=== PATIENT | female | born 1985 | race African-American/Black ===

== ENCOUNTER 2017-04-01 14:58 | Emergency (ER) | payer OTHER ==
[2017-04-01] MEDS ORDERED: diPHENhydraMINE PO* 50 MG PO ONE (15:35)
[2017-04-01] MEDS ORDERED: predniSONE TAB* 20 MG PO ONE (15:35)
--- NOTE | 2017-04-01 17:02 | ED ---
Allergic Reaction/Systemic - HPI Summary HPI Summary: 31F presents with swelling to chest after stunk by bee. admits to nausea. states has hives on legs although none seen. denies any difficulty swallowing or SOB. has chest wall pain over bee. has history of some reaction to bee stings that can not remember as happened when was younger. did not take anything. - History of Current Complaint Chief Complaint: EDGeneral Time Seen by Provider: 04/01/17 15:34 Hx Last Menstrual Period: 06/18/16 Pain Intensity: 8 - Allergies/Home Medications Allergies/Adverse Reactions: Allergies Allergy/AdvReac Type Severity Reaction Status Date / Time Iodinated Contrast Media Allergy Severe ITCHING, Verified 06/22/16 13:22 [IV CONTRAST DYE] HIVES CI Pigment Blue 63 Allergy Intermediate Hives Verified 06/22/16 13:22 [From Tamiflu] Oseltamivir [From Tamiflu] Allergy Intermediate Hives Verified 06/22/16 13:22 PMH/Surg Hx/FS Hx/Imm Hx Endocrine/Hematology History: Reports: Hx Diabetes - NIDDM Denies: Hx Anticoagulant Therapy Cardiovascular History: Reports: Hx Hypertension Denies: Hx Congestive Heart Failure, Hx Pacemaker/ICD, Other Cardiovascular Problems/Disorders Respiratory History: Reports: Hx Asthma, Hx Chronic Obstructive Pulmonary Disease (COPD), Hx Pneumonia, Hx Sleep Apnea - new BiPAP user, some compliance issues Denies: Other Respiratory Problems/Disorders GI History: Denies: Hx Ulcer Musculoskeletal History: Reports: Other Musculoskeletal History - morbid obesity Sensory History: Denies: Hx Hearing Aid Psychiatric History: Reports: Hx Anxiety - prn ativan, Hx Depression Denies: Hx Panic Disorder - Cancer History Hx Chemotherapy: No Hx Radiation Therapy: No - Surgical History Surgery Procedure, Year, and Place: APPENDECTOMY, CHOLECYSTECTOMY, 2 C-SECTIONS , EXPLORATORY SURGERY & F/U SURGERY FOR INFECTION - ABD. REMOVE FOREIGN OBJECT A KID IN EAR. TRIGGER THUMB RIGHT, DEEP VEIN RELEASE HAND - Immunization History Date of Tetanus Vaccine: Unk Date of Influenza Vaccine: Fall 2013 Infectious Disease History: No Infectious Disease History: Denies: Hx Clostridium Difficile, Hx Hepatitis, Hx Human Immunodeficiency Virus (HIV), Hx of Known/Suspected MRSA, History Other Infectious Disease, Traveled Outside the [place] in Last 30 Days - Family History Known Family History: Positive: Hypertension, Diabetes, Respiratory Disease - Social History Alcohol Use: Rare Substance Use Type: Reports: None Substance Use Comment - Amount & Last Used: Hx cocaine use, none currently Hx Tobacco Use: Yes Smoking Status (MU): Former Smoker Type: Cigarettes Amount Used/How Often: started to smoke again today Length of Time of Smoking/Using Tobacco: 5 years Have You Smoked in the Last Year: Yes Review of Systems Negative: Fever Positive: Chest Pain Negative: Shortness Of Breath Positive: Rash All Other Systems Reviewed And Are Negative: Yes Physical Exam Triage Information Reviewed: Yes Vital Signs On Initial Exam: Initial Vitals Temp Pulse Resp BP Pulse Ox 98.1 F 78 18 157/90 98 04/01/17 15:03 04/01/17 15:03 04/01/17 15:03 04/01/17 15:03 04/01/17 15:03 Vital Signs Reviewed: Yes Appearance: Positive: Well-Appearing Skin: Positive: Warm, Dry, Other - erythema to chest wall on left side with minimial swelling Head/Face: Positive: Normal Head/Face Inspection Eyes: Positive: Normal, EOMI, JASMEET, Conjunctiva Clear ENT: Positive: Normal ENT inspection, Pharynx normal, TMs normal Respiratory/Lung Sounds: Positive: Clear to Auscultation, Breath Sounds Present Cardiovascular: Positive: Normal, RRR Diagnostics - Vital Signs Vital Signs Temp Pulse Resp BP Pulse Ox 04/01/17 15:32 98.1 F 72 16 133/77 97 04/01/17 15:03 98.1 F 78 18 157/90 98 - Laboratory Lab Statement: Any lab studies that have been ordered have been reviewed, and results considered in the medical decision making process. Allergic Reaction Course/Dx - Course Course Of Treatment: 31F presents with swelling to chest after stunk by bee. admits to nausea. states has hives on legs although none seen. denies any difficulty swallowing or SOB. has chest wall pain over bee. has history of some reaction to bee stings that can not remember as happened when was younger. did not take anything. on exam 6cm erythema to left side of chest with minimal swelling. lungs CTA. throat normal. no hives leg. abdomen nontender. will treat with steriod and bendaryl. patient states in ED two hours and no anaphlyatic reaction. will d/c with steriod. patient understands and agrees wtih plan. - Diagnoses Differential Diagnosis/HQI/PQRI: Positive: Anaphylaxis, Local Allergic Reaction , Urticaria Provider Diagnoses: Bee sting Discharge - Discharge Plan Condition: Good Disposition: HOME Prescriptions: predniSONE TAB* [Deltasone TAB*] 40 mg PO DAILY #8 tab Patient Education Materials: Insect Bite or Sting (ED) Referrals: Huma Gilbert MD [Primary Care Provider] - Additional Instructions: Take Benadryl every 6 hours for next 24 hours Take steroid once a day for 4 days starting tomorrow Return to ED if severe shortness of breath, difficulty swallowing, or if develop any new or worsening symptoms
[2017-04-01 17:11] VITALS: BP 142/78
== END 2017-04-01 17:10 | disposition home or self-care (01) ==
LOC: ED 14:58
DX: T63.441A Toxic effect of venom of bees, accidental (unintentional), initial encounter (principal); R07.9 Chest pain, unspecified; R21 Rash and other nonspecific skin eruption; Z87.891 Personal history of nicotine dependence; Y92.9 Unspecified place or not applicable
CPT/HCPCS: 99282; A9270-GY; J7512

== ENCOUNTER 2017-06-08 13:45 | Emergency (ER) | payer OTHER ==
[2017-06-08] MEDS ORDERED: Albuterol/Ipratropium NEB.SOL* Albuterol 2.5 MG/Ipratropium 0.5 MG 3 ML INH ONE (15:04)
--- NOTE | 2017-06-08 15:36 | RAD ---
Indication: Shortness of breath, wheezing, fever. Productive cough. History of tobacco use. Comparison: September 21, 2015 Technique: Upright AP 1515 hours Report: Obese body habitus results in artifactual haziness of the lungs. Bilateral first costochondral calcifications noted. Clear lungs and pleural spaces. Negative for pneumothorax. The heart, pulmonary vasculature, and mediastinal contours are unremarkable. IMPRESSION: No evidence for pneumonia. Based on correlation with the previous lateral chest radiograph lung volume are elevated suggesting potential chronic obstructive pulmonary disease.
[2017-06-08 16:00] LABS: ALT 12 U/L (7-52); Alkaline Phosphatase 62 U/L (34-104); BUN/Creatinine Ratio 10.5 (8-20); Blood Urea Nitrogen 9 mg/dL (6-24); CO2 Carbon Dioxide 27 mmol/L (22-32); Calcium 9.1 mg/dL (8.6-10.3); Chloride 99 mmol/L (101-111); EGFR African American 98.3 (>60); EGFR Non-African American 76.5 (>60); Globulin 3.7 g/dL (2-4); Glucose 373 mg/dL (70-100); Sodium 129 mmol/L (133-145); Total Protein 7.7 g/dL (6.4-8.9)
[2017-06-08 16:04] LABS: Anion Gap 3 mmol/L (2-11)
[2017-06-08 16:56] LABS: Venous Bicarbonate HCO3 27.5 mmol/L (24-28)
[2017-06-08 16:58] LABS: Hematocrit 40 % (35-47); Mean Corpuscular HGB Conc 32 g/dl (31-36); Mean Corpuscular Hemoglobin 28 pg (27-31); Mean Corpuscular Volume 86 fL (80-97); Mean Platelet Volume 8 um3 (7.4-10.4); Red Blood Count 4.68 10^6/ul (4.0-5.4); Red Cell Distribution Width 13 % (10.5-15); White Blood Count 7.3 10^3/ul (3.5-10.8)
[2017-06-08] MEDS ORDERED: methylPREDNISolone 125 MG* 2 ML VIAL IV ONE (17:57)
[2017-06-08] MEDS ORDERED: guaiFENesin/CODIEN 100MG-10MG* 5 ML UDC PO ONE (17:58)
[2017-06-08] MEDS ORDERED: Ketorolac INJ* 30 MG/ML 1 ML VIAL IV PUSH ONE (17:58)
[2017-06-08] MEDS ORDERED: Ketorolac INJ* 60 MG/2 ML VIAL IM ONE (18:17)
[2017-06-08] MEDS ORDERED: methylPREDNISolone 125 MG* 2 ML VIAL IM ONE (18:17)
[2017-06-08 18:52] LABS: Urine Bilirubin Negative (Negative); Urine Glucose 3+(>=500 mg/dL) (Negative); Urine Nitrite Negative (Negative)
[2017-06-08 19:28] VITALS: BP 136/58
--- NOTE | 2017-06-08 21:58 | ED ---
Henri Jaimes Thomas, scribed for Wilfrido Darnell MD on 06/08/17 at 1521 . Respiratory - HPI Summary HPI Summary: The pt is a 31 y/o F presenting to the ED c/o a cough with yellow-green production that began four days ago. The cough is aggravated by deep breathing and is alleviated by inhalers at home. Pt additionally c/o chills, rhinorrhea, sore throat, chest pain, abdominal pain, ear pain, myalgia, and shoulder pain. Pt denies vomiting. PMHx includes asthma, DM, HTN, and PNA. - History of Current Complaint Chief Complaint: EDFluSymptoms Stated Complaint: DIFF BREATHING/FLU LIKE SYMPTOMS Time Seen by Provider: 06/08/17 14:51 Hx Obtained From: Patient Onset/Duration: Lasting Days - 4, Still Present Current Severity: Moderate Pain Intensity: 6 Character: Cough (Productive) Sputum Color: Yellow, Green Aggravating Factor(s): Deep Breaths Alleviating Factor(s): Other - Inhalers Associated Signs and Symptoms: Chest Pain, Chills - Allergy/Home Medications Allergies/Adverse Reactions: Allergies Allergy/AdvReac Type Severity Reaction Status Date / Time Iodinated Contrast Media Allergy Severe ITCHING, Verified 06/22/16 13:22 [IV CONTRAST DYE] HIVES CI Pigment Blue 63 Allergy Intermediate Hives Verified 06/22/16 13:22 [From Tamiflu] Oseltamivir [From Tamiflu] Allergy Intermediate Hives Verified 06/22/16 13:22 PMH/Surg Hx/FS Hx/Imm Hx Previously Healthy: No Endocrine/Hematology History: Reports: Hx Diabetes - NIDDM Denies: Hx Anticoagulant Therapy Cardiovascular History: Reports: Hx Hypertension Denies: Hx Congestive Heart Failure, Hx Pacemaker/ICD, Other Cardiovascular Problems/Disorders Respiratory History: Reports: Hx Asthma, Hx Chronic Obstructive Pulmonary Disease (COPD), Hx Pneumonia, Hx Sleep Apnea - new BiPAP user, some compliance issues Denies: Other Respiratory Problems/Disorders GI History: Denies: Hx Ulcer Musculoskeletal History: Reports: Other Musculoskeletal History - morbid obesity Sensory History: Denies: Hx Hearing Aid Psychiatric History: Reports: Hx Anxiety - prn ativan, Hx Depression Denies: Hx Panic Disorder - Cancer History Hx Chemotherapy: No Hx Radiation Therapy: No - Surgical History Surgery Procedure, Year, and Place: APPENDECTOMY, CHOLECYSTECTOMY, 2 C-SECTIONS , EXPLORATORY SURGERY & F/U SURGERY FOR INFECTION - ABD. REMOVE FOREIGN OBJECT A KID IN EAR. TRIGGER THUMB RIGHT, DEEP VEIN RELEASE HAND - Immunization History Date of Tetanus Vaccine: Unk Date of Influenza Vaccine: Fall 2013 Infectious Disease History: No Infectious Disease History: Denies: Hx Clostridium Difficile, Hx Hepatitis, Hx Human Immunodeficiency Virus (HIV), Hx of Known/Suspected MRSA, History Other Infectious Disease, Traveled Outside the [place] in Last 30 Days - Family History Known Family History: Positive: Hypertension, Diabetes, Respiratory Disease - Social History Alcohol Use: Rare Substance Use Type: Reports: None Substance Use Comment - Amount & Last Used: Hx cocaine use, none currently Hx Tobacco Use: Yes Smoking Status (MU): Former Smoker Type: Cigarettes Amount Used/How Often: started to smoke again today Length of Time of Smoking/Using Tobacco: 5 years Have You Smoked in the Last Year: Yes Review of Systems Positive: Chills. Negative: Fever Negative: Erythema - eyes Positive: Ear Ache, Nasal Discharge. Negative: Sore Throat Positive: Chest Pain Positive: Cough. Negative: Shortness Of Breath Positive: Abdominal Pain. Negative: Vomiting, Nausea Negative: dysuria, hematuria Positive: Myalgia, Other - Shoulder pain Negative: Rash Neurological: Other - NEGATIVE: dizziness All Other Systems Reviewed And Are Negative: Yes Physical Exam - Summary Physical Exam Summary: Constitutional: Well-developed, Well-nourished, Alert. (-) Distressed Skin: Warm, Dry HENT: Normocephalic; Atraumatic Eyes: Conjunctiva normal Neck: Musculoskeletal ROM normal neck. (-) JVD, (-) Stridor, (-) Tracheal deviation Cardio: Rhythm regular, rate normal, Heart sounds normal; Intact distal pulses; The pedal pulses are 2+ and symmetric. Radial pulses are 2+ and symmetric. (-) Murmur Pulmonary/Chest wall: She has diffuse wheezing. Effort normal. (-) Respiratory distress, (-) Rales Abd: Soft, (-) Tenderness, (-) Distension, (-) Guarding, (-) Rebound Musculoskeletal: (-) Edema Lymph: (-) Cervical adenopathy Neuro: Alert, Oriented x3 Psych: Mood and affect Normal Triage Information Reviewed: Yes Vital Signs On Initial Exam: Initial Vitals Temp Pulse Resp BP Pulse Ox 98.9 F 107 24 130/77 93 06/08/17 14:10 06/08/17 14:10 06/08/17 14:10 06/08/17 14:10 06/08/17 14:10 Vital Signs Reviewed: Yes - Victor Coma Scale Coma Scale Total: 15 Diagnostics - Vital Signs Vital Signs Temp Pulse Resp BP Pulse Ox 06/08/17 14:10 98.9 F 107 24 130/77 93 - Laboratory Result Diagrams: 06/08/17 16:30 06/08/17 16:30 Lab Statement: Any lab studies that have been ordered have been reviewed, and results considered in the medical decision making process. - Radiology CXR Xray Interpretation: Positive (See Comments) - No evidence for pneumonia. Based on correlation with the previous lateral chest radiograph lung volume are elevated suggesting potential chronic obstructive pulmonary disease. ED physician has reviewed this report and agrees. Radiology Interpretation Completed By: Radiologist Re-Evaluation - Re-Evaluation First Eval Re-Evaluation Time: 19:54 Change: Improved Comment: She is feeling better. Disposition - Course Assessment/Plan: The pt is a 31 y/o F presenting to the ED c/o a cough with yellow-green production that began four days ago. The cough is aggravated by deep breathing and is alleviated by inhalers at home. Pt additionally c/o chills , rhinorrhea, sore throat, chest pain, abdominal pain, ear pain, myalgia, and shoulder pain. Pt denies vomiting. PMHx includes asthma, DM, HTN, and PNA. In the ED course the patient was given Duoneb, Robitussin, Toradol, and Solu- Medrol. Bloodwork shows Sodium 129, Chloride 99, glucose 373. VBG shows CO2 55, pO2 32, O2 Sat 69.7, and Base Excess 4.3. CXR shows No evidence for pneumonia. Based on correlation with the previous lateral chest radiograph lung volume are elevated suggesting potential chronic obstructive pulmonary disease. The patient is diagnosed with bronchitis. The patient is instructed to follow up with primary care. The patient is prescribed prednisone. Patient is agreeable with this plan. - Diagnoses Provider Diagnoses: Bronchitis Discharge - Discharge Plan Condition: Stable Disposition: HOME Prescriptions: Guaifenesin-Codeine [Codeine/Guaifenesin 100-10 mg/5Ml] 5 ml PO BEDTIME #25 ml MDD 5 ML predniSONE TAB* [Deltasone TAB*] 20 mg PO DAILY #5 tab Patient Education Materials: Acute Bronchitis (ED) Referrals: Huma Gilbert MD [Primary Care Provider] - 3 Days Additional Instructions: You need to increase your Humalog insulin by 5 units for each dose while you are on Prednisone. Follow up with your primary care provider in 3 days. Return to the emergency department for any new or worsening symptoms. The documentation as recorded by the Henri howard Thomas accurately reflects the service I personally performed and the decisions made by me, Wilfrido Darnell MD.
== END 2017-06-08 20:05 | disposition home or self-care (01) ==
LOC: ED 13:45
DX: J40 Bronchitis, not specified as acute or chronic (principal); R05 Cough; Z87.891 Personal history of nicotine dependence; Z86.79 Personal history of other diseases of the circulatory system; E11.9 Type 2 diabetes mellitus without complications
CPT/HCPCS: 36415; 71010; 80053; 81003; 82803; 83605; 85025; 85610; 85730; 87040; 87502; 94640; 96372; 96374; 99283; A9270-GY; J1885; J2930

== ENCOUNTER 2017-09-23 08:09 | Emergency (ER) | payer OTHER ==
--- NOTE | 2017-09-23 10:45 | ED ---
Henri Jaimes Thomas, scribed for Hollis Lynn MD on 09/23/17 at 1021 . Skin Complaint - HPI Summary HPI Summary: The patient is a 31 year old female complaining of an ulceration to the cleft of her right buttock. She first noticed a bump about a week ago that has progressively grown in size. Since onset, there has been fluid drainage. The pain is rated 8/10. The patient has been treating the abscess with warm soapy water and covering it with gauze. The patient denies fevers and chills. - History of Current Complaint Chief Complaint: EDRashSkinAbscess Time Seen by Provider: 09/23/17 10:13 Stated Complaint: ABCESS Hx Obtained From: Patient Hx Last Menstrual Period: 06/18/16 Onset/Duration: Started Weeks Ago - 1, Still Present Timing: Constant Current Severity: Moderate Pain Intensity: 8 Pain Scale Used: 0-10 Numeric Skin Location: Other: - cleft of right buttock Character: Pain Aggravating Symptom(s): Nothing Alleviating Symptom(s): Other: - Warm soapy water Associated Signs & Symptoms: Negative - fever, chills Related History: Diabetes - Allergy/Home Medications Allergies/Adverse Reactions: Allergies Allergy/AdvReac Type Severity Reaction Status Date / Time MS Iodinated Contrast Media Allergy Severe ITCHING, Verified 09/23/17 08:11 [IV CONTRAST DYE] HIVES MS CI Pigment Blue 63 Allergy Intermediate Hives Verified 09/23/17 08:11 [From Tamiflu] MS Oseltamivir [From Tamiflu] Allergy Intermediate Hives Verified 09/23/17 08:11 PMH/Surg Hx/FS Hx/Imm Hx Endocrine/Hematology History: Reports: Hx Diabetes - NIDDM Denies: Hx Anticoagulant Therapy Cardiovascular History: Reports: Hx Hypertension Denies: Hx Congestive Heart Failure, Hx Pacemaker/ICD, Other Cardiovascular Problems/Disorders Respiratory History: Reports: Hx Asthma, Hx Chronic Obstructive Pulmonary Disease (COPD), Hx Pneumonia, Hx Sleep Apnea - new BiPAP user, some compliance issues Denies: Other Respiratory Problems/Disorders GI History: Denies: Hx Ulcer History: Denies: Hx Renal Disease Musculoskeletal History: Reports: Other Musculoskeletal History - morbid obesity Sensory History: Denies: Hx Hearing Aid Psychiatric History: Reports: Hx Anxiety - prn ativan, Hx Depression Denies: Hx Panic Disorder - Cancer History Hx Chemotherapy: No Hx Radiation Therapy: No - Surgical History Surgery Procedure, Year, and Place: APPENDECTOMY, CHOLECYSTECTOMY, 2 C-SECTIONS , EXPLORATORY SURGERY & F/U SURGERY FOR INFECTION - ABD. REMOVE FOREIGN OBJECT A KID IN EAR. TRIGGER THUMB RIGHT, DEEP VEIN RELEASE HAND - Immunization History Date of Tetanus Vaccine: Unk Date of Influenza Vaccine: Fall 2013 Infectious Disease History: No Infectious Disease History: Denies: Hx Clostridium Difficile, Hx Hepatitis, Hx Human Immunodeficiency Virus (HIV), Hx of Known/Suspected MRSA, History Other Infectious Disease, Traveled Outside the [place] in Last 30 Days - Family History Known Family History: Positive: Hypertension, Diabetes, Respiratory Disease - Social History Alcohol Use: Rare Substance Use Type: Reports: None Substance Use Comment - Amount & Last Used: Hx cocaine use, none currently Hx Tobacco Use: Yes Smoking Status (MU): Former Smoker Type: Cigarettes Amount Used/How Often: started to smoke again today Length of Time of Smoking/Using Tobacco: 5 years Have You Smoked in the Last Year: Yes Review of Systems Negative: Fever, Chills Positive: Other - Ulceration All Other Systems Reviewed And Are Negative: Yes Physical Exam - Summary Physical Exam Summary: General: well-appearing, no pain distress Skin: She has a 2.5 cm diameter ulceration in the cleft of her right buttock. There is firmness surrounding as well as erythema. There is no obvious fluid pocket for drainage. Head: normal Eyes: EOMI, JASMEET ENT: normal Neck: supple, nontender Respiratory: CTA, breath sounds present Cardiovascular: RRR Abdomen: soft, nontender Bowel: present Musculoskeletal: normal, strength/ROM intact Neurological: normal, sensory/motor intact, A&O x3 Psychological: affect/mood appropriate Triage Information Reviewed: Yes Vital Signs On Initial Exam: Initial Vitals Temp Pulse Resp BP Pulse Ox 97.8 F 123 20 177/110 100 09/23/17 08:11 09/23/17 08:11 09/23/17 08:11 09/23/17 08:11 09/23/17 08:11 Vital Signs Reviewed: Yes Diagnostics - Vital Signs Vital Signs Temp Pulse Resp BP Pulse Ox 09/23/17 08:11 97.8 F 123 20 177/110 100 - Laboratory Lab Statement: Any lab studies that have been ordered have been reviewed, and results considered in the medical decision making process. Course/Dx - Course Course Of Treatment: Medications reviewed. Allergies noted. BP noted and patient urged to follow up with primary care. NO ABSCESS TO DRAIN. NO DRAINAGE TO CULTURE AT THIS TIME. RX BACTRIM, KEFLEX AND MUPIROCIN. F/U [facility] - Diagnoses Provider Diagnoses: Uncontrolled hypertension, Cellulitis, Non-healing wound Discharge - Discharge Plan Condition: Stable Disposition: HOME Prescriptions: Cephalexin CAP* [Keflex CAP*] 500 mg PO QID #40 cap Mupirocin 2% OINT* [Bactroban 2 % Oint*] 1 applic TOPICAL BID #1 tube Sulfamethox/Trimethoprim DS* [Bactrim DS 800/160 TAB*] 1 tab PO BID #20 tab Patient Education Materials: Cellulitis (ED) Referrals: [facility] [Outside] Huma Gilbert MD [Primary Care Provider] - Additional Instructions: FOLLOW UP WITH YOUR PRIMARY CARE DOCTOR AND THE [facility] , [phone]. RETURN TO THE EMERGENCY DEPARTMENT FOR ANY WORSENING OF YOUR CONDITION OR QUESTIONS OR CONCERNS. YOUR BLOOD PRESSURE WAS ELEVATED TODAY; FOLLOW UP WITH YOUR PRIMARY CARE DOCTOR WITHIN THE NEXT 1 WEEK. The documentation as recorded by the Henri howard Thomas accurately reflects the service I personally performed and the decisions made by me, Hollis Lynn MD.
[2017-09-23] MEDS ORDERED: Mupirocin 2% OINT* TUBE TOPICAL ONE (11:16)
[2017-09-23 11:44] VITALS: BP 168/119
== END 2017-09-23 11:42 | disposition home or self-care (01) ==
LOC: ED 08:09
DX: I10 Essential (primary) hypertension (principal); L03.90 Cellulitis, unspecified; L98.499 Non-pressure chronic ulcer of skin of other sites with unspecified severity
CPT/HCPCS: 99283

== ENCOUNTER 2017-12-24 20:45 | Emergency (ER) | payer SELFPAY ==
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
[2017-12-25] MEDS ORDERED: Ibuprofen TAB* 600 MG PO ONE (00:13)
[2017-12-25] MEDS ORDERED: Acetaminophen TAB* 325 MG PO ONE (00:13)
[2017-12-25 01:03] VITALS: BP 138/115
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
== END 2017-12-25 01:02 | disposition home or self-care (01) ==
LOC: ED 20:45
DX: M25.512 Pain in left shoulder (principal); R07.81 Pleurodynia; M25.552 Pain in left hip; M79.652 Pain in left thigh; V43.52XA Car driver injured in collision with other type car in traffic accident, initial encounter; Y92.410 Unspecified street and highway as the place of occurrence of the external cause; E11.9 Type 2 diabetes mellitus without complications; I10 Essential (primary) hypertension; J44.9 Chronic obstructive pulmonary disease, unspecified; F41.8 Other specified anxiety disorders; F17.200 Nicotine dependence, unspecified, uncomplicated; Z79.84 Long term (current) use of oral hypoglycemic drugs; Z79.899 Other long term (current) drug therapy; Z91.041 Radiographic dye allergy status; Z88.3 Allergy status to other anti-infective agents
CPT/HCPCS: 72110; 99283; A9270-GY

== ENCOUNTER 2018-03-07 18:43 | Emergency (ER) | payer OTHER ==
--- OUTSIDE RECORDS SUMMARY | 2018-03-07 18:53 | XMS REPORT ---
:1985 External Reference #:[id number] Author Organization [facility] Address [address] [place] [address] Phone [phone] Care Team Providers Name Role Phone Huma Gilbert MD Primary Care Physician Unavailable Payers Type Date Identification Numbers Payment Provider Subscriber Commercial Policy Number: [id number] Mark Cornejo Group Number: [id number] [address] PayID: [id number] [place] [address] Problems Date Description Provider Status Onset: 05/28/2016 Morbid obesity Milena La MD Active Onset: 05/28/2016 Asthma without status asthmaticus Milena La MD Active Onset: 05/28/2016 Gastroesophageal reflux disease Milena La MD Active Onset: 06/09/2016 Obstructive sleep apnea syndrome Esther Verdugo DNP, RN, Active [facility]- Onset: 08/13/2016 Type II diabetes mellitus Alex Luna NP Active uncontrolled Onset: 08/13/2016 Bipolar disorder Alex Luna NP Active Onset: 08/13/2016 Posttraumatic stress disorder Alex Luna NP Active Onset: 10/28/2016 Essential hypertension Alex Luna NP Active Onset: 10/28/2016 Chronic low back pain Alex Luna NP Active Onset: 10/16/2015 Atypical squamous cells of Alex Luna NP Active undetermined significance on cervical Papanicolaou smear Family History Date Family Member(s) Problem(s) Comments General Diabetes General Heart Disease Father Coronary Artery Disease (CAD) Father Diabetes Father Hypertension Father Kidney Disease Mother Congestive Heart Failure (CHF) Mother Hypertension Mother Bipolar Disorder Onset: (08/13/2016) First Son 5 healthy Onset: (08/13/2016) First Daughter 6 healthy Siblings 1 Brother who at age 40 with blood clots brother with asthma Onset: (08/13/2016) Second Brother 34 HTN, DM Onset: (08/13/2016) Third Brother 33 sickel cell trait Social History Type Date Description Comments Marital Status Significant Other female Lives With Children Occupation Homemaker ETOH Use Rarely consumes alcohol Smoking Patient is a former smoker 1 pack X 3 weeks X 2 years. Recreational Drug Use Former Drug User marijuana; not regular use Daily Caffeine occasional coffee or tea Exercise Type/Frequency Does not exercise Allergies, Adverse Reactions, Alerts Date Description Reaction Status Severity Comments 11/29/2014 Tamiflu active 05/28/2016 Ibuprofen active 08/13/2016 Contrast Dye/Morphine combo itching intensely active Severe 07/20/2013 NKDA inactive Medications Medication Date Status Form Strength Qnty SIG Indications Ordering Provider Zonisamide 12/23 Active Capsules 100mg 30cap 1 capsule by G43.009 Adalid SThompson s mouth at [place], bedtime M.D. Sumatriptan 03/24 Active Solution 4mg/0.5ML 12uni 1 injection G43.009 Adalid Vang Auto-Inje ts twice daily [place], [place] as needed on M.D. no more than 2 days/week. please include autoinjector with instructions. Bydureon 11/10 Active Pen 2mg 4unit inject 2 mg E11.65 s sc weekly ANTELMO Luna Freestyle Lite 08/19 Active Strips 100un test up to 4 E11.65 Alex Test its times a day ANTELMO Luna Aspirin 08/13 Active Tablets 81mg 90tab [address] barclay every day ANTELMO Luna Lisinopril 05/28 Active Tablets 30mg 90tab 1 by mouth E11.65 Tono s every day Tenisha Shah M.D.,FACP Zantac 05/28 Active Tablets 300mg 90tab 1 tab by K21.9 s mouth every [place], day every [employer] night Advair Diskus 05/27 Active Aerosol 500-50mcg inhale 1 dose J45.909 /Dose by mouth twice a day Cyclobenzaprine 05/27 Active Tablets 10mg 90tab one by mouth M54.42 Alex HCL /2015 s three times a [place], day as needed [employer] spasm M54.41 Fluticasone 05/27/2016 Active Suspension 50mcg/Act 9.900ml 2 sprays J30.9 Alex Propionate each [place], nostril [employer] daily as needed Levocetirizine 05/27/2016 Active Tablets 5mg 90tabs 1 by mouth J30.9 Alex Dihydrochlorid every day [place], e [employer] Metformin HCL 05/27/2016 Active Tablets ER 750mg 180tabs take two E11.65 Alex ER 24HR tablets by [place], mouth [employer] every day Lyrica 05/27/2016 Active Capsules 150mg 1 by mouth E11.40 Unknown twice a day Ondansetron 05/27/2016 Active Tablets 4mg 30tabs dissolve G43.10 Alex Dispers one tablet 9 [place], orally [employer] every 8 hours as needed for nausea. Pantoprazole 05/27/[address] 40mg 90tabs 1 by mouth K21.9 Alex Sodium every day [place], [employer] Saphris 05/27/2016 Active Tablets Sub 7.5mg daily F31.9 Unknown Ventolin HFA 05/27/2016 Active Aerosol 108(90Base 8gm 2 puffs by J45.90 Alex ) mcg/Act mouth four 9 [place], times a [employer] day as needed Zolmitriptan 05/27/2016 Active Tablets 5mg 14tabs 1 tab by G43.10 Alex mouth 9 [place], twice a [employer] day maximum 2 days weekly Glipizide Active Tablets 5mg 1 by mouth Unknown every day Zonisamide 03/24/2017 Hx Capsules 25mg 120caps 4 po qhs G43.00 Adalid Palma, 12/23/2017 Rai Alprazolam 05/27/2016 Hx Tablets 2mg 1-3 tabs F43.10 Unknown - three 03/23/2017 times a day as needed Benzonatate 05/27/2016 Hx Capsules 200mg one by Unknown - mouth 05/27/2016 three times daily as needed for cough Bupropion HCL 05/27/2016 Hx Tablets ER 300mg 1 by mouth F31.9 Unknown ER (XL) - 24HR every day 03/23/2017 Fluconazole 05/27/2016 Hx Tablets 150mg one by Unknown - mouth 08/13/2016 repeat in 3 days as needed Humalog 05/27/2016 Hx Solution 200Unit/ML 6ml 20 units E11.65 Alex Kwikpen - Pen-Inject three [place], 09/01/2016 times [employer] daily as needed dx: E11.65 Hydrocodone-Ac 05/27/2016 Hx Tablets 5-325mg 1 by mouth Unknown etaminophen - every 4-6 05/27/2016 hours prn. Ipratropium 05/27/2016 Hx Solution 0.06% 2 sprays J30.9 Unknown [place] - in each 08/13/2016 nostril 4 times a day as needed Ipratropium 05/27/2016 Hx Solution 0.5-2.5(3) 1 vial in J45.90 Unknown [place] - mg/3ML nebulizer 9 rol Sulfate 08/13/2016 three times a day as needed for asthma Levemir 05/27/2016 Hx Solution 100Unit/ML 10ml 50 units E11.65 Alex - twice [place], 09/01/2016 daily as [employer] needed dx: e11.65 Lisinopril 05/27/2016 Hx Tablets 30mg 1 by mouth Unknown - every day 08/13/2016 Loratadine 05/27/2016 Hx Tablets 10mg 1 by mouth J30.9 Unknown - every day 08/13/2016 Montelukast 05/27/2016 Hx Tablets 10mg 1 by mouth Unknown Sodium - every day 05/27/2016 Movantik 05/27/2016 Hx Tablets 25mg 30tabs 1 by mouth K59.03 Alex - every day [place], 03/23/2017 [employer] Oxycodone HCL 05/27/2016 Hx Tablets 10mg 1 by mouth M54.42 Unknown - every 6 08/13/2016 hours as needed pain M54.41 Sudafed 12 Hour 05/27/2016 - Hx Tablets ER 120mg Not taking1 Unknown 08/13/2016 12HR tab by mouth every 12 hours as needed Tizanidine HCL 05/27/2016 - Hx Capsules 4mg 1 three times M54.42 Unknown 08/13/2016 a day as needed M54.41 Topiramate 05/27/2016 - Hx Tablets 100mg 60tabs 1 by mouth G43.109 Alex 02/18/2018 twice a [place], [employer] day Trulicity 05/27/2016 - Hx Solution 1.5mg/0.5 2ml inject sc E11.65 Alex 11/10/2016 Pen-Inject ML weekly ANTELMO Luna - Hx Not taking Unknown 08/13/2016 Medications Administered in Office Medication Date Status Form Strength Qnty SIG Indications Ordering Provider Depomedrol Administered Injection Robyn 80MG 015 Rai Bustos Depomedrol Administered Injection Ildefonso Talavera 80MG 014 Rai Immunizations CPT Code Status Date Vaccine Lot # [id number] Given 08/13/2016 Pneumonia Vaccine [id number] Given 05/28/2016 Influenza Virus Vaccine, Quadrivalent, Split [id number] Virus, Im Use Vital Signs Date Vital Result Comment 02/18/2018 Height 65 inches 5'5" Weight 282.00 lb Heart Rate 82 /min BP Systolic Sitting 122 mmHg BP Diastolic Sitting 72 mmHg Respiratory Rate 16 /min BMI (Body Mass Index) 46.9 kg/m2 03/24/2017 Height 65 inches 5'5" Weight 303.12 lb Heart Rate 72 /min BP Systolic 130 mmHg BP Diastolic 80 mmHg BMI (Body Mass Index) 50.4 kg/m2 08/31/2016 Weight 311.12 lb Heart Rate 97 /min BP Systolic Sitting 146 mmHg BP Diastolic Sitting 80 mmHg Body Temperature 98.6 F O2 % BldC Oximetry 98 % 08/13/2016 Height 65 inches 5'5" Weight 301.00 lb Heart Rate 100 /min BP Systolic Sitting 124 mmHg BP Diastolic Sitting 94 mmHg Body Temperature 97.8 F O2 % BldC Oximetry 98 % BMI (Body Mass Index) 50.1 kg/m2 07/22/2016 Height 65 inches 5'5" Weight 316.00 lb Heart Rate 92 /min BP Systolic 124 mmHg BP Diastolic 72 mmHg Respiratory Rate 14 /min O2 % BldC Oximetry 96 % BMI (Body Mass Index) 52.6 kg/m2 06/09/2016 Height 65 inches 5'5" Weight 316.00 lb Heart Rate 106 /min BP Systolic Sitting 130 mmHg BP Diastolic Sitting 75 mmHg Respiratory Rate 18 /min O2 % BldC Oximetry 98 % BMI (Body Mass Index) 52.6 kg/m2 05/28/2016 Height 64.75 inches 5'4.75" Weight 316.25 lb Heart Rate 74 /min BP Systolic 128 mmHg BP Diastolic 80 mmHg Respiratory Rate 14 /min O2 % BldC Oximetry 96 % BMI (Body Mass Index) 53.0 kg/m2 Neck Circumference in inches 17 11/29/2014 Height 64.75 inches 5'4.75" Weight 323.00 lb Heart Rate 90 /min BP Systolic 110 mmHg BP Diastolic 73 mmHg Pain Level 7 BMI (Body Mass Index) 54.2 kg/m2 08/08/2013 Height 64.75 inches 5'4.75" Weight 340.00 lb Heart Rate 82 /min BP Systolic 126 mmHg BP Diastolic 74 mmHg BMI (Body Mass Index) 57.0 kg/m2 Results Test Date Test Result H/L Range Note Laboratory test finding 08/13/2016 Hemoglobin A1c 13.2 High 5-7 Procedures Date CPT Code Description Status 05/31/2016 05869 Sleep Study Unattended,HRT Rate,Oxygen Sat,Resp Completed Effort/Airflow 11/29/2014 40313 Inject Tendon Sheath Or Ligament Aponeurosis Eg Plantar Completed Fascia 10/09/2013 36584 Polysomnography Sleep Staging 4+ Parameters W/Cpap Completed 09/13/2013 34991 Polysomnography Sleep Staging 4+ Parameters W/Cpap Completed 08/15/2013 19603 Inject/Drain Joint/Bursa Major W/O US Completed 08/15/2013 76187 Inject Tendon Sheath Or Ligament Aponeurosis Eg Plantar Completed Fascia Encounters Type Date Location Provider CPT E/M Dx Office Visit 03/24/2017 [facility] Adalid Palma, 70088 G43.009 11:00a M.D. Office Visit 08/31/2016 [facility] [place] [address] [address]11[address]65 1:[address] M54.41 M54.42 G43.109 Z79.4 Office Visit 08/13/2016 1:20p [facility] [place] [address] J45.909 F31.9 F43.10 K21.9 M54.41 M54.42 G43.109 Z23 Office Visit 07/22/2016 1:30p [facility] Esther Verdugo, 00047 G47.33 [facility] [place], RN, TIMBER APPRAISER-BC E66.01 Z68.43 Office Visit 06/09/2016 10:30a [facility] Esther Verdugo, 63428 G47.33 [facility] YOKASTA RN, TIMBER APPRAISER- G47.14 E66.01 Z68.43 Office Visit 05/28/2016 8:45a [facility] [place] [address] G47.9 [facility] G47.63 E66.01 J45.40 Z23 Office Visit 11/29/2014 11:00a [facility] Robyn Bustos 84316 727.03 Of C[facility]psonMNellie [place] Office Visit 08/24/2013 8:56a [facility] Ted Suarez M.D. 94009 780.59 786.09 780.79 Office Visit 08/15/2013 1:15p [facility] I[facility]efonso Talavera M.D. 76735 726.12 C.M.A. Office Visit 01/17/2013 2:00p [facility] Talavera M.D. 50124 844.8 C.M.A. Office Visit 11/11/2012 11:00a [facility] Talavera M.D. 70105 718.86 C.M.A. Office Visit 10/28/2012 2:15p [facility] Talavera M.D. 25821 718.86 C.M.A. Plan of Care Future Appointment(s):02/24/2019 2:30 pm - [facility] - Adalid Palma M.D.G43.009 Migraine w/o aura, not intractable, w/o status migrainosusFollow up:1 YEAR
[2018-03-07 19:34] VITALS: BP 158/99
--- NOTE | 2018-03-07 19:49 | UC ---
Lower Extremity/Ankle HPI - HPI Summary HPI Summary: The pt is a 32 y/o female presenting to c/p knee pain since 12 days ago worse today . She was doing restraint training at work and fell landing on her left knee, hitting the floor instead of the mat. The pain rated 8/10 in severity is aggravated by activity, and standing but is alleviated by changing position. She took Tylenol to no relief. She notes tenderness at the R knee cap and medial and posterior end . This is scribe Sharon Diego documenting for attending Dr. Hollis Lynn .I, Dr. Hollis Lynn personally performed the services described in this documentation as scribed in my presence and it is both accurate and complete - History of Current Complaint Chief Complaint: UCLowerExtremity Stated Complaint: KNEE INJURY WC Time Seen by Provider: 03/07/18 19:41 Hx Obtained From: Patient Hx Last Menstrual Period: 02/24/18 Onset/Duration: Lasting Days - 12 days, Worse Since - Today Severity Initially: Severe Severity Currently: Severe Pain Intensity: 8 Pain Scale Used: 0-10 Numeric Aggravating Factor(s): Standing, Ambulation, Other Alleviating Factor(s): Other - Changing position - Allergies/Home Medications Allergies/Adverse Reactions: Allergies Allergy/AdvReac Type Severity Reaction Status Date / Time Iodinated Contrast- Oral and Allergy Hives Verified 03/07/18 19:35 IV Dye morphine Allergy Hives Verified 03/07/18 19:35 oseltamivir [From Tamiflu] Allergy Hives Verified 03/07/18 19:35 Home Medications: Home Medications Dulaglutide [Trulicity] 03/07/18 [History] Ibuprofen TAB* [Advil TAB*] 800 mg PO PRN 03/07/18 [History] Insulin Detemir (NF) [Levemir (NF)] 15 unit SUBCUT DAILY 03/07/18 [History Confirmed 03/07/18] PMH/Surg Hx/FS Hx/Imm Hx Previously Healthy: No Endocrine History: Diabetes Respiratory History: Asthma, Other - Sleep apnea Other Respiratory History: . Psychological History: Anxiety, Depression Other History Of: Negative For: Anticoagulant Therapy - Surgical History Surgical History: Yes Surgery Procedure, Year, and Place: APPENDECTOMY, CHOLECYSTECTOMY, 2 C-SECTIONS , EXPLORATORY SURGERY & F/U SURGERY FOR INFECTION - ABD. REMOVE FOREIGN OBJECT A KID IN EAR. TRIGGER THUMB RIGHT, DEEP VEIN RELEASE HAND - Family History Known Family History: Positive: Hypertension, Diabetes, Respiratory Disease - Social History Occupation: Employed Full-time Lives: With Family Alcohol Use: Occasionally Alcohol Amount: "a couple a week" Substance Use Type: Marijuana Substance Use Comment - Amount & Last Used: Hx cocaine use, none currently Smoking Status (MU): Former Smoker Type: Cigarettes Amount Used/How Often: started to smoke again today Length of Time of Smoking/Using Tobacco: 5 years Have You Smoked in the Last Year: Yes Review of Systems Constitutional: Negative - Fever Musculoskeletal: Other: - L knee pain and tenderness All Other Systems Reviewed And Are Negative: Yes Physical Exam - Summary Physical Exam Summary: General: well-appearing, no pain distress Skin: warm, color reflects adequate perfusion, dry Head: normal Eyes: EOMI, JASMEET ENT: normal Neck: supple, nontender Respiratory: CTA, breath sounds present Cardiovascular: RRR Abdomen: soft, nontender Bowel: present Musculoskeletal: Tender to palpation of the L patella and the anterior-medial aspect of the knee; Positive Mc Murrays test (medial pain) ; L Knee is stable to exam ; R knee is normal, strength/ROM intact Neurological: sensory/motor intact, A&O x3 Psychological: affect/mood appropriate Triage Information Reviewed: Yes Vital Signs: Initial Vital Signs Temp 98.1 F 03/07/18 19:29 Pulse 79 03/07/18 19:29 Resp 18 03/07/18 19:29 BP 158/99 03/07/18 19:29 Pulse Ox 98 03/07/18 19:29 Vital Signs Reviewed: Yes Diagnostics - Radiology L Knee XRay Radiology Interpretation Completed By: ED Physician - NAD and Radiologist reading pending. Lower Extremity Course/Dx - Course Course Of Treatment: RADIOLOGIST READING OF X-RAY PENDING. JEAN PAUL/ICE/ELEVATE/REST /CONTINUE NAPROXSEN AND F/U WITH ORTHOPEDICS. - Differential Dx/Diagnosis Provider Diagnoses: LEFT KNEE PAIN AND EFFUSION Discharge - Sign-Out/Discharge Documenting (check all that apply): Patient Departure - Discharge Plan Condition: Stable Disposition: HOME Prescriptions: oxyCODONE/Acetamin 5/325 MG* [Percocet 5/325 TAB*] 1 tab PO Q4H PRN #20 tab MDD 6 PRN Reason: Pain Patient Education Materials: Swollen Knee Joint (ED) Forms: *Work Release Referrals: Kori Farooq MD [Medical Doctor] - Huma Gilbert MD [Primary Care Provider] - Additional Instructions: FOLLOW UP WITH ORTHOPEDICS. GET RECHECKED FOR ANY WORSENING OF YOUR CONDITION OR QUESTIONS OR CONCERNS. - Billing Disposition and Condition Condition: STABLE Disposition: Home
[2018-03-07] MEDS ORDERED: HYDROcodone/ACETAMIN 5-325 MG* 1 TAB PO ONE (20:38)
--- NOTE | 2018-03-08 07:36 | RAD ---
HISTORY: PAIN LT KNEE S/P TRAUMA COMPARISONS: July 22, 2012 VIEWS: 4, Frontal, lateral, axial, and oblique views of the left knee FINDINGS: BONE DENSITY: Normal. BONES: There is no displaced fracture. JOINTS: There is no arthropathy. There is no suprapatellar joint effusion or lipohemarthrosis. ALIGNMENT: There is no dislocation. SOFT TISSUES: Unremarkable. OTHER FINDINGS: None. IMPRESSION: NO ACUTE OSSEOUS INJURY. IF SYMPTOMS PERSIST, RECOMMEND REPEAT IMAGING. R1
== END 2018-03-07 20:45 | disposition home or self-care (01) ==
LOC: UCEAST 18:43
DX: M25.562 Pain in left knee (principal); M25.462 Effusion, left knee; Z88.5 Allergy status to narcotic agent; Z88.8 Allergy status to other drugs, medicaments and biological substances; Z91.041 Radiographic dye allergy status; Z82.49 Family history of ischemic heart disease and other diseases of the circulatory system; Z83.3 Family history of diabetes mellitus; Z83.6 Family history of other diseases of the respiratory system; Z87.891 Personal history of nicotine dependence
CPT/HCPCS: 99213; G0463

== ENCOUNTER 2018-04-12 16:57 | Emergency (ER) | payer OTHER ==
[2018-04-12 17:07] VITALS: BP 148/96
--- NOTE | 2018-04-12 17:37 | UC ---
UC Dental HPI - HPI Summary HPI Summary: dental pain / right lower jaw pain x 2 days pain is severe, worse today no fever, no chills - History of Current Complaint Chief Complaint: UCGeneralIllness Stated Complaint: JAW PAIN Time Seen by Provider: 04/12/18 17:12 Hx Obtained From: Patient Hx Last Menstrual Period: 03/26/18 ?: No Onset/Duration: Gradual Onset, Lasting Days - 2, Still Present Severity: Severe Pain Intensity: 8 Aggravating Factor(s): Chewing Alleviating Factor(s): Nothing Dental: 1 - pain , erythema - Allergies/Home Medications Allergies/Adverse Reactions: Allergies Allergy/AdvReac Type Severity Reaction Status Date / Time Iodinated Contrast- Oral and Allergy Hives Verified 04/12/18 17:07 IV Dye morphine Allergy Hives Verified 04/12/18 17:07 oseltamivir [From Tamiflu] Allergy Hives Verified 04/12/18 17:07 PMH/Surg Hx/FS Hx/Imm Hx Endocrine History: Diabetes Cardiovascular History: Hypertension Other History Of: Negative For: Anticoagulant Therapy - Surgical History Surgical History: Yes Surgery Procedure, Year, and Place: APPENDECTOMY, CHOLECYSTECTOMY, 2 C-SECTIONS , EXPLORATORY SURGERY & F/U SURGERY FOR INFECTION - ABD. REMOVE FOREIGN OBJECT A KID IN EAR. TRIGGER THUMB RIGHT, DEEP VEIN RELEASE HAND - Family History Known Family History: Positive: Hypertension, Diabetes, Respiratory Disease - Social History Alcohol Use: Occasionally Alcohol Amount: "a couple a week" Substance Use Type: Marijuana Substance Use Comment - Amount & Last Used: Hx cocaine use, none currently Smoking Status (MU): Former Smoker Type: Cigarettes Amount Used/How Often: started to smoke again today Length of Time of Smoking/Using Tobacco: 5 years Have You Smoked in the Last Year: Yes Review of Systems Constitutional: Negative Skin: Negative Eyes: Negative ENT: Dental Pain Cardiovascular: Negative Is Patient Immunocompromised?: No All Other Systems Reviewed And Are Negative: Yes Physical Exam Triage Information Reviewed: Yes Appearance: Well-Appearing, Well-Nourished, Pain Distress Vital Signs: Initial Vital Signs Temp 98.6 F 04/12/18 17:02 Pulse 102 04/12/18 17:02 Resp 20 04/12/18 17:02 BP 148/96 04/12/18 17:02 Pulse Ox 99 04/12/18 17:02 Vital Signs Reviewed: Yes Eye Exam: Normal Eyes: Positive: Conjunctiva Clear ENT: Positive: Normal ENT inspection, Hearing grossly normal, Pharynx normal Dental: Positive: Gross Decay/Caries @ - #30, Cellulitis @ - #30 Neck: Positive: Supple, Tenderness @, Enlarged Nodes @ Respiratory: Positive: Chest non-tender, Lungs clear, Normal breath sounds Cardiovascular: Positive: RRR, No Murmur, Pulses Normal Dental Complaint Course/Dx - Differential Dx/Diagnosis Provider Diagnoses: dental abscess Discharge - Sign-Out/Discharge Documenting (check all that apply): Patient Departure All imaging exams completed and their final reports reviewed: No Studies - Discharge Plan Condition: Stable Disposition: HOME Prescriptions: Clindamycin Cap(NF) [Clindamycin Cap 300 mg Cap(NF)] 300 mg PO Q6H #40 cap HYDROcodone/ACETAMIN 5-325 MG* [[place] 5-325 TAB*] 1 tab PO Q6H PRN #20 tab MDD 4 PRN Reason: Pain Patient Education Materials: Dental Abscess (ED) Forms: *Work Release Referrals: Huma Gilbert MD [Primary Care Provider] - 5 Days - Billing Disposition and Condition Condition: STABLE Disposition: Home
== END 2018-04-12 17:40 | disposition home or self-care (01) ==
LOC: UCEAST 16:57
DX: K04.7 Periapical abscess without sinus (principal); Z88.5 Allergy status to narcotic agent; Z88.8 Allergy status to other drugs, medicaments and biological substances; Z91.041 Radiographic dye allergy status; F17.210 Nicotine dependence, cigarettes, uncomplicated
CPT/HCPCS: 99212; G0463

== ENCOUNTER 2018-05-07 14:53 | Emergency (ER) | payer OTHER ==
[2018-05-07 15:06] VITALS: BP 151/93
--- NOTE | 2018-05-07 16:38 | UC ---
Upper Extremity HPI - HPI Summary HPI Summary: Pt reports her pinky finger was pushed backwards today at 1100, while getting between two residents to separate them. Now swollen and painful, with 7/10 pain. - History of Current Complaint Chief Complaint: UCUpperExtremity Stated Complaint: HAND INJURY, AND FINGER INJURY Time Seen by Provider: 05/07/18 16:26 Hx Last Menstrual Period: [id number] Pain Intensity: 7 - Allergies/Home Medications Allergies/Adverse Reactions: Allergies Allergy/AdvReac Type Severity Reaction Status Date / Time Iodinated Contrast- Oral and Allergy Hives Verified 05/07/18 15:07 IV Dye morphine Allergy Hives Verified 05/07/18 15:07 oseltamivir [From Tamiflu] Allergy Hives Verified 05/07/18 15:07 PMH/Surg Hx/FS Hx/Imm Hx Other History Of: Negative For: Anticoagulant Therapy - Surgical History Surgical History: Yes Surgery Procedure, Year, and Place: APPENDECTOMY, CHOLECYSTECTOMY, 2 C-SECTIONS , EXPLORATORY SURGERY & F/U SURGERY FOR INFECTION - ABD. REMOVE FOREIGN OBJECT A KID IN EAR. TRIGGER THUMB RIGHT, DEEP VEIN RELEASE HAND - Family History Known Family History: Positive: Hypertension, Diabetes, Respiratory Disease - Social History Alcohol Use: Weekly Alcohol Amount: "a couple a week" Substance Use Type: None Substance Use Comment - Amount & Last Used: Hx cocaine use, none currently Smoking Status (MU): Former Smoker Type: Cigarettes Amount Used/How Often: started to smoke again today Length of Time of Smoking/Using Tobacco: 5 years Have You Smoked in the Last Year: Yes Physical Exam Vital Signs: Initial Vital Signs Temp 98.5 F 05/07/18 15:01 Pulse 93 05/07/18 15:01 Resp 16 05/07/18 15:01 BP 151/93 05/07/18 15:01 Pulse Ox 98 05/07/18 15:01 Diagnostics - Radiology hand Xray Interpretation: No Acute Changes Radiology Interpretation Completed By: Radiologist forearm Xray Interpretation: No Acute Changes Radiology Interpretation Completed By: Radiologist Discharge - Discharge Plan Condition: Good Disposition: HOME Patient Education Materials: R.I.C.E. Treatment (ED) Referrals: Huma Gilbert MD [Primary Care Provider] - Additional Instructions: Take Tylenol or ibuprofen every 6 hours as needed for pain Apply ice, rest, elevate Keep sabrina on area Follow up with primary care physician within 5 days Return to ED if develop any new or worsening symptoms - Billing Disposition and Condition Condition: GOOD Disposition: Home
--- NOTE | 2018-05-07 16:38 | ED ---
Upper Extremity Pain - HPI Summary HPI Summary: 32-year-old female presents with left hand injury today. She states that she got it caught by the fireplace at work. She has abrasion noted to her left hand. She states pinky also ended up bending backwards. She has pain from her pinky to her forearm. She denies any previous fracture to the area. No numbness or tingling. - History of Current Complaint Chief Complaint: UCUpperExtremity Stated Complaint: HAND INJURY, AND FINGER INJURY Time Seen by Provider: 05/07/18 16:26 Hx Last Menstrual Period: [id number] - Allergies/Home Medications Allergies/Adverse Reactions: Allergies Allergy/AdvReac Type Severity Reaction Status Date / Time Iodinated Contrast- Oral and Allergy Hives Verified 05/07/18 15:07 IV Dye morphine Allergy Hives Verified 05/07/18 15:07 oseltamivir [From Tamiflu] Allergy Hives Verified 05/07/18 15:07 PMH/Surg Hx/FS Hx/Imm Hx Endocrine/Hematology History: Reports: Hx Diabetes - NIDDM Denies: Hx Anticoagulant Therapy, Hx Thyroid Disease Cardiovascular History: Reports: Hx Hypertension Denies: Hx Congestive Heart Failure, Hx Pacemaker/ICD, Other Cardiovascular Problems/Disorders Respiratory History: Reports: Hx Asthma, Hx Chronic Obstructive Pulmonary Disease (COPD), Hx Pneumonia, Hx Sleep Apnea - new BiPAP user, some compliance issues Denies: Other Respiratory Problems/Disorders GI History: Denies: Hx Ulcer History: Denies: Hx Renal Disease Musculoskeletal History: Reports: Other Musculoskeletal History - morbid obesity Sensory History: Denies: Hx Hearing Aid Psychiatric History: Reports: Hx Anxiety - prn ativan, Hx Depression Denies: Hx Panic Disorder - Cancer History Hx Chemotherapy: No Hx Radiation Therapy: No - Surgical History Surgery Procedure, Year, and Place: APPENDECTOMY, CHOLECYSTECTOMY, 2 C-SECTIONS , EXPLORATORY SURGERY & F/U SURGERY FOR INFECTION - ABD. REMOVE FOREIGN OBJECT A KID IN EAR. TRIGGER THUMB RIGHT, DEEP VEIN RELEASE HAND - Immunization History Date of Tetanus Vaccine: Unk Date of Influenza Vaccine: Fall 2013 Infectious Disease History: No Infectious Disease History: Denies: Hx Clostridium Difficile, Hx Hepatitis, Hx Human Immunodeficiency Virus (HIV), Hx of Known/Suspected MRSA, History Other Infectious Disease, Traveled Outside the [place] in Last 30 Days - Family History Known Family History: Positive: Hypertension, Diabetes, Respiratory Disease - Social History Alcohol Use: Weekly Alcohol Amount: "a couple a week" Substance Use Type: Reports: None Substance Use Comment - Amount & Last Used: Hx cocaine use, none currently Hx Tobacco Use: Yes Smoking Status (MU): Former Smoker Type: Cigarettes Amount Used/How Often: started to smoke again today Length of Time of Smoking/Using Tobacco: 5 years Have You Smoked in the Last Year: Yes Review of Systems Negative: Fever Negative: Chest Pain Negative: Shortness Of Breath Positive: Myalgia - left hand pain All Other Systems Reviewed And Are Negative: Yes Physical Exam Triage Information Reviewed: Yes Vital Signs On Initial Exam: Initial Vitals Temp Pulse Resp BP Pulse Ox 98.5 F 93 16 151/93 98 05/07/18 15:01 05/07/18 15:01 05/07/18 15:01 05/07/18 15:01 05/07/18 15:01 Vital Signs Reviewed: Yes Appearance: Positive: Well-Appearing Skin: Positive: Warm, Dry, Other - small abrasion to dorsum of left hand Head/Face: Positive: Normal Head/Face Inspection Eyes: Positive: Normal, Conjunctiva Clear ENT: Positive: Pharynx normal Respiratory/Lung Sounds: Positive: Clear to Auscultation, Breath Sounds Present Cardiovascular: Positive: Normal, RRR Musculoskeletal: Positive: Limited @ - left hand, Other - tenderness wrist, forearm, palm, pinky finger left. capillary refill<2secs Neurological: Positive: Normal Psychiatric: Positive: Normal Diagnostics - Vital Signs Vital Signs Temp Pulse Resp BP Pulse Ox 05/07/18 15:01 98.5 F 93 16 151/93 98 - Laboratory Lab Statement: Any lab studies that have been ordered have been reviewed, and results considered in the medical decision making process. - Radiology hand Xray Interpretation: No Acute Changes Radiology Interpretation Completed By: Radiologist forearm Xray Interpretation: No Acute Changes Radiology Interpretation Completed By: Radiologist Course/Dx - Course Course Of Treatment: 32-year-old female presents with left hand injury today. She states that she got it caught by the fireplace at work. She has abrasion noted to her left hand. She states pinky also ended up bending backwards. She has pain from her pinky to her forearm. She denies any previous fracture to the area. No numbness or tingling. on exam tenderness over left pinky and dorsum of left hand. Neurovascular intact. xray normal. will treat with rice. has history of htn so can follow up with primary about such. gave metal finger splint and sabrina to immbolize. patient understand and agrees with plan. - Diagnoses Differential Diagnosis/HQI/PQRI: Positive: Fracture (Closed), Strain Provider Diagnoses: Injury of left hand, Hypertension Discharge - Sign-Out/Discharge Documenting (check all that apply): Patient Departure All imaging exams completed and their final reports reviewed: Yes - Discharge Plan Condition: Good Disposition: HOME Patient Education Materials: R.I.C.E. Treatment (ED) Referrals: Huma Gilbert MD [Primary Care Provider] - Additional Instructions: Take Tylenol or ibuprofen every 6 hours as needed for pain Apply ice, rest, elevate Keep sabrina on area Follow up with primary care physician within 5 days Return to ED if develop any new or worsening symptoms - Billing Disposition and Condition Condition: GOOD Disposition: Home
--- NOTE | 2018-05-07 16:56 | RAD ---
Indication: Left forearm pain, forearm injury. 2 views of the right forearm demonstrate no fracture or dislocation. No other bone or joint abnormality is identified. IMPRESSION: No fracture of the right forearm is noted.
--- NOTE | 2018-05-07 16:57 | RAD ---
Indication: Hand pain after hand injury. 4 views of left hand are reviewed. No definite fracture or dislocation is noted. No other bone or joint abnormality is identified. IMPRESSION: No fracture of the left hand is noted.
== END 2018-05-07 17:00 | disposition home or self-care (01) ==
LOC: UCEAST 14:53
DX: S60.512A Abrasion of left hand, initial encounter (principal); W23.0XXA Caught, crushed, jammed, or pinched between moving objects, initial encounter; Y92.9 Unspecified place or not applicable; I10 Essential (primary) hypertension; Z87.891 Personal history of nicotine dependence; Z88.8 Allergy status to other drugs, medicaments and biological substances; Z88.5 Allergy status to narcotic agent; Z91.041 Radiographic dye allergy status
CPT/HCPCS: 99213; G0463

== ENCOUNTER 2018-12-16 23:21 | Emergency (ER) | payer OTHER ==
--- OUTSIDE RECORDS SUMMARY | 2018-12-16 23:32 | XMS REPORT | Continuity of Care Document ---
:1985 External Reference #:[id number] Author Name Simin Lopez Care Team Providers Name Role Phone Huma Gilbert MD Primary Care Physician Unavailable Payers Date Identification Numbers Payment Provider Subscriber Policy Number: [id number] Mark Cornejo Group Number: [id number] [address] PayID: [id number] [place] [address] Onset: 2018 Policy Number: [id number] Nysabiha Cornejo Group Name: [phone] [address] [phone] PayID: [id number] [place] [address] Problems Active Problems Provider Date Morbid obesity Milena La MD Onset: 05/28/2016 Asthma without status asthmaticus Milena La MD Onset: 05/28/2016 Gastroesophageal reflux disease Milena La MD Onset: 05/28/2016 Obstructive sleep apnea syndrome Esther Verdugo DNP, RN, Onset: 06/09/2016 [facility]- Type II diabetes mellitus Alex Luna NP Onset: 08/13/2016 uncontrolled Bipolar disorder Alex Luna NP Onset: 08/13/2016 Posttraumatic stress disorder Alex Luna NP Onset: 08/13/2016 Essential hypertension Alex Luna NP Onset: 10/28/2016 Chronic low back pain Alex Luna NP Onset: 10/28/2016 Atypical squamous cells of Alex Luna NP Onset: 10/16/2015 undetermined significance on cervical Papanicolaou smear Strain of muscle of long head of Mario Purcell MD Onset: 12/08/2018 biceps brachii Disorder of shoulder Mario Purcell MD Onset: 12/08/2018 Sprain of medial collateral ligament Kori Farooq M.D. Onset: 03/16/2018 of knee Localized, primary osteoarthritis Kori Farooq M.D. Onset: 03/16/2018 Family History Date Family Member(s) Observation Comments General Diabetes General Heart Disease General Hypertension General Cancer General Rheumatoid Arthritis Father Coronary Artery Disease (CAD) Father Diabetes [...] trait Social History Type Date Description Comments Sex Unknown Marital Status Significant Other female Lives With Children Occupation Homemaker ETOH Use Occasionally consumes alcohol Tobacco Use Start: Unknown End: Patient is a former 1 pack X 3 weeks X Unknown smoker 2 years. Recreational Drug Use Former Drug User marijuana; not regular use Smoking Status Reviewed: 12/08/18 Patient is a former 1 pack X 3 weeks X smoker 2 years. Exercise Type/Frequency Exercises sporadically Allergies, Adverse Reactions, Alerts Active Allergies Reaction Severity Comments Date Tamiflu 11/29/2014 Ibuprofen 05/28/2016 Contrast Dye/Morphine combo itching intensely Severe 08/13/2016 Inactive Allergies NKDA 07/20/2013 Medications Active Medications SIG Qnty Indications Ordering Date Provider Zonisamide 1 capsule by mouth 90caps G43.009 Cornelio 100mg at bedtime Rai Santo 8 Capsules Sumatriptan 1 injection twice 12units G43.009 Adalid Vang Succinate daily as needed on Rai Palma 7 4mg/0.5ML no more than 2 Solution Auto-Inject days/week. please include autoinjector with instructions. Bydureon inject 2 mg sc 4units E11.65 Alex Luna NP 2mg Pen weekly 7 Freestyle Lite Test test up to 4 times 100units E11.65 Alex Luna NP a day 7 Strips Aspirin 1 by mouth every 90tabs E11.65 Alex Luna NP 81mg Tablets day 7 [place] 1 by mouth every 90tabs E11.65 Tono Steven 30mg day Rai Shah,FACP 6 Tablets Zantac 1 tab by mouth 90tabs K21.9 Alex Luna NP 300mg Tablets every day every 6 night Zolmitriptan 1 tab by mouth 14tabs G43.109 Alex Luna NP 5mg twice a day maximum 6 Tablets 2 days weekly Ventolin HFA 2 puffs by mouth 8gm J45.909 Alex Luna NP four times a day as 6 108(90Base) mcg/Act needed Aerosol Saphris daily F31.9 Unknown 7.5mg Tablets 6 Sub Pantoprazole Sodium 1 by mouth every 90tabs K21.9 Alex Luna NP day [address] Aponte 1 by mouth twice a E11.40 Unknown 150mg Capsules day 6 Metformin HCL ER take two tablets by 180tabs E11.65 Alex Luna NP 05/27 mouth every day 6 750mg Tablets ER 24HR Levocetirizine 1 by mouth every 90tabs J30.9 Alex Luna NP Dihydrochloride day 6 5mg Tablets Fluticasone 2 sprays each 9.900ml J30.9 Alex Luna NP Propionate nostril daily as 6 50mcg/Act needed Suspension Trulicity Take 1 Pen Injector Unknown 1.5mg/0.5ML Subcutaneously Once 0 Solution Pen-Inject Per Week Tizanidine HCL Allen [place], 4mg N.P. 0 Tablets Duloxetine HCL [place], 30mg [address] Harris Oxycodone HCL Linda, 10mg JACQUELINE Gray 0 Tablets Symbicort Inhale 1 puff With Unknown Adapter Twice A Day 0 80-4.5mcg/Act Aerosol Montelukast Sodium Huma Gilbert MD Geeta 0 10mg Tablets Ondansetron Take 1 Tab By Mouth Unknown 4mg Every 6 Hours as 0 Tablets Dispers Needed For Nausea Or Vomiting Trazodone HCL Huma Gilbert 50mg MD Geeta 0 Tablets Vitamin D2 take 50,000 units Unknown 2000Unit once a week 0 Tablets Oxycodone HCL Unknown 5mg 0 Ibuprofen Unknown 0 Tylenol Unknown 0 Glipizide 1 by mouth every Unknown 5mg Tablets day 0 History Medications Zonisamide 4 po qhs 120caps G43.009 Adalid Vang 03/24/2017 - 25mg Rai Palma 12/23/2017 Capsules Lisinopril 1 by mouth every Unknown 05/27/2016 - 30mg day 08/13/2016 Tablets Loratadine 1 by mouth every J30.9 Unknown 05/27/2016 - 10mg day 08/13/2016 Tablets Montelukast Sodium 1 by mouth every Unknown 05/27/2016 - day 05/27/2016 10mg Tablets Movantik 1 by mouth every 30tabs K59.03 Alex Luna NP 05/27/2016 - 25mg day 03/23/2017 Tablets Ondansetron dissolve one 30tabs G43.109 Alex Luna NP 05/27/2016 - 4mg tablet orally 03/15/2018 Tablets Dispers every 8 hours as needed for nausea. Oxycodone HCL 1 by mouth every M54.42 Unknown 05/27/2016 - 10mg 6 hours as 08/13/2016 Tablets needed pain M54.41 Sudafed 12 Hour Not taking1 tab by Unknown 05/27/2016 - 08/13/2016 120mg Tablets mouth every 12 hours ER 12HR as needed Tizanidine HCL 1 three times a day M54.42 Unknown 05/27/2016 - 08/13/2016 4mg Capsules as needed M54.41 Topiramate 1 by mouth twice 60tabs G43.109 Alex Luna 05/27/2016 - 100mg Tablets a day DIRECTOR OF EPIDEMIOLOGY 02/18/2018 Trulicity inject sc weekly 2ml E11.65 Alex Luna 05/27/2016 - 1.5mg/0.5ML DIRECTOR OF EPIDEMIOLOGY 11/10/2016 Solution Pen-Inject Levemir 50 units twice 10ml E11.65 Alex Luna, 05/27/2016 - 100Unit/ML Solution daily as needed DIRECTOR OF EPIDEMIOLOGY 09/01/2016 dx: e11.65 Ipratropium 1 vial in J45.909 Unknown 05/27/2016 - [place]/Albuterol nebulizer three 08/13/2016 Sulfate times a day as 0.5-2.5(3)mg/3ML needed for Solution asthma Ipratropium [place] 2 sprays in each J30.9 Unknown 05/27/2016 - 0.06% nostril 4 times 08/13/2016 Solution a day as needed Hydrocodone-Acetaminoph 1 by mouth every Unknown 05/27/2016 - en 4-6 hours prn. 05/27/2016 5-325mg Tablets Humalog Kwikpen 20 units three 6ml E11.65 Alex Luna, 05/27/2016 - 200Unit/ML times daily as DIRECTOR OF EPIDEMIOLOGY 09/01/2016 Solution Pen-Inject needed dx: E11.65 Fluconazole one by mouth may Unknown 05/27/2016 - 150mg Tablets repeat in 3 days 08/13/2016 as needed Cyclobenzaprine HCL one by mouth 90tabs M54.42 Alex Luna, 05/27/2016 - 10mg three times a DIRECTOR OF EPIDEMIOLOGY 03/15/2018 Tablets day as needed spasm M54.41 Bupropion HCL ER (XL) 1 by mouth every F31.9 Unknown 05/27/2016 - 2016 300mg day Tablets ER 24HR Benzonatate one by mouth three Unknown 05/27/2016 - 05/27/2016 200mg Capsules times daily as needed for cough Alprazolam 1-3 tabs three F43.10 Unknown 05/27/2016 - 03/23/2017 2mg Tablets times a day as needed Advair Diskus inhale 1 dose by J45.909 Unknown 05/27/2016 - 03/15/2018 500-50mcg/Dose mouth twice a day Aerosol Mobic Not taking Unknown - 08/13/2016 Medications Administered in Office Medication SIG Qnty Indications Ordering Provider Date Triamcinolone (Kenalog) Maroi Purcell MD 12/08/2018 Injection Depomedrol 80MG Robyn Bustos M.D. 11/29/2014 Injection Depomedrol 80MG Ildefonso Talavera M.D. 08/15/2013 Injection Immunizations CPT Code Status Date Vaccine Lot # [id number] Given 08/13/2016 Pneumonia Vaccine [id number] Given 05/28/2016 Influ Virus Vaccine, Quadrivalent, Split Virus, Im [id number] Fluzone not PF Vital Signs Date Vital Result Comment 12/08/2018 11:08am Height 64 inches 5'4" Weight 283.00 lb BP Systolic 122 mmHg BP Diastolic 76 mmHg Respiratory Rate 18 /min Pain Level 8 BMI (Body Mass Index) 48.6 kg/m2 04/25/2018 11:17am Height 65 inches 5'5" Weight 282.00 lb Heart Rate 92 /min BP Systolic 130 mmHg BP Diastolic 80 mmHg Pain Level 7 BMI (Body Mass Index) 46.9 kg/m2 03/16/2018 10:57am Height 63.75 inches 5'3.75" Weight 292.00 lb Heart Rate 84 /min BP Systolic 132 mmHg BP Diastolic 82 mmHg BMI (Body Mass Index) 50.5 kg/m2 02/18/2018 2:38pm Height 65 inches 5'5" Weight 282.00 lb Heart Rate 82 /min BP Systolic Sitting 122 mmHg BP Diastolic Sitting 72 mmHg Respiratory Rate 16 /min BMI (Body Mass Index) 46.9 kg/m2 03/24/2017 11:45am Height 65 inches 5'5" Weight 303.12 lb Heart Rate 72 /min BP Systolic 130 mmHg BP Diastolic 80 mmHg BMI (Body Mass Index) 50.4 kg/m2 08/31/2016 1:30pm Weight 311.12 lb Heart Rate 97 /min BP Systolic Sitting 146 mmHg BP Diastolic Sitting 80 mmHg Body Temperature 98.6 F O2 % BldC Oximetry 98 % 08/13/2016 1:10pm Height 65 inches 5'5" Weight 301.00 lb Heart Rate 100 /min BP Systolic Sitting 124 mmHg BP Diastolic Sitting 94 mmHg Body Temperature 97.8 F O2 % BldC Oximetry 98 % BMI (Body Mass Index) 50.1 kg/m2 07/22/2016 1:33pm Height 65 inches 5'5" Weight 316.00 lb Heart Rate 92 /min BP Systolic 124 mmHg BP Diastolic 72 mmHg Respiratory Rate 14 /min O2 % BldC Oximetry 96 % BMI (Body Mass Index) 52.6 kg/m2 06/09/2016 10:49am Height 65 inches 5'5" Weight 316.00 lb Heart Rate 106 /min BP Systolic Sitting 130 mmHg BP Diastolic Sitting 75 mmHg Respiratory Rate 18 /min O2 % BldC Oximetry 98 % BMI (Body Mass Index) 52.6 kg/m2 05/28/2016 9:01am Height 64.75 inches 5'4.75" Weight 316.25 lb Heart Rate 74 /min BP Systolic 128 mmHg BP Diastolic 80 mmHg Respiratory Rate 14 /min O2 % BldC Oximetry 96 % BMI (Body Mass Index) 53.0 kg/m2 Neck Circumference in inches 17 11/29/2014 11:19am Height 64.75 inches 5'4.75" Weight 323.00 lb Heart Rate 90 /min BP Systolic 110 mmHg BP Diastolic 73 mmHg Pain Level 7 BMI (Body Mass Index) 54.2 kg/m2 08/08/2013 11:05am Height 64.75 inches 5'4.75" Weight 340.00 lb Heart Rate 82 /min BP Systolic 126 mmHg BP Diastolic 74 mmHg BMI (Body Mass Index) 57.0 kg/m2 Results Test Date Facility Test Result H/L Range Note Laboratory test finding 08/13/2016 [facility] In House Hemoglobin A1c 13.2 High 5-7 Procedures Date Code Description Status 12/08/2018 91489 Inject/Drain Joint/Bursa Major W/O US Completed 05/31/2016 45868 Sleep Study Unattended,HRT Rate,Oxygen Sat,Resp Completed Effort/Airflow 11/29/2014 23813 Inject Tendon Sheath Or Ligament Aponeurosis Eg Plantar Completed Fascia 10/09/2013 94751 Polysomnography Sleep Staging 4+ Parameters W/Cpap Completed 09/13/2013 80547 Polysomnography Sleep Staging 4+ Parameters W/Cpap Completed 08/15/2013 76197 Inject/Drain Joint/Bursa Major W/O US Completed 08/15/2013 34517 Inject Tendon Sheath Or Ligament Aponeurosis Eg Plantar Completed Fascia Encounters Type Date Location Provider Dx Diagnosis Office Visit 04/25/2018 Orthopedic Kori Farooq M25.562 Pain in left knee 11:15a [facility] W19.xxxA Unspecified fall, initial encounter M23.8x2 Other internal derangements of left knee Office Visit 03/16/2018 10:30a Orthopedic Services Kori Farooq M25.562 Pain in left Of [facility] M.D. knee M25.462 Effusion, left knee M17.12 Unilateral primary osteoarthritis, left knee W19.xxxA Unspecified fall, initial encounter S83.412A Sprain of medial collateral ligament of left knee, init W18.39xA Other fall on same level, initial encounter E66.01 Morbid (severe) obesity due to excess calories Z68.43 Body mass index (BMI) 50-59.9 , adult Office 02/18/2018 [facility] Adalid Vang G43.009 Migraine w/o Visit 2:30p Clinic Rai Palma aura, not intractable, w/o status migrainosus Office 03/24/2017 [facility] Adal[facility] Vang G43.009 Migraine w/o Visit 11:00a Clinic Rai Palma aura, not intractable, w/o status migrainosus Office 08/31/2016 [facility] Internal Medicine Alex Luna, E11.65 Type 2 diabetes Visit 1:40p - [address] DIRECTOR OF EPIDEMIOLOGY mellitus with hyperglycemia M54.41 Lumbago with sciatica, right side M54.42 Lumbago with sciatica, left side G43.109 Migraine with aura, not intractable, w/o status migrainosus 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 Office Visit 08/13/2016 1:20p [facility] Internal Alex Luna, E11.65 Type 2 diabetes Medicine - DIRECTOR OF EPIDEMIOLOGY mellitus with [address] hyperglycemia J45.909 Unspecified asthma, uncomplicated F31.9 Bipolar disorder, unspecified F43.10 Post-traumatic stress disorder, unspecified K21.9 Gastro-esophageal reflux disease without esophagitis M54.41 Lumbago with sciatica, right side M54.42 Lumbago with sciatica, left side G43.109 Migraine with aura, not intractable, w/o status migrainosus Z23 Encounter for immunization Office Visit 07/22/2016 Pulmonology And Esther G47.33 Obstructive sleep 1:30p [facility] Y[facility]A Verdugo, RN, apnea (adult) [facility] HOME CARE ADMINISTRATOR-BC (pediatric) E66.01 Morbid (severe) obesity due to excess calories Z68.43 Body mass index (BMI) 50-59.9 , adult Office Visit 06/09/2016 [facility] Esther G47.33 Obstructive sleep 10:30a [facility] Verdugo, RN, apnea (adult) [facility] HOME CARE ADMINISTRATOR-BC (pediatric) G47.14 Hypersomnia due to medical condition E66.01 Morbid (severe) obesity due to excess calories Z68.43 Body mass index (BMI) 50-59.9 , adult Office Visit 05/28/2016 8:45a Pulmonology And Milena G47.9 Sleep disorder, Sleep Services Of MD Abhinav unspecified [facility] 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 Office Visit 08/24/2013 Sleep Disorder Ted Suarez, 780.59 Sleep Disturbances 8:56a Center [facility] Other 786.09 Dyspnea & Respiratory Abnormalities Other 780.79 Malaise And Fatigue Other Office Visit 08/15/2013 1:15p Orthopedic Ildefonso Talavera, 726.12 Tenosynovitis Services [facility] Bicipital C.M.A. Office Visit 01/17/2013 2:00p Dorcas Talavera, 844.8 Sprains & Strains Services Of Rai Knee & Leg Other C.M.A. Spec Sites Office Visit 11/11/2012 11:00a Dorcas Talavera 718.86 Derangement Joint [facility] [place] Other Not Elsewhere C.M.A. Class Lower Leg Office Visit 10/28/2012 2:15p Dorcas Talavera 718.86 Derangement Joint Services Of M.Tenisha Other Not Elsewhere C.M.A. Class Lower Leg Plan of Treatment Future Appointment(s):01/17/2019 10:15 am - Mario Purcell MD at [facility]opedic [facility]02/24/2019 9:45 am - Adalid Palma M.D. at [facility]9312/08/2018 - Mario Purcell, MDM75.41 Impingement syndrome of right shoulderNew Therapy:Physical TherapyFollow up:Follow up: 5 uyurtV04.111A Strain of muscle, fascia and tendon of long head of biceps,
[2018-12-17] MEDS ORDERED: Ondansetron ODT TAB* 4 MG SL ONE (00:10)
[2018-12-17] MEDS ORDERED: NS 0.9% 1000 ML** 2,000 ML IV ONE (01:09)
--- NOTE | 2018-12-17 01:46 | ED ---
GI/ HPI - HPI Summary HPI Summary: Pt is a 33 y/o F presenting to the ED with a chief complaint of GI issues first onset yesterday with gas. Today at work, she ate dinner and started feeling her stomach doing flips. She reports diarrhea that was soft at first, then turned to water, with associated lightheadedness, abd pain, dizziness, nausea, diaphoresis, tunnel vision, then vomiting, CROCKETT, and back pain. - History of Current Complaint Chief Complaint: EDAbdPain Time Seen by Provider: 12/17/18 00:50 Stated Complaint: "LIGHT HEADED/COLD SWEAT" PER PT Hx Obtained From: Patient Hx Last Menstrual Period: [id number] Onset/Duration: Started Hours Ago, Still Present Timing: Constant, Lasting Hours Severity: Moderate Current Severity: Moderate Pain Intensity: 8 Location of Pain: Diffuse Associated Signs and Symptoms: Positive: Dizziness, Nausea, Vomiting, Diarrhea, Diaphoresis, Lightheadedness, Abdominal Pain, Other: - tunnel vision, back pain Aggravating Factor(s): Nothing Alleviating Factor(s): Nothing - Allergy/Home Medications Allergies/Adverse Reactions: Allergies Allergy/AdvReac Type Severity Reaction Status Date / Time Iodinated Contrast- Oral and Allergy Hives Verified 12/16/18 23:25 IV Dye morphine Allergy Hives Verified 12/16/18 23:25 oseltamivir [From Tamiflu] Allergy Hives Verified 12/16/18 23:25 PMH/Surg Hx/FS Hx/Imm Hx Previously Healthy: No Endocrine/Hematology History: Reports: Hx Diabetes - NIDDM Denies: Hx Anticoagulant Therapy, Hx Thyroid Disease Cardiovascular History: Reports: Hx Hypertension Denies: Hx Congestive Heart Failure, Hx Pacemaker/ICD, Other Cardiovascular Problems/Disorders Respiratory History: Reports: Hx Asthma, Hx Pneumonia, Hx Sleep Apnea - new BiPAP user, some compliance issues Denies: Hx Chronic Obstructive Pulmonary Disease (COPD), Other Respiratory Problems/Disorders GI History: Denies: Hx Ulcer History: Denies: Hx Renal Disease Musculoskeletal History: Reports: Other Musculoskeletal History - morbid obesity Sensory History: Denies: Hx Hearing Aid Psychiatric History: Reports: Hx Anxiety - prn ativan, Hx Depression Denies: Hx Panic Disorder - Cancer History Hx Chemotherapy: No Hx Radiation Therapy: No - Surgical History Surgery Procedure, Year, and Place: APPENDECTOMY, CHOLECYSTECTOMY, 2 C-SECTIONS , EXPLORATORY SURGERY & F/U SURGERY FOR INFECTION - ABD. REMOVE FOREIGN OBJECT A KID IN EAR. TRIGGER THUMB RIGHT, DEEP VEIN RELEASE HAND - Immunization History Date of Tetanus Vaccine: Unk Date of Influenza Vaccine: Fall 2013 Infectious Disease History: No Infectious Disease History: Denies: Hx Clostridium Difficile, Hx Hepatitis, Hx Human Immunodeficiency Virus (HIV), Hx of Known/Suspected MRSA, History Other Infectious Disease, Traveled Outside the [place] in Last 30 Days - Family History Known Family History: Positive: Hypertension, Diabetes, Respiratory Disease - Social History Alcohol Use: Weekly Alcohol Amount: "a couple a week" Hx Substance Use: Yes Substance Use Type: Reports: Marijuana Substance Use Comment - Amount & Last Used: Hx cocaine use, none currently Hx Tobacco Use: Yes Smoking Status (MU): Former Smoker Type: Cigarettes Amount Used/How Often: started to smoke again today Length of Time of Smoking/Using Tobacco: 5 years Have You Smoked in the Last Year: Yes Review of Systems Positive: Skin Diaphoresis Positive: Other - tunnel vision Positive: Abdominal Pain, Vomiting, Diarrhea, Nausea Positive: Myalgia - back pain Neurological: Other - lightheaded, dizziness Positive: Headache All Other Systems Reviewed And Are Negative: Yes Physical Exam - Summary Physical Exam Summary: Appearance: Well-appearing, Well-nourished, lying in bed comfortably Skin: Warm, dry, no obvious rash Eyes: sclera anicteric, no conjunctival pallor ENT: mucous membranes moist, pharynx appears normal Neck: Supple, nontender Respiratory: Clear to auscultation, no signs of respiratory distress Cardiovascular: Normal S1, S2. No murmurs. Normal distal pulses in tibial and radial bilaterally. Abdomen: Soft, nontender, normal active bowel sounds present Musculoskeletal: Normal, Strength/ROM Intact Neurological: A&Ox3, awake and alert, mentation is normal, speech is fluent and appropriate Psychiatric: affect is normal, does not appear anxious or depressed Triage Information Reviewed: Yes Vital Signs On Initial Exam: Initial Vitals Temp Pulse Resp BP Pulse Ox 97.3 F 101 20 208/122 100 12/16/18 23:23 12/16/18 23:23 12/16/18 23:23 12/16/18 23:23 12/16/18 23:23 Vital Signs Reviewed: Yes Diagnostics - Vital Signs Vital Signs Temp Pulse Resp BP Pulse Ox 12/16/18 23:23 97.3 F 101 20 208/122 100 - Laboratory Result Diagrams: 12/17/18 01:28 12/17/18 01:28 Lab Statement: Any lab studies that have been ordered have been reviewed, and results considered in the medical decision making process. GIGU Course/Dx - Course Course Of Treatment: Pt is a 33 y/o F presenting to the ED with a chief complaint of GI issues first onset yesterday with gas. Today at work, she ate dinner and started feeling her stomach doing flips. She reports diarrhea that was soft at first, then turned to water, with associated lightheadedness, dizziness, nausea, diaphoresis, tunnel vision, then vomiting, CROCKETT, and back pain. In the ED course, the pt was given Zofran for her N/V. Pt will be discharged home with a dx of gastroenteritis. She is stable and agreeable with this plan. - Diagnoses Provider Diagnoses: Gastroenteritis Discharge - Sign-Out/Discharge Documenting (check all that apply): Patient Departure Patient Received Moderate/Deep Sedation with Procedure: No - Discharge Plan Condition: Good Disposition: HOME Prescriptions: Ondansetron ODT TAB* [Zofran 4 MG Odt TAB*] 8 mg PO Q6H PRN #15 tab.odt PRN Reason: Nausea Patient Education Materials: Gastroenteritis (ED) Forms: *Work Release Referrals: Huma Gilbert MD [Primary Care Provider] - - Billing Disposition and Condition Condition: GOOD Disposition: Home - Attestation Statements Document Initiated by Scribe: Yes Documenting Scribe: Yasmin Sutherland Provider For Whom Elissa is Documenting (Include Credential): Poli Tucker MD. Scribe Attestation: Yasmin Jaimes scribed for Poli Tucker MD. on 12/21/18 at 0415. Scribe Documentation Reviewed: Yes Provider Attestation: The documentation as recorded by the Yasmin howard accurately reflects the service I personally performed and the decisions made by me, Poli Tucker MD. Status of Scribe Document: Viewed
[2018-12-17 02:03] LABS: ABS Basophils 0.1 10^3/ul (0-0.2); ABS Eosinophils 0.1 10^3/ul (0-0.6); ABS Lymphocytes 2.7 10^3/ul (1.0-4.8); ABS Monocytes 0.8 10^3/ul (0-0.8); ABS Neutrophils 5.2 10^3/ul (1.5-7.7); Eosinophil % 1.5 %; Hematocrit 42 % (35-47); Hemoglobin 13.2 g/dL (12.0-16.0); Lymphocyte % 29.8 %; Mean Corpuscular HGB Conc 32 g/dL (31-36); Mean Corpuscular Hemoglobin 26 pg (27-31); Mean Corpuscular Volume 82 fL (80-97); Mean Platelet Volume 8.5 fL (7.4-10.4); Platelet Count 445 10^3/uL (150-450); Red Blood Count 5.07 10^6 /uL (3.70-4.87); Red Cell Distribution Width 13 % (10.5-15)
[2018-12-17 02:08] LABS: ALT 11 U/L (7-52); AST 10 U/L (13-39); Albumin/Globulin Ratio 1.1 (1-3); Alkaline Phosphatase 65 U/L (34-104); Anion Gap 6 mmol/L (2-11); Blood Urea Nitrogen 10 mg/dL (6-24); CO2 Carbon Dioxide 32 mmol/L (22-32); Calcium 9.7 mg/dL (8.6-10.3); Chloride 97 mmol/L (101-111); EGFR African American 76.8 (>60); EGFR Non-African American 63.5 (>60); Globulin 3.5 g/dL (2-4); Glucose 354 mg/dL (70-100); Potassium 4.4 mmol/L (3.5-5.0); Sodium 135 mmol/L (135-145); Total Protein 7.5 g/dL (6.4-8.9)
[2018-12-17 02:15] LABS: HCG Pregnancy < 0.60 mIU/mL
[2018-12-17 07:16] VITALS: BP 132/87
== END 2018-12-17 07:15 | disposition home or self-care (01) ==
LOC: ED 23:21
DX: K52.9 Noninfective gastroenteritis and colitis, unspecified (principal); I10 Essential (primary) hypertension; E11.9 Type 2 diabetes mellitus without complications; F41.9 Anxiety disorder, unspecified; F32.9 Major depressive disorder, single episode, unspecified; J45.909 Unspecified asthma, uncomplicated; Z87.891 Personal history of nicotine dependence; Z88.5 Allergy status to narcotic agent; G47.30 Sleep apnea, unspecified; E66.01 Morbid (severe) obesity due to excess calories
CPT/HCPCS: 36415; 80053; 84702; 85025; 96360; 96361; 99284; A9270-GY

== ENCOUNTER 2019-01-21 20:22 | Emergency (ER) | payer OTHER ==
--- OUTSIDE RECORDS SUMMARY | 2019-01-21 20:31 | XMS REPORT | Continuity of Care Document ---
:1985 External Reference #:[id number] Author Name Ivonne Maldonado Care Team Providers Name Role Phone Huma Gilbert MD Primary Care Physician Unavailable Payers Date Identification Numbers Payment Provider Subscriber Policy Number: [id number] Mark Cornejo Group Number: [id number] [address] PayID: [id number] [place] [address] Onset: 2018 Policy Number: [id number] Nysabiha Cornejo Group Name: [phone] [address] [phone] PayID: [id number] [place] [address] Problems Active Problems Provider Date Morbid obesity Milena La MD Onset: 05/28/2016 Asthma without status asthmaticus Milena La MD Onset: 05/28/2016 Gastroesophageal reflux disease Milena La MD Onset: 05/28/2016 Obstructive sleep apnea syndrome Esther Verdugo DNP, RN, Onset: 06/09/2016 [facility] Type II diabetes mellitus Alex Luna NP [...] marijuana; not regular use Smoking Status Reviewed: 01/17/19 Patient is a former 1 pack X [...] 0 Solution Pen-Inject Per Week Tizanidine HCL Sarah Paula, 4mg N.P. 0 Tablets Duloxetine HCL Santa [...] Luna 05/27/2016 - 100mg Tablets a day WIRELINE FIELD OPERATOR 02/18/2018 Trulicity inject sc weekly 2ml E11.65 Alex Luna 05/27/2016 - 1.5mg/0.5ML WIRELINE FIELD OPERATOR 11/10/2016 Solution Pen-Inject Levemir 50 units twice 10ml E11.65 Alex Luna, 05/27/2016 - 100Unit/ML Solution daily as needed WIRELINE FIELD OPERATOR 09/01/2016 dx: e11.65 Ipratropium 1 vial in J45.909 Unknown 05/27/2016 - [place]/Albuterol nebulizer three 08/13/2016 Sulfate times a day as 0.5-2.5(3)mg/3ML needed for Solution asthma Ipratropium [place] 2 sprays in each J30.9 Unknown 05/27/2016 - 0.06% nostril 4 times 08/13/2016 Solution a day as needed Hydrocodone-Acetaminoph 1 by mouth every Unknown 05/27/2016 - en 4-6 hours prn. 05/27/2016 5-325mg Tablets Humalog Kwikpen 20 units three 6ml E11.65 Alex Luna, 05/27/2016 - 200Unit/ML times daily as WIRELINE FIELD OPERATOR 09/01/2016 Solution Pen-Inject needed dx: E11.65 Fluconazole one by mouth may Unknown 05/27/2016 - 150mg Tablets repeat in 3 days 08/13/2016 as needed Cyclobenzaprine HCL one by mouth 90tabs M54.42 Alex Luna, 05/27/2016 - 10mg three times a WIRELINE FIELD OPERATOR 03/15/2018 Tablets day as needed spasm M54.41 [...] Qnty Indications Ordering Provider Date Triamcinolone (Kenalog) Mario Purcell MD 12/08/2018 Injection Depomedrol 80MG Robyn Bustos M.D. 11/29/2014 Injection Depomedrol 80MG Ildefonso Talavera M.D. 08/15/2013 Injection Immunizations CPT Code Status Date Vaccine Lot # [id number] Given 08/13/2016 Pneumonia Vaccine [id number] Given 05/28/2016 Influ Virus Vaccine, Quadrivalent, Split Virus, Im [id number] Fluzone not PF Vital Signs Date Vital Result Comment 01/17/2019 10:27am Height 64 inches 5'4" Weight 283.00 lb BP Systolic 128 mmHg BP Diastolic 68 mmHg Respiratory Rate 18 /min Pain Level 8 BMI (Body Mass Index) 48.6 kg/m2 12/08/2018 11:08am Height 64 inches 5'4" Weight [...] H/L Range Note Laboratory test finding 08/13/2016 [facility] In House Hemoglobin A1c 13.2 High 5-7 Procedures Date Code Description Status 12/08/2018 Inject/Drain Joint/Bursa Major W/O US Completed 05/31/2016 00333 Sleep Study Unattended,HRT Rate,Oxygen Sat,Resp Completed Effort/Airflow 11/29/201409401 Inject Tendon Sheath Or Ligament Aponeurosis Eg Plantar Completed Fascia 10/09/2013 73085 Polysomnography Sleep Staging 4+ Parameters W/Cpap Completed 09/13/2013 37986 Polysomnography Sleep Staging 4+ Parameters W/Cpap Completed 08/15/201304395 Inject/Drain Joint/Bursa Major W/O US Completed 08/15/2013 04097 Inject Tendon Sheath Or Ligament Aponeurosis Eg Plantar Completed Fascia Encounters Type Date Location Provider Dx Diagnosis Office Visit 12/08/2018 Orthopedic Mario Purcell MD M75.41 Impingement 11:00a [facility] syndrome of right shoulder S46.111A Strain of musc/fasc/tend long hd bicep, right arm, init Office Visit 04/25/2018 11:15a [facility]opedic Services Kori Farooq, M25.562 Pain in left Of [facility] M.D. knee W19.xxxA Unspecified fall, initial encounter M23.8x2 Other internal derangements of left knee Office Visit 03/16/2018 10:30a Orthopedic Services Kori Farooq, M25.562 Pain in left Of C.M.A. M.D. 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 Office Visit 08/13/2016 1:20p [facility] Internal Alex Luna, E11.65 Type 2 diabetes Medicine - WIRELINE FIELD OPERATOR mellitus with [address] hyperglycemia J45.909 Unspecified asthma, uncomplicated F31.9 Bipolar disorder, unspecified F43.10 Post-traumatic stress disorder, unspecified K21.9 Gastro-esophageal reflux disease without esophagitis M54.41 Lumbago with sciatica, right side M54.42 Lumbago with sciatica, left side G43.109 Migraine with aura, not intractable, w/o status migrainosus Z23 Encounter for immunization Office Visit 07/22/2016 Pulmonology And Esther G47.33 Obstructive sleep 1:30p Sleep [facility] Of YOKASTA Verdugo RN, apnea (adult) [facility] (pediatric) E66.01 Morbid (severe) obesity due to excess calories Z68.43 Body mass index (BMI) 50-59.9 , adult Office Visit 06/09/2016 Pulmonology And Esther G47.33 Obstructive sleep 10:30a [facility] YOKASTA Verdugo RN, apnea (adult) [facility] (pediatric) G47.14 Hypersomnia due to medical condition E66.01 Morbid (severe) obesity due to excess calories Z68.43 Body mass index (BMI) 50-59.9 , adult Office Visit 05/28/2016 8:45a Pulmonology And Milena G47.9 Sleep disorder, Sleep Services Of MD Abhinav unspecified [facility] 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 Office Visit 01/17/2013 2:00p Dorcas Talavera, 844.8 Sprains & Strains Services Of [facility] Knee & Leg Other [facility]. Spec Sites Office Visit 11/11/2012 11:00a Dorcas Talavera 718.86 Derangement Joint Services Of [facility]ai Other Not Elsewhere C.M.A. Class Lower Leg Office Visit 10/28/2012 2:15p Seveor Allison8.86 Derangement Joint Services Of Rai Other Not Elsewhere C.M.A. Class Lower Leg Plan of Treatment Future Appointment(s):02/24/2019 9:45 am - Adalid Palma M.D. at [facility] Rjcatb0001/17/2019 - Mario Purcell, MDM75.41 Impingement syndrome of right shoulderNew Xrays:MRI Shoulder Right W/O, Ordered: 01/17/19Follow up: Follow up: after MRIS46.111A Strain of muscle, fascia and tendon of long head of biceps,
[2019-01-21 20:50] VITALS: BP 145/92
--- NOTE | 2019-01-21 21:39 | UC ---
Skin Complaint HPI - HPI Summary HPI Summary: Patient presents to urgent care with discomfort in her left upper stomach. Patient was at work swimming. Patient states she felt like the gland on her. Patient states she felt like she got stung. Patient states that been stung her again. Patient states since this time her left arm has been feeling tingly and burning. Patient with mild area edema. No erythema. No drainage. No analgesia taken. Patient states it does also intermittently itch. No chest pain shortness of breath or hives. Patient's right-hand dominant. Patient's medications reviewed this visit. - History of Current Complaint Chief Complaint: UCUpperExtremity Time Seen by Provider: 01/21/19 21:37 Stated Complaint: BUG BITE CAUSING NUMBESS, PAIN, TINGLING Hx Obtained From: Patient Hx Last Menstrual Period: 1 WEEK AGO Onset/Duration: Sudden Onset Onset Severity: Mild Current Severity: Moderate Pain Intensity: 8 - Allergy/Home Medications Allergies/Adverse Reactions: Allergies Allergy/AdvReac Type Severity Reaction Status Date / Time bee venom protein (honey bee) Allergy Severe Anaphylatic Verified 01/21/19 20:50 Shock Iodinated Contrast- Oral and Allergy Hives Verified 01/21/19 20:50 IV Dye morphine Allergy Hives Verified 01/21/19 20:50 oseltamivir [From Tamiflu] Allergy Hives Verified 01/21/19 20:50 Home Medications: Home Medications Anxiety Med* 01/21/19 [History] PMH/Surg Hx/FS Hx/Imm Hx Previously Healthy: Yes Other History Of: Negative For: Anticoagulant Therapy - Surgical History Surgical History: Yes Surgery Procedure, Year, and Place: APPENDECTOMY, CHOLECYSTECTOMY, 2 C-SECTIONS , EXPLORATORY SURGERY & F/U SURGERY FOR INFECTION - ABD. REMOVE FOREIGN OBJECT A KID IN EAR. TRIGGER THUMB RIGHT, DEEP VEIN RELEASE HAND - Family History Known Family History: Positive: Hypertension, Diabetes, Respiratory Disease - Social History Alcohol Use: Occasionally Alcohol Amount: "a couple a week" Substance Use Type: Marijuana Substance Use Comment - Amount & Last Used: Hx cocaine use, none currently Smoking Status (MU): Current Every Day Smoker Type: Cigarettes Amount Used/How Often: SMOKES AT WORK Length of Time of Smoking/Using Tobacco: 5 years Have You Smoked in the Last Year: Yes Review of Systems All Other Systems Reviewed And Are Negative: Yes Constitutional: Positive: Negative Skin: Positive: Other Neurological: Positive: Paresthesia. Negative: Weakness Is Patient Immunocompromised?: No Physical Exam - Summary Physical Exam Summary: Vital Signs Reviewed: Yes A+Ox3, no distress Eyes: Conjunctiva Clear, JASMEET. EOM intact and full ENT: Hearing grossly normal TM x 2 clear, mmoist, uvula midline, no exudate, no erythema Neck: Positive: Supple Respiratory: Positive: No respiratory distress, No accessory muscle use + CTA throughout no w/r Cardiovascular: RRR nl s1, s2 no m/r CBT <2 sec 2+ radial, ulnar CBT < 2 sec abd soft + BS nt/nd no guarding, no distension Musculoskeletal Exam: HUYNH x 4 without difficulty Strength Intact, ROM Intact Neurological: Positive: Alert, + sensation throughout + thumb up, a ok, finger cross, finger spread 5/5 grasp Psychological: Positive: Normal Response To Family Skin: Positive: no rash, no ecchymosis, left prox medial bicep pt with 3x3 cm are of slight edema increased sensitivity mild warmth no erythema small punctate lesion noted central area Triage Information Reviewed: Yes Vital Signs: Initial Vital Signs Temp 98.3 F 01/21/19 20:44 Pulse 81 01/21/19 20:44 Resp 20 01/21/19 20:44 BP 145/92 01/21/19 20:44 Pulse Ox 100 01/21/19 20:44 Course/Dx - Course Course Of Treatment: Patient presents to urgent care for discomfort in her left upper forearm. Patient was stung by something on her bicep twice while swimming. Patient states she felt like her arm got swollen and she has some paresthesias down her hand. Patient distal CSM intact. Vital signs are stable. Patient does have a small area of edema. No erythema. There is a small punctate lesion consistent with the sting but not retained parts. Discussed with patient at length plan of care. Recommended ice. Prednisone. Tylenol. Rest. Patient Workmen's Comp. paperwork complete sign. Patient given a note not to treturn to work tonight Patient does not return to work until Wednesday which she should be able to do without retractions. Patient comfortable in agreement with plan. slight elevated BP - recommend f/u with pcp - Diagnoses Provider Diagnosis: Local reaction to influenza vaccine Discharge - Sign-Out/Discharge Documenting (check all that apply): Patient Departure All imaging exams completed and their final reports reviewed: No Studies - Discharge Plan Condition: Stable Disposition: HOME Prescriptions: predniSONE [Deltasone 20 MG TAB] 60 mg PO DAILY #8 tablet Patient Education Materials: Insect Bite or Sting (ED) Forms: *Work Release Referrals: Huma Gilbert MD [Primary Care Provider] - Segundo Queen MD [Medical Doctor] - Additional Instructions: - take prednisone daily as prescribed until gone - okay to put cool packs on your wound - wear sling for comfort - okay to take Tylenol every 6 hours as needed for pain - Contact Dr Queen, occupational medicine, provider on Wednesday to schedule a followup appointment If you develop hives, facial swelling, difficulty breathing or ANY other concerns it is recommended you go to the emergency department for further evaluation and treatment - Billing Disposition and Condition Condition: STABLE Disposition: Home
[2019-01-21] MEDS ORDERED: predniSONE TAB* 20 MG PO ONE (21:50)
== END 2019-01-21 22:13 | disposition home or self-care (01) ==
LOC: UCEAST 20:22
DX: T88.1XXA Other complications following immunization, not elsewhere classified, initial encounter (principal); Y84.9 Medical procedure, unspecified as the cause of abnormal reaction of the patient, or of later complication, without mention of misadventure at the time of the procedure; Y92.9 Unspecified place or not applicable
CPT/HCPCS: 99212; G0463; J7512

== ENCOUNTER 2019-04-03 18:59 | Emergency (ER) | payer OTHER ==
--- OUTSIDE RECORDS SUMMARY | 2019-04-03 19:05 | XMS REPORT | Continuity of Care Document ---
:1985 External Reference #:[id number] Author Name Mario Purcell MD (transmitted by agent of provider Amairani Rey) Address [address] [facility], [place] [address] Care Team Providers Name Role Phone Donis Crowe MD - Family Medicine Care Team Information [employer] Mechanic [phone] Yodit Bosch MD - Family Medicine Care Team Information [employer] Mechanic [phone] Huma Gilbert MD - Internal Care Team Information [employer] Mechanic Medicine Problems Active Problems Provider Date Morbid obesity Milena La MD Onset: 05/28/2016 Asthma without status asthmaticus Milena La MD Onset: 05/28/2016 Gastroesophageal reflux disease Milena La MD Onset: 05/28/2016 Obstructive sleep apnea syndrome Esther Verdugo DNP, RN, Onset: 06/09/2016 [facility] Type II diabetes mellitus Alex Luna NP Onset: 08/13/2016 uncontrolled Bipolar disorder Alex Luna NP Onset: 08/13/2016 Posttraumatic stress disorder Alex Luna NP Onset: 08/13/2016 Essential hypertension Alex Luna NP Onset: 10/28/2016 Chronic low back pain Alex Luna NP Onset: 10/28/2016 Atypical squamous cells of Alex Luna NP Onset: 10/16/2015 undetermined significance on cervical Papanicolaou smear Localized, secondary osteoarthritis Mario Purcell MD Onset: 02/02/2019 of the shoulder region Strain of muscle of long head of Mario Purcell MD Onset: 12/08/2018 biceps brachii Disorder of shoulder Mario Purcell MD Onset: 12/08/2018 Sprain of medial collateral ligament Kori Farooq M.D. Onset: 03/16/2018 of knee Localized, primary osteoarthritis Kori Farooq M.D. Onset: 03/16/2018 Social History Type Date Description Comments Sex Unknown ETOH Use Occasionally consumes alcohol Tobacco Use Start: Unknown End: Patient is a former 1 pack X 3 weeks X Unknown smoker 2 years. Recreational Drug Use Former Drug User marijuana; not regular use Smoking Status Reviewed: 03/17/19 Patient is a former 1 pack X 3 weeks X smoker 2 years. Exercise Type/Frequency Exercises sporadically Allergies, Adverse Reactions, Alerts Active Allergies Reaction Severity Comments Date Tamiflu 11/29/2014 Ibuprofen 05/28/2016 Contrast Dye/Morphine combo itching intensely Severe 08/13/2016 Inactive Allergies NKDA 07/20/2013 Medications Active Medications SIG Qnty Indications Ordering Date Provider Zonisamide 2 po qhs 60caps G43.009 Adalid Vang 100mg Rai Palma 9 Capsules Sumatriptan Succinate 1 injection twice 12units G43.009 Adalid Vang daily as needed on Rai Palma 7 4mg/0.5ML Solution no more than 2 Auto-Inject days/week. please include autoinjector with instructions. Freestyle Lite Test test up to 4 times a 100units E11.65 Alex Luna, day LEAD INFORMATICA DEVELOPER 7 Strips Aspirin 1 by mouth every day 90tabs E11.65 Alex Luna 81mg Tablets DR ANTELMO Peñaloza Lisinopril 1 by mouth every day 90tabs E11.65 Tono Steven 30mg Tablets Lenore Shah M.D.,FACMoses Zantac 1 tab by mouth every 90tabs K21.9 Alex Luna 300mg Tablets day every night LEAD INFORMATICA DEVELOPER 6 Ventolin HFA 2 puffs by mouth 8gm J45.909 Alex Luna four times a day as LEAD INFORMATICA DEVELOPER 6 108(90Base) mcg/Act needed Aerosol Pantoprazole Sodium 1 by mouth every day 90tabs K21.9 Alex Luna LEAD INFORMATICA DEVELOPER 6 40mg Tablets Metformin HCL ER take two tablets by 180tabs E11.65 Alex Luna 750mg mouth every day LEAD INFORMATICA DEVELOPER 6 Tablets ER 24HR Levocetirizine 1 by mouth every day 90tabs J30.9 Alex Luna, Dihydrochloride LEAD INFORMATICA DEVELOPER 6 5mg Tablets Fluticasone 2 sprays each 9.900ml J30.9 Alex Luna, Propionate nostril daily as LEAD INFORMATICA DEVELOPER 6 50mcg/Act needed Suspension Gabapentin 1 by mouth at Unknown 300mg bedtime. 0 Capsules Trulicity Take 1 Pen Injector Unknown 1.5mg/0.5ML Subcutaneously Once 0 Solution Pen-Inject Per Week Tizanidine HCL Sarah Paula, 4mg N.P. 0 Tablets Duloxetine HCL Santa Pulliam, 30mg MD [address] Kimberly Oxycodone HCL GuillermoArgelia 10mg Marina helton FNP 0 Tablets Symbicort Inhale 1 puff With Unknown 80-4.5mcg/Act Adapter Twice A Day 0 Aerosol Montelukast Sodium Vladimir, 10mg Huma Connor MD 0 Tablets Ondansetron Take 1 Tab By Mouth Unknown 4mg Tablets Every 6 Hours as 0 Dispers Needed For Nausea Or Vomiting Trazodone HCL Vladimir, 50mg Huma Connor MD 0 Tablets Vitamin D2 take 50,000 units Unknown 2000Unit once a week 0 Tablets Ibuprofen Unknown 0 Tylenol Unknown 0 Medications Administered in Office Medication SIG Qnty Indications Ordering Provider Date Triamcinolone (Kenalog) Mario Purcell MD 02/02/2019 Injection Triamcinolone (Kenalog) Mario Purcell MD 12/08/2018 Injection Depomedrol 80MG Robyn Bustos M.D. 11/29/2014 Injection Depomedrol 80MG Ildefonso Talavera M.D. 08/15/2013 Injection Immunizations CPT Code Status Date Vaccine Lot # [id number] Given 08/13/2016 Pneumonia Vaccine [id number] Given 05/28/2016 Influ Virus Vaccine, Quadrivalent, Split Virus, Im [id number] Fluzone not PF Vital Signs Date Vital Result Comment 03/17/2019 9:18am Height 65 inches 5'5" Weight 286.00 lb BP Systolic 126 mmHg BP Diastolic 88 mmHg Respiratory Rate 18 /min Pain Level 5 BMI (Body Mass Index) 47.6 kg/m2 02/24/2019 10:01am Height 65 inches 5'5" Weight 291.00 lb Heart Rate 60 /min BP Systolic Sitting 120 mmHg BP Diastolic Sitting 80 mmHg Respiratory Rate 20 /min BMI (Body Mass Index) 48.4 kg/m2 Results Description No Information Available Procedures Date Code Description Status 02/02/2019 Inj/Aspir, Intermediate Joint/Bursa W/ US Completed 12/08/2018 Inject/Drain Joint/Bursa Major W/O US Completed Medical Devices Description No Information Available Encounters Type Date Location Provider Dx Diagnosis Office Visit 03/17/2019 Orthopedic Mario Purcell MD M25.511 Pain in right 9:15a Services [facility] [place] shoulder M75.41 Impingement syndrome of right shoulder 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 shoulder S46.111A Strain of musc/fasc/tend long hd bicep, right arm, init Office Visit 12/08/2018 11:00a Orthopedic Mario Purcell M75.41 Impingement Services Of syndrome of right C.M.A. 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 at [facility] [id number]/17/2019 - Mario Purcell, MDM25.511 Pain in right phhcaealK23.41 Impingement syndrome of right shoulderFollow up:Follow up: 5 weeks Set up spine imqjldpdytkW63.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, right pburvbmdA42.2 Cervicalgia Functional Status Description No Information Available Mental Status Description No Information Available Referrals Refer to Reason for Referral Status Appt Date Lyn Tate MD cervicalgia with radiculopathy Created [address] [place] [id number] [phone]
[2019-04-03 19:13] VITALS: BP 142/93
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
== END 2019-04-03 20:25 | disposition home or self-care (01) ==
LOC: UCEAST 18:59
DX: M54.16 Radiculopathy, lumbar region (principal); E11.9 Type 2 diabetes mellitus without complications; F41.9 Anxiety disorder, unspecified; J45.909 Unspecified asthma, uncomplicated; Z88.5 Allergy status to narcotic agent; Z87.891 Personal history of nicotine dependence
CPT/HCPCS: 81003; 99212; G0463

== ENCOUNTER 2019-05-20 11:56 | Emergency (ER) | payer OTHER ==
--- OUTSIDE RECORDS SUMMARY | 2019-05-20 12:07 | XMS REPORT | Continuity of Care Document ---
:1985 External Reference #:[id number] Author Name Mario Purcell MD (transmitted by agent of provider Simin Lopez) Address [address] [place] [address] Care Team Providers Name Role Phone Donis Crowe MD - Family Medicine Care Team Information Refrigeration Tech Yodit Bosch MD - Family Medicine Care Team Information Refrigeration Tech Huma Gilbert MD - Internal Care Team Information Refrigeration Tech Medicine Problems Active Problems Provider Date Morbid obesity Milena La MD Onset: 05/28/2016 Asthma without status asthmaticus Milena La MD Onset: 05/28/2016 Gastroesophageal reflux disease Milena La MD Onset: 05/28/2016 Obstructive sleep apnea syndrome Esther Verdugo DNP, RN, Onset: 06/09/2016 [facility] Type II diabetes mellitus Alex Luna [...] marijuana; not regular use Smoking Status Reviewed: 05/04/19 Patient is a former 1 pack X [...] times a 100units E11.65 Alex Luna, day MAIL PROCESSING ASSOCIATE 7 Strips Aspirin 1 by mouth every day 90tabs E11.65 Alex Luna 81mg Tablets DR ANTELMO Peñaloza Lisinopril 1 by mouth every day 90tabs E11.65 Tono Steven 30mg Tablets Lenore Shah M.D.,FACMoses Zantac 1 tab by mouth every 90tabs K21.9 Alex Luna 300mg Tablets day every night MAIL PROCESSING ASSOCIATE 6 Ventolin HFA 2 puffs by mouth 8gm J45.909 Alex Luna four times a day as MAIL PROCESSING ASSOCIATE 6 108(90Base) mcg/Act needed Aerosol Pantoprazole Sodium 1 by mouth every day 90tabs K21.9 Alex Luna MAIL PROCESSING ASSOCIATE 6 40mg Tablets Metformin HCL ER take two tablets by 180tabs E11.65 Alex Luna 750mg mouth every day MAIL PROCESSING ASSOCIATE 6 Tablets ER 24HR Levocetirizine 1 by mouth every day 90tabs J30.9 Alex Luna, Dihydrochloride MAIL PROCESSING ASSOCIATE 6 5mg Tablets Fluticasone 2 sprays each 9.900ml J30.9 Alex Luna, Propionate nostril daily as MAIL PROCESSING ASSOCIATE 6 50mcg/Act needed Suspension Prazosin HCL Take 1 To 2 Capsules Unknown 1mg By Mouth AT Bedtime 0 Capsules Gabapentin 1 by mouth at Unknown 300mg bedtime. 0 Capsules Trulicity Take 1 Pen Injector Unknown 1.5mg/0.5ML Subcutaneously Once 0 Solution Pen-Inject Per Week Tizanidine HCL Sarah Paula, 4mg N.P. 0 Tablets Duloxetine HCL [place], 30mg MD [address] Part Oxycodone HCL [facility] 10mg Marina helton FNP 0 Tablets Symbicort [...] CPT Code Status Date Vaccine Lot # [id number] Given 08/13/2016 Pneumonia Vaccine [id number] Given 05/28/2016 Influ Virus Vaccine, Quadrivalent, Split Virus, Im [id number] Fluzone not PF Vital Signs Date Vital Result Comment 05/04/2019 1:30pm Height 65 inches 5'5" Weight 297.00 lb Heart Rate 101 /min BP Systolic 146 mmHg BP Diastolic 84 mmHg Respiratory Rate 18 /min Body Temperature 98.3 F Pain Level 8 BMI (Body Mass Index) 49.4 kg/m2 03/17/2019 9:18am Height 65 inches 5'5" Weight 286.00 lb BP Systolic 126 mmHg BP Diastolic 88 mmHg Respiratory Rate 18 /min Pain Level 5 BMI (Body Mass Index) 47.6 kg/m2 Results Description No Information Available Procedures Date Code Description Status 02/02/2019 Inj/Aspir, Intermediate Joint/Bursa W/ US Completed 12/08/2018 Inject/Drain Joint/Bursa Major W/O US Completed Medical Devices Description No Information Available Encounters Type Date Location Provider Dx Diagnosis Office Visit 03/17/2019 [facility] Mario Purcell MD M25.511 Pain in right 9:15a at [facility] M75.41 Impingement syndrome of right shoulder 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, right shoulder M54.2 Cervicalgia Office 02/24/2019 [facility] G43.009 Migraine w/o Visit 9:45a [facility] Palma aura, not intractable, w/o status migrainosus Office 02/02/2019 [facility] at Mario Purcell M75.41 Impingement Visit 3:15p [facility] syndrome of right shoulder 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, right shoulder Office Visit 01/17/2019 10:15a [facility] Winsome Olea.41 Impingement at [place] syndrome of right shoulder S46.111A Strain of musc/fasc/tend long hd bicep, right arm, init Office Visit 12/08/2018 11:00a [facility] Choi.41 Impingement at [facility] syndrome of right shoulder S46.111A Strain of musc/fasc/tend long hd bicep, right arm, init Assessments Date Code Description Provider 03/17/2019 M25.511 Pain in right shoulder Mario Purcell MD 03/17/2019 M75.41 Impingement syndrome of right shoulder Mario Purcell MD 03/17/2019 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 at [facility] Functional Status Description No Information Available Mental Status Description No Information Available Referrals Refer to Dr Reason for Referral Status Appt Date Lyn Tate MD cervicalgia with radiculopathy Closed [address] [place] [phone]
[2019-05-20 13:04] VITALS: BP 129/79
--- NOTE | 2019-05-20 13:33 | UC ---
Knee Pain HPI - HPI Summary HPI Summary: Pt presents to for eval of left knee. Pt states 1 year ago fell at work and injured left knee during a restraint. Pt states was treated by Dr. Purcell and PT PT states was doing well untl this past Wed. Pt states was walking at work when same knee buckled. Pt did not fall. Pt states 2 additional times knee has "given out" no fall. Pt states limping related to pain. Pt state she took Naproxyn yesterday, no analgesia today. No paresthesia, no weakness. 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 Hx Last Menstrual Period: 05/01/19 Onset/Duration: Lasting Days Severity Initially: Moderate Severity Currently: Moderate Pain Intensity: 8 - Allergies/Home Medications Allergies/Adverse Reactions: Allergies Allergy/AdvReac Type Severity Reaction Status Date / Time bee venom protein (honey bee) Allergy Severe Anaphylatic Verified 05/20/19 13:05 Shock Iodinated Contrast Media Allergy Hives Verified 05/20/19 13:05 [Iodinated Contrast- Oral and IV Dye] morphine Allergy Hives Verified 05/20/19 13:05 oseltamivir [From Tamiflu] Allergy Hives Verified 05/20/19 13:05 Home Medications: Home Medications Naproxen TAB* [Naprosyn 250 mg TAB*] 250 mg PO Q8H PRN 05/20/19 [History Confirmed 05/20/19] PMH/Surg Hx/FS Hx/Imm Hx Previously Healthy: Yes Other History Of: Negative For: Anticoagulant Therapy - Surgical History Surgical History: Yes Surgery Procedure, Year, and Place: APPENDECTOMY, CHOLECYSTECTOMY, 2 C-SECTIONS , EXPLORATORY SURGERY & F/U SURGERY FOR INFECTION - ABD. REMOVE FOREIGN OBJECT A KID IN EAR. TRIGGER THUMB RIGHT, DEEP VEIN RELEASE HAND - Family History Known Family History: Positive: Hypertension, Diabetes, Respiratory Disease, Non -Contributory - Social History Occupation: Employed Full-time - [employer] Lives: With Family Alcohol Use: Occasionally Alcohol Amount: "a couple a week" Substance Use Type: Marijuana Substance Use Comment - Amount & Last Used: couple a month Smoking Status (MU): Former Smoker Type: Cigarettes Amount Used/How Often: SMOKES AT WORK Length of Time of Smoking/Using Tobacco: 5 years Have You Smoked in the Last Year: Yes Review of Systems All Other Systems Reviewed And Are Negative: Yes Skin: Positive: Negative Motor: Positive: Other - left knee pain Neurovascular: Positive: Negative Musculoskeletal: Positive: Decreased ROM Neurological: Positive: Weakness. Negative: Paresthesia, Numbness Physical Exam - Summary Physical Exam Summary: Vital Signs Reviewed: Yes A+Ox3, discomfort with movemenr Eyes: Conjunctiva Clear ENT: Hearing grossly normal neck: supple Respiratory: Positive: No respiratory distress, No accessory muscle use Cardiovascular: skin color reflect adequate perfusion 2+ DP, PT CBT < 2 sec Musculoskeletal Exam: + SLE with pain inferior margin patella + full extension , flexion limited at 90 second to pain Neg laxity anterior/posterior drawer, medial/lateral jooint line stress Pt with pain along medial oint line mild edema no crepitus + flex/ext ankle + great toes extension Neurological: Positive: Alert, ambulatory with limp, + gross sensation Psychological: Positive: Normal Response To proivder Skin: Positive: no rash, no ecchymosis Triage Information Reviewed: Yes Vital Signs: Initial Vital Signs Temp 98.7 F 05/20/19 13:01 Pulse 88 05/20/19 13:01 Resp 16 05/20/19 13:01 BP 129/79 05/20/19 13:01 Pulse Ox 95 05/20/19 13:01 Diagnostics - Radiology No standard instances Radiology Interpretation Completed By: Radiologist - Patient Name: RONALD MEHTA Medical Record#: [id number] Ordering Physician: Roseanne Cantu MD Acct.#: [id number] : 1985 Age: 33 Sex: F Location: [facility] Exam Date: 05/20/19 1346 ADM Status: REG ER Order Information: KNEE LEFT 4+ VWS Accession Number: [id number] CPT: 29213 INDICATION: Left knee injury. TECHNIQUE: 4 views of the left knee were obtained. FINDINGS: The bones are normal alignment. There is a small joint effusion present. No fracture is seen. Joint spaces appear maintained. There are vascular calcifications present. IMPRESSION: SMALL JOINT EFFUSION, NO FRACTURE IS SEEN. < Electronically signed by Juancho Salcido MD in OV> 05/20/191418 Dictated By: Juancho Salcido MD Dictated Date/Time: 05/20/191415 Transcribed Date/Time: 1415 Copy to: CC:Huma Gilbert MD; Roseanne Cantu MD Imaging - [facility] Imaging - [facility] Imaging - [facility] [address] [place] [id number] [address] [address] ph ([phone]) ph ([phone]) ph ([phone]) This report is only to be considered final once signed by the Provider(s) as displayed in the "<Electronically Signed by >" field (s). Absence of a signature indicates the report is in a draft status and still needs to be finalized. In the event this document was created by someone other than the signing Provider, the individual initiating the document will be listed in the "Entered by:" or "Dictated by:" hilton. 1 of 1 Re-Evaluation - Re-Evaluation First Eval Comment: reviewed imaging. plan as outlined. pt in agreement Knee Pain Course/Dx - Course [facility] Of [facility]: [facility] Pt with injury 1 year ago. this weeks started feeling weakness and buckle. No recurrent trauma pt with pain inferior aspect of patella and medial joint line. No laxity, mild edema will check imaging - low suspicion for fx anticipate sabrina wrap, crutches ice elevate work note apap/motrin f.u with Occ[facility] and ortho Pt comfortable and in agreement with plan - Differential Dx/Diagnosis Provider Diagnosis: Left knee sprain Discharge ED - Sign-Out/Discharge Documenting (check all that apply): Patient Departure All imaging exams completed and their final reports reviewed: Yes - Discharge Plan Condition: Stable Disposition: HOME Patient Education Materials: Knee Sprain (ED) Forms: *Gen. Provider Communication, *Work Release Referrals: Huma Gilbert MD [Primary Care Provider] - Segundo Queen MD [Medical Doctor] - Mario Purcell MD [Medical Doctor] - Additional Instructions: -Okay to alternate ibuprofen (Advil, Motrin) and tylenol every 3 hours for pain. Take with food. Do NOT take for more than 4-5 days - Use crutches until you can walk without pain or a limp - wear sabrina wrap for support -Apply ice (20 min at a time) every 4 hours while awake today and tomorrow - Keep leg elevated - this will help with swelling and pain -contact the orthopedic provider and the prn occupational therapist on Wednesday to arrange a follow-up appointment this week, Call your doctor or return with questions or concerns - Billing Disposition and Condition Condition: STABLE Disposition: Home
[2019-05-20] MEDS ORDERED: Acetaminophen TAB* 325 MG PO ONE (13:46)
== END 2019-05-20 14:39 | disposition home or self-care (01) ==
LOC: UCEAST 11:56
DX: S83.8X2A Sprain of other specified parts of left knee, initial encounter (principal); Z87.891 Personal history of nicotine dependence; Z91.030 Bee allergy status; Z91.041 Radiographic dye allergy status; Z88.5 Allergy status to narcotic agent; Z88.8 Allergy status to other drugs, medicaments and biological substances; X50.1XXA Overexertion from prolonged static or awkward postures, initial encounter; Y93.01 Activity, walking, marching and hiking; Y92.9 Unspecified place or not applicable; Y99.0 Civilian activity done for income or pay
CPT/HCPCS: 99213; A9270-GY; G0463

== ENCOUNTER → 2019-07-28 11:39 | Day surgery (SDC) | payer OTHER ==
[~2019-07-28 11:39] MED LIST: Acetaminophen IV 1GM/100ML * 100 ML ONE; Buffered Lidocaine 1% SYRIN* 1 ML/SYRINGE INTRADERM ONE; Dexamethasone TAB* 4 MG ONE; DiMENhydriNATE IV* 50 MG/ML VIAL IV PUSH ONE; DiMENhydriNATE IV* 50 MG/ML VIAL ONE; Famotidine IV* 10 MG/ML 2 ML (20 mg) IV ONE; Famotidine IV* 10 MG/ML 2 ML (20 mg) ONE; HYDROmorphone INJ1* 1 MG/ML SYRINGE IV PRN; HYDROmorphone INJ1* 1 MG/ML SYRINGE ONE; Insulin REGULAR(*) 1 UNITS UNIT ONE; KETAMINE HCL* 50 MG/ML 10 ML VIAL ONE; Ketorolac INJ* 30 MG/ML 1 ML VIAL ONE; Lactated Ringers 1000 ML Bag* 1,000 ML IV SCH; Levalbuterol 0.63MG/3ML NEB* UNIT OF USE INH ONE; Lidocaine 2% PF * 5 ML VIAL ONE; Midazolam* 1 MG/ML 10 ML VIAL (10 MG) ONE; Naloxone* 0.4 MG/ML 1 ML VIAL IV PRN; Ondansetron ODT TAB* 4 MG ONE; Ondansetron ODT TAB* 4 MG PO ONE; PROCHLORPERAZINE INJ 5 MG/ML 2 ML VIAL IV PRN; PROCHLORPERAZINE INJ 5 MG/ML 2 ML VIAL ONE; Propofol* 10 MG/ML 20 ML BTL ONE; ROPIVACAINE 5 MG/ML 30 ML BTL (0.5%) ONE; Ropivacaine 0.2% * 2 MG/ML VIAL ONE; Scopolamine 1.5 mg* PATCH ONE; Scopolamine 1.5 mg* PATCH TRANSDERM PRN; Scopolamine PATCH Remove* 1 NOTE MISC PATCH OFF ONE; ceFAZolin 1 GM ADVAN(*) 1 GM ADDV.VIAL IVPB ONE; ceFAZolin 2 GM in NS PREMIX(*) 2 GM/100 ML BAG IVPB ONE; fentaNYL* 50 MCG/ML 2 ML VIAL (100 MCG VIAL) IV PRN; fentaNYL* 50 MCG/ML 2 ML VIAL (100 MCG VIAL) ONE; oxyCODONE TAB* 5 MG TAB PO PRN
[2019-07-28 18:54] VITALS: BP 140/94
--- NOTE | 2019-08-01 18:19 | OP ---
CC: PCP * DATE OF OPERATION: 07/28/19 - SDS DATE OF : 83 ATTENDING SURGEON: Mario Purcell MD SENIOR MANUFACTURING TECHNICIAN: CLARENCE Swartz. An assistant accounting manager was needed for the entirety of the case to help with positioning, retraction and utilized throughout all portions of the case. ANESTHESIOLOGIST: Dr. El. ANESTHESIA: General with interscalene block. PRE-OP DIAGNOSES: Right shoulder acromioclavicular joint arthritis and impingement. POST-OP DIAGNOSES: Right shoulder acromioclavicular joint arthritis, bicipital tendinitis, and partial thickness tear of the rotator cuff. OPERATIVE PROCEDURE: Right shoulder arthroscopy with: 1. Extensive glenohumeral debridement including tenotomy. 2. Subacromial decompression with acromioplasty. 3. Arthroscopic distal clavicle excision. 4. Rotator cuff repair using Regeneten patch. COMPLICATIONS: None. ESTIMATED BLOOD LOSS: Minimal. IMPLANTS USED: One medium Regeneten patch. INDICATIONS: Unique Cornejo is a 33-year-old female with persistent shoulder pain, refractory to conservative management. She has elected to proceed with surgical treatment. Risks and benefits were discussed at length including, but not limited to bleeding; infection; damage to nerves, vessels, surrounding structures; wound nonhealing; persistent pain; need for surgery; scarring, stiffness; incomplete relief of symptoms; risks of anesthesia. DESCRIPTION OF PROCEDURE: The patient was greeted in the preoperative area by attending surgeon. Correct extremity was marked. Consent was confirmed. The patient underwent interscalene nerve block by anesthesiologist, after which she was brought back to the operative suite, placed in supine position on the operating table and underwent general anesthesia and endotracheal intubation. After which, she was placed in the left lateral decubitus position with all bony prominences padded. She was secured with pegboard. An axillary roll was placed. The right shoulder was then draped unsterile with 10 pounds of traction. The right shoulder was then prepped and draped in usual sterile fashion beginning with chlorhexidine prep, scrub and alcohol wipe and a final prep with ChloraPrep. After appropriate surgical pause indicating site, side and procedure and security administrator of antibiotics, a standard postero-lateral portal was made sharply with 11 blade. Scope was introduced into the joint and the joint was examined. There were grade 0 to 1 changes of glenohumeral joint. The anterior , posterior, superior labrum had some unstable fraying. There was evidence of SLAP type 2 tear and there was synovitis present. The shaver was used to debride back anterior, posterior, superior labrum. Biceps was tenotomized. The subscap was intact. The undersurface of the supraspinatus had some high- grade partial-thickness tearing. This was debrided back. Attention was directed to the subacromial space. The scope was introduced into the subacromial space. A lateral port was made in an outside-in fashion. A shaver was used to debride back the abundant thick bursa that was present. The undersurface of the acromion was then skeletonized using electrocautery device. A 4-0 oval joleen was then used to do an acromioplasty. The excess debris was removed. Attention was then directed to AC joint. The joint was very stenotic and tight. A distal 8 mm were then released using a 4-0 oval joleen. After this was completed, all the excess debris was removed. Attention was directed to the cuff. The cuff had no tearing on the bursal side , but it had high- grade, partial-thickness tearing. Decision was made to treat this with Regeneten patch because of the patient's young age. The size medium was brought to the field. The patch was placed under arthroscopic direct visualization. This was then secured through a separate stab incision with tendon osmar and then laterally with PEEK osmar into the bone, she had good quality bone. Final images were obtained. The wounds were then copiously irrigated with sterile saline. The wounds were closed with 3-0 nylon in interrupted fashion. A sterile dressing was applied. A Cryo/Cuff and a regular sling was applied. She was awoken from anesthesia and transferred to PACU in stable condition. POSTOPERATIVE PLAN: She will be nonweightbearing. She will be in sling for 2 to 3 days. Discharged on pain medication. DVT prophylaxis considered, but deferred due to no previous personal or family history. I will see the patient back in 10 to 14 days. [id number]/[facility] #: [id number] LULU
== END | disposition home or self-care (01) ==
LOC: OR 11:39
PROVIDERS: ATTEND Orthopaedic Surgery
DX: 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, right shoulder (principal); M75.41 Impingement syndrome of right shoulder; M75.111 Incomplete rotator cuff tear or rupture of right shoulder, not specified as traumatic; I10 Essential (primary) hypertension; E11.9 Type 2 diabetes mellitus without complications; Z79.84 Long term (current) use of oral hypoglycemic drugs; K21.9 Gastro-esophageal reflux disease without esophagitis; F43.10 Post-traumatic stress disorder, unspecified; F31.9 Bipolar disorder, unspecified; J45.909 Unspecified asthma, uncomplicated; Z87.891 Personal history of nicotine dependence; G89.18 Other acute postprocedural pain
CPT/HCPCS: A9270-GY; C1713; J0690; J0780; J1170; J1240; J1885; J2250; J2704; J2795; J3010; J8540

== ENCOUNTER 2019-09-25 05:10 | Emergency (ER) | payer OTHER ==
[2019-09-25] MEDS ORDERED: Ondansetron INJ* 2 MG/ML VIAL IV ONE (05:20)
[2019-09-25] MEDS ORDERED: NS 0.9% 1000 ML** 1,000 ML IV ONE ×2 (05:20→06:38)
[2019-09-25] MEDS ORDERED: Ketorolac INJ* 30 MG/ML 1 ML VIAL IV ONE (05:52)
--- NOTE | 2019-09-25 05:52 | ED ---
Abdominal Pain/Female - HPI Summary HPI Summary: Patient is a 33 y/o F presenting to [facility] with cc of severe abd cramping, nausea , and vomiting onset this morning. She reports that she is experiencing diffuse abd pain with constant nausea and vomiting but no diarrhea. She endorses chills but denies fevers. Symptoms rated 10/10 in severity. PMHx: diabetes, HTN, asthma , PNA, PE, sleep apnea, GERD, gastroparesis, appendectomy, cholecystectomy, 2x c -sections. Former smoker, occasional EtOH, marijuana use (last used yesterday). Medications reviewed. Allergies noted. - History of Current Complaint Chief Complaint: EDFluSymptoms Stated Complaint: VOMITING PER PT Time Seen by Provider: 09/25/19 05:17 Hx Obtained From: Patient Hx Last Menstrual Period: 05/01/19 Onset/Duration: Sudden Onset, Lasting Hours, Still Present Timing: Constant Severity Initially: Moderate Severity Currently: Severe Pain Intensity: 10 Pain Scale Used: 0-10 Numeric Location: Diffuse Radiates: No Character: Cramping Aggravating Factor(s): Nothing Alleviating Factor(s): Nothing Associated Signs and Symptoms: Positive: Nausea, Vomiting, Other: - chills. Negative: Fever, Diarrhea Allergies/Adverse Reactions: Allergies Allergy/AdvReac Type Severity Reaction Status Date / Time bee venom protein (honey bee) Allergy Severe Anaphylatic Verified 09/25/19 05:13 Shock Iodinated Contrast Media Allergy Hives Verified 09/25/19 05:13 [Iodinated Contrast- Oral and IV Dye] morphine Allergy Hives Verified 09/25/19 05:13 oseltamivir [From Tamiflu] Allergy Hives Verified 09/25/19 05:13 Bee Stings Allergy Anaphylatic Uncoded 09/25/19 05:13 Shock Home Medications: Home Medications Acetaminophen TAB* [Tylenol TAB*] 650 mg PO Q4H PRN 12/24/17 [History Confirmed 07/28/19] Albuterol HFA INHALER* [Ventolin HFA Inhaler*] 2 puff INH Q4H PRN 12/24/17 [ History Confirmed 07/28/19] Lisinopril TAB* [Prinivil TAB*] 30 mg PO QAM 12/24/17 [History Confirmed ] Montelukast Sodium TAB* [Singulair TAB*] 10 mg PO BEDTIME 12/24/17 [History Confirmed 07/28/19] metFORMIN* [Glucophage 500 MG TAB *] 750 mg PO BID 12/24/17 [History Confirmed 07/28/19] Dulaglutide [Trulicity] 0.75 mg SUBCUT WEEKLY 03/07/18 [History Confirmed ] Ibuprofen TAB* [Advil TAB*] 800 mg PO DAILY WITH MEAL PRN 03/07/18 [History Confirmed 07/28/19] clonazePAM TAB(*) [Klonopin TAB(*)] 0.5 mg PO BID PRN 04/03/19 [History Confirmed 07/28/19] tiZANidine TAB* [Zanaflex TAB*] 2 mg PO DAILY PRN 04/03/19 [History Confirmed ] traZODone TAB* [Desyrel TAB*] 50 mg PO BEDTIME PRN 04/03/19 [History Confirmed 07/28/19] Naproxen TAB* [Naprosyn 250 mg TAB*] 250 mg PO Q8H PRN 05/20/19 [History Confirmed 07/28/19] Ondansetron ODT TAB* [Zofran 4 MG Odt TAB*] 4 mg PO Q8H PRN 4 Days #12 tab.odt 09/25/19 [Rx] PMH/Surg Hx/FS Hx/Imm Hx Endocrine/Hematology History: Reports: Hx Diabetes - NIDDM Denies: Hx Anticoagulant Therapy, Hx Thyroid Disease Cardiovascular History: Reports: Hx Hypertension - CONTROLLED BY MEDICATION. Denies: Hx Congestive Heart Failure, Hx Pacemaker/ICD, Other Cardiovascular Problems/Disorders Respiratory History: Reports: Hx Asthma, Hx Pneumonia, Hx Pulmonary Edema, Hx Sleep Apnea - new BiPAP user, some compliance issues Denies: Hx Chronic Obstructive Pulmonary Disease (COPD), Other Respiratory Problems/Disorders GI History: Reports: Hx Gastroesophageal Reflux Disease, Other GI Disorders - Gastroparesis-flares on occasion Denies: Hx Ulcer History: Denies: Hx Dialysis, Hx Renal Disease Musculoskeletal History: Reports: Hx Arthritis - Osteoarthritis right shoulder, Other Musculoskeletal History - morbid obesity Denies: Hx Rheumatoid Arthritis, Hx Osteoporosis, Hx Scoliosis Sensory History: Denies: Hx Cataracts, Hx Contacts or Glasses, Hx Hearing Aid Opthamlomology History: Denies: Hx Cataracts, Hx Contacts or Glasses Neurological History: Reports: Hx Migraine, Hx Nerve Disease - Sciatic nerve pain right > than Left Denies: Hx Headaches, Other Neuro Impairments/Disorders Psychiatric History: Reports: Hx Anxiety - prn ativan, Hx Depression Denies: Hx Panic Disorder - Cancer History Hx Chemotherapy: No Hx Radiation Therapy: No - Surgical History Surgical History: Yes Surgery Procedure, Year, and Place: APPENDECTOMY, CHOLECYSTECTOMY, 2 C-SECTIONS , EXPLORATORY SURGERY & F/U SURGERY FOR INFECTION - ABD. REMOVE FOREIGN OBJECT A KID IN EAR. TRIGGER THUMB RIGHT, DEEP VEIN RELEASE HAND Hx Anesthesia Reactions: No - Immunization History Date of Tetanus Vaccine: Unk Date of Influenza Vaccine: Fall 2013 Infectious Disease History: No Infectious Disease History: Denies: Hx Clostridium Difficile, Hx Hepatitis, Hx Human Immunodeficiency Virus (HIV), Hx of Known/Suspected MRSA, History Other Infectious Disease, Traveled Outside the in Last 30 Days - Family History Known Family History: Positive: Hypertension, Diabetes, Respiratory Disease - Social History Alcohol Use: Occasionally Alcohol Amount: "a couple a week" Hx Substance Use: Yes Substance Use Type: Reports: Marijuana Substance Use Comment - Amount & Last Used: couple a month Hx Tobacco Use: Yes Smoking Status (MU): Former Smoker Type: Cigarettes Amount Used/How Often: SMOKES AT WORK Length of Time of Smoking/Using Tobacco: 5 years Have You Smoked in the Last Year: Yes Review of Systems Positive: Chills. Negative: Fever Positive: Abdominal Pain, Vomiting, Nausea. Negative: Diarrhea All Other Systems Reviewed And Are Negative: Yes Physical Exam - Summary Physical Exam Summary: Constitutional: Well-developed, Well-nourished, Alert. Actively dry heaving upon initial exam in room, (+) Mild distress Skin: Warm, Dry HENT: Normocephalic; Atraumatic Eyes: Conjunctiva normal Neck: Musculoskeletal ROM normal neck. (-) JVD, (-) Stridor, (-) Nuchal rigidity Cardio: Rhythm regular, rate normal, Heart sounds normal; Intact distal pulses; Radial pulses are 2+ and symmetric. (-) Murmur Pulmonary/Chest wall: Effort normal. (-) Respiratory distress, (-) Wheezes, (-) Rales Abd: Soft, (-) tenderness, (-) Distension, (-) Guarding, (-) Rebound Musculoskeletal: (-) Edema Lymph: (-) Cervical adenopathy Neuro: Alert, Oriented x3 Psych: Mood and affect Normal Triage Information Reviewed: Yes Vital Signs On Initial Exam: Initial Vitals Temp Pulse Resp BP Pulse Ox 98.3 F 108 17 169/119 100 09/25/19 05:11 09/25/19 05:11 09/25/19 05:11 09/25/19 05:11 09/25/19 05:11 Vital Signs Reviewed: Yes Procedures - Sedation Patient Received Moderate/Deep Sedation with Procedure: No Diagnostics - Vital Signs Vital Signs Temp Pulse Resp BP Pulse Ox 09/25/19 05:11 98.3 F 108 17 169/119 100 - Laboratory Result Diagrams: 09/25/19 05:45 09/25/19 05:45 Lab Statement: Any lab studies that have been ordered have been reviewed, and results considered in the medical decision making process. Re-Evaluation - Re-Evaluation First Eval Re-Evaluation Time: 07:00 Change: Improved - resting ,given haldol. 07:03 Re-Evaluation Time: 07:03 Change: Unchanged Comment: At 07:03, patient reports chills and diffuse aching. She notes having recurrent episodes of vomiting. Patient was tremulous until we entered the room. Abdominal Pain Fem Course/Dx - Course Course Of Treatment: 33 y/o F p/w n/v abdominal cramping. On arrival to ED, patient actively vomiting. Given IV fluids and Zofran. Abdomen soft. Labs notable for negative fluid, normal white count, hemolyzed potassium. Patient has history of diabetes, blood sugar in the 300s, no GAP, do not suspect DKA. Hx marijuana use, given haldol to help with possible marijuana induced hyperemesis. Signed out pending re evaluation after medications. - Diagnoses Provider Diagnoses: Nausea & vomiting Discharge ED - Sign-Out/Discharge Documenting (check all that apply): Sign-Out Patient Signing out patient TO: Roseanne Cantu - Patient is a sign-out to Dr. Roseanne Cantu MD, at change of shift at 0700 on 09/25/19, pending re-eval and disposition. - Discharge Plan Condition: Stable Disposition: HOME Prescriptions: Ondansetron ODT TAB* [Zofran 4 MG Odt TAB*] 4 mg PO Q8H PRN 4 Days #12 tab.odt PRN Reason: Nausea/Vomiting Patient Education Materials: Acute Nausea and Vomiting (ED) Referrals: Huma Gilbert MD [Primary Care Provider] - Additional Instructions: - You were seen in emergency department for nausea and vomiting - For the first 6 hours, eat and drink clears (water, boone rupinder, soup broth, jello, popsicles, Gatorade). If you tolerate this okay, add bland foods such as dry toast, scrambled eggs, crackers. Wait until you are feeling better for 24 hours before eating spicy food, acidic food, tomato based food, fried food. - Okay to use Zofran, medication as prescribed for nausea - Contact your doctor to schedule a follow-up appointment - Contact your doctor or return with questions or concerns - Billing Disposition and Condition Condition: STABLE Disposition: Home - Attestation Statements Document Initiated by Elissa: Yes Documenting Scribe: Rosalba Oviedo Provider For Whom Elissa is Documenting (Include Credential): Dr. Paulette Dalton MD Scribe Attestation: IRosalba scribed for Dr. Paulette Dalton MD on 09/26/19 at 0752. Scribe Documentation Reviewed: Yes Provider Attestation: The documentation as recorded by the Rosalba howard accurately reflects the service I personally performed and the decisions made by me, Dr. Paulette Dalton MD Status of Scribdanie Document: Viewed
[2019-09-25 06:03] LABS: ABS Basophils 0.1 10^3/ul (0-0.2); ABS Eosinophils 0.1 10^3/ul (0-0.6); ABS Lymphocytes 1.5 10^3/ul (1.0-4.8); ABS Monocytes 0.3 10^3/ul (0-0.8); ABS Neutrophils 5.8 10^3/ul (1.5-7.7); Eosinophil % 0.7 %; Hematocrit 44 % (35-47); Hemoglobin 14.2 g/dL (12.0-16.0); Mean Corpuscular HGB Conc 33 g/dL (31-36); Mean Corpuscular Hemoglobin 27 pg (27-31); Mean Corpuscular Volume 83 fL (80-97); Mean Platelet Volume 8.5 fL (7.4-10.4); Nucleated Red Blood Cells % 0.1; Platelet Count 445 10^3/uL (150-450); Red Blood Count 5.26 10^6 /uL (3.70-4.87); Red Cell Distribution Width 13 % (10-15); White Blood Count 7.7 10^3/uL (3.5-10.8)
[2019-09-25] MEDS ORDERED: Haloperidol INJ IV/IM* 5 MG/ML AMP IV SLOW PU ONE (06:15)
[2019-09-25 06:17] LABS: ALT 9 U/L (7-52); Albumin 4.5 g/dL (3.2-5.2); Albumin/Globulin Ratio 1.2 (1-3); Alkaline Phosphatase 76 U/L (34-104); BUN/Creatinine Ratio 9.8 (8-20); Blood Urea Nitrogen 8 mg/dL (6-24); CO2 Carbon Dioxide 26 mmol/L (22-32); Calcium 9.7 mg/dL (8.6-10.3); Chloride 100 mmol/L (101-111); EGFR African American 96.6 (>60); EGFR Non-African American 79.8 (>60); Globulin 3.8 g/dL (2-4); Glucose 315 mg/dL (70-100); Sodium 136 mmol/L (135-145); Total Protein 8.3 g/dL (6.4-8.9)
[2019-09-25 06:24] LABS: HCG Pregnancy < 0.60 mIU/mL
[2019-09-25 06:30] LABS: Anion Gap 10 mmol/L (2-11)
--- OUTSIDE RECORDS SUMMARY | 2019-09-25 06:55 | XMS REPORT | Continuity of Care Document ---
:1985 External Reference #:[id number] Author Name Constantine Dubose MD (transmitted by agent of provider Katelynn Pandey) Address [address] [place] [address] Care Team Providers Name Role Phone Donis Crowe MD - Family Medicine Care Team Information Stock Blender [phone] Yodit Bosch MD - Family Medicine Care Team Information Stock Blender Huma Gilbert MD - Internal Care Team Information Stock Blender [phone] Medicine Problems Active Problems Provider Date Morbid obesity Milena La MD Onset: 05/28/2016 Asthma without status asthmaticus Milena La MD Onset: 05/28/2016 Gastroesophageal reflux disease Milena La MD Onset: 05/28/2016 Obstructive sleep apnea syndrome Esther Verdugo DNP, RN, Onset: 06/09/2016 [facility] Type II diabetes mellitus Alex Luna NP Onset: 08/13/2016 uncontrolled Bipolar disorder Alex Luna NP Onset: 08/13/2016 Posttraumatic stress disorder Alex Luna NP Onset: 08/13/2016 Essential hypertension Alex Luna NP Onset: 10/28/2016 Chronic low back pain Alex Luna NP Onset: 10/28/2016 Atypical squamous cells of Alex Luna NP Onset: 10/16/2015 undetermined significance on cervical Papanicolaou smear Localized, primary osteoarthritis Kori Farooq M.D. Onset: 03/16/2018 Sprain of medial collateral ligament Kori Farooq M.D. Onset: 03/16/2018 of knee Disorder of shoulder Mario Purcell MD Onset: 12/08/2018 Strain of muscle of long head of Mario Purcell MD Onset: 12/08/2018 biceps brachii Localized, secondary osteoarthritis Mario Purcell MD Onset: 02/02/2019 of the shoulder region Fall Mario Purcell MD Onset: 05/26/2019 Derangement of knee Mario Purcell MD Onset: 05/26/2019 Disorder of joint of ankle and/or Mario Purcell MD Onset: 08/29/2019 foot Backache Onset: 10/02/2013 Diabetes mellitus Onset: 06/26/2013 Vitamin D deficiency Onset: 06/26/2013 Obesity Onset: 06/26/2013 Asthma Onset: 06/26/2013 Anxiety disorder Onset: 06/26/2013 Insomnia Onset: 06/26/2013 Inclusion conjunctivitis Onset: 07/10/2013 Migraine Onset: 09/04/2013 Recurrent major depression Onset: 09/15/2013 Shoulder pain Onset: 10/02/2013 Anterior knee pain Onset: 10/02/2013 Social History Type Date Description Comments Sex Unknown ETOH Use Occasionally consumes alcohol Tobacco Use Start: Unknown End: Patient is a former 1 pack X 3 weeks X Unknown smoker 2 years. Recreational Drug Use Former Drug User marijuana; not regular use Smoking Status Reviewed: 09/13/19 Patient is a former 1 pack X 3 weeks X smoker 2 years. Exercise Type/Frequency Exercises sporadically Allergies, Adverse Reactions, Alerts Active Allergies Reaction Severity Comments Date Tamiflu 11/29/2014 Ibuprofen 05/28/2016 Contrast Dye/Morphine combo itching intensely Severe 08/13/2016 Inactive Allergies NKDA 07/20/2013 Medications Active Medications SIG Qnty Indications Ordering Date Provider Diclofenac Sodium Take 1 By Mouth 30tabs Mario Purcell, 75mg Twice A Day as MD [address] Needed For Pain. Take With Food Percocet 1 tabs by mouth 24tabs Mario Purcell, 5-325mg every 4-6 hours as MD 0 Tablets needed post op pain. short term script i stop as expected known pain pt Knee Brace dispo 1 1units M23.8x2 Mario Purcell, Misc 9 Zonisamide 2 by mouth every 60caps G43.009 Adalid Vang 100mg night at bedtime Louie, M.D. 9 Capsules Sumatriptan Succinate 1 injection twice 12units G43.009 Adalid GarridoThompson daily as needed on Rai Palma 7 4mg/0.5ML Solution no more than 2 Auto-Inject days/week. please include autoinjector with instructions. Freestyle Lite Test test up to 4 times a 100units E11.65 Alex Luna, day CLOTH CUTTING MACHINE OPERATOR 7 Strips Aspirin 1 by mouth every day 90tabs E11.65 Alex Luna, 81mg Tablets DR RODRIGES 7 Lisinopril 1 by mouth every day 90tabs E11.65 Tono Steven 30mg Tablets Lenore Shah M.D., FACP Zantac 1 tab by mouth every 90tabs K21.9 Alex Luna, 300mg Tablets day every night CLOTH CUTTING MACHINE OPERATOR 6 Ventolin HFA 2 puffs by mouth 8gm J45.909 Alex Luna, four times a day as CLOTH CUTTING MACHINE OPERATOR 6 108(90Base) mcg/Act needed Aerosol Pantoprazole Sodium 1 by mouth every day 90tabs K21.9 Alex Luna, CLOTH CUTTING MACHINE OPERATOR 6 40mg Tablets Metformin HCL ER take two tablets by 180tabs E11.65 Alex Luna, 750mg mouth every day CLOTH CUTTING MACHINE OPERATOR 6 Tablets ER 24HR Levocetirizine 1 by mouth every day 90tabs J30.9 Alex Luna, Dihydrochloride CLOTH CUTTING MACHINE OPERATOR 6 5mg Tablets Fluticasone 2 sprays each 9.900ml J30.9 Alex Luna, Propionate nostril daily as CLOTH CUTTING MACHINE OPERATOR 6 50mcg/Act needed Suspension Tylenol Unknown 0 Ibuprofen Unknown 0 Vitamin D2 take 50,000 units Unknown 2000Unit once a week 0 Tablets Trazodone HCL Vladimir, 50mg Huma Connor MD 0 Tablets Ondansetron Take 1 Tab By Mouth Unknown 4mg Tablets Every 6 Hours as 0 Dispers Needed For Nausea Or Vomiting Montelukast Sodium Vladimir, 10mg Huma Connor MD 0 Tablets Symbicort Inhale 1 puff With Unknown 80-4.5mcg/Act Adapter Twice A Day 0 Aerosol Oxycodone HCL Guillermo-Whit 10mg Marina helton FNP 0 Tablets Duloxetine HCL [place], 30mg MD [address] Kimberly Tizanidine HCL Sarah Paula, 4mg N.P. 0 Tablets Trulicity Take 1 Pen Injector Unknown 1.5mg/0.5ML Subcutaneously Once 0 Solution Pen-Inject Per Week Gabapentin 1 by mouth at Unknown 300mg bedtime. 0 Capsules Prazosin HCL Take 1 To 2 Capsules Unknown 2mg By Mouth AT Bedtime 0 Capsules Medications Administered in Office Medication SIG Qnty Indications Ordering Provider Date Triamcinolone (Kenalog) Mario Purcell MD 05/26/2019 Injection Triamcinolone (Kenalog) Mario Purcell MD 02/02/2019 Injection Triamcinolone (Kenalog) Mario Purcell MD 12/08/2018 Injection Depomedrol 80MG Robyn Mortensen M.D. 11/29/2014 Injection Depomedrol 80MG Ildefonso Talavera M.D. 08/15/2013 Injection Immunizations CPT Code Status Date Vaccine Lot # [id number] Given 08/13/2016 Pneumonia Vaccine [id number] Given 05/28/2016 Influ Virus Vaccine, Quadrivalent, Split Virus, [place] [id number] [address] Given 05/29/2013 Influenza Virus 3Yrs & Over [id number] Given 11/29/2012 Tdap - Tetanus/Diptheria/Acellular Pertussis Vital Signs Date Vital Result Comment 09/13/2019 11:19am Height 65 inches 5'5" Weight 271.00 lb Heart Rate 104 /min BP Systolic 136 mmHg BP Diastolic 84 mmHg Respiratory Rate 18 /min Pain Level 8 BMI (Body Mass Index) 45.1 kg/m2 09/07/2019 11:20am Height 65 inches 5'5" Weight 285.00 lb Heart Rate 80 /min BP Systolic 132 mmHg BP Diastolic 78 mmHg Respiratory Rate 18 /min Pain Level 8 BMI (Body Mass Index) 47.4 kg/m2 Results Test Acquired Date Facility Test Result H/L Range Note Laboratory test 07/28/2019 [facility] Point of Care 196 mg/dL High 70-100 [address] [place] [address] [phone] Laboratory test 07/28/2019 [facility] Point of Care 219 mg/dL High 70-100 [address] [place] [address] [phone] Laboratory test 07/28/2019 [facility] Point of Care 268 mg/dL High 70-100 [address] [place] [address] [phone] Coal Gasification Technician: [id number] Coal Gasification Technician: [id number] Coal Gasification Technician: [id number] Procedures Date Code Description Status 07/28/2019 12024 Arthroscopy Biceps Tenodesis Completed 07/28/2019 42277 Arthroscopy Biceps Tenodesis Completed 07/28/2019 31220 Arthroscopy Shoulder,W/Rotator Cuff Repair Completed 07/28/2019 61485 Arthroscopy Shoulder,W/Rotator Cuff Repair Completed 07/28/2019 02244 Arthroscopy,Shoulder Decompression Of Subacromial Space Completed W/Acromio 07/28/2019 44340 Arthroscopy,Shoulder Decompression Of Subacromial Space Completed W/Acromio 07/28/2019 88161 Arthroscopy,Shoulder,Distal Claviculectomy Incl Dist Completed Articular SR 07/28/2019 09240 Arthroscopy Shoulder Debridement Extensive Completed 05/26/2019 38414 Inject/Drain Joint/Bursa Major W/O US Completed Medical Devices Description No Information Available Encounters Type Date Location Provider Dx Diagnosis Office Visit 08/29/2019 [facility] Mario Purcell, M23.8x2 Other internal 11:30a at Post derangements of left knee M25.862 Other specified joint disorders, left knee Office Visit 06/15/2019 1:[facility]p [facility] Purcell M75.41 Impingement at [facility] syndrome of right shoulder 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, right shoulder Office Visit 05/26/2019 [facility], W19.xxxA Unspecified fall, 8:00a Orthopedics at initial encounter Post M23.8x2 Other internal derangements of left knee M23.8x2 Other internal derangements of left knee Office Visit 05/04/2019 1:30p [facility] Zaneb Yaseen, M75.41 Impingement at Post syndrome of right shoulder 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, right shoulder Office Visit 03/17/2019 9:15a [facility] Mario Purcell, M25.511 Pain in right at [facility] shoulder M75.41 Impingement syndrome of right shoulder 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, right shoulder M54.2 Cervicalgia Assessments Date Code Description Provider 09/13/2019 M23.8x2 Other internal derangements of left knee Constantine Dubose MD 09/13/2019 M25.562 Pain in left knee Constantine Dubose MD 09/07/2019 M19.011 Primary osteoarthritis, right shoulder Mario Purcell MD 09/07/2019 M75.41 Impingement syndrome of right shoulder Mario Purcell MD 09/07/2019 S46.011D Strain of muscle(s) and tendon(s) of the Mario Purcell MD rotator cuff of right shoulder, subsequent encounter 08/29/2019 M23.8x2 Other internal derangements of left knee Mario Purcell MD 08/29/2019 M25.862 Other specified joint disorders, left Mario Purcell MD knee 08/08/2019 M19.011 Primary osteoarthritis, right shoulder Mario Purcell MD 08/08/2019 M75.41 Impingement syndrome of right shoulder Mario Purcell MD 08/08/2019 S46.011D Strain of muscle(s) and tendon(s) of the Mario Purcell MD rotator cuff of right shoulder, subsequent encounter 07/28/2019 M19.011 Primary osteoarthritis, right shoulder Maria T Laureano PA-C 07/28/2019 M75.41 Impingement syndrome of right shoulder Maria T Laureano PA-C 07/28/2019 M75.21 Bicipital tendinitis, right shoulder CLARENCE Swartz 07/28/2019 S46.011A Strain of muscle(s) and tendon(s) of the Maria T Laureano PA-C rotator cuff of right shoulder, initial encounter 07/28/2019 M19.011 Primary osteoarthritis, right shoulder Mario Purcell MD 07/28/2019 M75.41 Impingement syndrome of right shoulder Mario Purcell MD 07/28/2019 M75.21 Bicipital tendinitis, right shoulder Mario Purcell MD 07/28/2019 S46.011A Strain of muscle(s) and tendon(s) of the Mario Purcell MD rotator cuff of right shoulder, initial encounter 07/20/2019 M75.41 Impingement syndrome of right shoulder Mario Purcell MD 07/20/2019 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, right shoulder Mario Purcell MD 07/20/2019 M25.511 Pain in right shoulder Mario Purcell MD 06/15/2019 M75.41 Impingement syndrome of right shoulder Mario Purcell MD 06/15/2019 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, right shoulder Mario Purcell MD 05/26/2019 W19.xxxA Unspecified fall, initial encounter Mario Purclel MD 05/26/2019 M23.8x2 Other internal derangements of left knee Mario Purcell MD 05/26/2019 M23.8x2 Other internal derangements of left knee Mario Purcell MD 05/04/2019 M75.41 Impingement syndrome of right shoulder Mario Purcell MD 05/04/2019 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, right shoulder Mario Purcell MD 03/17/2019 M25.511 Pain in right shoulder Mario Purcell MD 03/17/2019 M75.41 Impingement syndrome of right shoulder Mario Purcell MD 03/17/2019 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, right shoulder Mario Purcell MD 03/17/2019 M54.2 Cervicalgia Mario Purcell MD Plan of Treatment Future Appointment(s):10/16/2019 11:15 am - Constantine Dubose MD at [facility] at Frqytf4110/17/2019 1:00 pm - Aroldo Reyes MD at [facility] at Laqbqy4409/22/2019 9:30 am - Adalid Palma M.D. at [facility] [id number]/13/2019 - Constantine Dubose, MDM23.8x2 Other internal derangements of left kneeFollow up:Follow Up: 13-15 days [id number] Pain in left knee Functional Status Description No Information Available Mental Status Description No Information Available Referrals Refer to Reason for Referral Status Appt Date Lyn Tate MD cervicalgia with radiculopathy Closed [address] [place] [id number] [phone]
--- OUTSIDE RECORDS SUMMARY | 2019-09-25 06:55 | XMS REPORT | Continuity of Care Document ---
:1985 External Reference #:[id number] Author Name Adalid Palma M.D. (transmitted by agent of provider Anastasia Maldonado) Address [address] [facility], [place] [address] Care Team Providers Name Role Phone Donis Crowe MD - Family Medicine Care Team Information [place] Yodit Bosch MD - Family Medicine Care Team Information [place] Huma Gilbert MD - Internal Care Team Information [place] Medicine Problems Active Problems Provider Date Morbid obesity Milena La MD Onset: 05/28/2016 Asthma without status asthmaticus Milena La MD Onset: 05/28/2016 Gastroesophageal reflux disease Milena La MD Onset: 05/28/2016 Obstructive sleep apnea syndrome Esther Verdugo DNP, RN, Onset: 06/09/2016 [facility] Type II diabetes mellitus Alex Luna [...] marijuana; not regular use Smoking Status Reviewed: 09/22/19 Patient is a former 1 pack X 3 weeks X smoker 2 years. Exercise Type/Frequency Exercises sporadically Allergies, Adverse Reactions, Alerts Active Allergies Reaction Severity Comments Date Tamiflu 11/29/2014 Ibuprofen 05/28/2016 Contrast Dye/Morphine combo itching intensely Severe 08/13/2016 Inactive Allergies NKDA 07/20/2013 Medications Active Medications SIG Qnty Indications Ordering Date Provider Sumatriptan Succinate inject one dose 3ml G43.009 Adalid Vang twice a day as Rai Palma 0 4mg/0.5ML Solution needed migraine, max Auto-Inject 2 days a week Diclofenac Sodium Take 1 By Mouth 30tabs Mario Purcell, 75mg Twice A Day as [address] Needed For Pain. Take With Food Knee Brace dispo 1 1units M23.8x2 Mario Purcell, Misc 9 Zonisamide 1 po qam and 2 by 90caps G43.009 Adalid Vang 100mg mouth every night at Rai Palma 9 Capsules bedtime Freestyle Lite Test test up to 4 times a 100units E11.65 Alex Luna, day CYBERATHLETE 7 Strips Aspirin 1 by mouth every day 90tabs E11.65 Alex Luna, [address]mg Tablets DR RODRIGES 7 Lisinopril 1 by mouth every day 90tabs E11.65 Tono Steven 30mg Tablets Lenore Shah M.D.,FACMoses Zantac 1 tab by mouth every 90tabs K21.9 Alex Luna, 300mg Tablets day every night CYBERATHLETE 6 Ventolin HFA 2 puffs by mouth 8gm J45.909 Alex Luna, four times a day as CYBERATHLETE 6 108(90Base) mcg/Act needed Aerosol Pantoprazole Sodium 1 by mouth every day 90tabs K21.9 Alex Luna, CYBERATHLETE [address] Metformin HCL ER take two tablets by 180tabs E11.65 Alex Luna, 750mg mouth every day CYBERATHLETE 6 Tablets ER 24HR Levocetirizine 1 by mouth every day 90tabs J30.9 Alex Luna, Dihydrochloride CYBERATHLETE 6 5mg Tablets Fluticasone 2 sprays each 9.900ml J30.9 Alex Luna, Propionate nostril daily as CYBERATHLETE 6 50mcg/Act needed Suspension Prazosin HCL Take 1 To 2 Capsules Unknown 2mg By Mouth AT Bedtime 0 Capsules Gabapentin 1 by mouth at Unknown 300mg bedtime. 0 Capsules Trulicity Take 1 Pen Injector Unknown 1.5mg/0.5ML Subcutaneously Once 0 Solution Pen-Inject Per Week Tizanidine HCL ChesteruriaSarah, 4mg N.P. 0 Tablets Duloxetine HCL 1 tab daily Santa Pulliam, 30mg MD [address] Part Oxycodone HCL prn Sera 10mg e Marina, QC SCIENTIST 0 Tablets Symbicort Inhale 1 puff With Unknown 80-4.5mcg/Act Adapter Twice A Day 0 Aerosol Montelukast Sodium prn Vladimir, 10mg Huma Connor MD 0 Tablets Ondansetron take 1 tab by mouth 30tabs Adalid Vang 4mg Tablets every 6 hours as Rai Palma 0 Dispers needed for nausea or vomiting Trazodone HCL prn Vladimir, 50mg Huma Connor MD 0 Tablets Vitamin D2 take 50,000 units Unknown 2000Unit once a week 0 Tablets Ibuprofen prn Unknown 0 Tylenol prn Unknown 0 History Medications Percocet 1 tabs by mouth 24tabs Mario Purcell MD 07/28/2019 - 5-325mg every 4-6 hours as 09/21/2019 Tablets needed post op pain. short term script i stop as expected known pain pt Medications Administered in Office Medication SIG Qnty Indications Ordering Provider Date Triamcinolone (Kenalog) Mario Purcell MD 05/26/2019 Injection Triamcinolone (Kenalog) Mario Purcell MD 02/02/2019 Injection Triamcinolone (Kenalog) Mario Purcell MD 12/08/2018 Injection Depomedrol 80MG Robyn Mortensen M.D. 11/29/2014 Injection Depomedrol 80MG Ildefonso Talavera M.D. 08/15/2013 Injection Immunizations CPT Code Status Date Vaccine Lot # [id number] Given 08/13/2016 Pneumonia Vaccine [id number] Given 05/28/2016 Influ Virus Vaccine, Quadrivalent, Split Virus, [place] [id number] [id number] Given 05/29/2013 Influenza Virus 3Yrs & Over 18693 Given 11/29/2012 Tdap - Tetanus/Diptheria/Acellular Pertussis Vital Signs Date Vital Result Comment 09/22/2019 9:28am Height 65 inches 5'5" Weight 270.00 lb Heart Rate 112 /min BP Systolic 138 mmHg BP Diastolic 82 mmHg BMI (Body Mass Index) 44.9 kg/m2 09/13/2019 11:19am Height 65 inches 5'5" Weight 271.00 lb Heart Rate 104 /min BP Systolic 136 mmHg BP Diastolic 84 mmHg Respiratory Rate 18 /min Pain Level 8 BMI (Body Mass Index) 45.1 kg/m2 Results Test Acquired Date Facility Test Result H/L Range Note Laboratory test 07/28/2019 [facility] Point of Care 196 mg/dL High 70-100 [address] [place] [address] [phone] Laboratory test 07/28/2019 [facility] Point of Care 219 mg/dL High 70-100 [address] [place] [address] [phone] Laboratory test 07/28/2019 [facility] Point of Care 268 mg/dL High 70-100 [address] [place] [address] [phone] 1 Nut Process Helper: [id number] Nut Process Helper: [id number] Nut Process Helper: [id number] Procedures Date Code Description Status 07/28/2019 70166 Arthroscopy Biceps Tenodesis Completed 07/28/2019 85143 Arthroscopy Biceps Tenodesis Completed 07/28/2019 60169 Arthroscopy Shoulder,W/Rotator Cuff Repair Completed 07/28/2019 85249 Arthroscopy Shoulder,W/Rotator Cuff Repair Completed 07/28/2019 11920 Arthroscopy,Shoulder Decompression Of Subacromial Space Completed W/Acromio 07/28/2019 51504 Arthroscopy,Shoulder Decompression Of Subacromial Space Completed W/Acromio 07/28/2019 64131 Arthroscopy,Shoulder,Distal Claviculectomy Incl Dist Completed Articular SR 07/28/2019 85220 Arthroscopy Shoulder Debridement Extensive Completed 05/26/2019 77595 Inject/Drain Joint/Bursa Major W/O US Completed Medical Devices Description No Information Available Encounters Type Date Location Provider Dx Diagnosis [facility], M23.8x2 Other internal 11:30a at [place] MD derangements of left knee M25.862 Other specified joint disorders, left knee Office Visit 06/15/2019 1:15p [facility] Purcell, M75.41 Impingement at [place] syndrome of right shoulder 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, right shoulder Office Visit 05/26/2019 Artie Purcell, W19.xxxA Unspecified fall, 8:00a Orthopedics at initial encounter [place] M23.8x2 Other internal derangements of left knee M23.8x2 Other internal derangements of left knee Office Visit 05/04/2019 1:30p [facility] Sandy Olea75.41 Impingement at [place] syndrome of right shoulder 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 09/22/2019 G43.009 Migraine without aura, not intractable, Adalid Palma M.D. without status migrainosus 09/13/2019 M23.8x2 Other internal derangements of left [...] muscle(s) and tendon(s) of the Maria T Laurenao PA-C rotator cuff of right shoulder, initial encounter 07/28/2019 M19.011 Primary osteoarthritis, right shoulder Mario Purcell MD 07/28/2019 M75.41 Impingement syndrome of right shoulder Mario Purcell MD 07/28/2019 M75.21 Bicipital tendinitis, right shoulder Mario Purcell MD 07/28/2019 S46.011A Strain of muscle(s) and tendon(s) of the Mraio Purcell MD rotator cuff of right shoulder, initial encounter 07/20/2019 M75.41 Impingement syndrome of right shoulder Mario Purcell MD 07/20/2019 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, right shoulder Mario Purcell MD 07/20/2019 M25.511 Pain in right shoulder Mario Purcell MD 06/15/2019 M75.41 Impingement syndrome of right shoulder Mario Purcell MD 06/15/2019 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 at [facility] Abhlmp1910/05/2019 11:30 am - Constantine Dubose MD at [facility] at Ncarun8210/16/2019 11:15 am - Constantine Dubose MD at [facility] at Vbnfjk2810/17/2019 1:00 pm - Aroldo Reyes MD at [facility] at Qdrvpa2809/22/2019 - Adalid Palma M.D.M25.511 Pain in right llfjbqrdS90.009 Migraine without aura, not intractable, without status migrainosusNew Medication:Sumatriptan Succinate 4 mg/0.5ML - inject one dose twice a day as needed migraine, max 2 days a weekFollow up:6 monthsRecommendations:increase zonisamide to 1 tab in the AM and 2 at night Functional Status Description No Information Available Mental Status Description No Information Available Referrals Description No Information Available
--- OUTSIDE RECORDS SUMMARY | 2019-09-25 06:55 | XMS REPORT | Continuity of Care Document ---
:1984 External Reference #:[id number] Author Name Mario Purcell MD (transmitted by agent of provider Robyn Raymond) Address [address] [facility], [place] [address] Care Team Providers Name Role Phone Donis Crowe MD - Family Medicine Care Team Information Bakery Sales Clerk Yodit Bosch MD - Family Medicine Care Team Information Bakery Sales Clerk Huma Gilbert MD - Internal Care Team Information Bakery Sales Clerk Medicine Problems Active Problems Provider Date Morbid obesity Milena La MD Onset: 05/28/2016 Asthma without status asthmaticus Milena La MD Onset: 05/28/2016 Gastroesophageal reflux disease Milena La MD Onset: 05/28/2016 Obstructive sleep apnea syndrome Esther Verdugo DNP, RN, Onset: 06/09/2016 [facility] Type II diabetes mellitus Alex [...] of knee Mario Purcell MD Onset: 05/26/2019 Backache Onset: 10/02/2013 Diabetes mellitus Onset: 06/26/2013 [...] marijuana; not regular use Smoking Status Reviewed: 08/08/19 Patient is a former 1 pack X 3 weeks X smoker 2 years. Exercise Type/Frequency Exercises sporadically Allergies, Adverse Reactions, Alerts Active Allergies Reaction Severity Comments Date Tamiflu 11/29/2014 Ibuprofen 05/28/2016 Contrast Dye/Morphine combo itching intensely Severe 08/13/2016 Inactive Allergies NKDA 07/20/2013 Medications Active Medications SIG Qnty Indications Ordering Date Provider Percocet 1 tabs by mouth 24tabs Mario Purcell, 5-325mg every 4-6 hours as MD 0 Tablets needed post op pain. short term script i stop as expected known pain pt Knee Brace dispo 1 1units M23.8x2 Mario Purcell, Misc 9 Zonisamide 2 po qhs 60caps G43.009 Adalid Vang 100mg Rai Palma 9 Capsules Sumatriptan Succinate 1 injection twice 12units G43.009 Adalid Vang daily as needed on Rai Palma 7 4mg/0.5ML Solution no more than 2 Auto-Inject days/week. please include autoinjector with instructions. Freestyle Laci Test test up to 4 times a 100units E11.65 Alex Luna, day FLIGHT ENGINEER 7 Strips Aspirin 1 by mouth every day 90tabs E11.65 Alex Luna, [address]mg Tablets [address] RODRIGES 7 Lisinopril 1 by mouth every day 90tabs E11.65 Tono Steven 30mg Tablets Alyssa 6 M.DThompson,ROBY Zantac 1 tab by mouth every 90tabs K21.9 Alxe Luna, 300mg Tablets day every night FLIGHT ENGINEER 6 Ventolin HFA 2 puffs by mouth 8gm J45.909 Alex Luna, four times a day as FLIGHT ENGINEER 6 108(90Base) mcg/Act needed Aerosol Pantoprazole Sodium 1 by mouth every day 90tabs K21.9 Alex Luna, FLIGHT ENGINEER [address] Metformin HCL ER take two tablets by 180tabs E11.65 Alex Luna, 750mg mouth every day FLIGHT ENGINEER 6 Tablets ER 24HR Levocetirizine 1 by mouth every day 90tabs J30.9 Alex Luna, Dihydrochloride FLIGHT ENGINEER 6 5mg Tablets Fluticasone 2 sprays each 9.900ml J30.9 Alex Luna, Propionate nostril daily as FLIGHT ENGINEER 6 50mcg/Act needed Suspension Prazosin HCL Take 1 To 2 Capsules Unknown 2mg By Mouth AT Bedtime 0 Capsules Gabapentin 1 by mouth at Unknown 300mg bedtime. 0 Capsules Trulicity Take 1 Pen Injector Unknown 1.5mg/0.5ML Subcutaneously Once 0 Solution Pen-Inject Per Week Tizanidine HCL ChesteruriaElinora, 4mg N.P. 0 Tablets Duloxetine HCL Santa Pulliam, 30mg MD [address] Harris Oxycodone HCL Guillermo-Aimee 10mg Marina helton FNP 0 Tablets Symbicort [...] CPT Code Status Date Vaccine Lot # 25720 Given 08/13/2016 Pneumonia Vaccine [id number] Given 05/28/2016 Influ Virus Vaccine, Quadrivalent, Split Virus, [place] [id number] [address] Given 05/29/2013 Influenza Virus 3Yrs & Over 96071 Given 11/29/2012 Tdap - Tetanus/Diptheria/Acellular Pertussis Vital Signs Date Vital Result Comment 08/08/2019 11:19am Height 65 inches 5'5" Weight 285.00 lb Heart Rate 114 /min Respiratory Rate 16 /min Body Temperature 97.7 F Pain Level 9 BMI (Body Mass Index) 47.4 kg/m2 07/20/2019 11:11am Height 65 inches 5'5" Weight 285.75 lb Heart Rate 96 /min BP Systolic 142 mmHg BP Diastolic 82 mmHg Respiratory Rate 20 /min Body Temperature 98.2 F Pain Level 8 O2 % BldC Oximetry 98 % BMI (Body Mass Index) 47.5 kg/m2 Results Test Acquired Date Facility Test Result H/L Range Note Laboratory test 07/28/2019 [facility] Point of Care 196 mg/dL High 70-100 [address] [address] [phone] Laboratory test 07/28/2019 [facility] Point of Care 219 mg/dL High 70-100 [address] [place] [address] [phone] Laboratory test 07/28/2019 [facility] Point of Care 268 mg/dL High 70-100 [address] [place] [address] [phone] Supervisor Aircraft Cleaning: [id number] 2 Supervisor Aircraft Cleaning: [id number] 3 Supervisor Aircraft Cleaning: [id number] Procedures Date Code Description Status 07/28/2019 63598 Arthroscopy Biceps Tenodesis Completed 07/28/2019 51111 Arthroscopy Biceps Tenodesis Completed 07/28/2019 82921 Arthroscopy Shoulder,W/Rotator Cuff Repair Completed 07/28/2019 76511 Arthroscopy Shoulder,W/Rotator Cuff Repair Completed 07/28/2019 79120 Arthroscopy,Shoulder Decompression Of Subacromial Space Completed W/Acromio 07/28/2019 89937 Arthroscopy,Shoulder Decompression Of Subacromial Space Completed W/Acromio 05/26/2019 98650 Inject/Drain Joint/Bursa Major W/O US Completed Medical Devices Description No Information Available Encounters Type Date Location Provider Dx Diagnosis Office Visit 06/15/2019 [facility] Mario Purcell MD M75.41 Impingement 1:15p at [place] syndrome of right shoulder 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, right shoulder [facility], W19.xxxA Unspecified fall, 8:00a Orthopedics at initial encounter [place] M23.8x2 Other internal derangements of left knee M23.8x2 Other internal derangements of left knee Office Visit 05/04/2019 1:30p [facility] Mario Purcell M75.41 Impingement at [place] syndrome of right shoulder 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 aura, not intractable, w/o status migrainosus Assessments Date Code Description Provider 08/08/2019 M19.011 Primary osteoarthritis, right shoulder Mario Purcell MD 08/08/2019 M75.41 Impingement syndrome of right shoulder Mario Purcell MD 07/28/2019 M19.011 Primary osteoarthritis, right shoulder Maria [...] intractable, Adalid Palma M.D. without status migrainosus Plan of Treatment Future Appointment(s):08/25/2019 10:00 am - Mario Purcell MD at [facility] at Ofjgzv4608/31/2019 10:15 am - Mario Purcell MD at [facility] at Hqfmqh5009/01/2019 3:00 pm - Adalid Palma M.D. at [facility] Hjffje4508/08/2019 - Mario Purcell, MDM19.011 Primary osteoarthritis, right shoulderNew Therapy:Physical TherapyFollow up:Follow up: 3 qujovX47.41 Impingement syndrome of right shoulder Functional Status Description No Information Available Mental Status Description No Information Available Referrals Refer to Dr Reason for Referral Status Appt Date Lyn Tate MD cervicalgia with radiculopathy Closed [address] [place] [id number] [phone]
--- OUTSIDE RECORDS SUMMARY | 2019-09-25 06:55 | XMS REPORT | Continuity of Care Document ---
:1984 External Reference #:[id number] Author Name Mario Purcell MD (transmitted by agent of provider Robyn Raymond) Address [address] [facility], [place] [address] Care Team Providers Name Role Phone Donis Crowe MD - Family Medicine Care Team Information Commercial Glazier [phone] Yodit Bosch MD - Family Medicine Care Team Information Commercial Glazier [phone] Huma Gilbert MD - Internal Care Team Information Commercial Glazier Medicine Problems Active Problems Provider Date Morbid obesity Milena La MD Onset: 05/28/2016 Asthma without status asthmaticus Milena La MD Onset: 05/28/2016 Gastroesophageal reflux disease Milena La MD Onset: 05/28/2016 Obstructive sleep apnea syndrome Esther Verdugo DNP, RN, Onset: 06/09/2016 [facility] Type II diabetes mellitus Alex [...] Onset: 03/16/2018 of knee Disorder of shoulder aMrio Purcell MD Onset: 12/08/2018 Strain of muscle [...] marijuana; not regular use Smoking Status Reviewed: 08/29/19 Patient is a former 1 pack X [...] G43.009 Adalid Vang 100mg night at bedtime Rai Palma 9 Capsules Sumatriptan Succinate 1 injection twice 12units G43.009 Adalid GarridoThompson daily as needed on Rai Palma 7 4mg/0.5ML Solution no more than 2 Auto-Inject days/week. please include autoinjector with instructions. Freestyle Lite Test test up to 4 times a 100units E11.65 Alex Luna, day OCEAN FISHING GUIDE 7 Strips Aspirin 1 by mouth every day 90tabs E11.65 Alex Luna, [address]ts [address] RODRIGES 7 Lisinopril 1 by mouth every day 90tabs E11.65 Tono Steven 30mg Tablets Lenore Shah M.D., FACP Zantac 1 tab by mouth every 90tabs K21.9 Alex Luna, 300mg Tablets day every night OCEAN FISHING GUIDE 6 Ventolin HFA 2 puffs by mouth 8gm J45.909 Alex Luna, four times a day as OCEAN FISHING GUIDE 6 108(90Base) mcg/Act needed Aerosol Pantoprazole Sodium 1 by mouth every day 90tabs K21.9 Alex Luna, OCEAN FISHING GUIDE 6 40mg Tablets Metformin HCL ER take two tablets by 180tabs E11.65 Alex Luna, 750mg mouth every day OCEAN FISHING GUIDE 6 Tablets ER 24HR Levocetirizine 1 by mouth every day 90tabs J30.9 Alex Luna, Dihydrochloride OCEAN FISHING GUIDE 6 5mg Tablets Fluticasone 2 sprays each 9.900ml J30.9 Alex Luna, Propionate nostril daily as OCEAN FISHING GUIDE 6 50mcg/Act needed Suspension Tylenol Unknown 0 Ibuprofen Unknown 0 Vitamin D2 take 50,000 units Unknown 2000Unit once a week 0 Tablets Trazodone HCL Vladimir 50mg Huma Connor MD 0 Tablets Ondansetron Take 1 Tab By Mouth Unknown 4mg Tablets Every 6 Hours as 0 Dispers Needed For Nausea Or Vomiting Montelukast Sodium Vladimir 10mg Huma Connor MD 0 Tablets Symbicort Inhale 1 puff With Unknown 80-4.5mcg/Act Adapter Twice A Day 0 Aerosol Oxycodone HCL Sera 10mg Marina helton FNP 0 Tablets Duloxetine [...] CPT Code Status Date Vaccine Lot # 44876 Given 08/13/2016 Pneumonia Vaccine [id number] 53614 Given 05/28/2016 Influ Virus Vaccine, Quadrivalent, Split Virus, Im [id number] [place] [address] Given 05/29/2013 Influenza Virus 3Yrs & Over 09495 Given 11/29/2012 Tdap - Tetanus/Diptheria/Acellular Pertussis Vital Signs Date Vital Result Comment 08/29/2019 11:28am Height 65 inches 5'5" Weight 285.00 lb Heart Rate 76 /min BP Systolic Sitting 134 mmHg BP Diastolic Sitting 90 mmHg Respiratory Rate 16 /min Pain Level 8 BMI (Body Mass Index) 47.4 kg/m2 08/08/2019 11:19am Height 65 inches 5'5" Weight 285.00 lb Heart Rate 114 /min Respiratory Rate 16 /min Body Temperature 97.7 F Pain Level 9 BMI (Body Mass Index) 47.4 kg/m2 Results Test Acquired Date Facility Test Result H/L Range Note Laboratory test 07/28/2019 [facility] Point of Care 196 mg/dL High 70-100 [address] [place] [address] [phone] Laboratory test 07/28/2019 [facility] Point of Care 219 mg/dL High 70-100 [address] Glucose [place], [place] [address] [phone] Laboratory test 07/28/2019 [facility] Point of Care 268 mg/dL High 70-100 [address] [address] [phone] 1 E Commerce Marketing Manager: [id number] 2 E Commerce Marketing Manager: [id number] 3 E Commerce Marketing Manager: [id number] Procedures Date Code Description Status 07/28/2019 06312 Arthroscopy Biceps Tenodesis Completed 07/28/2019 77257 Arthroscopy Biceps Tenodesis Completed 07/28/2019 02776 Arthroscopy Shoulder,W/Rotator Cuff Repair Completed 07/28/2019 86517 Arthroscopy Shoulder,W/Rotator Cuff Repair Completed 07/28/2019 52712 Arthroscopy,Shoulder Decompression Of Subacromial Space Completed W/Acromio 07/28/2019 98908 Arthroscopy,Shoulder Decompression Of Subacromial Space Completed W/Acromio 07/28/2019 07798 Arthroscopy Shoulder Debridement Extensive Completed 05/26/2019 14925 Inject/Drain Joint/Bursa Major W/O US Completed Medical Devices Description No Information Available Encounters Type Date Location Provider Dx Diagnosis Office Visit 08/29/2019 Art[facility] Purcell, M23.8x2 Other internal 11:30a at [place] derangements of left knee M25.862 Other specified joint disorders, left knee Office Visit 06/15/2019 1:15p [facility] Shoemaker75.41 Impingement at [place] syndrome of right shoulder 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, right shoulder Office Visit 05/26/2019 Artie Purcell, W19.xxxA Unspecified fall, 8:00a Orthopedics at initial encounter [place] M23.8x2 Other internal derangements of left knee M23.8x2 Other internal derangements of left knee Office Visit 05/04/2019 1:30p Artie Purcell M75.41 Impingement at [place] syndrome of right shoulder 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, right shoulder Office Visit 03/17/2019 9:15a [facility] Mario Purcell, M25.511 Pain in right at [place] shoulder M75.41 Impingement syndrome of right shoulder 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, right shoulder M54.2 Cervicalgia Assessments Date Code Description Provider 08/29/2019 M23.8x2 Other internal derangements of left [...] M75.41 Impingement syndrome of right shoulder Mario Purclel MD 07/20/2019 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, right shoulder [...] Mario Purcell MD Plan of Treatment Future Appointment(s):09/13/2019 11:00 am - Constantine Dubose MD at [facility] at Yrwpyn1809/07/2019 11:15 am - Mario Purcell MD at [facility] at Zoimkk5308/29/2019 - Mario Purcell, MDM23.8x2 Other internal derangements of left kneeFollow up:Follow up: in 2-4 weeks with iacgifnfE07.862 Other specified joint disorders, left knee Functional Status Description No Information Available Mental Status Description No Information Available Referrals Refer to Reason for Referral Status Appt Date Lyn Tate MD cervicalgia with radiculopathy Closed [address] [place] [phone]
--- OUTSIDE RECORDS SUMMARY | 2019-09-25 06:55 | XMS REPORT | Continuity of Care Document ---
:1985 External Reference #:[id number] Author Name Mario Purcell MD (transmitted by agent of provider Robyn Raymond) Address [address] [facility], [place] [address] Care Team Providers Name Role Phone Donis Crowe MD - Family Medicine Care Team Information [employer] Yodit Bosch MD - Family Medicine Care Team Information [employer] Huma Gilbert MD - Internal Care Team Information [employer] Medicine Problems Active Problems Provider Date Morbid obesity Milena La MD Onset: 05/28/2016 Asthma without status asthmaticus Milena La MD Onset: 05/28/2016 Gastroesophageal reflux disease Milena La MD Onset: 05/28/2016 Obstructive sleep apnea syndrome Esther Verdugo DNP, RN, Onset: 06/09/2016 [facility] Type II diabetes mellitus Alex Luna [...] marijuana; not regular use Smoking Status Reviewed: 09/07/19 Patient is a former 1 pack X [...] times a 100units E11.65 Alex Luna, day [employer] 7 Strips Aspirin 1 by mouth every day 90tabs E11.65 Alex Luna, 81mg Tablets DR RODRIGES 7 Lisinopril 1 by mouth every day 90tabs E11.65 Tono Steven 30mg Tablets Lenore Shah M.D., FACP Zantac 1 tab by mouth every 90tabs K21.9 Alex Luna, 300mg Tablets day every night [employer] 6 Ventolin HFA 2 puffs by mouth 8gm J45.909 Alex Luna, 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 6 108(90Base) mcg/Act needed Aerosol Pantoprazole Sodium 1 by mouth every day 90tabs K21.9 Alex Luna, TER[employer] SUPERVISOR 6 40mg Tablets Metformin HCL ER take two tablets by 180tabs E11.65 Alex Luna, 750mg mouth every day [employer] SUPERVISOR 6 Tablets ER 24HR Levocetirizine 1 by mouth every day 90tabs J30.9 Alex Luna, Dihydrochloride [employer]PER[employer] 6 5mg Tablets Fluticasone 2 sprays each 9.900ml J30.9 Alex Luna, Propionate nostril daily as [employer]RA[employer] SUPERVISOR 6 50mcg/Act needed Suspension Tylenol Unknown 0 [...] Twice A Day 0 Aerosol Oxycodone HCL Guillermo-Aimee 10mg Marina helton FNP 0 Tablets Duloxetine [...] CPT Code Status Date Vaccine Lot # [id number] Given 08/13/2016 Pneumonia Vaccine [id number] Given 05/28/2016 Influ Virus Vaccine, Quadrivalent, Split Virus, [place] [id number] [address] Given 05/29/2013 Influenza Virus 3Yrs & Over 02004 Given 11/29/2012 Tdap - Tetanus/Diptheria/Acellular Pertussis Vital Signs Date Vital Result Comment 09/07/2019 11:20am Height 65 inches 5'5" Weight 285.00 lb Heart Rate 80 /min BP Systolic 132 mmHg BP Diastolic 78 mmHg Respiratory Rate 18 /min Pain Level 8 BMI (Body Mass Index) 47.4 kg/m2 08/29/2019 11:28am Height 65 inches 5'5" Weight 285.00 lb Heart Rate 76 /min BP Systolic Sitting 134 mmHg BP Diastolic Sitting 90 mmHg Respiratory Rate 16 /min Pain Level 8 BMI (Body Mass Index) 47.4 kg/m2 Results Test Acquired Date Facility Test Result H/L Range Note Laboratory test 07/28/2019 [facility] 196 mg/dL High 70-100 [address] [place] [address] [phone] Laboratory test 07/28/2019 [facility] 219 mg/dL High 70-100 [address] [place] [address] [phone] Laboratory test 07/28/2019 [facility] 268 mg/dL High 70-100 [address] [place], [place] [id number] [phone] 1 Pot Fluxer: [id number] 2 Pot Fluxer: [id number] 3 Pot Fluxer: [id number] Procedures Date Code Description Status 07/28/2019 33652 Arthroscopy Biceps Tenodesis Completed 07/28/2019 08915 Arthroscopy Biceps Tenodesis Completed 07/28/2019 44934 Arthroscopy Shoulder,W/Rotator Cuff Repair Completed 07/28/2019 67858 Arthroscopy Shoulder,W/Rotator Cuff Repair Completed 07/28/2019 85852 Arthroscopy,Shoulder Decompression Of Subacromial Space Completed W/Acromio 07/28/2019 55936 Arthroscopy,Shoulder Decompression Of Subacromial Space Completed W/Acromio 07/28/2019 87145 Arthroscopy,Shoulder,Distal Claviculectomy Incl Dist Completed Articular SR 07/28/2019 11178 Arthroscopy Shoulder Debridement Extensive Completed 05/26/2019 63229 Inject/Drain Joint/Bursa Major W/O US Completed Medical Devices Description No Information Available Encounters Type Date Location Provider Dx Diagnosis Office Visit 08/29/2019 Artie Purcell, M23.8x2 Other internal 11:30a at [facility] derangements of left knee M25.862 Other specified joint disorders, left knee Office Visit 06/15/2019 1:15p Artie Purcell, M75.41 Impingement at [place] syndrome of right shoulder 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, right shoulder Office Visit 05/26/2019 Artie Purcell, W19.xxxA Unspecified fall, 8:00a Orthopedics at initial encounter [place] M23.8x2 Other internal derangements of left knee M23.8x2 Other internal derangements of left knee Office Visit 05/04/2019 1:30p Artie Correaneb Yaseen, M75.41 Impingement at [place] syndrome of right shoulder 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 at [facility]6309/13/2019 11:00 am - [facility] at [facility]4209/07/2019 - Mario Purcell MDM19.011 Primary osteoarthritis , right shoulderFollow up:Follow up: Eric in 6 weeks [place] for kneeM75.41 Impingement syndrome of right qtxesnahS96.011D Strain of muscle(s) and tendon(s) of the rotator cuff of right shoulder, subsequent encounter Functional Status Description No Information Available Mental Status Description No Information Available Referrals Refer to Reason for Referral Status Appt Date Lyn Tate MD cervicalgia with radiculopathy Closed [address] [place] [phone]
[2019-09-25] MEDS ORDERED: Dicyclomine CAP* 10 MG PO ONE (07:05)
--- NOTE | 2019-09-25 07:21 | ED ---
Progress - Progress Note Progress Note: Patient is a sign out at 07:00 on 09/25/[address] Paulette Dalton MD to Dr. Roseanne Cantu MD at shift change, pending reevaluation and disposition. At 07:03, patient reports chills and diffuse aching. She notes having recurrent episodes of vomiting. Patient was tremulous until we entered the room. At 08:04, I reviewed the labs with the patient. Patient was updated on flu swab results. Her brother is present, who will take the patient home. She declined a work note. Pt vomiting stopped "feels tired" likely related to Haldol and poor sleep overnight from vomiting reviewed clears to bland reviewed zofran script pt comfortable and in agreement with plan Patient will be discharged. Re-Evaluation - Re-Evaluation First Eval Re-Evaluation Time: 07:00 Change: Improved - resting ,given haldol. 07:03 Re-Evaluation Time: 07:03 Change: Unchanged Comment: At 07:03, patient reports chills and diffuse aching. She notes having recurrent episodes of vomiting. Patient was tremulous until we entered the room. Course/Dx - Diagnoses Provider Diagnoses: Nausea & vomiting Discharge ED - Sign-Out/Discharge Documenting (check all that apply): Patient Departure - Discharge, Receiving Sign-Out Receiving patient FROM: Paulette Dalton - Patient is a sign out at 07:00 on 09/25/[address] Paulette Dalton MD to Dr. Roseanne Cantu MD at shift change, pending reevaluation and disposition. - Discharge Plan Condition: Stable Disposition: HOME Prescriptions: Ondansetron ODT TAB* [Zofran 4 MG Odt TAB*] 4 mg PO Q8H PRN 4 Days #12 tab.odt PRN Reason: Nausea/Vomiting Patient Education Materials: Acute Nausea and Vomiting (ED) Referrals: Huma Gilbert MD [Primary Care Provider] - Additional Instructions: - You were seen in emergency department for nausea and vomiting - For the first 6 hours, eat and drink clears (water, boone rupinder, soup broth, jello, popsicles, Gatorade). If you tolerate this okay, add bland foods such as dry toast, scrambled eggs, crackers. Wait until you are feeling better for 24 hours before eating spicy food, acidic food, tomato based food, fried food. - Okay to use Zofran, medication as prescribed for nausea - Contact your doctor to schedule a follow-up appointment - Contact your doctor or return with questions or concerns - Billing Disposition and Condition Condition: STABLE Disposition: Home - Attestation Statements Document Initiated by Doriibdanie: Yes Documenting Scribe: Lanette Negron Provider For Whom Elissa is Documenting (Include Credential): Roseanne Cantu MD Scribe Attestation: Lanette Jaimes, scribed for Roseanne Cantu MD on 09/25/19 at 0808. Scribe Documentation Reviewed: Yes Provider Attestation: The documentation as recorded by the Lanette howard accurately reflects the service I personally performed and the decisions made by , Roseanne Cantu MD Status of Scribe Document: Viewed
[2019-09-25 07:41] LABS: Influenza A Molecular Negative (Negative); Influenza B Molecular Negative (Negative)
[2019-09-25 08:21] VITALS: BP 203/146
== END 2019-09-25 08:20 | disposition home or self-care (01) ==
LOC: ED 05:10
DX: R11.2 Nausea with vomiting, unspecified (principal); K21.9 Gastro-esophageal reflux disease without esophagitis; E11.9 Type 2 diabetes mellitus without complications; I10 Essential (primary) hypertension; Z87.891 Personal history of nicotine dependence; E66.01 Morbid (severe) obesity due to excess calories
CPT/HCPCS: 36415; 80053; 84702; 85025; 96361; 96374; 96375; 99284; A9270-GY; J1630; J1885; J2405

== ENCOUNTER 2019-09-27 17:39 | Emergency (ER) | payer OTHER ==
[2019-09-27 20:40] LABS: ABS Basophils 0.1 10^3/ul (0-0.2); ABS Eosinophils 0.2 10^3/ul (0-0.6); ABS Lymphocytes 2.6 10^3/ul (1.0-4.8); ABS Neutrophils 5.7 10^3/ul (1.5-7.7); Eosinophil % 1.9 %; Hematocrit 48 % (35-47); Hemoglobin 15.7 g/dL (12.0-16.0); Lymphocyte % 27.2 %; Mean Corpuscular HGB Conc 33 g/dL (31-36); Mean Corpuscular Hemoglobin 27 pg (27-31); Mean Corpuscular Volume 82 fL (80-97); Mean Platelet Volume 8.1 fL (7.4-10.4); Platelet Count 470 10^3/uL (150-450); Red Blood Count 5.87 10^6 /uL (3.70-4.87); Red Cell Distribution Width 13 % (10-15); White Blood Count 9.6 10^3/uL (3.5-10.8)
[2019-09-27 21:01] LABS: ALT 7 U/L (7-52); AST 13 U/L (13-39); Albumin 4.6 g/dL (3.2-5.2); Albumin/Globulin Ratio 1.2 (1-3); Alkaline Phosphatase 74 U/L (34-104); Amylase 60 U/L (29-103); Anion Gap 13 mmol/L (2-11); BUN/Creatinine Ratio 13.3 (8-20); Blood Urea Nitrogen 13 mg/dL (6-24); C Reactive Protein 6.19 mg/L (<8.01); CO2 Carbon Dioxide 32 mmol/L (22-32); Calcium 10.2 mg/dL (8.6-10.3); Chloride 93 mmol/L (101-111); EGFR African American 78.6 (>60); Glucose 238 mg/dL (70-100); Sodium 138 mmol/L (135-145); Total Protein 8.6 g/dL (6.4-8.9)
[2019-09-27 21:05] LABS: HCG Pregnancy < 0.60 mIU/mL
[2019-09-27] MEDS ORDERED: NS 0.9% 1000 ML** 1,000 ML IV ONE (21:18)
[2019-09-27] MEDS ORDERED: Metoclopramide IV* 5 MG/ML 2 ML VIAL IV SLOW PU ONE (21:19)
--- NOTE | 2019-09-27 22:09 | ED ---
GI/ HPI - HPI Summary HPI Summary: Patient is a 33 y/o F presenting to [facility] with a chief complaint of persistent nausea and vomiting with abdominal pain since 09/24/2019. She is concerned for gastroparesis flare-up because after coming to the ED with sudden onset vomiting and returning home with nausea medications, she continued vomiting but found Reglan she had from her initial gastroparesis episode, which relieved her symptoms. She does not have any Reglan left, which was prescribed by Dr. Gilbert who is now retired, and she has not followed with a new PCP yet. She has been unable to tolerate PO liquids or solids, but she denies any fevers, chills, diarrhea, or urinary symptoms. Pain is currently rated 9/10 in severity. Abdominal surgeries include 2 c-sections, cholecystectomy, appendectomy, exploratory surgery. PMHx: diabetes, asthma, HTN, pulmonary edema , GERD, sleep apnea, depression, anxiety. No known abdominal FHx. Former smoker , occasional EtOH, marijuana use. Medications reviewed. Allergies noted. - History of Current Complaint Chief Complaint: EDNauseaVomitDiarrh Time Seen by Provider: 09/27/19 21:18 Stated Complaint: VOMITING/ABD PAIN PER PT Hx Obtained From: Patient Hx Last Menstrual Period: 05/01/19 Onset/Duration: Started Days Ago, Still Present Timing: Constant Severity: Moderate Current Severity: Severe Pain Intensity: 9 Location of Pain: Diffuse Associated Signs and Symptoms: Positive: Nausea, Vomiting. Negative: Diarrhea, Fever, Hematuria, Dysuria, Chills Aggravating Factor(s): Nothing Alleviating Factor(s): Medication - Reglan - Allergy/Home Medications Allergies/Adverse Reactions: Allergies Allergy/AdvReac Type Severity Reaction Status Date / Time bee venom protein (honey bee) Allergy Severe Anaphylatic Verified 09/27/19 17:51 Shock Iodinated Contrast Media Allergy Hives Verified 09/27/19 17:51 [Iodinated Contrast- Oral and IV Dye] morphine Allergy Hives Verified 09/27/19 17:51 oseltamivir [From Tamiflu] Allergy Hives Verified 09/27/19 17:51 Bee Stings Allergy Anaphylatic Uncoded 09/27/19 17:51 Shock Home Medications: Home Medications Acetaminophen TAB* [Tylenol TAB*] 650 mg PO Q4H PRN 12/24/17 [History Confirmed 09/27/19] Albuterol HFA INHALER* [Ventolin HFA Inhaler*] 2 puff INH Q4H PRN 12/24/17 [ History Confirmed 09/27/19] Lisinopril TAB* [Prinivil TAB*] 30 mg PO QAM 12/24/17 [History Confirmed ] Montelukast Sodium TAB* [Singulair TAB*] 10 mg PO BEDTIME 12/24/17 [History Confirmed 09/27/19] metFORMIN* [Glucophage 500 MG TAB *] 750 mg PO BID 12/24/17 [History Confirmed 09/27/19] Dulaglutide [Trulicity] 0.75 mg SUBCUT WEEKLY 03/07/18 [History Confirmed ] Ibuprofen TAB* [Advil TAB*] 800 mg PO DAILY WITH MEAL PRN 03/07/18 [History Confirmed 09/27/19] clonazePAM TAB(*) [Klonopin TAB(*)] 0.5 mg PO BID PRN 04/03/19 [History Confirmed 09/27/19] tiZANidine TAB* [Zanaflex TAB*] 2 mg PO DAILY PRN 04/03/19 [History Confirmed ] traZODone TAB* [Desyrel TAB*] 50 mg PO BEDTIME PRN 04/03/19 [History Confirmed 09/27/19] Naproxen TAB* [Naprosyn 250 mg TAB*] 250 mg PO Q8H PRN 05/20/19 [History Confirmed 09/27/19] Ondansetron ODT TAB* [Zofran 4 MG Odt TAB*] 4 mg PO Q8H PRN 4 Days #12 tab.odt 09/25/19 [Rx Confirmed 09/27/19] PMH/Surg Hx/FS Hx/Imm Hx Endocrine/Hematology History: Reports: Hx Diabetes - NIDDM Denies: Hx Anticoagulant Therapy, Hx Thyroid Disease Cardiovascular History: Reports: Hx Hypertension - CONTROLLED BY MEDICATION. Denies: Hx Congestive Heart Failure, Hx Pacemaker/ICD, Other Cardiovascular Problems/Disorders Respiratory History: Reports: Hx Asthma, Hx Pneumonia, Hx Pulmonary Edema, Hx Sleep Apnea - new BiPAP user, some compliance issues Denies: Hx Chronic Obstructive Pulmonary Disease (COPD), Other Respiratory Problems/Disorders GI History: Reports: Hx Gastroesophageal Reflux Disease, Other GI Disorders - Gastroparesis-flares on occasion Denies: Hx Ulcer History: Denies: Hx Dialysis, Hx Renal Disease Musculoskeletal History: Reports: Hx Arthritis - Osteoarthritis right shoulder, Other Musculoskeletal History - morbid obesity Denies: Hx Rheumatoid Arthritis, Hx Osteoporosis, Hx Scoliosis Sensory History: Denies: Hx Cataracts, Hx Contacts or Glasses, Hx Hearing Aid Opthamlomology History: Denies: Hx Cataracts, Hx Contacts or Glasses Neurological History: Reports: Hx Migraine, Hx Nerve Disease - Sciatic nerve pain right > than Left Denies: Hx Headaches, Other Neuro Impairments/Disorders Psychiatric History: Reports: Hx Anxiety - prn ativan, Hx Depression Denies: Hx Panic Disorder - Cancer History Hx Chemotherapy: No Hx Radiation Therapy: No - Surgical History Surgical History: Yes Surgery Procedure, Year, and Place: APPENDECTOMY, CHOLECYSTECTOMY, 2 C-SECTIONS , EXPLORATORY SURGERY & F/U SURGERY FOR INFECTION - ABD. REMOVE FOREIGN OBJECT A KID IN EAR. TRIGGER THUMB RIGHT, DEEP VEIN RELEASE HAND Hx Anesthesia Reactions: No - Immunization History Date of Tetanus Vaccine: Unk Date of Influenza Vaccine: Fall 2013 Infectious Disease History: No Infectious Disease History: Denies: Hx Clostridium Difficile, Hx Hepatitis, Hx Human Immunodeficiency Virus (HIV), Hx of Known/Suspected MRSA, History Other Infectious Disease, Traveled Outside the [place] in Last 30 Days - Family History Known Family History: Positive: Hypertension, Diabetes, Respiratory Disease, Non -Contributory - Social History Alcohol Use: Occasionally Alcohol Amount: "a couple a week" Hx Substance Use: Yes Substance Use Type: Reports: Marijuana Substance Use Comment - Amount & Last Used: couple a month Hx Tobacco Use: Yes Smoking Status (MU): Former Smoker Type: Cigarettes Amount Used/How Often: SMOKES AT WORK Length of Time of Smoking/Using Tobacco: 5 years Have You Smoked in the Last Year: Yes - Additional Comments History Additional Comments: 2x Cesarian sections, cholecystectomy, appendectomy, exploratory surgery, diabetes, asthma, HTN, pulmonary edema, GERD, sleep apnea, depression, anxiety Review of Systems - ROS Summary Review of Systems Summary: Home Medications Medication Instructions Recorded Confirmed Type Acetaminophen TAB* [Tylenol TAB*] 650 mg PO Q4H PRN 12/24/17 09/27/19 History Albuterol HFA INHALER* [Ventolin 2 puff INH Q4H PRN 12/24/09/27/19 History HFA Inhaler*] Lisinopril TAB* [Prinivil TAB*] 30 mg PO QAM 12/24/17 09/27/19 History Montelukast Sodium TAB* [Singulair 10 mg PO BEDTIME 12/24/17 09/27/19 History TAB*] metFORMIN* [Glucophage 500 MG TAB 750 mg PO BID 12/24/17 09/27/19 History *] Dulaglutide [Trulicity] 0.75 mg SUBCUT WEEKLY 03/07/18 09/27/19 History Ibuprofen TAB* [Advil TAB*] 800 mg PO DAILY WITH MEAL PRN 03/07/18 09/27/19 History clonazePAM TAB(*) [Klonopin TAB(*)] 0.5 mg PO BID PRN 04/03/19 09/27/19 History tiZANidine TAB* [Zanaflex TAB*] 2 mg PO DAILY PRN 04/03/19 09/27/19 History traZODone TAB* [Desyrel TAB*] 50 mg PO BEDTIME PRN 04/03/19 09/27/19 History Naproxen TAB* [Naprosyn 250 mg 250 mg PO Q8H PRN 05/20/19 09/27/19 History TAB*] Ondansetron ODT TAB* [Zofran 4 MG 4 mg PO Q8H PRN 4 Days #12 tab.odt 09/25/19 Rx Odt TAB*] Negative: Fever, Chills Positive: Abdominal Pain, Vomiting, Nausea, Other - unable to tolerate PO. Negative: Diarrhea Positive: no symptoms reported All Other Systems Reviewed And Are Negative: Yes Physical Exam - Summary Physical Exam Summary: General: Well-developed, Obese female. No acute distress. HEENT: Normocephalic, Atraumatic. Eyes: Conjuctiva normal, PERRL. Oropharynx: Clear, mucous membranes moist, (-) exudates. Neck: Soft, FROM, (-) lymphadenopathy, (-) thyromegaly, (-) JVD. Cardiovascular: Normal sinus rhythm, (-) murmur. Lungs: Clear to auscultation bilaterally (-) wheezes, (-) rales, (-) rhonchi. Abdomen: Soft, mild diffuse tenderness, non-distended, (-) organomegaly, normal bowel sounds. Back: (-) CVA tenderness Extremities: No edema. Skin: Warm, dry, (-) rash. Neuro: Alert and oriented x3, moves all extremities equally. No ataxia. No gait disturbance. No sensory deficit. Normal strength, normal sensation. Psychiatric: Mood normal, affect flat. Triage Information Reviewed: Yes Vital Signs On Initial Exam: Initial Vitals Temp Pulse Resp BP Pulse Ox 97.9 F 102 20 179/116 100 09/27/19 17:47 09/27/19 17:47 09/27/19 17:47 09/27/19 17:47 09/27/19 17:47 Vital Signs Reviewed: Yes Procedures - Sedation Patient Received Moderate/Deep Sedation with Procedure: No Diagnostics - Vital Signs Vital Signs Temp Pulse Resp BP Pulse Ox 09/27/19 20:10 98.9 F 104 20 153/99 95 09/27/19 17:47 97.9 F 102 20 179/116 100 - Laboratory Lab Results: Lab Results 09/27/19 09/27/19 09/27/19 Range/Units 20:30 20:30 20:30 WBC 9.6 (3.5-10.8) 10^3/uL RBC 5.87 H (3.70-4.87) 10^6 /uL Hgb 15.7 (12.0-16.0) g/dL Hct 48 H (35-47) % MCV 82 (80-97) fL MCH 27 (27-31) pg MCHC 33 (31-36) g/dL RDW 13 (10-15) % Plt Count 470 H (150-450) 10^3/uL MPV 8.1 (7.4-10.4) fL Neut % (Auto) 59.6 % Lymph % (Auto) 27.2 % [place] % (Auto) 10.3 % Eos % (Auto) 1.9 % Baso % (Auto) 1.0 % Absolute Neuts (auto) 5.7 (1.5-7.7) 10^3/ul Absolute Lymphs (auto) 2.6 (1.0-4.8) 10^3/ul Absolute Monos (auto) 1.0 H (0-0.8) 10^3/ul Absolute Eos (auto) 0.2 (0-0.6) 10^3/ul Absolute Basos (auto) 0.1 (0-0.2) 10^3/ul Absolute Nucleated RBC 0.0 10^3/ul Nucleated RBC % 0.0 Sodium 138 (135-145) mmol/L Potassium 3.0 L (3.5-5.0) mmol/L Chloride 93 L (101-111) mmol/L Carbon Dioxide 32 (22-32) mmol/L Anion Gap 13 H (2-11) mmol/L BUN 13 (6-24) mg/dL Creatinine 0.98 H (0.51-0.95) mg/dL Est GFR ( Amer) 78.6 (>60) Est GFR (Non-Af Amer) 65.0 (>60) BUN/Creatinine Ratio 13.3 (8-20) Glucose 238 H (70-100) mg/dL Lactic Acid 2.0 (0.5-2.0) mmol/L Calcium 10.2 (8.6-10.3) mg/dL Total Bilirubin 1.80 H (0.2-1.0) mg/dL AST 13 (13-39) U/L ALT 7 (7-52) U/L Alkaline Phosphatase 74 (34-104) U/L C-Reactive Protein 6.19 (<8.01) mg/L Total Protein 8.6 (6.4-8.9) g/dL Albumin 4.6 (3.2-5.2) g/dL Globulin 4.0 (2-4) g/dL Albumin/Globulin Ratio 1.2 (1-3) Amylase 60 (29-103) U/L Lipase 19 (11.0-82.0) U/L Beta HCG, Quant < 0.60 mIU/mL Result Diagrams: 09/27/19 20:30 09/27/19 20:30 Lab Statement: Any lab studies that have been ordered have been reviewed, and results considered in the medical decision making process. - Ultrasound Abd US Ultrasound Interpretation Completed By: Radiologist Summary of Ultrasound Findings: Impression: S/P cholecystectomy. The liver is enlarged. Dilated CBD (7-9 mm diameter). No ductal stone is seen. Hypodense ( cystic-appearing) mass (1.7 cm avg. size) at the pancreatic head level. Mildly dilated pancreatic duct. Cannot exclude a cystic malignancy. Comparison with prior abdominal imaging studies is suggested, if available. A CT scan is also suggested for further evaluation. ED physician has reviewed this report. Re-Evaluation - Re-Evaluation First Eval Re-Evaluation Time: 23:30 Comment: abd US ordered for hyperbilirubinemia Second Eval Re-Evaluation Time: 02:30 Comment: I discussed all results. Discussed symptoms that warrant return to the ED. GIGU Course/Dx - Course Course Of Treatment: 33-year-old female presents from home with complaints of vomiting. Patient states she was seen here recently with similar symptoms and was told she had a stomach bug. Patient states she has continued with nausea vomiting at home. Found some old Reglan tablets she had at home and took one. States it resolved her symptoms. She is currently out of those and having nausea and vomiting. Fevers or chills. No diarrhea. No chest pain cough or shortness of breath. Received IV fluids and Reglan. Significant relief of her symptoms. Patient's physical showed mild upper abdominal tenderness. No other significant findings. Labs indicated a total bili elevation of 1.8. No other significant abnormalities. History of cholecystectomy. Ultrasound of the right upper quadrant demonstrated mildly elevated CBD with no apparent gallstones. Patient's symptoms have improved at this time. Patient discharged home. Discussed results of ultrasound with her. Advised her to follow up with her PCP. Return sooner for any worsening symptoms. - Diagnoses Provider Diagnoses: Vomiting, Gastroparesis, Elevated bilirubin Discharge ED - Sign-Out/Discharge Documenting (check all that apply): Patient Departure - discharge - Discharge Plan Condition: Stable Disposition: HOME Patient Education Materials: Acute Nausea and Vomiting (ED), Gastroparesis (ED) Referrals: Huma Gilbert MD [Primary Care Provider] - 3 Days Additional Instructions: Follow up with your primary care provider in 2-3 days. Return to the emergency department for any new or worsening symptoms. - Billing Disposition and Condition Condition: STABLE Disposition: Home - Attestation Statements Document Initiated by Scribe: Yes Documenting Scribe: Rosalba Oviedo Provider For Whom Elissa is Documenting (Include Credential): Avril Chopra MD Scribe Attestation: Rosalba Jaimes scribed for Avril Chopra MD on 09/28/19 at 0423. Scribe Documentation Reviewed: Yes Provider Attestation: The documentation as recorded by the scribe, Rosalba Oviedo accurately reflects the service I personally performed and the decisions made by me, Avril Chopra MD Status of Elissa Document: Viewed
[2019-09-27 23:08] LABS: Urine Appearance Cloudy; Urine Bilirubin Negative (Negative); Urine Blood Negative (Negative); Urine Color Amber; Urine Glucose 1+(50 mg/dL) (Negative); Urine Ketones 1+ (Negative); Urine Nitrite Negative (Negative); Urine Protein Negative (Negative); Urine Specific Gravity 1.024 (1.010-1.030); Urine Urobilinogen Positive (Negative)
[2019-09-28 01:09] VITALS: BP 168/105
== END 2019-09-28 04:50 | disposition home or self-care (01) ==
LOC: ED 17:39
DX: E11.43 Type 2 diabetes mellitus with diabetic autonomic (poly)neuropathy (principal); K31.84 Gastroparesis; Z79.84 Long term (current) use of oral hypoglycemic drugs; R16.0 Hepatomegaly, not elsewhere classified; K86.9 Disease of pancreas, unspecified; E80.7 Disorder of bilirubin metabolism, unspecified; R11.2 Nausea with vomiting, unspecified; I10 Essential (primary) hypertension; J45.909 Unspecified asthma, uncomplicated; G47.30 Sleep apnea, unspecified; F41.9 Anxiety disorder, unspecified; F32.9 Major depressive disorder, single episode, unspecified; Z79.899 Other long term (current) drug therapy; Z79.51 Long term (current) use of inhaled steroids; Z90.49 Acquired absence of other specified parts of digestive tract; Z88.5 Allergy status to narcotic agent; Z88.8 Allergy status to other drugs, medicaments and biological substances; Z91.030 Bee allergy status; Z91.041 Radiographic dye allergy status; Z87.891 Personal history of nicotine dependence
CPT/HCPCS: 36415; 76705; 80053; 81003; 82150; 83605; 83690; 84702; 85025; 86140; 96361; 96374; 99283; J2765

== ENCOUNTER 2019-10-23 20:50 | Emergency (ER) | payer SELFPAY ==
--- OUTSIDE RECORDS SUMMARY | 2019-10-23 21:10 | XMS REPORT | Continuity of Care Document ---
:1985 External Reference #:[id number] Author Name Constantine Dubose MD (transmitted by agent of provider Kori Hernandez) Address [address] [place] [address] Care Team Providers Name Role Phone Donis Crowe MD - Family Medicine Care Team Information [employer] Yodit Bosch MD - Family Medicine Care Team Information [facility] [employer] [phone] Huma Gilbert MD - Internal Care Team Information [facility] [employer] [facility] Medicine Problems Active Problems Provider Date Morbid obesity Milena La MD Onset: 05/28/2016 Asthma without status asthmaticus Milena La MD Onset: 05/28/2016 Gastroesophageal reflux disease Milena La MD Onset: 05/28/2016 Obstructive sleep apnea syndrome Esther Verdugo DNP, RN, Onset: 06/09/2016 [facility] Type II diabetes mellitus Alex Luna NP [...] marijuana; not regular use Smoking Status Reviewed: 10/06/19 Patient is a former 1 pack X 3 weeks X smoker 2 years. Exercise Type/Frequency Exercises sporadically Allergies, Adverse Reactions, Alerts Active Allergies Reaction Severity Comments Date Tamiflu 11/29/2014 Ibuprofen 05/28/2016 Contrast Dye/Morphine combo itching intensely Severe 08/13/2016 Inactive Allergies NKDA 07/20/2013 Medications Active Medications SIG Qnty Indications Ordering Date Provider Sumatriptan Succinate inject one dose 3ml [id number] Vang twice a day as Rai Palma 0 4mg/0.5ML Solution needed migraine, max Auto-Inject 2 days a week Diclofenac Sodium Take 1 By Mouth 30tabs Mario Purcell, 75mg Twice A Day as [address] Needed For Pain. Take With Food Knee Brace dispo 1 1units M23.8x2 Mario Purcell, Misc 9 Zonisamide 1 po qam and 2 by 90caps [id number] Adalid Vang 100mg mouth every night at Rai Palma 9 Capsules bedtime Freestyle Lite Test test up to 4 times a 100units E11.65 Alex Luna, day DIAGNOSTIC IMAGING MANAGER 7 Strips Aspirin 1 by mouth every day 90tabs E11.65 Alex Luna, 81mg Tablets DR RODRIGES 7 Lisinopril 1 by mouth every day 90tabs E11.65 Tono Steven 30mg Tablets Lenore Shah M.D.,FACMoses Zantac 1 tab by mouth every 90tabs K21.9 Alex Luna, 300mg Tablets day every night DIAGNOSTIC IMAGING MANAGER 6 Ventolin HFA 2 puffs by mouth 8gm J45.909 Alex Luna, four times a day as DIAGNOSTIC IMAGING MANAGER 6 108(90Base) mcg/Act needed Aerosol Pantoprazole Sodium 1 by mouth every day 90tabs K21.9 Alex Luna, DIAGNOSTIC IMAGING MANAGER [address] Metformin HCL ER take two tablets by 180tabs E11.65 Alex Luna, 750mg mouth every day DIAGNOSTIC IMAGING MANAGER 6 Tablets ER 24HR Levocetirizine 1 by mouth every day 90tabs J30.9 Alex Luna, Dihydrochloride DIAGNOSTIC IMAGING MANAGER 6 5mg Tablets Fluticasone 2 sprays each 9.900ml J30.9 Alex Luna, Propionate nostril daily as DIAGNOSTIC IMAGING MANAGER 6 50mcg/Act needed Suspension Prazosin HCL Take 1 To 2 Capsules Unknown 2mg By Mouth AT Bedtime 0 Capsules Gabapentin 1 by mouth at Unknown 300mg bedtime. 0 Capsules Trulicity Take 1 Pen Injector Unknown 1.5mg/0.5ML Subcutaneously Once 0 Solution Pen-Inject Per Week Tizanidine HCL Sarah Paula, 4mg N.P. 0 Tablets Duloxetine HCL 1 tab daily [place], 30mg MD [address] Harris Oxycodone HCL prn Sera 10mg Marina helton FNP 0 Tablets Symbicort Inhale 1 puff With Unknown 80-4.5mcg/Act Adapter Twice A Day 0 Aerosol Montelukast Sodium prn Vladimir 10mg Huma Connor MD 0 Tablets Ondansetron [...] CPT Code Status Date Vaccine Lot # 64969 Given 08/13/2016 Pneumonia Vaccine [id number] 81823 Given 05/28/2016 Influ Virus Vaccine, Quadrivalent, Split Virus, [place] [id number] [address] Given 05/29/2013 Influenza Virus 3Yrs & Over 01899 Given 11/29/2012 Tdap - Tetanus/Diptheria/Acellular Pertussis Vital Signs Date Vital Result Comment 10/06/2019 2:55pm Height 65 inches 5'5" Heart Rate 70 /min BP Systolic 124 mmHg BP Diastolic 70 mmHg Body Temperature 97.4 F Pain Level 8 09/22/2019 9:28am Height 65 inches 5'5" Weight 270.00 lb Heart Rate 112 /min BP Systolic 138 mmHg BP Diastolic 82 mmHg BMI (Body Mass Index) 44.9 kg/m2 Results Test Acquired Date Facility Test Result H/L Range Note Laboratory test 07/28/2019 [facility] Point of Care 196 mg/dL High 70-100 [address] [place] [address] [phone] Laboratory test 07/28/2019 [facility] Point of Care 219 mg/dL High 70-100 [address] [place] [address] [phone] Laboratory test 07/28/2019 [facility] Point of Care 268 mg/dL High 70-100 [address] [place] [address] [phone] 1 Oval Or Circular Glass Cutter: [id number] 2 Oval Or Circular Glass Cutter: [id number] 3 Oval Or Circular Glass Cutter: [id number] Procedures Date Code Description Status 07/28/2019 36588 Arthroscopy Biceps Tenodesis Completed 07/28/2019 24255 Arthroscopy Biceps Tenodesis Completed 07/28/2019 26059 Arthroscopy Shoulder,W/Rotator Cuff Repair Completed 07/28/2019 06364 Arthroscopy Shoulder,W/Rotator Cuff Repair Completed 07/28/2019 44393 Arthroscopy,Shoulder Decompression Of Subacromial Space Completed W/Acromio 07/28/2019 48783 Arthroscopy,Shoulder Decompression Of Subacromial Space Completed W/Acromio 07/28/2019 18312 Arthroscopy,Shoulder,Distal Claviculectomy Incl Dist Completed Articular SR 07/28/2019 61175 Arthroscopy Shoulder Debridement Extensive Completed 05/26/2019 20684 Inject/Drain Joint/Bursa Major W/O US Completed Medical Devices Description No Information Available Encounters Type Date Location Provider Dx Diagnosis Office Visit 10/06/2019 [facility] Constantine Dubose, M23.8x2 Other internal 2:45p at [place] derangements of left knee M25.562 Pain in left knee M25.862 Other specified joint disorders, left knee Office Visit 09/22/2019 [facility] Adalid Vang M25.511 Pain in right 9:15a Juan Palma M.D. 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, right shoulder Office Visit 05/26/2019 Artie Purcell, W19.xxxA Unspecified fall, 8:00a Orthopedics at initial encounter [place] M23.8x2 Other internal derangements of left knee M23.8x2 Other internal derangements of left knee Office Visit 05/04/2019 1:30p Artie Purcell M75.41 Impingement at [place] syndrome of right shoulder 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 at [facility]/06/2019 - Constantine Dubose, MDM23.8x2 Other internal derangements of left kneeFollow up:Follow Up: As ppheupF98.562 Pain in left kneeM25.862 Other specified joint disorders, left knee Functional Status Description No Information Available Mental Status Description No Information Available Referrals Description No Information Available
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
[2019-10-23] MEDS ORDERED: Ibuprofen TAB* 600 MG PO ONE (21:33)
[2019-10-23 22:27] VITALS: BP 169/86
== END 2019-10-23 22:27 | disposition home or self-care (01) ==
LOC: ED 20:50
DX: Z04.1 Encounter for examination and observation following transport accident (principal); M25.511 Pain in right shoulder; R51 Headache; Z88.6 Allergy status to analgesic agent; Z79.899 Other long term (current) drug therapy
CPT/HCPCS: 99282; A9270-GY

== ENCOUNTER 2019-11-07 12:05 | Emergency (ER) | payer OTHER ==
[2019-11-07] MEDS ORDERED: Metoclopramide IV* 5 MG/ML 2 ML VIAL IV ONE (12:23)
[2019-11-07] MEDS ORDERED: NS 0.9% 1000 ML** 2,000 ML IV ONE (12:29)
[2019-11-07] MEDS ORDERED: Metoclopramide TAB* 10 MG PO ONE (13:26)
--- OUTSIDE RECORDS SUMMARY | 2019-11-07 13:47 | XMS REPORT | Continuity of Care Document ---
:1985 External Reference #:[id number] Author Name Constantine Dubose MD (transmitted by agent of provider Miryam Pandey) Address [address] [place] [id number] Care Team Providers Name Role Phone Dnois Crowe MD - Family Medicine Care Team Information Outside Parts Salesman Yodit Bosch MD - Family Medicine Care Team Information Outside Parts Salesman Huma Gilbert MD - Internal Care Team Information Outside [employer] Salesman Medicine Problems Active Problems Provider Date Morbid obesity Milena La MD Onset: 05/28/2016 Asthma without status asthmaticus Milena La MD Onset: 05/28/2016 Gastroesophageal reflux disease Milena La MD Onset: 05/28/2016 Obstructive sleep apnea syndrome Esther Verdugo DNP, RN, Onset: 06/09/2016 [facility] Type II diabetes mellitus Alex [...] Disorder of joint of ankle and/or Mario Purecll MD Onset: 08/29/2019 foot Backache Onset: 10/02/2013 [...] times a 100units E11.65 Alex Luna, day GEOTECHNICAL DEPARTMENT MANAGER 7 Strips Aspirin 1 by mouth every day 90tabs E11.65 Alex Luna, 81mg Tablets DR RODRIGES 7 Lisinopril 1 by mouth every day 90tabs E11.65 Tono Steven 30mg Tablets Lenore Shah M.D.,ROBY Zantac 1 tab by mouth every 90tabs K21.9 Alex Luna, 300mg Tablets day every night GEOTECHNICAL DEPARTMENT MANAGER 6 Ventolin HFA 2 puffs by mouth 8gm J45.909 Alex Luna, four times a day as GEOTECHNICAL DEPARTMENT MANAGER 6 108(90Base) mcg/Act needed Aerosol Pantoprazole Sodium 1 by mouth every day 90tabs K21.9 Alex Luna, GEOTECHNICAL DEPARTMENT MANAGER [address] Metformin HCL ER take two tablets by 180tabs E11.65 Alex Luna, 750mg mouth every day GEOTECHNICAL DEPARTMENT MANAGER 6 Tablets ER 24HR Levocetirizine 1 by mouth every day 90tabs J30.9 Alex Luna, Dihydrochloride GEOTECHNICAL DEPARTMENT MANAGER 6 5mg Tablets Fluticasone 2 sprays each 9.900ml J30.9 Alex Luna, Propionate nostril daily as GEOTECHNICAL DEPARTMENT MANAGER 6 50mcg/Act needed Suspension Prazosin HCL [...] Oxycodone HCL prn Sera 10mg e Marina, NUCLEAR WEAPONS CUSTODIAN 0 Tablets Symbicort Inhale 1 puff With [...] CPT Code Status Date Vaccine Lot # 13436 Given 08/13/2016 Pneumonia Vaccine [id number] 66926 Given 05/28/2016 Influ Virus Vaccine, Quadrivalent, Split Virus, [place] [id number] [address] Given 05/29/2013 Influenza Virus 3Yrs & Over 11373 Given 11/29/2012 Tdap - Tetanus/Diptheria/Acellular Pertussis Vital [...] Result H/L Range Note Laboratory test 07/28/2019 [facility] Point of Care 196 mg/dL High 70-100 [address] [place] [address] [phone] Laboratory test 07/28/2019 [facility] Point of Care 219 mg/dL High 70-100 [address] [place]ucose [place], [place] [id number] [phone] Laboratory test 07/28/2019 [facility] Point of Care 268 mg/dL High 70-100 [address] [place] [address] [phone] 1 Package Sealer Machine: [id number] 2 Package Sealer Machine: [id number] 3 Package Sealer Machine: [id number] Procedures Date Code Description Status 07/28/2019 74679 Arthroscopy Biceps Tenodesis Completed 07/28/2019 85077 Arthroscopy Biceps Tenodesis Completed 07/28/2019 62849 Arthroscopy Shoulder,W/Rotator Cuff Repair Completed 07/28/2019 52211 Arthroscopy Shoulder,W/Rotator Cuff Repair Completed 07/28/2019 22353 Arthroscopy,Shoulder Decompression Of Subacromial Space Completed W/Acromio 07/28/2019 87770 Arthroscopy,Shoulder Decompression Of Subacromial Space Completed W/Acromio 07/28/2019 76757 Arthroscopy,Shoulder,Distal Claviculectomy Incl Dist Completed Articular SR 07/28/2019 32669 Arthroscopy Shoulder Debridement Extensive Completed 05/26/2019 56694 Inject/Drain Joint/Bursa Major W/O US Completed Medical Devices Description No Information Available Encounters Type Date Location Provider Dx Diagnosis Office Visit 10/06/2019 [facility] Constantine Dubose, M23.8x2 Other internal 2:45p at [place] derangements of left knee M25.562 Pain in left knee M25.862 Other specified joint disorders, left knee Office Visit 09/22/2019 [facility] Adalid Vang M25.511 Pain in right 9:15a Juan Palma M.D. 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 at [facility]/06/2019 - Constantine Dubose, MDM23.8x2 Other internal derangements of left kneeNew Therapy:Physical TherapyFollow up:Follow Up: 2 mbpodzG11.562 Pain in left kneeM25.862 Other specified joint disorders, left knee Functional Status Description No Information Available Mental Status Description No Information Available Referrals Description No Information Available
[2019-11-07] MEDS ORDERED: Ondansetron ODT TAB* 4 MG SL ONE (15:35)
[2019-11-07 17:16] VITALS: BP 123/72
--- NOTE | 2019-11-07 18:15 | ED ---
Nausea/Vomiting/Diarrhea HPI - HPI Summary HPI Summary: Patient is a 33yo F with hx of gastroparesis and DM presenting to the ED with 4 days of N/V. States she has not taken any medication at home for relief as she could not find her RX for reglan. Pt states she has had N/V and some mild abd pain. States she has been very dehydrated and unable to keep anything down. She has been seen a a few times in the ED for uncontrolled n/v and recently dx with gastroparesis. Reglan was prescribed and states this has always helped with her sxs. She was seen by Dr. Farley and sent here for further evaluation d/t dehydration. Pt was found to be tachycardic in office. Denies fevers, sweats, chills, cough, congestion, recent travel or known sick contacts. She states she was able to keep some orange slices down yesterday, but otherwise nothing. Denies excessive burping or inability to pass gas. - History of Current Complaint Chief Complaint: EDGeneral Stated Complaint: NAUSEA AND VOMITING PER EMS Time Seen by Provider: 11/07/19 12:06 Hx Obtained From: Patient, Medical Records Hx Last Menstrual Period: 05/01/19 ?: No Onset/Duration: Gradual Onset Timing: Constant Severity Initially: Moderate Severity Currently: Moderate Pain Intensity: 0 Pain Scale Used: 0-10 Numeric Location: Diffuse Aggravating Factor(s): Nothing Alleviating Factor(s): Nothing Vomiting Frequency: Every 3-4 hours Nausea/Vomiting Duration: 3-7 days Diarrhea Presence: No - Risk Factors Influenza Risk Factors: Negative - Allergies/Home Medications Allergies/Adverse Reactions: Allergies Allergy/AdvReac Type Severity Reaction Status Date / Time bee venom protein (honey bee) Allergy Severe Anaphylatic Verified 10/23/19 20:56 Shock Iodinated Contrast Media Allergy Hives Verified 10/23/19 20:56 [Iodinated Contrast- Oral and IV Dye] morphine Allergy Hives Verified 10/23/19 20:56 oseltamivir [From Tamiflu] Allergy Hives Verified 10/23/19 20:56 Bee Stings Allergy Anaphylatic Uncoded 10/23/19 20:56 Shock Home Medications: Home Medications Acetaminophen TAB* [Tylenol TAB*] 500 - 1,000 mg PO BID PRN 12/24/17 [History Confirmed 11/07/19] Albuterol HFA INHALER* [Ventolin HFA Inhaler*] 1 - 2 puff INH Q6H PRN 12/24/17 [ History Confirmed 11/07/19] Lisinopril TAB* [Prinivil TAB*] 30 mg PO DAILY 12/24/17 [History Confirmed 11/06] Montelukast Sodium TAB* [Singulair TAB*] 10 mg PO DAILY 12/24/17 [History Confirmed 11/07/19] metFORMIN* [Glucophage 500 MG TAB *] 1,500 mg PO DAILY 12/24/17 [History Confirmed 11/07/19] Ibuprofen TAB* [Advil TAB*] 600 mg PO TID PRN 03/07/18 [History Confirmed ] clonazePAM TAB(*) [Klonopin TAB(*)] 0.5 - 1 mg PO BEDTIME PRN 04/03/19 [History Confirmed 11/07/19] tiZANidine TAB* [Zanaflex TAB*] 4 mg PO BID PRN 04/03/19 [History Confirmed ] Naproxen TAB* [Naprosyn 250 mg TAB*] 500 mg PO BID PRN 05/20/19 [History Confirmed 11/07/19] Albuterol 2.5MG/3ML (0.083%)* [Ventolin 2.5 MG/3 ML NEB.KHUSHBOO*] 2.5 mg INH Q4H PRN 11/07/19 [History Confirmed 11/07/19] Budesonide/Formote 80/4.5(NF) [Symbicort 80/4.5 (NF)] 1 puff INH BID 11/07/19 [ History Confirmed 11/07/19] DULoxetine DR CAP* [Cymbalta CAP*] 60 mg PO DAILY 11/07/19 [History Confirmed ] Dulaglutide (NF) [Trulicity (NF)] 1.5 mg SUBCUT WEEKLY 11/07/19 [History Confirmed 11/07/19] EPINEPHrine [Epipen 2-Edwin] 0.3 mg IM ONCE PRN 11/07/19 [History Confirmed ] Ergocalciferol CAP* [Drisdol CAP*] 50,000 units PO WEEKLY 11/07/19 [History Confirmed 11/07/19] Fluticasone NASAL SPRAY 50MCG* [Flonase NASAL SPRAY 50MCG*] 2 spray BOTH NARES DAILY 11/07/19 [History Confirmed 11/07/19] Gabapentin CAP(*) [Neurontin 300 CAP(*)] 300 mg PO BEDTIME 11/07/19 [History Confirmed 11/07/19] Insulin Glargine,Hum.rec.anlog [Basaglar Kwikpen 100 inuts/ml 3 ml x 5 Pens] 10 units SUBCUT BEDTIME 11/07/19 [History Confirmed 11/07/19] Ipratropium/Albuterol Sulfate [Iprat-Albut 0.5-3(2.5) mg/3 ml] 3 ml INH Q4H PRN 11/07/19 [History Confirmed 11/07/19] Ketotifen Fumarate [Itchy Eye] 1 drop BOTH EYES DAILY 11/07/19 [History Confirmed 11/07/19] Levonorgestrel (IUD) (NF) [Mirena (NF)] 20 mcg IU ONCE 11/07/19 [History Confirmed 11/07/19] Metoclopramide LIQ* [Reglan LIQ*] 5 - 10 ml PO TID 11/07/19 [History Confirmed 11/07/19] Metoclopramide TAB* [Reglan TAB*] 10 mg PO Q6H PRN #12 tab 11/07/19 [Rx] Ondansetron ODT TAB* [Zofran 4 MG Odt TAB*] 4 mg PO Q6H PRN 11/07/19 [History Confirmed 11/07/19] Ondansetron ODT TAB* [Zofran 4 MG Odt TAB*] 4 mg PO Q6H PRN #12 tab.odt MDD 4 [Rx] Prazosin 1 mg CAP [Minipress 1 mg CAP] 6 mg PO BEDTIME 11/07/19 [History Confirmed 11/07/19] Triamcinolone 0.025% CM(NF) [Kenalog Cream 0.025%*] 1 applic TOPICAL BID PRN [History Confirmed 11/07/19] oxyCODONE TAB* [Roxycodone TAB 5 mg*] 10 mg PO TID PRN 11/07/19 [History Confirmed 11/07/19] PMH/Surg Hx/FS Hx/Imm Hx Previously Healthy: Yes Endocrine/Hematology History: Reports: Hx Diabetes - NIDDM Denies: Hx Anticoagulant Therapy, Hx Thyroid Disease Cardiovascular History: Reports: Hx Hypertension - CONTROLLED BY MEDICATION. Denies: Hx Congestive Heart Failure, Hx Pacemaker/ICD, Other Cardiovascular Problems/Disorders Respiratory History: Reports: Hx Asthma, Hx Pneumonia, Hx Pulmonary Edema, Hx Sleep Apnea - new BiPAP user, some compliance issues Denies: Hx Chronic Obstructive Pulmonary Disease (COPD), Other Respiratory Problems/Disorders GI History: Reports: Hx Gastroesophageal Reflux Disease, Other GI Disorders - Gastroparesis-flares on occasion Denies: Hx Ulcer History: Denies: Hx Dialysis, Hx Renal Disease Musculoskeletal History: Reports: Hx Arthritis - Osteoarthritis right shoulder, Other Musculoskeletal History - morbid obesity Denies: Hx Rheumatoid Arthritis, Hx Osteoporosis, Hx Scoliosis Sensory History: Denies: Hx Cataracts, Hx Contacts or Glasses, Hx Hearing Aid Opthamlomology History: Denies: Hx Cataracts, Hx Contacts or Glasses Neurological History: Reports: Hx Migraine, Hx Nerve Disease - Sciatic nerve pain right > than Left Denies: Hx Headaches, Other Neuro Impairments/Disorders Psychiatric History: Reports: Hx Anxiety - prn ativan, Hx Depression Denies: Hx Panic Disorder - Cancer History Hx Chemotherapy: No Hx Radiation Therapy: No - Surgical History Surgery Procedure, Year, and Place: APPENDECTOMY, CHOLECYSTECTOMY, 2 C-SECTIONS , EXPLORATORY SURGERY & F/U SURGERY FOR INFECTION - ABD. REMOVE FOREIGN OBJECT A KID IN EAR. TRIGGER THUMB RIGHT, DEEP VEIN RELEASE HAND Hx Anesthesia Reactions: No - Immunization History Date of Tetanus Vaccine: Unk Date of Influenza Vaccine: Fall 2013 Hx Pertussis Vaccination: No Immunizations Up to Date: Yes Infectious Disease History: No Infectious Disease History: Denies: Hx Clostridium Difficile, Hx Hepatitis, Hx Human Immunodeficiency Virus (HIV), Hx of Known/Suspected MRSA, History Other Infectious Disease, Traveled Outside the [place] in Last 30 Days - Family History Known Family History: Positive: Hypertension, Diabetes, Respiratory Disease, Non -Contributory - Social History Occupation: Employed Full-time Lives: With Family Alcohol Use: Occasionally Alcohol Amount: "a couple a week" Hx Substance Use: Yes Substance Use Type: Reports: Marijuana Substance Use Comment - Amount & Last Used: couple a month Hx Tobacco Use: Yes Smoking Status (MU): Former Smoker Type: Cigarettes Amount Used/How Often: SMOKES AT WORK Length of Time of Smoking/Using Tobacco: 5 years Have You Smoked in the Last Year: Yes Review of Systems Negative: Fever, Chills, Fatigue, Skin Diaphoresis Negative: Palpitations, Chest Pain Negative: Shortness Of Breath, Cough Positive: Abdominal Pain, Vomiting, Nausea Genitourinary: Negative Positive: no symptoms reported, see HPI Negative: Arthralgia, Myalgia Negative: Headache, Weakness, Paresthesia, Numbness All Other Systems Reviewed And Are Negative: Yes Physical Exam Triage Information Reviewed: Yes Vital Signs On Initial Exam: Initial Vitals Temp Pulse Resp BP Pulse Ox 98.2 F 110 16 131/96 97 11/07/19 12:07 11/07/19 12:07 11/07/19 12:07 11/07/19 12:07 11/07/19 12:07 Vital Signs Reviewed: Yes Appearance: Positive: No Pain Distress, Ill-Appearing Skin: Positive: Dry Head/Face: Positive: Normal Head/Face Inspection Eyes: Positive: EOMI, JASMEET, Conjunctiva Clear Neck: Positive: Supple, No Lymphadenopathy Respiratory/Lung Sounds: Positive: Clear to Auscultation, Breath Sounds Present Cardiovascular: Positive: RRR, Pulses are Symmetrical in both Upper and Lower Extremities Bowel Sounds: Positive: Present Neurological: Positive: Sensory/Motor Intact, Alert, Oriented to Person Place, Time Psychiatric: Positive: Normal, Affect/Mood Appropriate Procedures - Sedation Patient Received Moderate/Deep Sedation with Procedure: No Diagnostics - Vital Signs Vital Signs Temp Pulse Resp BP Pulse Ox 11/07/19 17:14 98.3 F 102 18 123/72 99 11/07/19 13:30 142/107 11/07/19 13:29 151/103 11/07/19 13:28 108 143/109 97 11/07/19 13:22 114 89 11/07/19 12:08 131/96 11/07/19 12:07 98.2 F 110 16 131/96 97 - Laboratory Lab Results: Lab Results 11/07/19 Range/Units 16:18 POC Glucose (mg/dL) 280 H (70-100) mg/dL Lab Statement: Any lab studies that have been ordered have been reviewed, and results considered in the medical decision making process. Naus/Vom/Diarrhea Course/Dx - Course Course Of Treatment: On arrival to the ED, the patient appears dry and dehydrated. Non-toxic in appearing. Lungs CTA. Slight abd tenderness throughout, pt states "sore." She is not actively vomiting, but endorses nausea. Denies other sxs at this time. VS stable but pt is tachycardic at 110. During this patients course of stay, multiple attempts were made for vascular access. Pt given PO reglan and tolerated well. Pt started to take PO water and advanced to crackers. POC glucose 280. Discussed with the patient giving insulin to control her diabetes. Pt states she is feeling improved and requesting DC. She will try both the zofran and reglan at home for her sxs. She will also continue her insulin as prescribed and is encouraged to advance diet slowly this afternoon/evening. Directions given. Encouraged for any worsening or uncontrolled sxs, she will return the ED. - Differential Dx/Diagnosis Differential Diagnoses - Female: Dehydration Provider Diagnosis: Nausea & vomiting Condition At Discharge: Stable Discharge ED - Sign-Out/Discharge Documenting (check all that apply): Patient Departure - Discharge Plan Condition: Stable Disposition: HOME Prescriptions: Metoclopramide TAB* [Reglan TAB*] 10 mg PO Q6H PRN #12 tab PRN Reason: Nausea Ondansetron ODT TAB* [Zofran 4 MG Odt TAB*] 4 mg PO Q6H PRN #12 tab.odt MDD 4 PRN Reason: Nausea Patient Education Materials: Gastroparesis (ED) Referrals: Huma Gilbert MD [Primary Care Provider] - Additional Instructions: Reglan 10mg once every 6 hours for nausea/vomiting Zofran 4mg as needed for nausea - For the next 2 hours, eat and drink clears (water, boone rupinder, soup broth, jello, popsicles, Gatorade). If you tolerate this okay, add bland foods such as dry toast, scrambled eggs, crackers. Wait until you are feeling better for 24 hours before eating spicy food, acidic food, tomato based food, fried food. - Okay to use Zofran, medication as prescribed for nausea - Contact your doctor to schedule a follow-up appointment - Contact your doctor or return with questions or concerns If you develop worsening or changing symptoms, please return to the ED - Billing Disposition and Condition Condition: STABLE Disposition: Home - Attestation Statements Provider Attestation: I was available for consult. This patient was seen by the MIKE. The patient was not presented to, seen by, or examined by me. -Bayron
== END 2019-11-07 17:14 | disposition home or self-care (01) ==
LOC: ED 12:05
DX: R10.9 Unspecified abdominal pain (principal); R11.2 Nausea with vomiting, unspecified; E11.8 Type 2 diabetes mellitus with unspecified complications; Z79.4 Long term (current) use of insulin; I10 Essential (primary) hypertension; K21.9 Gastro-esophageal reflux disease without esophagitis; E66.01 Morbid (severe) obesity due to excess calories; Z87.891 Personal history of nicotine dependence
CPT/HCPCS: 96374; 99284; A9270-GY; J2765

== ENCOUNTER 2020-04-21 18:42 | Observation (INO) ==
[2020-04-21] MEDS ORDERED: NS 0.9% 1000 ml BAG 1,000 ML IV ONE (19:27)
[2020-04-21 19:37] LABS: Hematocrit 49 % (35-47); Mean Corpuscular HGB Conc 33 g/dL (31-36); Mean Corpuscular Hemoglobin 27 pg (27-31); Mean Corpuscular Volume 82 fL (80-97); Platelet Count 506 10^3/uL (150-450); Red Blood Count 5.95 10^6 /uL (3.70-4.87); Red Cell Distribution Width 13 % (10-15); White Blood Count 8.1 10^3/uL (3.5-10.8)
[2020-04-21 19:40] LABS: INR 1.13 (0.82-1.09)
[2020-04-21 19:46] LABS: ALT 32 U/L (7-52); AST 31 U/L (13-39); Albumin 4.5 g/dL (3.2-5.2); Albumin/Globulin Ratio 1.2 (1-3); Alkaline Phosphatase 73 U/L (34-104); Anion Gap 13 mmol/L (2-11); Blood Urea Nitrogen 14 mg/dL (6-24); CO2 Carbon Dioxide 30 mmol/L (22-32); Calcium 9.5 mg/dL (8.6-10.3); Chloride 89 mmol/L (101-111); EGFR African American 69.9 (>60); EGFR Non-African American 57.7 (>60); Globulin 3.8 g/dL (2-4); Glucose 370 mg/dL (70-100); Potassium 3.3 mmol/L (3.5-5.0); Sodium 132 mmol/L (135-145); Total Protein 8.3 g/dL (6.4-8.9)
[2020-04-21 19:48] LABS: ABS Eosinophils 0.1 10^3/ul (0-0.6); ABS Lymphocytes 2.2 10^3/ul (1.0-4.8); ABS Monocytes 0.9 10^3/ul (0-0.8); ABS Neutrophils 4.9 10^3/ul (1.5-7.7); Lymphocyte % 27.3 %; Nucleated Red Blood Cells % 0.1; Troponin I 0.01 ng/mL (<0.03)
[2020-04-21 19:51] LABS: Acetaminophen < 15 mcg/mL; Alcohol, S < 10 mg/dL (<10); Salicylate < 2.50 mg/dL (<30)
[2020-04-21] MEDS ORDERED: Ondansetron ODT 4 mg TAB 4 MG TAB PO ONE (20:13)
[2020-04-21] MEDS ORDERED: Metoclopramide 5 MG/ML VIAL (10 mg) IV ONE (22:55)
[2020-04-22 01:22] LABS: Urine Appearance Clear; Urine Bilirubin Negative (Negative); Urine Blood Negative (Negative); Urine Color Amber; Urine Glucose 3+(>=500 mg/dL) (Negative); Urine Ketones 1+ (Negative); Urine Nitrite Negative (Negative); Urine Protein Negative (Negative); Urine Specific Gravity 1.031 (1.010-1.030); Urine Urobilinogen Positive (Negative)
[2020-04-22 01:28] LABS: Urine Benzodiazepine Screen None Detected (None Detect); Urine Cannabinoids Screen None Detected (None Detect); Urine Opiates Screen None Detected (None Detect)
[2020-04-22] MEDS ORDERED: Metoclopramide 5 MG/ML VIAL (10 mg) IV ONE (02:30)
[2020-04-22] MEDS: NS 0.9% 1000 ml BAG 1,000 ML IV ONE ×2 (05:01→05:56)
[2020-04-22 05:02] LABS: Urine Appearance Cloudy; Urine Bilirubin Negative (Negative); Urine Blood Negative (Negative); Urine Color Amber; Urine Glucose 3+(>=500 mg/dL) (Negative); Urine Ketones 1+ (Negative); Urine Nitrite Negative (Negative); Urine Protein Negative (Negative); Urine Urobilinogen Positive (Negative)
[2020-04-22] MEDS ORDERED: HYDROmorphone 1 MG/1 ML SYRINGE IV SLOW PU ONE (07:26)
[2020-04-22 07:55] LABS: CO2 Carbon Dioxide 33 mmol/L (22-32); Calcium 8.2 mg/dL (8.6-10.3); Chloride 95 mmol/L (101-111); Sodium 135 mmol/L (135-145)
[2020-04-22 08:01] LABS: BUN/Creatinine Ratio 14.8 (8-20); Blood Urea Nitrogen 13 mg/dL (6-24); EGFR African American 88.5 (>60); EGFR Non-African American 73.1 (>60); Glucose 287 mg/dL (70-100)
[2020-04-22 08:06] LABS: Anion Gap 7 mmol/L (2-11)
[2020-04-22] MEDS ORDERED: cefTRIAXone 1 gm/50 mL NS BAG 1 GM/50 ML BAG IV ONE (08:55)
[2020-04-22 09:33] LABS: Potassium Redraw 3.2 mmol/L (3.5-5.0)
[2020-04-22] MEDS ORDERED: Ondansetron 4 mg VIAL 2 MG/ML 2 ml VIAL IV PRN (10:01)
[2020-04-22] MEDS ORDERED: Dextrose 50% Syringe 50 ml 25 GM/50 ML SYRINGE IV PUSH PRN (10:02)
[2020-04-22] MEDS ORDERED: Albuterol HFA INHALER 8 gm MDI INH PRN (10:16)
[2020-04-22] MEDS ORDERED: Albuterol 2.5mg/3 ml (0.083%) NEB.SOLN INH PRN (10:16)
[2020-04-22 11:49] LABS: HCG Pregnancy < 0.60 mIU/mL
[2020-04-22 12:06] LABS: C Reactive Protein 9.62 mg/L (<8.01)
[2020-04-22 12:18] LABS: Indirect Bilirubin 1.6 mg/dL (0.3-1.0); Total Bilirubin 2.1 mg/dL (0.2-1.0)
[2020-04-22] MEDS: Lactated Ringers 1000 ml BAG 1,000 ML IV SCH (14:50)
[2020-04-22] MEDS: KCL 10 MEQ/50 ML IVPREMIX 10 MEQ/50 ML BAG IV SCH ×2 (17:25→19:03)
[2020-04-22] MEDS: Mometasone/Formoter 100/5 MDI INH SCH (19:43)
[2020-04-22] MEDS: Insulin GLARGINE 100 un/ml 10 ml VIAL SUBCUT SCH (20:30)
[2020-04-23] MEDS: Lactated Ringers 1000 ml BAG 1,000 ML IV SCH (05:52)
[2020-04-23 06:06] LABS: ABS Eosinophils 0.2 10^3/ul (0-0.6); ABS Lymphocytes 2.7 10^3/ul (1.0-4.8); ABS Monocytes 0.6 10^3/ul (0-0.8); ABS Neutrophils 2.1 10^3/ul (1.5-7.7); Eosinophil % 3.8 %; Hematocrit 34 % (35-47); Hemoglobin 11.1 g/dL (12.0-16.0); Lymphocyte % 48.3 %; Mean Corpuscular HGB Conc 33 g/dL (31-36); Mean Corpuscular Hemoglobin 27 pg (27-31); Mean Corpuscular Volume 82 fL (80-97); Mean Platelet Volume 8.7 fL (7.4-10.4); Nucleated Red Blood Cells % 0.1; Platelet Count 327 10^3/uL (150-450); Red Blood Count 4.12 10^6 /uL (3.70-4.87); Red Cell Distribution Width 13 % (10-15); White Blood Count 5.7 10^3/uL (3.5-10.8)
[2020-04-23 06:25] LABS: Albumin 3.1 g/dL (3.2-5.2); Albumin/Globulin Ratio 1.2 (1-3); BUN/Creatinine Ratio 12.8 (8-20); EGFR Non-African American 67.8 (>60); Globulin 2.5 g/dL (2-4); Potassium 3.3 mmol/L (3.5-5.0); Total Protein 5.6 g/dL (6.4-8.9)
[2020-04-23] MEDS ORDERED: Potassium Chlor 20 meq TAB.ER PO ONE (07:16)
[2020-04-23] MEDS: Mometasone/Formoter 100/5 MDI INH SCH ×2 (08:09→19:56)
[2020-04-23] MEDS: DULoxetine DR 60 mg CAP PO SCH (08:55)
[2020-04-23] MEDS: Fluticasone NASAL SPRAY 50MCG 16 gm SPRAY BTL BOTH NARES SCH (08:56)
[2020-04-23 10:43] LABS: Hematocrit 33 % (35-47); Hemoglobin 11.2 g/dL (12.0-16.0)
[2020-04-23] MEDS ORDERED: Ondansetron ODT 4 mg TAB 4 MG TAB SL PRN (11:39)
[2020-04-23] MEDS ORDERED: Lactulose 30 ml UDC PO ONE (16:16)
[2020-04-23] MEDS: Insulin GLARGINE 100 un/ml 10 ml VIAL SUBCUT SCH (21:11)
[2020-04-24] MEDS ORDERED: Lactulose 30 ml UDC PO ONE (07:13)
[2020-04-24] MEDS: Mometasone/Formoter 100/5 MDI INH SCH (08:14)
[2020-04-24] MEDS: DULoxetine DR 60 mg CAP PO SCH (08:53)
[2020-04-24 09:05] LABS: ABS Basophils 0.1 10^3/ul (0-0.2); ABS Eosinophils 0.3 10^3/ul (0-0.6); ABS Monocytes 0.6 10^3/ul (0-0.8); Eosinophil % 5.5 %; Hematocrit 35 % (35-47); Hemoglobin 11.3 g/dL (12.0-16.0); Mean Corpuscular HGB Conc 32 g/dL (31-36); Mean Corpuscular Hemoglobin 27 pg (27-31); Mean Corpuscular Volume 83 fL (80-97); Mean Platelet Volume 8.6 fL (7.4-10.4); Nucleated Red Blood Cells % 0.1; Platelet Count 333 10^3/uL (150-450); Red Blood Count 4.19 10^6 /uL (3.70-4.87); Red Cell Distribution Width 13 % (10-15); White Blood Count 5.9 10^3/uL (3.5-10.8)
[2020-04-24] MEDS: Fluticasone NASAL SPRAY 50MCG 16 gm SPRAY BTL BOTH NARES SCH (09:11)
[2020-04-24 09:47] VITALS: BP 127/66
== END 2020-04-24 11:50 | disposition home or self-care (01) ==
LOC: ED 18:42 → MED 18:42
PROVIDERS: ADMIT Internal Medicine; ATTEND Internal Medicine

== ENCOUNTER 2020-05-16 12:12 | Observation (INO) ==
[2020-05-16] MEDS ORDERED: NS 0.9% 1000 ml BAG 1,000 ML IV ONE ×4 (12:27→23:58)
[2020-05-16] MEDS ORDERED: Ondansetron 4 mg VIAL 2 MG/ML 2 ml VIAL IV ONE ×2 (12:33→18:50)
[2020-05-16] MEDS ORDERED: Morphine 4 MG/ML VIAL (1 ml) ONE (14:45)
[2020-05-16 14:51] LABS: ABS Basophils 0.1 10^3/ul (0-0.2); ABS Lymphocytes 1.2 10^3/ul (1.0-4.8); ABS Monocytes 0.3 10^3/ul (0-0.8); Hematocrit 46 % (35-47); Lymphocyte % 12.2 %; Mean Corpuscular HGB Conc 33 g/dL (31-36); Mean Corpuscular Hemoglobin 27 pg (27-31); Mean Corpuscular Volume 83 fL (80-97); Mean Platelet Volume 7.8 fL (7.4-10.4); Platelet Count 526 10^3/uL (150-450); Red Blood Count 5.49 10^6 /uL (3.70-4.87); Red Cell Distribution Width 14 % (10-15); White Blood Count 9.5 10^3/uL (3.5-10.8)
[2020-05-16] MEDS ORDERED: fentaNYL 100 mcg/2 ml 50 MCG/ML VIAL IV SLOW PU ONE (14:54)
[2020-05-16 15:08] LABS: HCG Pregnancy < 0.60 mIU/mL
[2020-05-16 15:09] LABS: ALT 10 U/L (7-52); AST 11 U/L (13-39); Albumin 4.8 g/dL (3.2-5.2); Albumin/Globulin Ratio 1.2 (1-3); Alkaline Phosphatase 86 U/L (34-104); Anion Gap 11 mmol/L (2-11); BUN/Creatinine Ratio 6.8 (8-20); Blood Urea Nitrogen 6 mg/dL (6-24); CO2 Carbon Dioxide 29 mmol/L (22-32); Calcium 10.4 mg/dL (8.6-10.3); Chloride 98 mmol/L (101-111); EGFR African American 88.5 (>60); EGFR Non-African American 73.1 (>60); Globulin 3.9 g/dL (2-4); Glucose 299 mg/dL (70-100); Lipase < 10 U/L (11.0-82.0); Magnesium 1.9 mg/dL (1.9-2.7); Potassium 3.8 mmol/L (3.5-5.0); Sodium 138 mmol/L (135-145); Total Protein 8.7 g/dL (6.4-8.9)
[2020-05-16] MEDS ORDERED: hydrALAZINE 20 mg/ml 1 ML Vial IV IV SLOW PU ONE (15:09)
[2020-05-16] MEDS ORDERED: Albuterol 2.5mg/3 ml (0.083%) NEB.SOLN INH PRN (17:39)
[2020-05-16] MEDS ORDERED: Metoclopramide 5 MG/ML VIAL (10 mg) IV PRN (17:41)
[2020-05-16] MEDS ORDERED: Dextrose 50% Syringe 50 ml 25 GM/50 ML SYRINGE IV PUSH PRN (17:49)
[2020-05-16] MEDS: Mometasone/Formoter 100/5 MDI INH SCH (20:25)
[2020-05-16] MEDS ORDERED: Ondansetron 4 mg VIAL 2 MG/ML 2 ml VIAL ONE (20:41)
[2020-05-16] MEDS ORDERED: HYDROmorphone 0.5 MG/0.5 ML SYRINGE ONE (20:41)
[2020-05-16] MEDS: Ondansetron 4 mg VIAL 2 MG/ML 2 ml VIAL IV PRN (20:46)
[2020-05-16] MEDS: HYDROmorphone 0.5 MG/0.5 ML SYRINGE IV PRN (20:46)
[2020-05-16] MEDS ORDERED: Insulin GLARGINE 100 un/ml 10 ml VIAL ONE (21:12)
[2020-05-16] MEDS ORDERED: Enoxaparin 40 MG/0.4 ML SYR ONE (21:12)
[2020-05-16] MEDS: Lactated Ringers 1000 ml BAG 1,000 ML IV SCH (21:15)
[2020-05-16] MEDS: Enoxaparin 40 MG/0.4 ML SYR SUBCUT SCH (21:17)
[2020-05-16] MEDS: Insulin GLARGINE 100 un/ml 10 ml VIAL SUBCUT SCH (21:17)
[2020-05-17 00:19] LABS: ABS Basophils 0.1 10^3/ul (0-0.2); ABS Lymphocytes 1.7 10^3/ul (1.0-4.8); ABS Neutrophils 7.7 10^3/ul (1.5-7.7); Hematocrit 39 % (35-47); Hemoglobin 12.5 g/dL (12.0-16.0); Lymphocyte % 16.7 %; Mean Corpuscular HGB Conc 33 g/dL (31-36); Mean Corpuscular Hemoglobin 27 pg (27-31); Mean Corpuscular Volume 83 fL (80-97); Mean Platelet Volume 7.6 fL (7.4-10.4); Platelet Count 446 10^3/uL (150-450); Red Blood Count 4.66 10^6 /uL (3.70-4.87); Red Cell Distribution Width 14 % (10-15); White Blood Count 10.4 10^3/uL (3.5-10.8)
[2020-05-17 00:43] LABS: BUN/Creatinine Ratio 7.9 (8-20); Calcium 8.4 mg/dL (8.6-10.3); EGFR African American 104.8 (>60); EGFR Non-African American 86.6 (>60); Magnesium 1.6 mg/dL (1.9-2.7); Potassium 3.4 mmol/L (3.5-5.0)
[2020-05-17] MEDS ORDERED: Magnesium Sulfate 2 gm BAG 2 GM/50 ML BAG IVPB ONE (02:06)
[2020-05-17] MEDS ORDERED: Magnesium Sulfate 2 gm BAG 2 GM/50 ML BAG ONE (02:19)
[2020-05-17] MEDS ORDERED: KCL 10 MEQ/50 ML IVPREMIX 10 MEQ/50 ML BAG ONE ×3 (03:27→08:31)
[2020-05-17] MEDS: KCL 10 MEQ/50 ML IVPREMIX 10 MEQ/50 ML BAG IV SCH ×3 (03:28→08:35)
[2020-05-17] MEDS: Lactated Ringers 1000 ml BAG 1,000 ML IV SCH ×2 (06:01→15:12)
[2020-05-17] MEDS ORDERED: Ondansetron 4 mg VIAL 2 MG/ML 2 ml VIAL ONE (06:12)
[2020-05-17] MEDS: Ondansetron 4 mg VIAL 2 MG/ML 2 ml VIAL IV PRN ×2 (06:16→16:56)
[2020-05-17] MEDS ORDERED: HYDROmorphone 0.5 MG/0.5 ML SYRINGE ONE ×2 (06:18→11:52)
[2020-05-17] MEDS: HYDROmorphone 0.5 MG/0.5 ML SYRINGE IV PRN ×3 (06:31→16:57)
[2020-05-17 06:37] LABS: ABS Basophils 0.1 10^3/ul (0-0.2); ABS Lymphocytes 2.5 10^3/ul (1.0-4.8); ABS Monocytes 1.1 10^3/ul (0-0.8); Eosinophil % 0.2 %; Hematocrit 37 % (35-47); Hemoglobin 11.6 g/dL (12.0-16.0); Lymphocyte % 23.8 %; Mean Corpuscular HGB Conc 32 g/dL (31-36); Mean Corpuscular Hemoglobin 27 pg (27-31); Mean Corpuscular Volume 85 fL (80-97); Platelet Count 394 10^3/uL (150-450); Red Blood Count 4.31 10^6 /uL (3.70-4.87); Red Cell Distribution Width 14 % (10-15); White Blood Count 10.7 10^3/uL (3.5-10.8)
[2020-05-17 06:56] LABS: BUN/Creatinine Ratio 8.9 (8-20); Calcium 8.2 mg/dL (8.6-10.3); EGFR African American 86.2 (>60); EGFR Non-African American 71.3 (>60); Potassium 3.6 mmol/L (3.5-5.0)
[2020-05-17] MEDS: Mometasone/Formoter 100/5 MDI INH SCH ×2 (07:46→20:04)
[2020-05-17] MEDS ORDERED: DULoxetine DR 30 mg CAP ONE (08:29)
[2020-05-17] MEDS: DULoxetine DR 60 mg CAP PO SCH (08:36)
[2020-05-17] MEDS ORDERED: Al Hydrox/Mg Hydrox/Simet LIQ 30 ML UDC PO PRN (10:52)
[2020-05-17 11:41] LABS: Magnesium 2.2 mg/dL (1.9-2.7)
[2020-05-17 12:21] LABS: Urine Appearance Clear; Urine Bilirubin Negative (Negative); Urine Blood Negative (Negative); Urine Color Yellow; Urine Glucose 3+(>=500 mg/dL) (Negative); Urine Ketones Trace (Negative); Urine Nitrite Negative (Negative); Urine Protein Negative (Negative); Urine Specific Gravity 1.016 (1.010-1.030); Urine Urobilinogen Negative (Negative)
[2020-05-17] MEDS: Pantoprazole VIAL 40 MG VIAL IV SCH (15:12)
[2020-05-17] MEDS: Enoxaparin 40 MG/0.4 ML SYR SUBCUT SCH (17:16)
[2020-05-17] MEDS: Insulin GLARGINE 100 un/ml 10 ml VIAL SUBCUT SCH (22:09)
[2020-05-18] MEDS: Lactated Ringers 1000 ml BAG 1,000 ML IV SCH ×2 (01:44→09:21)
[2020-05-18] MEDS: HYDROmorphone 0.5 MG/0.5 ML SYRINGE IV PRN (02:13)
[2020-05-18 07:11] LABS: ABS Eosinophils 0.1 10^3/ul (0-0.6); ABS Lymphocytes 2.7 10^3/ul (1.0-4.8); ABS Monocytes 0.5 10^3/ul (0-0.8); ABS Neutrophils 2.3 10^3/ul (1.5-7.7); Eosinophil % 2.4 %; Hematocrit 34 % (35-47); Hemoglobin 10.9 g/dL (12.0-16.0); Lymphocyte % 47.7 %; Mean Corpuscular HGB Conc 33 g/dL (31-36); Mean Corpuscular Hemoglobin 28 pg (27-31); Mean Corpuscular Volume 85 fL (80-97); Mean Platelet Volume 7.7 fL (7.4-10.4); Nucleated Red Blood Cells % 0.1; Platelet Count 338 10^3/uL (150-450); Red Blood Count 3.96 10^6 /uL (3.70-4.87); Red Cell Distribution Width 14 % (10-15); White Blood Count 5.6 10^3/uL (3.5-10.8)
[2020-05-18 07:20] LABS: Calcium 8.1 mg/dL (8.6-10.3); Magnesium 1.9 mg/dL (1.9-2.7); Potassium 3.6 mmol/L (3.5-5.0); Total Bilirubin 0.7 mg/dL (0.2-1.0)
[2020-05-18 07:26] LABS: Albumin/Globulin Ratio 1.3 (1-3); BUN/Creatinine Ratio 7.5 (8-20); EGFR African American 98.8 (>60); EGFR Non-African American 81.6 (>60); Globulin 2.4 g/dL (2-4); Total Protein 5.4 g/dL (6.4-8.9)
[2020-05-18] MEDS: Mometasone/Formoter 100/5 MDI INH SCH (07:54)
[2020-05-18] MEDS: Pantoprazole VIAL 40 MG VIAL IV SCH (09:20)
[2020-05-18] MEDS: DULoxetine DR 60 mg CAP PO SCH (09:20)
[2020-05-18 12:44] VITALS: BP 99/33
== END 2020-05-18 14:55 | disposition home or self-care (01) ==
LOC: MED 12:12 → ED 12:12 → MED 19:53
PROVIDERS: ADMIT Internal Medicine; ATTEND Internal Medicine

== ENCOUNTER 2020-06-11 10:04 | Observation (INO) ==
[2020-06-11] MEDS ORDERED: NS 0.9% 1000 ml BAG 1,000 ML IV ONE ×2 (10:14→10:23)
[2020-06-11] MEDS ORDERED: diPHENhydraMINE IV 50 MG/ML 1 ml VIAL (BENADRYL) IV ONE (10:14)
[2020-06-11] MEDS ORDERED: Ondansetron 4 mg VIAL 2 MG/ML 2 ml VIAL IV ONE (10:20)
[2020-06-11] MEDS ORDERED: Lorazepam PYXIS KEY PRN (10:21)
[2020-06-11] MEDS ORDERED: LORazepam 2 mg VIAL 1 ml IV PUSH ONE (10:21)
[2020-06-11] MEDS ORDERED: HYDROmorphone 0.5 MG/0.5 ML SYRINGE IV ONE (10:22)
[2020-06-11] MEDS ORDERED: Lorazepam PYXIS KEY ONE (10:25)
[2020-06-11 11:30] LABS: ABS Basophils 0.1 10^3/ul (0-0.2); ABS Lymphocytes 2.5 10^3/ul (1.0-4.8); ABS Monocytes 0.8 10^3/ul (0-0.8); ABS Neutrophils 5.8 10^3/ul (1.5-7.7); Eosinophil % 0.2 %; Hematocrit 50 % (35-47); Hemoglobin 16.1 g/dL (12.0-16.0); Lymphocyte % 26.9 %; Mean Corpuscular HGB Conc 32 g/dL (31-36); Mean Corpuscular Hemoglobin 27 pg (27-31); Mean Corpuscular Volume 83 fL (80-97); Mean Platelet Volume 8.4 fL (7.4-10.4); Platelet Count 532 10^3/uL (150-450); Red Blood Count 5.99 10^6 /uL (3.70-4.87); Red Cell Distribution Width 13 % (10-15); White Blood Count 9.2 10^3/uL (3.5-10.8)
[2020-06-11 11:55] LABS: Albumin/Globulin Ratio 1.2 (1-3); BUN/Creatinine Ratio 11.9 (8-20); C Reactive Protein 13.24 mg/L (<8.01); Calcium 10.7 mg/dL (8.6-10.3); EGFR African American 69.1 (>60); EGFR Non-African American 57.1 (>60); Globulin 4.3 g/dL (2-4); Potassium 3.7 mmol/L (3.5-5.0); Total Bilirubin 1.5 mg/dL (0.2-1.0); Total Protein 9.3 g/dL (6.4-8.9)
[2020-06-11 12:01] LABS: HCG Pregnancy 1.44 mIU/mL
[2020-06-11] MEDS ORDERED: Pantoprazole VIAL 40 MG VIAL IV ONE (12:19)
[2020-06-11] MEDS ORDERED: Pantoprazole 80 mg in NS BAG 80 MG/250 ML BAG IV ONE (12:20)
[2020-06-11] MEDS ORDERED: NS 0.9% 1000 ml BAG 1,000 ML IV SCH (14:45)
[2020-06-11] MEDS ORDERED: Albuterol/Ipratropium NEB.SOL (2.5/0.5 MG) 3 ML NEB.SOLN INH PRN (15:41)
[2020-06-11] MEDS ORDERED: Albuterol 2.5mg/3 ml (0.083%) NEB.SOLN INH PRN (15:41)
[2020-06-11] MEDS ORDERED: Dextrose 50% Syringe 50 ml 25 GM/50 ML SYRINGE IV PUSH PRN (15:48)
[2020-06-11] MEDS ORDERED: Ondansetron 4 mg VIAL 2 MG/ML 2 ml VIAL IV PRN (15:50)
[2020-06-11] MEDS: Mometasone/Formoter 100/5 MDI INH SCH (20:09)
[2020-06-11] MEDS: Pantoprazole VIAL 40 MG VIAL IV SCH (21:19)
[2020-06-11] MEDS: Insulin GLARGINE 100 un/ml 10 ml VIAL SUBCUT SCH (21:20)
[2020-06-11 21:40] LABS: Urine Benzodiazepine Screen None Detected (None Detect); Urine Cannabinoids Screen Presumptive Positive (None Detect); Urine Opiates Screen Presumptive Positive (None Detect)
[2020-06-11 23:40] LABS: Hematocrit 38 % (35-47); Hemoglobin 12.5 g/dL (12.0-16.0)
[2020-06-12 06:17] LABS: ABS Basophils 0.1 10^3/ul (0-0.2); ABS Eosinophils 0.2 10^3/ul (0-0.6); ABS Lymphocytes 3.9 10^3/ul (1.0-4.8); ABS Monocytes 0.7 10^3/ul (0-0.8); ABS Neutrophils 2.4 10^3/ul (1.5-7.7); Eosinophil % 2.9 %; Hematocrit 40 % (35-47); Hemoglobin 12.6 g/dL (12.0-16.0); Lymphocyte % 54.3 %; Mean Corpuscular HGB Conc 32 g/dL (31-36); Mean Corpuscular Hemoglobin 27 pg (27-31); Mean Corpuscular Volume 84 fL (80-97); Platelet Count 393 10^3/uL (150-450); Red Cell Distribution Width 13 % (10-15); White Blood Count 7.3 10^3/uL (3.5-10.8)
[2020-06-12 06:32] LABS: BUN/Creatinine Ratio 15.4 (8-20); Calcium 8.3 mg/dL (8.6-10.3); EGFR African American 85.1 (>60); EGFR Non-African American 70.4 (>60); Potassium 3.5 mmol/L (3.5-5.0)
[2020-06-12] MEDS: Mometasone/Formoter 100/5 MDI INH SCH ×2 (08:02→19:54)
[2020-06-12] MEDS: Pantoprazole VIAL 40 MG VIAL IV SCH ×2 (08:50→20:31)
[2020-06-12] MEDS: DULoxetine DR 60 mg CAP PO SCH (08:50)
[2020-06-12] MEDS: Fluticasone NASAL SPRAY 50MCG 16 gm SPRAY BTL BOTH NARES SCH (09:06)
[2020-06-12] MEDS ORDERED: NS 0.9% 1000 ml BAG 1,000 ML IV ONE (17:37)
[2020-06-12] MEDS ORDERED: NS 0.9% 1000 ml BAG 1,000 ML IV SCH (18:05)
[2020-06-12] MEDS: Insulin GLARGINE 100 un/ml 10 ml VIAL SUBCUT SCH (20:31)
[2020-06-13] MEDS ORDERED: Al Hydrox/Mg Hydrox/Simet LIQ 30 ML UDC PO ONE (05:37)
[2020-06-13] MEDS: Fluticasone NASAL SPRAY 50MCG 16 gm SPRAY BTL BOTH NARES SCH (08:32)
[2020-06-13] MEDS: Pantoprazole VIAL 40 MG VIAL IV SCH (08:34)
[2020-06-13] MEDS: DULoxetine DR 60 mg CAP PO SCH (08:34)
[2020-06-13] MEDS: Mometasone/Formoter 100/5 MDI INH SCH (10:47)
[2020-06-13] MEDS ORDERED: Magnesium Hydroxide LIQ 30 ML UDC PO ONE (13:50)
[2020-06-13 16:50] VITALS: BP 138/74
== END 2020-06-13 18:15 | disposition home or self-care (01) ==
LOC: ED 10:04 → MEDTELE 10:04
PROVIDERS: ADMIT Internal Medicine; ATTEND Internal Medicine

== ENCOUNTER 2020-07-25 14:53 | Inpatient (IN) ==
[2020-07-25] MEDS ORDERED: LORazepam 2 mg VIAL 1 ml IV PUSH ONE ×2 (15:25→21:32)
[2020-07-25] MEDS ORDERED: Lorazepam PYXIS KEY PRN ×2 (15:25→21:32)
[2020-07-25] MEDS ORDERED: Metoclopramide 5 MG/ML VIAL (10 mg) IV SLOW PU ONE (15:27)
[2020-07-25] MEDS ORDERED: HYDROmorphone 0.5 MG/0.5 ML SYRINGE IV ONE (15:28)
[2020-07-25] MEDS ORDERED: Lorazepam PYXIS KEY ONE (15:52)
[2020-07-25] MEDS: NS 0.9% 1000 ml BAG 1,000 ML IV ONE (15:55)
[2020-07-25] MEDS ORDERED: hydrALAZINE 20 mg/ml 1 ML Vial IV IV SLOW PU ONE ×2 (16:01→20:38)
[2020-07-25 16:14] LABS: ABS Eosinophils 0.2 10^3/ul (0-0.6); ABS Lymphocytes 1.9 10^3/ul (1.0-4.8); ABS Monocytes 0.5 10^3/ul (0-0.8); ABS Neutrophils 3.9 10^3/ul (1.5-7.7); Eosinophil % 3.2 %; Hematocrit 45 % (35-47); Hemoglobin 14.5 g/dL (12.0-16.0); Mean Corpuscular HGB Conc 32 g/dL (31-36); Mean Corpuscular Hemoglobin 27 pg (27-31); Mean Corpuscular Volume 84 fL (80-97); Mean Platelet Volume 8.6 fL (7.4-10.4); Platelet Count 494 10^3/uL (150-450); Red Cell Distribution Width 13 % (10-15); White Blood Count 6.6 10^3/uL (3.5-10.8)
[2020-07-25 16:17] LABS: Activated Partial Thrombo Time 31.2 seconds (26.0-38.0)
[2020-07-25 16:37] LABS: ALT 8 U/L (7-52); Albumin 4.3 g/dL (3.2-5.2); Albumin/Globulin Ratio 1.3 (1-3); Alkaline Phosphatase 74 U/L (34-104); Anion Gap 10 mmol/L (2-11); BUN/Creatinine Ratio 5.1 (8-20); Blood Urea Nitrogen 4 mg/dL (6-24); C Reactive Protein 8.84 mg/L (<8.01); CO2 Carbon Dioxide 23 mmol/L (22-32); Calcium 9.7 mg/dL (8.6-10.3); Chloride 103 mmol/L (101-111); Creatine Kinase 120 U/L (10-223); EGFR African American 101.7 (>60); Globulin 3.4 g/dL (2-4); Glucose 308 mg/dL (70-100); Sodium 136 mmol/L (135-145); Total Protein 7.7 g/dL (6.4-8.9)
[2020-07-25 16:59] LABS: Influenza A Molecular Negative (Negative); Influenza B Molecular Negative (Negative)
[2020-07-25] MEDS ORDERED: Pantoprazole VIAL 40 MG VIAL IV ONE (17:15)
[2020-07-25] MEDS ORDERED: NS 0.9% 1000 ml BAG 1,000 ML IV ONE (17:18)
[2020-07-25] MEDS ORDERED: Ondansetron 4 mg VIAL 2 MG/ML 2 ml VIAL IV ONE ×2 (17:46→18:38)
[2020-07-25 21:28] LABS: Potassium Redraw 4.9 mmol/L (3.5-5.0)
[2020-07-25] MEDS ORDERED: NS 0.9% 1000 ml BAG 1,000 ML IV SCH (22:15)
[2020-07-25] MEDS ORDERED: Dextrose 50% Syringe 50 ml 25 GM/50 ML SYRINGE IV PUSH PRN (22:15)
[2020-07-25] MEDS ORDERED: Albuterol 2.5mg/3 ml (0.083%) NEB.SOLN INH PRN (22:19)
[2020-07-25] MEDS ORDERED: hydrALAZINE 20 mg/ml 1 ML Vial IV IV SLOW PU PRN (22:27)
[2020-07-25] MEDS ORDERED: Prochlorperazine 5 mg/ml 2 ml VIAL (10 mg) IM ONE (23:21)
[2020-07-26] MEDS: Prochlorperazine 5 mg/ml 2 ml VIAL (10 mg) IV PRN ×2 (01:45→17:59)
[2020-07-26 01:58] LABS: Activated Partial Thrombo Time 33.2 seconds (26.0-38.0); INR 1.16 (0.82-1.09)
[2020-07-26 02:13] LABS: Urine Benzodiazepine Screen None Detected (None Detect); Urine Cannabinoids Screen Presumptive Positive (None Detect); Urine Opiates Screen None Detected (None Detect)
[2020-07-26] MEDS: Mometasone/Formoter 100/5 MDI INH SCH ×3 (02:15→20:22)
[2020-07-26] MEDS: metroNIDAZOLE IV 500 MG/100ML 500 MG/100 ML BAG IVPB SCH ×2 (02:45→14:15)
[2020-07-26 03:28] LABS: Urine Appearance Clear; Urine Bacteria Absent (Absent); Urine Bilirubin Negative (Negative); Urine Blood Negative (Negative); Urine Color Yellow; Urine Glucose 3+(>=500 mg/dL) (Negative); Urine Ketones 1+ (Negative); Urine Nitrite Negative (Negative); Urine Protein Negative (Negative); Urine Red Blood Cell Trace(0-2/hpf) (Absent); Urine Specific Gravity 1.023 (1.010-1.030); Urine Squamous Epithelial Cell Present (Absent); Urine Urobilinogen Negative (Negative); Urine White Blood Cell Trace(0-5/hpf) (Absent)
[2020-07-26] MEDS: Ciprofloxacin 400mg IVPREMIX 400 MG/200 ML BAG IVPB SCH ×2 (03:54→15:33)
[2020-07-26 04:42] LABS: ABS Lymphocytes 1.6 10^3/ul (1.0-4.8); ABS Monocytes 0.5 10^3/ul (0-0.8); ABS Neutrophils 6.4 10^3/ul (1.5-7.7); Hematocrit 39 % (35-47); Hemoglobin 12.5 g/dL (12.0-16.0); Lymphocyte % 18.3 %; Mean Corpuscular HGB Conc 32 g/dL (31-36); Mean Corpuscular Hemoglobin 27 pg (27-31); Mean Corpuscular Volume 83 fL (80-97); Mean Platelet Volume 8.5 fL (7.4-10.4); Platelet Count 451 10^3/uL (150-450); Red Blood Count 4.64 10^6 /uL (3.70-4.87); Red Cell Distribution Width 13 % (10-15); White Blood Count 8.5 10^3/uL (3.5-10.8)
[2020-07-26 04:47] LABS: INR 1.17 (0.82-1.09)
[2020-07-26 05:01] LABS: BUN/Creatinine Ratio 6.8 (8-20); Calcium 8.3 mg/dL (8.6-10.3); EGFR African American 109.8 (>60); EGFR Non-African American 90.7 (>60); Potassium 3.5 mmol/L (3.5-5.0)
[2020-07-26] MEDS ORDERED: NS 0.9% 500 ml BAG 500 ML IV ONE (06:22)
[2020-07-26] MEDS: Heparin 5000 UNITS/ML 1 mL VIAL SUBCUT SCH ×3 (07:48→22:40)
[2020-07-26] MEDS ORDERED: Lactated Ringers 1000 ml BAG 1,000 ML IV ONE (11:32)
[2020-07-26] MEDS ORDERED: ZOSYN 3.375 GM x ONE DOSE over 30 miuntes IV (16:00)
[2020-07-26] MEDS: Ondansetron 4 mg VIAL 2 MG/ML 2 ml VIAL IV PRN (17:08)
[2020-07-26] MEDS: DULoxetine DR 60 mg CAP PO SCH ×2 (18:04→20:46)
[2020-07-26] MEDS: Piperacillin/Tazobac ADVAN 3.375 GM in NS 0.9% 100 ml BAG 100 ML IV SCH (20:35)
[2020-07-26] MEDS ORDERED: Prochlorperazine 5 mg/ml 2 ml VIAL (10 mg) IV ONE (22:20)
[2020-07-27] MEDS: Ondansetron 4 mg VIAL 2 MG/ML 2 ml VIAL IV PRN ×2 (02:27→08:53)
[2020-07-27] MEDS: Piperacillin/Tazobac ADVAN 3.375 GM in NS 0.9% 100 ml BAG 100 ML IV SCH ×3 (04:31→21:13)
[2020-07-27] MEDS: Prochlorperazine 5 mg/ml 2 ml VIAL (10 mg) IV PRN (04:32)
[2020-07-27] MEDS: Heparin 5000 UNITS/ML 1 mL VIAL SUBCUT SCH ×3 (05:48→21:14)
[2020-07-27 06:48] LABS: ABS Lymphocytes 1.4 10^3/ul (1.0-4.8); ABS Monocytes 0.5 10^3/ul (0-0.8); ABS Neutrophils 6.4 10^3/ul (1.5-7.7); Eosinophil % 0.1 %; Hematocrit 36 % (35-47); Hemoglobin 11.6 g/dL (12.0-16.0); Lymphocyte % 17.1 %; Mean Corpuscular HGB Conc 32 g/dL (31-36); Mean Corpuscular Hemoglobin 27 pg (27-31); Mean Corpuscular Volume 83 fL (80-97); Mean Platelet Volume 8.1 fL (7.4-10.4); Platelet Count 374 10^3/uL (150-450); Red Blood Count 4.34 10^6 /uL (3.70-4.87); Red Cell Distribution Width 13 % (10-15); White Blood Count 8.4 10^3/uL (3.5-10.8)
[2020-07-27 07:02] LABS: BUN/Creatinine Ratio 6.3 (8-20); Calcium 8.2 mg/dL (8.6-10.3); EGFR African American 100.2 (>60); EGFR Non-African American 82.8 (>60); Potassium 3.5 mmol/L (3.5-5.0)
[2020-07-27] MEDS: Mometasone/Formoter 100/5 MDI INH SCH ×2 (08:36→19:32)
[2020-07-27] MEDS: NS 0.9% 1000 ml BAG 1,000 ML IV SCH ×2 (08:53→15:38)
[2020-07-27] MEDS ORDERED: LORazepam 2 mg VIAL 1 ml IV PUSH ONE (10:28)
[2020-07-27] MEDS ORDERED: Lorazepam PYXIS KEY PRN (10:28)
[2020-07-27] MEDS: Metoclopramide 5 MG/ML VIAL (10 mg) IV PRN ×2 (15:37→21:28)
[2020-07-27] MEDS: DULoxetine DR 60 mg CAP PO SCH (17:33)
[2020-07-27] MEDS ORDERED: Insulin GLARGINE 100 un/ml 10 ml VIAL SUBCUT SCH (21:00)
[2020-07-28] MEDS: Piperacillin/Tazobac ADVAN 3.375 GM in NS 0.9% 100 ml BAG 100 ML IV SCH ×2 (05:31→12:12)
[2020-07-28] MEDS: Heparin 5000 UNITS/ML 1 mL VIAL SUBCUT SCH ×2 (05:34→12:38)
[2020-07-28 05:51] LABS: ABS Basophils 0.1 10^3/ul (0-0.2); ABS Eosinophils 0.1 10^3/ul (0-0.6); ABS Lymphocytes 2.7 10^3/ul (1.0-4.8); ABS Monocytes 0.7 10^3/ul (0-0.8); ABS Neutrophils 3.2 10^3/ul (1.5-7.7); Eosinophil % 1.4 %; Hematocrit 32 % (35-47); Hemoglobin 10.2 g/dL (12.0-16.0); Lymphocyte % 39.5 %; Mean Corpuscular HGB Conc 32 g/dL (31-36); Mean Corpuscular Hemoglobin 27 pg (27-31); Mean Corpuscular Volume 83 fL (80-97); Mean Platelet Volume 7.9 fL (7.4-10.4); Platelet Count 314 10^3/uL (150-450); Red Blood Count 3.82 10^6 /uL (3.70-4.87); Red Cell Distribution Width 13 % (10-15); White Blood Count 6.8 10^3/uL (3.5-10.8)
[2020-07-28] MEDS: Mometasone/Formoter 100/5 MDI INH SCH (08:48)
[2020-07-28] MEDS ORDERED: Lactated Ringers 1000 ml BAG 1,000 ML IV SCH (13:00)
[2020-07-28 15:11] VITALS: BP 113/64
[2020-07-28 16:27] LABS: C Reactive Protein 7.62 mg/L (<8.01)
[2020-07-28] MEDS: DULoxetine DR 60 mg CAP PO SCH (16:51)
[2020-07-28] MEDS ORDERED: Insulin GLARGINE 100 un/ml 10 ml VIAL SUBCUT SCH (21:00)
== END 2020-07-28 19:00 | disposition home or self-care (01) | DRG 720 ==
LOC: ED 14:53 → MED 14:53 → MEDTELE 07-26 08:29
PROVIDERS: ADMIT Hospitalist; ATTEND Student in an Organized Health Care Education/Training Program

== ENCOUNTER 2020-08-17 12:29 | Observation (INO) ==
[2020-08-17] MEDS ORDERED: Metoclopramide 5 MG/ML VIAL (10 mg) IV SLOW PU ONE (12:36)
[2020-08-17] MEDS ORDERED: NS 0.9% 1000 ml BAG 1,000 ML IV ONE ×3 (12:36→15:56)
[2020-08-17 14:04] LABS: ABS Basophils 0.1 10^3/ul (0-0.2); ABS Monocytes 0.3 10^3/ul (0-0.8); Hematocrit 46 % (35-47); Hemoglobin 15.4 g/dL (12.0-16.0); Lymphocyte % 10.9 %; Mean Corpuscular HGB Conc 33 g/dL (31-36); Mean Corpuscular Hemoglobin 28 pg (27-31); Mean Corpuscular Volume 83 fL (80-97); Mean Platelet Volume 8.7 fL (7.4-10.4); Platelet Count 554 10^3/uL (150-450); Red Cell Distribution Width 14 % (10-15); White Blood Count 9.4 10^3/uL (3.5-10.8)
[2020-08-17 14:48] LABS: ALT 17 U/L (7-52); AST 14 U/L (13-39); Albumin 4.8 g/dL (3.2-5.2); Albumin/Globulin Ratio 1.2 (1-3); Alkaline Phosphatase 76 U/L (34-104); Anion Gap 13 mmol/L (2-11); BUN/Creatinine Ratio 8.7 (8-20); Blood Urea Nitrogen 8 mg/dL (6-24); CO2 Carbon Dioxide 24 mmol/L (22-32); Calcium 10.3 mg/dL (8.6-10.3); Chloride 100 mmol/L (101-111); EGFR African American 84.1 (>60); EGFR Non-African American 69.5 (>60); Globulin 3.9 g/dL (2-4); Glucose 352 mg/dL (70-100); Lipase 10 U/L (11.0-82.0); Potassium 4.1 mmol/L (3.5-5.0); Sodium 137 mmol/L (135-145); Total Protein 8.7 g/dL (6.4-8.9)
[2020-08-17 14:52] LABS: HCG Pregnancy < 0.60 mIU/mL
[2020-08-17] MEDS ORDERED: Famotidine IV 10 MG/ML 2 ml VIAL (20 mg) IV SLOW PU ONE (16:52)
[2020-08-17] MEDS ORDERED: Labetalol IV 5 MG/ML 20 ml VIAL IV PUSH ONE (18:09)
[2020-08-17] MEDS ORDERED: Albuterol HFA INHALER 8 gm MDI INH PRN (19:19)
[2020-08-17] MEDS ORDERED: Albuterol 2.5mg/3 ml (0.083%) NEB.SOLN INH PRN (19:19)
[2020-08-17] MEDS ORDERED: Lorazepam PYXIS KEY PRN (19:44)
[2020-08-17] MEDS ORDERED: Dextrose 50% Syringe 50 ml 25 GM/50 ML SYRINGE IV PUSH PRN (19:49)
[2020-08-17] MEDS ORDERED: Ondansetron 4 mg VIAL 2 MG/ML 2 ml VIAL IV PRN (19:52)
[2020-08-17] MEDS ORDERED: Pantoprazole VIAL 40 MG VIAL IV SCH (20:00)
[2020-08-17] MEDS ORDERED: Insulin GLARGINE 100 un/ml 10 ml VIAL SUBCUT SCH (20:00)
[2020-08-17] MEDS: Mometasone/Formoter 100/5 MDI INH SCH (20:24)
[2020-08-17] MEDS: NS 0.9% 1000 ml BAG 1,000 ML IV SCH (20:36)
[2020-08-17 21:39] LABS: Urine Benzodiazepine Screen None Detected (None Detect); Urine Cannabinoids Screen Presumptive Positive (None Detect); Urine Opiates Screen None Detected (None Detect)
[2020-08-17] MEDS: Insulin GLARGINE 100 un/ml 10 ml VIAL SUBCUT SCH (22:02)
[2020-08-18 06:05] LABS: ABS Basophils 0.1 10^3/ul (0-0.2); ABS Eosinophils 0.1 10^3/ul (0-0.6); ABS Lymphocytes 2.5 10^3/ul (1.0-4.8); ABS Monocytes 0.9 10^3/ul (0-0.8); ABS Neutrophils 3.5 10^3/ul (1.5-7.7); Eosinophil % 0.9 %; Hematocrit 34 % (35-47); Hemoglobin 11.2 g/dL (12.0-16.0); Lymphocyte % 35.4 %; Mean Corpuscular HGB Conc 33 g/dL (31-36); Mean Corpuscular Hemoglobin 27 pg (27-31); Mean Corpuscular Volume 83 fL (80-97); Mean Platelet Volume 8.4 fL (7.4-10.4); Platelet Count 392 10^3/uL (150-450); Red Blood Count 4.13 10^6 /uL (3.70-4.87); Red Cell Distribution Width 14 % (10-15)
[2020-08-18 06:23] LABS: Albumin 3.1 g/dL (3.2-5.2); Albumin/Globulin Ratio 1.1 (1-3); BUN/Creatinine Ratio 11.3 (8-20); Calcium 8.2 mg/dL (8.6-10.3); EGFR African American 71.4 (>60); Globulin 2.7 g/dL (2-4); Potassium 3.5 mmol/L (3.5-5.0); Total Bilirubin 1.1 mg/dL (0.2-1.0); Total Protein 5.8 g/dL (6.4-8.9)
[2020-08-18] MEDS: Mometasone/Formoter 100/5 MDI INH SCH ×2 (08:19→21:02)
[2020-08-18] MEDS: KETOTIFEN FUMARATE BOTH EYES SCH (08:19)
[2020-08-18] MEDS: Fluticasone NASAL SPRAY 50MCG 16 gm SPRAY BTL BOTH NARES SCH (08:45)
[2020-08-18] MEDS ORDERED: Influenza VAC *QUAD* 2020-21* 0.5 ML SYRINGE IM ONE (09:00)
[2020-08-18] MEDS: NS 0.9% 1000 ml BAG 1,000 ML IV SCH (12:14)
[2020-08-18] MEDS ORDERED: DULoxetine DR 60 mg CAP PO SCH (18:00)
[2020-08-18] MEDS ORDERED: Insulin GLARGINE 100 un/ml 10 ml VIAL SUBCUT SCH ×2 (18:18→20:00)
[2020-08-18] MEDS: Insulin GLARGINE 100 un/ml 10 ml VIAL SUBCUT SCH (18:32)
[2020-08-18] MEDS: LORazepam 2 mg VIAL 1 ml IV PUSH PRN (22:25)
[2020-08-19] MEDS: Mometasone/Formoter 100/5 MDI INH SCH (07:22)
[2020-08-19] MEDS: Fluticasone NASAL SPRAY 50MCG 16 gm SPRAY BTL BOTH NARES SCH (08:52)
[2020-08-19] MEDS: LORazepam 2 mg VIAL 1 ml IV PUSH PRN (10:24)
[2020-08-19 10:31] LABS: BUN/Creatinine Ratio 9.8 (8-20); Calcium 8.5 mg/dL (8.6-10.3); EGFR Non-African American 79.3 (>60); Potassium 3.5 mmol/L (3.5-5.0)
[2020-08-19] MEDS: KETOTIFEN FUMARATE BOTH EYES SCH (11:27)
[2020-08-19 12:30] VITALS: BP 128/63
== END 2020-08-19 14:00 | disposition home or self-care (01) ==
LOC: ED 12:29 → MEDTELE 12:29
PROVIDERS: ADMIT Internal Medicine; ATTEND Internal Medicine

== ENCOUNTER 2021-01-03 18:35 | Observation (INO) ==
[2021-01-03] MEDS ORDERED: Piperacillin/Tazobac ADVAN 3.375 GM in NS 0.9% 100 ml BAG 100 ML IVPB ONE (19:08)
[2021-01-03] MEDS ORDERED: NS 0.9% IV ONE (19:08)
[2021-01-03] MEDS ORDERED: fentaNYL 100 mcg/2 ml 50 MCG/ML VIAL IV SLOW PU ONE (19:13)
[2021-01-03] MEDS ORDERED: Metoclopramide 5 MG/ML VIAL (10 mg) IV SLOW PU ONE (19:13)
[2021-01-03] MEDS ORDERED: Piperacillin/Tazobac 3.375 GM BAG ONE (20:23)
[2021-01-03] MEDS ORDERED: Haloperidol 5 mg/ml SDV IV/IM 5 MG/ML AMP IM ONE (20:49)
[2021-01-03 21:16] LABS: Activated Partial Thrombo Time 31.7 seconds (26.0-38.0); INR 1.03 (0.82-1.09)
[2021-01-03 21:17] LABS: ABS Eosinophils 0.2 10^3/ul (0-0.6); ABS Lymphocytes 2.6 10^3/ul (1.0-4.8); ABS Monocytes 0.8 10^3/ul (0-0.8); ABS Neutrophils 4.4 10^3/ul (1.5-7.7); Eosinophil % 2.1 %; Hematocrit 39 % (35-47); Lymphocyte % 32.7 %; Mean Corpuscular HGB Conc 33 g/dL (31-36); Mean Corpuscular Hemoglobin 27 pg (27-31); Mean Corpuscular Volume 82 fL (80-97); Mean Platelet Volume 9.1 fL (7.4-10.4); Platelet Count 375 10^3/uL (150-450); Red Blood Count 4.81 10^6 /uL (3.70-4.87); Red Cell Distribution Width 14 % (10-15)
[2021-01-03 21:27] LABS: ALT 12 U/L (7-52); AST 18 U/L (13-39); Albumin 3.8 g/dL (3.2-5.2); Albumin/Globulin Ratio 1.2 (1-3); Alkaline Phosphatase 66 U/L (35-149); Anion Gap 7 mmol/L (2-11); Blood Urea Nitrogen 9 mg/dL (6-24); C Reactive Protein 3.32 mg/L (<8.01); CO2 Carbon Dioxide 26 mmol/L (22-32); Calcium 8.8 mg/dL (8.6-10.3); Chloride 102 mmol/L (101-111); EGFR African American 116.5 (>60); EGFR Non-African American 96.3 (>60); Globulin 3.2 g/dL (2-4); Glucose 240 mg/dL (70-100); Lipase 16 U/L (11.0-82.0); Magnesium 1.8 mg/dL (1.9-2.7); Potassium 4.1 mmol/L (3.5-5.0); Sodium 135 mmol/L (135-145)
[2021-01-03 21:33] LABS: HCG Pregnancy < 0.60 mIU/mL
[2021-01-03 22:21] LABS: Urine Appearance Clear; Urine Bilirubin Negative (Negative); Urine Blood Negative (Negative); Urine Color Straw; Urine Glucose 3+(>=500 mg/dL) (Negative); Urine Ketones Negative (Negative); Urine Nitrite Negative (Negative); Urine Protein Negative (Negative); Urine Specific Gravity 1.008 (1.002-1.030); Urine Urobilinogen Negative (Negative)
[2021-01-03] MEDS ORDERED: Labetalol IV 5 MG/ML 20 ml VIAL IV PUSH ONE (22:23)
[2021-01-03] MEDS ORDERED: Pantoprazole VIAL 40 MG VIAL IV ONE (23:45)
[2021-01-03] MEDS ORDERED: Prochlorperazine 5 mg/ml 2 ml VIAL (10 mg) IV ONE (23:58)
[2021-01-04] MEDS ORDERED: Haloperidol 5 mg/ml SDV IV/IM 5 MG/ML AMP IV SLOW PU ONE
[2021-01-04] MEDS ORDERED: hydrALAZINE 20 mg/ml 1 ML Vial IV IV SLOW PU ONE ×2 (00:41→03:07)
[2021-01-04] MEDS ORDERED: Magnesium Sulfate IV 1GM/100ML 1 GM/100 ML BAG IV ONE (00:44)
[2021-01-04] MEDS ORDERED: Ondansetron 4 mg VIAL 2 MG/ML 2 ml VIAL IV ONE (01:16)
[2021-01-04] MEDS ORDERED: Dextrose 50% Syringe 50 ml 25 GM/50 ML SYRINGE IV PUSH PRN (04:24)
[2021-01-04] MEDS ORDERED: Prochlorperazine 5 mg/ml 2 ml VIAL (10 mg) IV PRN (04:24)
[2021-01-04] MEDS ORDERED: Famotidine IV 10 MG/ML 2 ml VIAL (20 mg) IV SLOW PU ONE (04:25)
[2021-01-04] MEDS ORDERED: NS 0.9% 1000 ml BAG 1,000 ML IV SCH ×2 (04:30→10:45)
[2021-01-04] MEDS ORDERED: Al Hydrox/Mg Hydrox/Simet LIQ 30 ML UDC PO PRN (04:39)
[2021-01-04] MEDS ORDERED: Polyethylene Glycol 3350 17 GM PACKET PO PRN (05:19)
[2021-01-04] MEDS ORDERED: Labetalol IV 5 MG/ML 20 ml VIAL IV PUSH ONE (06:03)
[2021-01-04] MEDS ORDERED: ZOSYN 3.375 GM x ONE DOSE over 30 miuntes IV (06:30)
[2021-01-04] MEDS: Ondansetron 4 mg VIAL 2 MG/ML 2 ml VIAL IV PRN ×2 (06:38→12:25)
[2021-01-04] MEDS ORDERED: Zosyn per Pharmacy NOTE FOLLOW UP SCH (07:00)
[2021-01-04] MEDS: Mometasone/Formoter 200/5 MDI INH SCH ×2 (07:38→19:53)
[2021-01-04] MEDS: DULoxetine DR 60 mg CAP PO SCH (09:08)
[2021-01-04] MEDS: DULoxetine DR 30 mg CAP PO SCH (09:08)
[2021-01-04] MEDS: Insulin GLARGINE 100 un/ml 10 ml VIAL SUBCUT SCH (09:09)
[2021-01-04] MEDS: ZOSYN 3.375 GM Q8H per EXTENDED INFUSION IV SCH ×2 (12:40→18:42)
[2021-01-05] MEDS: ZOSYN 3.375 GM Q8H per EXTENDED INFUSION IV SCH (02:28)
[2021-01-05] MEDS: Mometasone/Formoter 200/5 MDI INH SCH (07:39)
[2021-01-05] MEDS: Insulin GLARGINE 100 un/ml 10 ml VIAL SUBCUT SCH (08:08)
[2021-01-05] MEDS: DULoxetine DR 30 mg CAP PO SCH (08:12)
[2021-01-05] MEDS: DULoxetine DR 60 mg CAP PO SCH (08:12)
[2021-01-05 13:23] LABS: Urine Benzodiazepine Screen None Detected (None Detect); Urine Cannabinoids Screen Presumptive Positive (None Detect); Urine Opiates Screen None Detected (None Detect)
[2021-01-05 15:42] VITALS: BP 112/65
[2021-01-07] MEDS ORDERED: Scopolamine PATCH Remove NOTE PATCH OFF SCH (05:00)
== END 2021-01-05 17:00 | disposition home or self-care (01) ==
LOC: ED 18:35 → MEDTELE 18:35
PROVIDERS: ADMIT Internal Medicine; ATTEND Pediatrics

== ENCOUNTER 2021-03-19 10:55 | Inpatient (IN) ==
[2021-03-19] MEDS ORDERED: Droperidol 5 MG/2 ML 2 ML VIAL IV ONE (14:38)
[2021-03-19 15:20] LABS: ABS Lymphocytes 1.1 10^3/ul (1.0-4.8); ABS Monocytes 0.3 10^3/ul (0-0.8); ABS Neutrophils 8.5 10^3/ul (1.5-7.7); Hematocrit 43 % (35-47); Mean Corpuscular HGB Conc 32 g/dL (31-36); Mean Corpuscular Hemoglobin 27 pg (27-31); Mean Corpuscular Volume 84 fL (80-97); Mean Platelet Volume 8.8 fL (7.4-10.4); Platelet Count 427 10^3/uL (150-450); Red Blood Count 5.15 10^6 /uL (3.70-4.87); Red Cell Distribution Width 13 % (10-15); White Blood Count 9.9 10^3/uL (3.5-10.8)
[2021-03-19 15:44] LABS: HCG Pregnancy < 0.60 mIU/mL
[2021-03-19 15:47] LABS: ALT 10 U/L (7-52); AST 15 U/L (13-39); Albumin 4.5 g/dL (3.2-5.2); Albumin/Globulin Ratio 1.3 (1-3); Alkaline Phosphatase 82 U/L (35-149); Anion Gap 13 mmol/L (2-11); Blood Urea Nitrogen 7 mg/dL (6-24); C Reactive Protein 9.85 mg/L (<8.01); CO2 Carbon Dioxide 23 mmol/L (22-32); Calcium 9.6 mg/dL (8.6-10.3); Chloride 104 mmol/L (101-111); EGFR African American 83.6 (>60); EGFR Non-African American 69.1 (>60); Globulin 3.5 g/dL (2-4); Glucose 406 mg/dL (70-100); Lipase < 10 U/L (11.0-82.0); Magnesium 1.8 mg/dL (1.9-2.7); Potassium 4.1 mmol/L (3.5-5.0); Sodium 140 mmol/L (135-145)
[2021-03-19] MEDS ORDERED: Lactated Ringers 1000 ml BAG 1,000 ML IV ONE ×2 (15:56→17:56)
[2021-03-19] MEDS: Lactated Ringers 1000 ml BAG 1,000 ML IV ONE (16:00)
[2021-03-19 18:03] LABS: Urine Appearance Clear; Urine Bilirubin Negative (Negative); Urine Blood 3+ (Negative); Urine Color Yellow; Urine Glucose 3+(>=500 mg/dL) (Negative); Urine Ketones 1+ (Negative); Urine Nitrite Negative (Negative); Urine Protein Negative (Negative); Urine Specific Gravity 1.028 (1.002-1.030); Urine Urobilinogen Negative (Negative)
[2021-03-19] MEDS ORDERED: Metoclopramide 5 MG/ML VIAL (10 mg) IV SLOW PU ONE (18:06)
[2021-03-19 18:10] LABS: Urine Bacteria Absent (Absent); Urine Red Blood Cell Trace(0-2/hpf) (Absent); Urine White Blood Cell Trace(0-5/hpf) (Absent)
[2021-03-19] MEDS ORDERED: hydrALAZINE 20 mg/ml 1 ML Vial IV IV SLOW PU ONE (18:47)
[2021-03-19] MEDS ORDERED: Prochlorperazine 5 mg/ml 2 ml VIAL (10 mg) IV PRN (20:17)
[2021-03-19] MEDS ORDERED: Magnesium Sulfate 2 gm BAG 2 GM/50 ML BAG IVPB ONE (20:17)
[2021-03-19] MEDS ORDERED: Acetaminophen IV 1 GM/100ML 100 ML IV PRN (20:17)
[2021-03-19] MEDS ORDERED: Dextrose 50% Syringe 50 ml 25 GM/50 ML SYRINGE IV PUSH PRN (20:17)
[2021-03-19] MEDS ORDERED: Nitro 2% OINT (Nitroglycerin) 1 INCH/PAK TOPICAL SCH (20:18)
[2021-03-19] MEDS ORDERED: Enalaprilat IV 1.25 mg/ml 1 ml VIAL (1.25 MG) IV PRN (20:24)
[2021-03-19] MEDS ORDERED: Ondansetron ODT 4 mg TAB 4 MG TAB SL ONE (20:27)
[2021-03-19] MEDS ORDERED: Albuterol HFA INHALER 8 gm MDI INH PRN (20:34)
[2021-03-19] MEDS ORDERED: Albuterol 2.5mg/3 ml (0.083%) NEB.SOLN INH PRN (20:34)
[2021-03-19] MEDS ORDERED: Lactated Ringers 1000 ml BAG 1,000 ML IV SCH (21:00)
[2021-03-19] MEDS ORDERED: Budesonide/Formote 160/4.5(NF) MDI INH SCH (21:00)
[2021-03-19 21:13] LABS: Rapid COVID-19 Molecular Undetected (Undetected)
[2021-03-19] MEDS: Pantoprazole VIAL 40 MG VIAL IV SCH (21:28)
[2021-03-19] MEDS: Droperidol 5 MG/2 ML 2 ML VIAL IM ONE (21:28)
[2021-03-19] MEDS ORDERED: Piperacillin/Tazobac ADVAN 3.375 GM in NS 0.9% 100 ml BAG 100 ML IV ONE (23:33)
[2021-03-19] MEDS ORDERED: niCARdipine 0.1MG/ML IVPREMIX 20 MG/200 ML BAG IV SCH (23:45)
[2021-03-19] MEDS ORDERED: Zosyn per Pharmacy NOTE FOLLOW UP SCH (23:45)
[2021-03-19] MEDS ORDERED: Lorazepam PYXIS KEY PRN (23:54)
[2021-03-19] MEDS ORDERED: LORazepam 2 mg VIAL 1 ml IV PUSH ONE (23:54)
[2021-03-20] MEDS: Lactated Ringers 1000 ml BAG 1,000 ML IV ONE
[2021-03-20] MEDS: Droperidol 5 MG/2 ML 2 ML VIAL IM ONE (01:06)
[2021-03-20 01:17] LABS: ABS Basophils 0.1 10^3/ul (0-0.2); ABS Lymphocytes 1.6 10^3/ul (1.0-4.8); ABS Monocytes 0.9 10^3/ul (0-0.8); ABS Neutrophils 9.1 10^3/ul (1.5-7.7); Hematocrit 39 % (35-47); Hemoglobin 12.6 g/dL (12.0-16.0); Lymphocyte % 13.6 %; Mean Corpuscular HGB Conc 32 g/dL (31-36); Mean Corpuscular Hemoglobin 27 pg (27-31); Mean Corpuscular Volume 83 fL (80-97); Mean Platelet Volume 8.8 fL (7.4-10.4); Platelet Count 412 10^3/uL (150-450); Red Blood Count 4.72 10^6 /uL (3.70-4.87); Red Cell Distribution Width 13 % (10-15); White Blood Count 11.7 10^3/uL (3.5-10.8)
[2021-03-20 02:34] LABS: Urine Benzodiazepine Screen None Detected (None Detect); Urine Cannabinoids Screen None Detected (None Detect); Urine Opiates Screen None Detected (None Detect)
[2021-03-20] MEDS: CMCS:Zonisamide 100 mg CAP (NF) PO SCH ×3 (02:51→20:05)
[2021-03-20] MEDS ORDERED: Lactated Ringers 500 ml BAG 500 ML IV ONE ×2 (04:21→05:49)
[2021-03-20 05:40] LABS: ABS Basophils 0.1 10^3/ul (0-0.2); ABS Lymphocytes 1.9 10^3/ul (1.0-4.8); ABS Monocytes 1.2 10^3/ul (0-0.8); ABS Neutrophils 8.4 10^3/ul (1.5-7.7); Eosinophil % 0.2 %; Hematocrit 37 % (35-47); Hemoglobin 12.1 g/dL (12.0-16.0); Lymphocyte % 16.6 %; Mean Corpuscular HGB Conc 33 g/dL (31-36); Mean Corpuscular Hemoglobin 27 pg (27-31); Mean Corpuscular Volume 83 fL (80-97); Mean Platelet Volume 8.6 fL (7.4-10.4); Platelet Count 400 10^3/uL (150-450); Red Blood Count 4.46 10^6 /uL (3.70-4.87); Red Cell Distribution Width 13 % (10-15); White Blood Count 11.6 10^3/uL (3.5-10.8)
[2021-03-20 05:41] LABS: INR 1.25 (0.86-1.15)
[2021-03-20 05:57] LABS: Troponin I 0.01 ng/mL (<0.03)
[2021-03-20 05:58] LABS: Calcium 8.7 mg/dL (8.6-10.3); EGFR African American 91.6 (>60); EGFR Non-African American 75.7 (>60); Potassium 3.5 mmol/L (3.5-5.0)
[2021-03-20] MEDS ORDERED: ZOSYN 3.375 GM Q8H per EXTENDED INFUSION IV SCH (06:00)
[2021-03-20] MEDS ORDERED: Buffered Lidocaine 1% SYRIN 1 ml INTRADERM ONE (07:02)
[2021-03-20] MEDS: Mometasone/Formoter 200/5 MDI INH SCH ×2 (07:36→19:46)
[2021-03-20 07:45] LABS: Magnesium 2.1 mg/dL (1.9-2.7); Phosphorus 3.7 mg/dL (2.5-5.0)
[2021-03-20] MEDS: DULoxetine DR 60 mg CAP PO SCH (08:55)
[2021-03-20] MEDS: Insulin GLARGINE 100 un/ml 10 ml VIAL SUBCUT SCH (08:55)
[2021-03-20] MEDS: DULoxetine DR 30 mg CAP PO SCH (08:55)
[2021-03-20] MEDS: Pantoprazole VIAL 40 MG VIAL IV SCH ×2 (08:56→20:04)
[2021-03-20 09:18] LABS: TSH Ultra Thyroid Stim Horm 0.48 mcIU/mL (0.34-5.60)
[2021-03-21] MEDS: Mometasone/Formoter 200/5 MDI INH SCH ×2 (07:00→19:19)
[2021-03-21] MEDS ORDERED: hydrALAZINE 20 mg/ml 1 ML Vial IV IV SLOW PU ONE ×2 (07:40→20:18)
[2021-03-21] MEDS: DULoxetine DR 60 mg CAP PO SCH (08:55)
[2021-03-21] MEDS: CMCS:Zonisamide 100 mg CAP (NF) PO SCH ×2 (08:55→19:55)
[2021-03-21] MEDS: DULoxetine DR 30 mg CAP PO SCH (08:55)
[2021-03-21] MEDS: Insulin GLARGINE 100 un/ml 10 ml VIAL SUBCUT SCH (08:58)
[2021-03-21] MEDS: Pantoprazole VIAL 40 MG VIAL IV SCH ×2 (08:59→19:51)
[2021-03-21 09:46] LABS: ABS Basophils 0.1 10^3/ul (0-0.2); ABS Lymphocytes 1.9 10^3/ul (1.0-4.8); ABS Monocytes 0.5 10^3/ul (0-0.8); ABS Neutrophils 5.6 10^3/ul (1.5-7.7); Eosinophil % 0.5 %; Hematocrit 39 % (35-47); Hemoglobin 12.7 g/dL (12.0-16.0); Lymphocyte % 23.1 %; Mean Corpuscular HGB Conc 33 g/dL (31-36); Mean Corpuscular Hemoglobin 28 pg (27-31); Mean Corpuscular Volume 84 fL (80-97); Mean Platelet Volume 8.5 fL (7.4-10.4); Platelet Count 359 10^3/uL (150-450); Red Blood Count 4.61 10^6 /uL (3.70-4.87); Red Cell Distribution Width 13 % (10-15); White Blood Count 8.1 10^3/uL (3.5-10.8)
[2021-03-21 09:48] LABS: Calcium 8.6 mg/dL (8.6-10.3); EGFR African American 118.5 (>60); EGFR Non-African American 97.9 (>60); Potassium 3.6 mmol/L (3.5-5.0)
[2021-03-21] MEDS ORDERED: Perflutren Lipid Microsphere 3 ML VIAL ONE (11:44)
[2021-03-21] MEDS: Ondansetron 4 mg VIAL 2 MG/ML 2 ml VIAL IV PRN (19:51)
[2021-03-22] MEDS: Mometasone/Formoter 200/5 MDI INH SCH (07:36)
[2021-03-22] MEDS: Insulin GLARGINE 100 un/ml 10 ml VIAL SUBCUT SCH (08:27)
[2021-03-22] MEDS: Pantoprazole VIAL 40 MG VIAL IV SCH (08:28)
[2021-03-22] MEDS: DULoxetine DR 30 mg CAP PO SCH (08:29)
[2021-03-22] MEDS: DULoxetine DR 60 mg CAP PO SCH (08:29)
[2021-03-22] MEDS: CMCS:Zonisamide 100 mg CAP (NF) PO SCH (08:29)
[2021-03-22 09:28] LABS: Hematocrit 39 % (35-47); Hemoglobin 12.7 g/dL (12.0-16.0); Mean Corpuscular HGB Conc 32 g/dL (31-36); Mean Corpuscular Hemoglobin 27 pg (27-31); Mean Corpuscular Volume 84 fL (80-97); Mean Platelet Volume 8.5 fL (7.4-10.4); Platelet Count 366 10^3/uL (150-450); Red Blood Count 4.66 10^6 /uL (3.70-4.87); Red Cell Distribution Width 13 % (10-15); White Blood Count 6.2 10^3/uL (3.5-10.8)
[2021-03-22 09:44] LABS: Calcium 8.7 mg/dL (8.6-10.3); EGFR African American 90.3 (>60); EGFR Non-African American 74.7 (>60); Potassium 3.3 mmol/L (3.5-5.0)
[2021-03-22] MEDS: Ondansetron 4 mg VIAL 2 MG/ML 2 ml VIAL IV PRN (11:35)
[2021-03-22] MEDS ORDERED: Potassium Chlor 20 meq TAB.ER PO ONE (13:24)
[2021-03-22 14:53] LABS: Magnesium 1.9 mg/dL (1.9-2.7)
[2021-03-22 14:56] VITALS: BP 102/55
== END 2021-03-22 16:25 | disposition home or self-care (01) | DRG 48 ==
LOC: ED 10:55 → MED 10:55 → ICU 10:55 → OBSVTOIN 20:10 → SUATTDRO 20:10 → INTOOBSV 20:10 → OBSVTOIN 22:09 → INTOOBSV 22:09 → ICU 03-20 01:47 → MED 03-20 17:03
PROVIDERS: ADMIT Internal Medicine; ATTEND Hospitalist

== ENCOUNTER 2021-06-01 07:39 | Observation (INO) ==
[2021-06-01] MEDS ORDERED: Ondansetron 4 mg VIAL 2 MG/ML 2 ml VIAL IV ONE (07:50)
[2021-06-01] MEDS ORDERED: Lactated Ringers 1000 ml BAG 1,000 ML IV ONE (07:50)
[2021-06-01] MEDS ORDERED: Pantoprazole VIAL 40 MG VIAL IV ONE (08:05)
[2021-06-01 09:04] LABS: ABS Eosinophils 0.1 10^3/ul (0-0.6); ABS Lymphocytes 1.2 10^3/ul (1.0-4.8); ABS Monocytes 0.6 10^3/ul (0-0.8); ABS Neutrophils 5.6 10^3/ul (1.5-7.7); Eosinophil % 0.7 %; Hematocrit 44 % (35-47); Hemoglobin 14.4 g/dL (12.0-16.0); Mean Corpuscular HGB Conc 33 g/dL (31-36); Mean Corpuscular Hemoglobin 27 pg (27-31); Mean Corpuscular Volume 82 fL (80-97); Mean Platelet Volume 8.2 fL (7.4-10.4); Platelet Count 448 10^3/uL (150-450); Red Blood Count 5.34 10^6 /uL (3.70-4.87); Red Cell Distribution Width 13 % (10-15); White Blood Count 7.4 10^3/uL (3.5-10.8)
[2021-06-01] MEDS ORDERED: hydrALAZINE 20 mg/ml 1 ML Vial IV IV SLOW PU ONE (09:14)
[2021-06-01 09:21] LABS: ALT 9 U/L (7-52); AST 14 U/L (13-39); Alkaline Phosphatase 71 U/L (35-149); Anion Gap 9 mmol/L (2-11); Blood Urea Nitrogen 11 mg/dL (6-24); CO2 Carbon Dioxide 28 mmol/L (22-32); Calcium 9.6 mg/dL (8.6-10.3); Chloride 99 mmol/L (101-111); Globulin 3.9 g/dL (2-4); Glucose 268 mg/dL (70-100); Lipase 33 U/L (11.0-82.0); Potassium 4.5 mmol/L (3.5-5.0); Sodium 136 mmol/L (135-145); Total Protein 7.9 g/dL (6.4-8.9)
[2021-06-01] MEDS: Pantoprazole 80 mg in NS BAG 80 MG/250 ML BAG IV SCH ×3 (10:27→23:06)
[2021-06-01] MEDS ORDERED: Magnesium Hydroxide LIQ 30 ML UDC PO PRN (13:39)
[2021-06-01] MEDS ORDERED: NS 0.9% 1000 ml BAG 1,000 ML IV SCH (13:45)
[2021-06-01] MEDS ORDERED: Albuterol HFA INHALER 8 gm MDI INH PRN (13:49)
[2021-06-01] MEDS ORDERED: Dextrose 50% Syringe 50 ml 25 GM/50 ML SYRINGE IV PUSH PRN (13:50)
[2021-06-01 14:02] LABS: Alcohol, S < 13 mg/dL (<13)
[2021-06-01] MEDS: Ondansetron 4 mg VIAL 2 MG/ML 2 ml VIAL IV PRN ×2 (15:01→22:39)
[2021-06-01] MEDS: hydrALAZINE 20 mg/ml 1 ML Vial IV IV SLOW PU PRN (15:21)
[2021-06-01 15:41] LABS: Rapid COVID-19 Molecular Undetected (Undetected)
[2021-06-01] MEDS: NS 0.9% 1000 ml BAG 1,000 ML IV SCH (19:22)
[2021-06-01] MEDS ORDERED: Morphine 2 MG/ML SYRINGE IV ONE (23:37)
[2021-06-01] MEDS: Pantoprazole 80 mg IN NS 80 MG/250 ML BAG IV SCH (23:53)
[2021-06-02 02:33] LABS: ABS Basophils 0.1 10^3/ul (0-0.2); ABS Lymphocytes 2.8 10^3/ul (1.0-4.8); ABS Monocytes 1.2 10^3/ul (0-0.8); ABS Neutrophils 6.5 10^3/ul (1.5-7.7); Eosinophil % 0.2 %; Hematocrit 39 % (35-47); Hemoglobin 12.6 g/dL (12.0-16.0); Lymphocyte % 25.9 %; Mean Corpuscular HGB Conc 32 g/dL (31-36); Mean Corpuscular Hemoglobin 26 pg (27-31); Mean Corpuscular Volume 81 fL (80-97); Red Cell Distribution Width 13 % (10-15); White Blood Count 10.7 10^3/uL (3.5-10.8)
[2021-06-02 02:44] LABS: Anion Gap 11 mmol/L (2-11); CO2 Carbon Dioxide 21 mmol/L (22-32); Calcium 9.1 mg/dL (8.6-10.3); Chloride 106 mmol/L (101-111); Potassium 4.6 mmol/L (3.5-5.0); Sodium 138 mmol/L (135-145)
[2021-06-02 02:50] LABS: Blood Urea Nitrogen 10 mg/dL (6-24); Glucose 207 mg/dL (70-100)
[2021-06-02] MEDS: Ondansetron 4 mg VIAL 2 MG/ML 2 ml VIAL IV PRN ×3 (08:45→20:05)
[2021-06-02] MEDS: Morphine 2 MG/ML SYRINGE IV PRN ×3 (08:45→20:05)
[2021-06-02] MEDS: Pantoprazole 80 mg IN NS 80 MG/250 ML BAG IV SCH ×2 (09:23→18:13)
[2021-06-02 09:31] LABS: ABS Lymphocytes 1.8 10^3/ul (1.0-4.8); ABS Monocytes 1.1 10^3/ul (0-0.8); ABS Neutrophils 6.4 10^3/ul (1.5-7.7); Eosinophil % 0.4 %; Hematocrit 39 % (35-47); Hemoglobin 12.6 g/dL (12.0-16.0); Lymphocyte % 19.6 %; Mean Corpuscular HGB Conc 33 g/dL (31-36); Mean Corpuscular Hemoglobin 27 pg (27-31); Mean Corpuscular Volume 82 fL (80-97); Mean Platelet Volume 8.3 fL (7.4-10.4); Platelet Count 462 10^3/uL (150-450); Red Blood Count 4.71 10^6 /uL (3.70-4.87); Red Cell Distribution Width 13 % (10-15); White Blood Count 9.3 10^3/uL (3.5-10.8)
[2021-06-02] MEDS: NS 0.9% 1000 ml BAG 1,000 ML IV SCH ×2 (10:56→21:26)
[2021-06-02 11:07] LABS: Magnesium 1.9 mg/dL (1.9-2.7)
[2021-06-02 11:51] LABS: Phosphorus QNS mg/dL (2.5-5.0)
[2021-06-02] MEDS ORDERED: Mineral Oil ENEMA 118 ML/BOTTLE BOTTLE PR PRN (12:01)
[2021-06-02] MEDS ORDERED: Sodium Phosphate ADULT ENEMA 133 ML BTL PR PRN (14:05)
[2021-06-02 15:44] LABS: ABS Basophils 0.1 10^3/ul (0-0.2); ABS Lymphocytes 2.4 10^3/ul (1.0-4.8); ABS Neutrophils 5.9 10^3/ul (1.5-7.7); Eosinophil % 0.1 %; Hematocrit 38 % (35-47); Hemoglobin 12.6 g/dL (12.0-16.0); Lymphocyte % 25.7 %; Mean Corpuscular HGB Conc 33 g/dL (31-36); Mean Corpuscular Hemoglobin 27 pg (27-31); Mean Corpuscular Volume 81 fL (80-97); Mean Platelet Volume 8.5 fL (7.4-10.4); Nucleated Red Blood Cells % 0.1; Platelet Count 418 10^3/uL (150-450); Red Cell Distribution Width 13 % (10-15); White Blood Count 9.4 10^3/uL (3.5-10.8)
[2021-06-02] MEDS: hydrALAZINE 20 mg/ml 1 ML Vial IV IV SLOW PU PRN (21:31)
[2021-06-03] MEDS: Ondansetron 4 mg VIAL 2 MG/ML 2 ml VIAL IV PRN ×4 (00:35→17:35)
[2021-06-03] MEDS: NS 0.9% 1000 ml BAG 1,000 ML IV SCH (04:10)
[2021-06-03] MEDS: Pantoprazole 80 mg IN NS 80 MG/250 ML BAG IV SCH (05:27)
[2021-06-03 07:09] LABS: ABS Basophils 0.1 10^3/ul (0-0.2); ABS Monocytes 0.7 10^3/ul (0-0.8); ABS Neutrophils 4.8 10^3/ul (1.5-7.7); Eosinophil % 0.4 %; Hematocrit 37 % (35-47); Lymphocyte % 26.5 %; Mean Corpuscular HGB Conc 33 g/dL (31-36); Mean Corpuscular Hemoglobin 27 pg (27-31); Mean Corpuscular Volume 81 fL (80-97); Mean Platelet Volume 8.1 fL (7.4-10.4); Platelet Count 425 10^3/uL (150-450); Red Blood Count 4.52 10^6 /uL (3.70-4.87); Red Cell Distribution Width 13 % (10-15); White Blood Count 7.6 10^3/uL (3.5-10.8)
[2021-06-03 07:24] LABS: Albumin 3.3 g/dL (3.2-5.2); Calcium 7.9 mg/dL (8.6-10.3); Globulin 3.3 g/dL (2-4); Potassium 3.6 mmol/L (3.5-5.0); Total Bilirubin 1.3 mg/dL (0.2-1.0); Total Protein 6.6 g/dL (6.4-8.9)
[2021-06-03] MEDS: Morphine 2 MG/ML SYRINGE IV PRN ×3 (08:45→17:35)
[2021-06-03] MEDS ORDERED: DULoxetine DR 30 mg CAP PO SCH (09:00)
[2021-06-03 16:11] VITALS: BP 111/56
[2021-06-03] MEDS ORDERED: Pantoprazole VIAL 40 MG VIAL IV SCH (21:00)
== END 2021-06-03 18:00 | disposition home or self-care (01) ==
LOC: ED 07:39 → EDHOLD 07:39 → SUATTDRO 13:39 → MED 14:58
PROVIDERS: ADMIT Internal Medicine; ATTEND Internal Medicine

== ENCOUNTER 2021-07-27 18:00 | Observation (INO) ==
[2021-07-27] MEDS ORDERED: Ondansetron ODT 4 mg TAB 4 MG TAB ONE (18:07)
[2021-07-27] MEDS ORDERED: Ondansetron ODT 4 mg TAB 4 MG TAB PO ONE (18:07)
[2021-07-27] MEDS ORDERED: Lorazepam PYXIS KEY PRN ×2 (18:34→19:55)
[2021-07-27] MEDS ORDERED: Metoclopramide 5 MG/ML VIAL (10 mg) IV ONE (18:34)
[2021-07-27] MEDS ORDERED: LORazepam 2 mg VIAL 1 ml IV ONE (18:34)
[2021-07-27] MEDS ORDERED: Pantoprazole VIAL 40 MG VIAL IV ONE (18:34)
[2021-07-27] MEDS ORDERED: Lactated Ringers 1000 ml BAG 1,000 ML IV ONE (18:34)
[2021-07-27 19:12] LABS: ABS Basophils 0.1 10^3/ul (0-0.2); ABS Eosinophils 0.1 10^3/ul (0-0.6); ABS Lymphocytes 2.1 10^3/ul (1.0-4.8); ABS Monocytes 0.5 10^3/ul (0-0.8); ABS Neutrophils 5.1 10^3/ul (1.5-7.7); Eosinophil % 1.4 %; Hematocrit 44 % (35-47); Hemoglobin 14.3 g/dL (12.0-16.0); Lymphocyte % 26.8 %; Mean Corpuscular HGB Conc 33 g/dL (31-36); Mean Corpuscular Hemoglobin 26 pg (27-31); Mean Corpuscular Volume 81 fL (80-97); Mean Platelet Volume 8.3 fL (7.4-10.4); Platelet Count 457 10^3/uL (150-450); Red Blood Count 5.45 10^6 /uL (3.70-4.87); Red Cell Distribution Width 14 % (10-15); White Blood Count 7.8 10^3/uL (3.5-10.8)
[2021-07-27 19:19] LABS: INR 1.21 (0.86-1.15)
[2021-07-27 19:31] LABS: ALT 9 U/L (7-52); AST 14 U/L (13-39); Albumin 4.5 g/dL (3.2-5.2); Albumin/Globulin Ratio 1.3 (1-3); Alkaline Phosphatase 68 U/L (35-149); Anion Gap 10 mmol/L (2-11); Blood Urea Nitrogen 12 mg/dL (6-24); C Reactive Protein 6.68 mg/L (<8.01); CO2 Carbon Dioxide 26 mmol/L (22-32); Calcium 9.7 mg/dL (8.6-10.3); Chloride 104 mmol/L (101-111); Globulin 3.5 g/dL (2-4); Glucose 214 mg/dL (70-100); Lipase 12 U/L (11.0-82.0); Potassium 4.1 mmol/L (3.5-5.0); Sodium 140 mmol/L (135-145); eGFR CKD-EPI 93.6 (>60)
[2021-07-27] MEDS ORDERED: LORazepam 2 mg VIAL 1 ml IM ONE (19:54)
[2021-07-27] MEDS ORDERED: SOTROVIMAB 500 MG VIAL 500 MG in NS 0.9% 100 ml BAG 100 ML IV ONE (22:06)
[2021-07-27] MEDS ORDERED: NS 0.9% 50 ML 50 ML IV ONE (22:38)
[2021-07-27] MEDS ORDERED: Haloperidol 5 mg/ml SDV IV/IM 5 MG/ML AMP IV SLOW PU ONE (23:08)
[2021-07-27] MEDS: Prochlorperazine 5 mg/ml 2 ml VIAL (10 mg) IV PRN (23:09)
[2021-07-28] MEDS ORDERED: Albuterol HFA INHALER 8 gm MDI INH PRN (00:06)
[2021-07-28] MEDS ORDERED: Labetalol IV 5 MG/ML 20 ml VIAL IV PUSH PRN ×2 (01:30→03:48)
[2021-07-28] MEDS ORDERED: Ondansetron 4 mg VIAL 2 MG/ML 2 ml VIAL IV PRN (01:32)
[2021-07-28] MEDS: NS 0.9% 1000 ml BAG 1,000 ML IV SCH ×2 (01:57→11:33)
[2021-07-28] MEDS ORDERED: Lorazepam PYXIS KEY PRN (02:51)
[2021-07-28] MEDS ORDERED: Acetaminophen IV 1 GM/100ML VI 100 ML IV PRN (03:03)
[2021-07-28 03:30] LABS: HCG Pregnancy < 0.60 mIU/mL
[2021-07-28] MEDS ORDERED: Metoprolol Tartrate 5 mg VIAL 5 ml VIAL (1 mg/ml) IV ONE (04:12)
[2021-07-28 04:17] LABS: Urine Appearance Clear; Urine Bilirubin Negative (Negative); Urine Blood Negative (Negative); Urine Color Yellow; Urine Glucose 3+(>=500 mg/dL) (Negative); Urine Ketones 2+ (Negative); Urine Nitrite Negative (Negative); Urine Protein Negative (Negative); Urine Specific Gravity 1.021 (1.002-1.030); Urine Urobilinogen Negative (Negative)
[2021-07-28] MEDS: Enoxaparin 40 MG/0.4 ML SYR SUBCUT SCH (05:02)
[2021-07-28] MEDS ORDERED: Buffered Lidocaine 1% SYRIN 1 ml INTRADERM ONE (05:26)
[2021-07-28] MEDS ORDERED: Enalaprilat IV 1.25 mg/ml 2 ml VIAL (2.5 MG) IV ONE (06:19)
[2021-07-28] MEDS: Prochlorperazine 5 mg/ml 2 ml VIAL (10 mg) IV PRN (06:52)
[2021-07-28 07:11] LABS: ABS Lymphocytes 1.1 10^3/ul (1.0-4.8); ABS Monocytes 0.3 10^3/ul (0-0.8); ABS Neutrophils 7.7 10^3/ul (1.5-7.7); Hematocrit 40 % (35-47); Lymphocyte % 12.1 %; Mean Corpuscular HGB Conc 32 g/dL (31-36); Mean Corpuscular Hemoglobin 26 pg (27-31); Mean Corpuscular Volume 82 fL (80-97); Mean Platelet Volume 8.3 fL (7.4-10.4); Platelet Count 400 10^3/uL (150-450); Red Blood Count 4.91 10^6 /uL (3.70-4.87); Red Cell Distribution Width 14 % (10-15); White Blood Count 9.1 10^3/uL (3.5-10.8)
[2021-07-28 07:21] LABS: Potassium 4.1 mmol/L (3.5-5.0); eGFR CKD-EPI 112.9 (>60)
[2021-07-28] MEDS: Mometasone/Formoter 200/5 MDI INH SCH ×2 (09:28→19:56)
[2021-07-28] MEDS: Pantoprazole VIAL 40 MG VIAL IV SCH (11:34)
[2021-07-28] MEDS ORDERED: Dextrose 50% Syringe 50 ml 25 GM/50 ML SYRINGE IV PUSH PRN (16:25)
[2021-07-28] MEDS ORDERED: Lactated Ringers 1000 ml BAG 1,000 ML IV SCH (17:00)
[2021-07-28] MEDS: Insulin GLARGINE 100 un/ml 10 ml VIAL SUBCUT SCH (21:42)
[2021-07-29] MEDS: Enoxaparin 40 MG/0.4 ML SYR SUBCUT SCH (05:36)
[2021-07-29 07:13] LABS: ABS Basophils 0.1 10^3/ul (0-0.2); ABS Eosinophils 0.1 10^3/ul (0-0.6); ABS Lymphocytes 3.7 10^3/ul (1.0-4.8); ABS Monocytes 0.7 10^3/ul (0-0.8); ABS Neutrophils 3.3 10^3/ul (1.5-7.7); Eosinophil % 1.6 %; Hematocrit 35 % (35-47); Hemoglobin 11.3 g/dL (12.0-16.0); Lymphocyte % 46.4 %; Mean Corpuscular HGB Conc 32 g/dL (31-36); Mean Corpuscular Hemoglobin 27 pg (27-31); Mean Corpuscular Volume 82 fL (80-97); Mean Platelet Volume 8.1 fL (7.4-10.4); Platelet Count 359 10^3/uL (150-450); Red Blood Count 4.26 10^6 /uL (3.70-4.87); Red Cell Distribution Width 14 % (10-15); White Blood Count 7.9 10^3/uL (3.5-10.8)
[2021-07-29 07:28] LABS: Calcium 7.9 mg/dL (8.6-10.3); Magnesium 1.8 mg/dL (1.9-2.7); Potassium 3.6 mmol/L (3.5-5.0); eGFR CKD-EPI 116.1 (>60)
[2021-07-29] MEDS: Mometasone/Formoter 200/5 MDI INH SCH ×2 (08:04→21:18)
[2021-07-29] MEDS: Prochlorperazine 5 mg/ml 2 ml VIAL (10 mg) IV PRN (09:32)
[2021-07-29] MEDS: Pantoprazole VIAL 40 MG VIAL IV SCH (09:45)
[2021-07-29] MEDS: LORazepam 2 mg VIAL 1 ml IV PUSH PRN ×2 (09:47→22:25)
[2021-07-29] MEDS: DULoxetine DR 30 mg CAP PO SCH (09:57)
[2021-07-29] MEDS ORDERED: Prochlorperazine 5 mg/ml 2 ml VIAL (10 mg) IV PRN (12:38)
[2021-07-29] MEDS: Labetalol IV 5 MG/ML 20 ml VIAL IV PUSH PRN ×2 (17:06→22:07)
[2021-07-29] MEDS: Metoclopramide 5 MG/ML VIAL (10 mg) IV SCH (22:06)
[2021-07-29] MEDS: Insulin GLARGINE 100 un/ml 10 ml VIAL SUBCUT SCH (22:07)
[2021-07-30] MEDS: Enoxaparin 40 MG/0.4 ML SYR SUBCUT SCH (06:11)
[2021-07-30] MEDS: Metoclopramide 5 MG/ML VIAL (10 mg) IV SCH ×2 (06:11→14:42)
[2021-07-30 07:55] LABS: Hematocrit 38 % (35-47); Hemoglobin 12.1 g/dL (12.0-16.0); Mean Corpuscular HGB Conc 32 g/dL (31-36); Mean Corpuscular Hemoglobin 26 pg (27-31); Mean Corpuscular Volume 83 fL (80-97); Mean Platelet Volume 8.9 fL (7.4-10.4); Platelet Count 354 10^3/uL (150-450); Red Blood Count 4.58 10^6 /uL (3.70-4.87); Red Cell Distribution Width 14 % (10-15); White Blood Count 7.7 10^3/uL (3.5-10.8)
[2021-07-30 08:06] LABS: Calcium 8.3 mg/dL (8.6-10.3); Magnesium 1.9 mg/dL (1.9-2.7); Potassium 3.5 mmol/L (3.5-5.0); eGFR CKD-EPI 116.9 (>60)
[2021-07-30] MEDS: Pantoprazole VIAL 40 MG VIAL IV SCH (08:47)
[2021-07-30] MEDS: DULoxetine DR 30 mg CAP PO SCH (08:48)
[2021-07-30] MEDS: Mometasone/Formoter 200/5 MDI INH SCH (09:47)
[2021-07-30 11:39] VITALS: BP 106/63
== END 2021-07-30 15:45 | disposition home or self-care (01) ==
LOC: EDHOLD 18:00 → ED 18:00 → SUATTDRO 07-28 → EDHOLD 07-28 07:07 → MED 07-28 08:12
PROVIDERS: ADMIT Student in an Organized Health Care Education/Training Program; ATTEND Internal Medicine

== ENCOUNTER 2021-08-23 12:57 | Inpatient (IN) ==
[2021-08-23] MEDS ORDERED: Lactated Ringers 1000 ml BAG 1,000 ML IV ONE ×2 (13:30→22:05)
[2021-08-23] MEDS: Ondansetron 4 mg VIAL 2 MG/ML 2 ml VIAL IV ONE ×2 (14:55→19:21)
[2021-08-23 15:05] LABS: ABS Basophils 0.1 10^3/ul (0-0.2); ABS Lymphocytes 1.8 10^3/ul (1.0-4.8); ABS Monocytes 0.8 10^3/ul (0-0.8); ABS Neutrophils 9.7 10^3/ul (1.5-7.7); Hematocrit 45 % (35-47); Hemoglobin 14.5 g/dL (12.0-16.0); Lymphocyte % 14.3 %; Mean Corpuscular HGB Conc 33 g/dL (31-36); Mean Corpuscular Hemoglobin 27 pg (27-31); Mean Corpuscular Volume 82 fL (80-97); Mean Platelet Volume 8.9 fL (7.4-10.4); Platelet Count 524 10^3/uL (150-450); Red Blood Count 5.44 10^6 /uL (3.70-4.87); Red Cell Distribution Width 14 % (10-15); White Blood Count 12.3 10^3/uL (3.5-10.8)
[2021-08-23] MEDS ORDERED: Ondansetron ODT 4 mg TAB 4 MG TAB PO ONE (15:12)
[2021-08-23 15:28] LABS: HCG Pregnancy 2.39 mIU/mL
[2021-08-23 15:39] LABS: Albumin 4.6 g/dL (3.2-5.2); Albumin/Globulin Ratio 1.2 (1-3); Calcium 10.3 mg/dL (8.6-10.3); Globulin 3.7 g/dL (2-4); Potassium 3.7 mmol/L (3.5-5.0); Total Bilirubin 1.3 mg/dL (0.2-1.0); Total Protein 8.3 g/dL (6.4-8.9); eGFR CKD-EPI 68.3 (>60)
[2021-08-23] MEDS ORDERED: Ondansetron 4 mg VIAL 2 MG/ML 2 ml VIAL IV ONE (17:40)
[2021-08-23] MEDS ORDERED: Labetalol IV 5 MG/ML 20 ml VIAL IV PUSH ONE (20:03)
[2021-08-23] MEDS ORDERED: Albuterol HFA INHALER 8 gm MDI INH PRN (21:56)
[2021-08-23] MEDS ORDERED: Dextrose 50% Syringe 50 ml 25 GM/50 ML SYRINGE IV PUSH PRN (22:07)
[2021-08-23 22:35] LABS: Rapid COVID-19 Molecular Undetected (Undetected)
[2021-08-23 23:16] LABS: Phosphorus 3.2 mg/dL (2.5-5.0)
[2021-08-24] MEDS: Pantoprazole VIAL 40 MG VIAL IV SCH (00:32)
[2021-08-24] MEDS: Ondansetron 4 mg VIAL 2 MG/ML 2 ml VIAL IV PRN ×2 (00:32→07:38)
[2021-08-24] MEDS ORDERED: Insulin GLARGINE 100 un/ml 10 ml VIAL ONE (00:49)
[2021-08-24] MEDS: Insulin GLARGINE 100 un/ml 10 ml VIAL SUBCUT SCH ×2 (00:51→23:10)
[2021-08-24] MEDS: Enoxaparin 40 MG/0.4 ML SYR SUBCUT SCH ×2 (02:40→23:25)
[2021-08-24 06:40] LABS: Urine Appearance Cloudy; Urine Bilirubin Negative (Negative); Urine Blood Negative (Negative); Urine Color Yellow; Urine Glucose 3+(>=500 mg/dL) (Negative); Urine Ketones 1+ (Negative); Urine Nitrite Negative (Negative); Urine Protein Negative (Negative); Urine Specific Gravity 1.022 (1.002-1.030); Urine Urobilinogen Negative (Negative)
[2021-08-24 06:43] LABS: Urine Bacteria Absent (Absent); Urine Red Blood Cell Trace(0-2/hpf) (Absent); Urine Squamous Epithelial Cell Present (Absent); Urine White Blood Cell Trace(0-5/hpf) (Absent)
[2021-08-24] MEDS: Mometasone/Formoter 200/5 MDI INH SCH ×2 (07:48→19:50)
[2021-08-24 08:42] LABS: ABS Basophils 0.1 10^3/ul (0-0.2); ABS Lymphocytes 2.6 10^3/ul (1.0-4.8); ABS Neutrophils 7.2 10^3/ul (1.5-7.7); Hematocrit 42 % (35-47); Hemoglobin 13.9 g/dL (12.0-16.0); Mean Corpuscular HGB Conc 33 g/dL (31-36); Mean Corpuscular Hemoglobin 26 pg (27-31); Mean Corpuscular Volume 80 fL (80-97); Mean Platelet Volume 8.3 fL (7.4-10.4); Nucleated Red Blood Cells % 0.2; Platelet Count 460 10^3/uL (150-450); Red Blood Count 5.29 10^6 /uL (3.70-4.87); Red Cell Distribution Width 14 % (10-15)
[2021-08-24 08:57] LABS: Calcium 9.4 mg/dL (8.6-10.3); Direct Bilirubin 0.2 mg/dL (0.03-0.18); Indirect Bilirubin 1.2 mg/dL (0.3-1.0); Potassium 3.4 mmol/L (3.5-5.0); Total Bilirubin 1.4 mg/dL (0.2-1.0); eGFR CKD-EPI 66.8 (>60)
[2021-08-24] MEDS: Metoclopramide 5 MG/ML VIAL (10 mg) IV SCH ×2 (12:03→17:17)
[2021-08-24] MEDS: Lactated Ringers 1000 ml BAG 1,000 ML IV SCH (12:04)
[2021-08-24] MEDS: KCL 20 MEQ/100 ML IVPREMIX 20 MEQ/100 ML BAG IV SCH ×2 (12:05→20:14)
[2021-08-24] MEDS: DULoxetine DR 60 mg CAP PO SCH (13:17)
[2021-08-24] MEDS: DULoxetine DR 30 mg CAP PO SCH (13:17)
[2021-08-24] MEDS: Fluticasone NASAL SPRAY 50MCG 16 gm SPRAY BTL BOTH NARES SCH (13:17)
[2021-08-24] MEDS: CMCS: Zonisamide 100 mg CAP (NF) PO SCH ×2 (13:18→23:11)
[2021-08-24 14:46] LABS: Urine Benzodiazepine Screen None Detected (None Detect); Urine Cannabinoids Screen Presumptive Positive (None Detect); Urine Opiates Screen None Detected (None Detect)
[2021-08-25] MEDS: Pantoprazole VIAL 40 MG VIAL IV SCH ×2 (00:09→21:47)
[2021-08-25] MEDS: Mometasone/Formoter 200/5 MDI INH SCH ×2 (07:48→19:33)
[2021-08-25 07:53] LABS: ABS Basophils 0.1 10^3/ul (0-0.2); ABS Lymphocytes 2.9 10^3/ul (1.0-4.8); ABS Monocytes 0.9 10^3/ul (0-0.8); ABS Neutrophils 5.9 10^3/ul (1.5-7.7); Eosinophil % 0.2 %; Hematocrit 41 % (35-47); Hemoglobin 13.2 g/dL (12.0-16.0); Lymphocyte % 29.8 %; Mean Corpuscular HGB Conc 33 g/dL (31-36); Mean Corpuscular Hemoglobin 27 pg (27-31); Mean Corpuscular Volume 82 fL (80-97); Mean Platelet Volume 8.3 fL (7.4-10.4); Platelet Count 414 10^3/uL (150-450); Red Cell Distribution Width 13 % (10-15); White Blood Count 9.9 10^3/uL (3.5-10.8)
[2021-08-25] MEDS ORDERED: Acetaminophen IV 1 GM/100ML 100 ML IV PRN (07:57)
[2021-08-25 08:13] LABS: Calcium 9.1 mg/dL (8.6-10.3); Potassium 3.5 mmol/L (3.5-5.0); eGFR CKD-EPI 88.5 (>60)
[2021-08-25 08:14] LABS: Magnesium 1.9 mg/dL (1.9-2.7); Phosphorus 3.9 mg/dL (2.5-5.0)
[2021-08-25] MEDS ORDERED: Ondansetron ODT 4 mg TAB 4 MG TAB SL PRN (09:28)
[2021-08-25] MEDS: Metoclopramide 5 MG/ML VIAL (10 mg) IV SCH ×4 (09:56→21:48)
[2021-08-25] MEDS: Fluticasone NASAL SPRAY 50MCG 16 gm SPRAY BTL BOTH NARES SCH (13:25)
[2021-08-25] MEDS: DULoxetine DR 60 mg CAP PO SCH (13:25)
[2021-08-25] MEDS: DULoxetine DR 30 mg CAP PO SCH (13:25)
[2021-08-25] MEDS: CMCS: Zonisamide 100 mg CAP (NF) PO SCH ×2 (13:26→21:55)
[2021-08-25] MEDS: Enoxaparin 40 MG/0.4 ML SYR SUBCUT SCH (21:01)
[2021-08-25] MEDS: Insulin GLARGINE 100 un/ml 10 ml VIAL SUBCUT SCH (21:02)
[2021-08-25] MEDS: Ondansetron 4 mg VIAL 2 MG/ML 2 ml VIAL IV PRN (23:07)
[2021-08-26] MEDS ORDERED: Lactated Ringers 500 ml BAG 500 ML IV ONE (00:28)
[2021-08-26] MEDS: Lactated Ringers 1000 ml BAG 1,000 ML IV SCH (02:32)
[2021-08-26 05:42] LABS: CO2 Carbon Dioxide 25 mmol/L (22-32); Calcium 8.2 mg/dL (8.6-10.3); Chloride 104 mmol/L (101-111); Magnesium 1.9 mg/dL (1.9-2.7); Sodium 136 mmol/L (135-145)
[2021-08-26 05:48] LABS: Blood Urea Nitrogen 12 mg/dL (6-24); Glucose 198 mg/dL (70-100); eGFR CKD-EPI 69.8 (>60)
[2021-08-26 06:12] LABS: Anion Gap 7 mmol/L (2-11)
[2021-08-26] MEDS: Mometasone/Formoter 200/5 MDI INH SCH ×2 (08:09→19:37)
[2021-08-26] MEDS: Metoclopramide 5 MG/ML VIAL (10 mg) IV SCH ×3 (08:23→16:47)
[2021-08-26] MEDS: Fluticasone NASAL SPRAY 50MCG 16 gm SPRAY BTL BOTH NARES SCH (08:29)
[2021-08-26] MEDS: DULoxetine DR 60 mg CAP PO SCH (08:30)
[2021-08-26] MEDS: DULoxetine DR 30 mg CAP PO SCH (08:31)
[2021-08-26] MEDS: CMCS: Zonisamide 100 mg CAP (NF) PO SCH ×2 (08:32→20:03)
[2021-08-26 08:34] LABS: ABS Eosinophils 0.2 10^3/ul (0-0.6); ABS Lymphocytes 3.5 10^3/ul (1.0-4.8); ABS Monocytes 0.6 10^3/ul (0-0.8); Eosinophil % 2.4 %; Hematocrit 37 % (35-47); Hemoglobin 11.7 g/dL (12.0-16.0); Lymphocyte % 55.4 %; Mean Corpuscular HGB Conc 32 g/dL (31-36); Mean Corpuscular Hemoglobin 27 pg (27-31); Mean Corpuscular Volume 83 fL (80-97); Mean Platelet Volume 8.2 fL (7.4-10.4); Nucleated Red Blood Cells % 0.1; Platelet Count 256 10^3/uL (150-450); Red Cell Distribution Width 14 % (10-15); White Blood Count 6.3 10^3/uL (3.5-10.8)
[2021-08-26 12:36] LABS: Ferritin 115.6 ng/mL (11-307)
[2021-08-26] MEDS: Enoxaparin 40 MG/0.4 ML SYR SUBCUT SCH (19:50)
[2021-08-26] MEDS: Insulin GLARGINE 100 un/ml 10 ml VIAL SUBCUT SCH (19:50)
[2021-08-27] MEDS: Mometasone/Formoter 200/5 MDI INH SCH (07:49)
[2021-08-27] MEDS: Metoclopramide 5 MG/ML VIAL (10 mg) IV SCH ×3 (08:05→16:58)
[2021-08-27] MEDS: DULoxetine DR 60 mg CAP PO SCH (08:10)
[2021-08-27] MEDS: DULoxetine DR 30 mg CAP PO SCH (08:10)
[2021-08-27] MEDS: CMCS: Zonisamide 100 mg CAP (NF) PO SCH (08:11)
[2021-08-27] MEDS: Fluticasone NASAL SPRAY 50MCG 16 gm SPRAY BTL BOTH NARES SCH (08:11)
[2021-08-27 09:41] LABS: Hematocrit 36 % (35-47); Hemoglobin 11.6 g/dL (12.0-16.0); Mean Corpuscular HGB Conc 32 g/dL (31-36); Mean Corpuscular Hemoglobin 27 pg (27-31); Mean Corpuscular Volume 83 fL (80-97); Mean Platelet Volume 8.6 fL (7.4-10.4); Platelet Count 282 10^3/uL (150-450); Red Blood Count 4.34 10^6 /uL (3.70-4.87); Red Cell Distribution Width 13 % (10-15); White Blood Count 4.7 10^3/uL (3.5-10.8)
[2021-08-27 10:08] LABS: C Reactive Protein 3.15 mg/L (<8.01); Calcium 8.5 mg/dL (8.6-10.3); Magnesium 1.9 mg/dL (1.9-2.7); Phosphorus 3.5 mg/dL (2.5-5.0); Potassium 3.6 mmol/L (3.5-5.0); eGFR CKD-EPI 86.1 (>60)
[2021-08-27 15:25] VITALS: BP 117/60
[2021-08-27] MEDS ORDERED: Polyethylene Glycol 3350 17 GM PACKET PO SCH (16:30)
[2021-08-27] MEDS ORDERED: Insulin GLARGINE 100 un/ml 10 ml VIAL SUBCUT SCH ×2 (21:00)
== END 2021-08-27 17:35 | disposition home or self-care (01) | DRG 249 ==
LOC: ED 12:57 → EDHOLD 12:57 → SUATTDRO 20:27 → MED 08-24 00:02
PROVIDERS: ADMIT Internal Medicine; ATTEND Internal Medicine

== ENCOUNTER 2021-09-19 08:34 | Inpatient (IN) ==
[2021-09-19] MEDS ORDERED: Haloperidol 5 mg/ml SDV IV/IM 5 MG/ML AMP IM ONE (08:36)
[2021-09-19] MEDS ORDERED: Lactated Ringers 1000 ml BAG 1,000 ML IV ONE ×2 (08:36→09:32)
[2021-09-19 09:15] LABS: ABS Monocytes 0.2 10^3/ul (0-0.8); ABS Neutrophils 8.7 10^3/ul (1.5-7.7); Eosinophil % 0.1 %; Hematocrit 44 % (35-47); Hemoglobin 13.9 g/dL (12.0-16.0); Lymphocyte % 10.2 %; Mean Corpuscular HGB Conc 32 g/dL (31-36); Mean Corpuscular Hemoglobin 27 pg (27-31); Mean Corpuscular Volume 83 fL (80-97); Mean Platelet Volume 8.1 fL (7.4-10.4); Platelet Count 478 10^3/uL (150-450); Red Blood Count 5.24 10^6 /uL (3.70-4.87); Red Cell Distribution Width 14 % (10-15)
[2021-09-19 09:31] LABS: ALT 9 U/L (7-52); AST 16 U/L (13-39); Albumin 4.5 g/dL (3.2-5.2); Albumin/Globulin Ratio 1.3 (1-3); Alkaline Phosphatase 89 U/L (35-149); Anion Gap 16 mmol/L (2-11); Blood Urea Nitrogen 8 mg/dL (6-24); CO2 Carbon Dioxide 21 mmol/L (22-32); Calcium 9.9 mg/dL (8.6-10.3); Chloride 102 mmol/L (101-111); Globulin 3.4 g/dL (2-4); Glucose 271 mg/dL (70-100); Potassium 4.1 mmol/L (3.5-5.0); Sodium 139 mmol/L (135-145); Total Protein 7.9 g/dL (6.4-8.9); eGFR CKD-EPI 92.3 (>60)
[2021-09-19] MEDS ORDERED: Metoclopramide 5 MG/ML VIAL (10 mg) IV SLOW PU ONE (09:32)
[2021-09-19] MEDS ORDERED: Ondansetron 4 mg VIAL 2 MG/ML 2 ml VIAL IV ONE (18:45)
[2021-09-19] MEDS ORDERED: Al Hydrox/Mg Hydrox/Simet LIQ 30 ML UDC PO PRN (20:32)
[2021-09-19] MEDS ORDERED: Albuterol HFA INHALER 8 gm MDI INH PRN (20:36)
[2021-09-19] MEDS ORDERED: Dextrose 50% Syringe 50 ml 25 GM/50 ML SYRINGE IV PUSH PRN (20:38)
[2021-09-19] MEDS ORDERED: Lactated Ringers 1000 ml BAG 1,000 ML IV SCH (21:00)
[2021-09-19] MEDS ORDERED: Metoclopramide 5 MG/ML VIAL (10 mg) IV SCH (21:00)
[2021-09-19 21:27] LABS: Lipase < 10 U/L (11.0-82.0)
[2021-09-20] MEDS: Insulin GLARGINE 100 un/ml 10 ml VIAL SUBCUT SCH ×2 (01:22→22:52)
[2021-09-20] MEDS: Enoxaparin 40 MG/0.4 ML SYR SUBCUT SCH ×2 (01:25→22:40)
[2021-09-20] MEDS: Senna TAB 8.6 mg TAB PO SCH ×2 (01:34→22:40)
[2021-09-20 03:43] LABS: Urine Benzodiazepine Screen None Detected (None Detect); Urine Cannabinoids Screen Presumptive Positive (None Detect); Urine Opiates Screen None Detected (None Detect)
[2021-09-20] MEDS: Ondansetron 4 mg VIAL 2 MG/ML 2 ml VIAL IV PRN ×2 (04:00→12:16)
[2021-09-20 05:09] LABS: ABS Basophils 0.1 10^3/ul (0-0.2); ABS Monocytes 1.2 10^3/ul (0-0.8); ABS Neutrophils 8.2 10^3/ul (1.5-7.7); Eosinophil % 0.1 %; Hematocrit 40 % (35-47); Hemoglobin 12.5 g/dL (12.0-16.0); Lymphocyte % 17.6 %; Mean Corpuscular HGB Conc 32 g/dL (31-36); Mean Corpuscular Hemoglobin 26 pg (27-31); Mean Corpuscular Volume 82 fL (80-97); Mean Platelet Volume 8.1 fL (7.4-10.4); Nucleated Red Blood Cells % 0.1; Platelet Count 430 10^3/uL (150-450); Red Blood Count 4.84 10^6 /uL (3.70-4.87); Red Cell Distribution Width 14 % (10-15); White Blood Count 11.5 10^3/uL (3.5-10.8)
[2021-09-20 05:28] LABS: Albumin/Globulin Ratio 1.4 (1-3); Calcium 8.9 mg/dL (8.6-10.3); Globulin 2.9 g/dL (2-4); Potassium 3.4 mmol/L (3.5-5.0); Total Bilirubin 2.2 mg/dL (0.2-1.0); Total Protein 6.9 g/dL (6.4-8.9)
[2021-09-20] MEDS: Metoclopramide 5 MG/ML VIAL (10 mg) IV SCH ×3 (08:53→20:30)
[2021-09-20] MEDS ORDERED: Lactated Ringers 1000 ml BAG 1,000 ML IV SCH (11:00)
[2021-09-20] MEDS: Pantoprazole VIAL 40 MG VIAL IV SCH ×2 (12:16→22:40)
[2021-09-20] MEDS ORDERED: hydrALAZINE 20 mg/ml 1 ML Vial IV IV SLOW PU PRN (15:35)
[2021-09-21] MEDS: Metoclopramide 5 MG/ML VIAL (10 mg) IV SCH ×4 (02:39→19:36)
[2021-09-21] MEDS: Pantoprazole VIAL 40 MG VIAL IV SCH ×2 (09:03→21:37)
[2021-09-21 09:23] LABS: Albumin 3.2 g/dL (3.2-5.2); CO2 Carbon Dioxide 22 mmol/L (22-32); Calcium 8.2 mg/dL (8.6-10.3); Chloride 107 mmol/L (101-111); Sodium 139 mmol/L (135-145)
[2021-09-21 09:26] LABS: Anion Gap 10 mmol/L (2-11)
[2021-09-21 09:30] LABS: ALT QNS U/L (7-52); AST QNS U/L (13-39); Alkaline Phosphatase QNS U/L (35-149); Blood Urea Nitrogen QNS mg/dL (6-24); Glucose QNS mg/dL (70-100); Total Protein QNS g/dL (6.4-8.9)
[2021-09-21 10:21] LABS: ABS Basophils 0.1 10^3/ul (0-0.2); ABS Eosinophils 0.1 10^3/ul (0-0.6); ABS Lymphocytes 2.4 10^3/ul (1.0-4.8); ABS Monocytes 0.7 10^3/ul (0-0.8); ABS Neutrophils 2.6 10^3/ul (1.5-7.7); Eosinophil % 1.6 %; Hematocrit 34 % (35-47); Hemoglobin 10.8 g/dL (12.0-16.0); Mean Corpuscular HGB Conc 32 g/dL (31-36); Mean Corpuscular Hemoglobin 27 pg (27-31); Mean Corpuscular Volume 83 fL (80-97); Platelet Count 315 10^3/uL (150-450); Red Blood Count 4.08 10^6 /uL (3.70-4.87); Red Cell Distribution Width 14 % (10-15); White Blood Count 5.9 10^3/uL (3.5-10.8)
[2021-09-21 12:00] LABS: Albumin 3.5 g/dL (3.2-5.2); Calcium 8.5 mg/dL (8.6-10.3); Magnesium 1.8 mg/dL (1.9-2.7); Potassium 3.7 mmol/L (3.5-5.0); Total Bilirubin 1.7 mg/dL (0.2-1.0)
[2021-09-21 12:06] LABS: Albumin/Globulin Ratio 1.3 (1-3); Globulin 2.8 g/dL (2-4); Total Protein 6.3 g/dL (6.4-8.9); eGFR CKD-EPI 75.8 (>60)
[2021-09-21] MEDS ORDERED: Magnesium Sulfate 2 gm BAG 2 GM/50 ML BAG IVPB ONE (14:43)
[2021-09-21 17:12] LABS: Phosphorus 3.2 mg/dL (2.5-5.0)
[2021-09-21] MEDS: Enoxaparin 40 MG/0.4 ML SYR SUBCUT SCH (21:37)
[2021-09-21] MEDS: Insulin GLARGINE 100 un/ml 10 ml VIAL SUBCUT SCH (21:38)
[2021-09-21] MEDS: Senna TAB 8.6 mg TAB PO SCH (21:38)
[2021-09-22] MEDS: Metoclopramide 5 MG/ML VIAL (10 mg) IV SCH ×3 (03:08→15:19)
[2021-09-22 06:25] LABS: ABS Eosinophils 0.2 10^3/ul (0-0.6); ABS Lymphocytes 2.9 10^3/ul (1.0-4.8); ABS Monocytes 0.6 10^3/ul (0-0.8); ABS Neutrophils 2.1 10^3/ul (1.5-7.7); Eosinophil % 3.5 %; Hematocrit 35 % (35-47); Hemoglobin 11.3 g/dL (12.0-16.0); Lymphocyte % 49.8 %; Mean Corpuscular HGB Conc 32 g/dL (31-36); Mean Corpuscular Hemoglobin 27 pg (27-31); Mean Corpuscular Volume 83 fL (80-97); Mean Platelet Volume 8.5 fL (7.4-10.4); Nucleated Red Blood Cells % 0.1; Platelet Count 325 10^3/uL (150-450); Red Blood Count 4.25 10^6 /uL (3.70-4.87); Red Cell Distribution Width 14 % (10-15); White Blood Count 5.9 10^3/uL (3.5-10.8)
[2021-09-22 07:36] LABS: Albumin 3.3 g/dL (3.2-5.2); CO2 Carbon Dioxide 23 mmol/L (22-32); Calcium 8.3 mg/dL (8.6-10.3); Chloride 104 mmol/L (101-111); Magnesium 2.2 mg/dL (1.9-2.7); Sodium 139 mmol/L (135-145)
[2021-09-22 07:43] LABS: ALT 8 U/L (7-52); Albumin/Globulin Ratio 1.2 (1-3); Alkaline Phosphatase 57 U/L (35-149); Blood Urea Nitrogen 8 mg/dL (6-24); Globulin 2.8 g/dL (2-4); Glucose 167 mg/dL (70-100); Total Protein 6.1 g/dL (6.4-8.9)
[2021-09-22 08:00] LABS: Anion Gap 12 mmol/L (2-11)
[2021-09-22] MEDS: Pantoprazole VIAL 40 MG VIAL IV SCH (09:13)
[2021-09-22 10:47] LABS: Phosphorus 3.3 mg/dL (2.5-5.0); Potassium Redraw 3.8 mmol/L (3.5-5.0)
[2021-09-22 12:09] VITALS: BP 135/81
== END 2021-09-22 15:30 | disposition home or self-care (01) | DRG 242 ==
LOC: ED 08:34 → SUATTDRO 20:32 → EDHOLD 20:32 → SSU 09-20 01:47
PROVIDERS: ADMIT Hospitalist; ATTEND Internal Medicine

== ENCOUNTER 2021-10-23 17:00 | Inpatient (IN) ==
[2021-10-23] MEDS ORDERED: Metoclopramide 5 MG/ML VIAL (10 mg) IV ONE (17:15)
[2021-10-23] MEDS ORDERED: Haloperidol 5 mg/ml SDV IV/IM 5 MG/ML AMP IM ONE (17:15)
[2021-10-23] MEDS ORDERED: Ondansetron 4 mg VIAL 2 MG/ML 2 ml VIAL IV ONE (18:25)
[2021-10-23] MEDS ORDERED: Morphine 4 MG/ML VIAL (1 ml) IV ONE (18:29)
[2021-10-23 18:30] LABS: ABS Basophils 0.1 10^3/ul (0-0.2); ABS Eosinophils 0.2 10^3/ul (0-0.6); ABS Lymphocytes 2.1 10^3/ul (1.0-4.8); ABS Monocytes 0.5 10^3/ul (0-0.8); ABS Neutrophils 2.9 10^3/ul (1.5-7.7); Eosinophil % 2.7 %; Hematocrit 41 % (35-47); Hemoglobin 13.3 g/dL (12.0-16.0); Lymphocyte % 36.2 %; Mean Corpuscular HGB Conc 33 g/dL (31-36); Mean Corpuscular Hemoglobin 27 pg (27-31); Mean Corpuscular Volume 82 fL (80-97); Mean Platelet Volume 8.5 fL (7.4-10.4); Nucleated Red Blood Cells % 0.1; Platelet Count 377 10^3/uL (150-450); Red Cell Distribution Width 14 % (10-15); White Blood Count 5.7 10^3/uL (3.5-10.8)
[2021-10-23 18:53] LABS: High Sens Troponin Baseline 30 pg/mL (<15)
[2021-10-23 19:17] LABS: ALT 18 U/L (7-52); Albumin 4.1 g/dL (3.2-5.2); Albumin/Globulin Ratio 1.4 (1-3); Alkaline Phosphatase 56 U/L (35-149); Blood Urea Nitrogen 7 mg/dL (6-24); CO2 Carbon Dioxide 28 mmol/L (22-32); Calcium 9.2 mg/dL (8.6-10.3); Chloride 101 mmol/L (101-111); Globulin 2.9 g/dL (2-4); Glucose 235 mg/dL (70-100); Lipase 28 U/L (11.0-82.0); Sodium 137 mmol/L (135-145); eGFR CKD-EPI 97.9 (>60)
[2021-10-23 19:22] LABS: Anion Gap 8 mmol/L (2-11)
[2021-10-23] MEDS ORDERED: Droperidol 5 MG/2 ML 2 ML VIAL IV ONE (20:39)
[2021-10-24] MEDS ORDERED: Albuterol HFA INHALER 8 gm MDI INH PRN (01:43)
[2021-10-24] MEDS ORDERED: Polyethylene Glycol 3350 17 GM PACKET PO PRN (02:06)
[2021-10-24] MEDS ORDERED: Ondansetron 4 mg VIAL 2 MG/ML 2 ml VIAL IV PRN (02:08)
[2021-10-24] MEDS ORDERED: hydrALAZINE 20 mg/ml 1 ML Vial IV IV SLOW PU ONE (02:21)
[2021-10-24] MEDS ORDERED: Nitro 2% OINT (Nitroglycerin) 1 INCH/PAK TOPICAL ONE ×2 (02:28→07:51)
[2021-10-24 03:32] LABS: Urine Appearance Clear; Urine Bilirubin Negative (Negative); Urine Blood Negative (Negative); Urine Color Yellow; Urine Glucose 3+(>=500 mg/dL) (Negative); Urine Ketones 1+ (Negative); Urine Nitrite Negative (Negative); Urine Protein Negative (Negative); Urine Specific Gravity 1.016 (1.002-1.030); Urine Urobilinogen Negative (Negative)
[2021-10-24 04:08] LABS: Urine Benzodiazepine Screen None Detected (None Detect); Urine Cannabinoids Screen None Detected (None Detect); Urine Opiates Screen Presumptive Positive (None Detect)
[2021-10-24] MEDS ORDERED: Lorazepam PYXIS KEY PRN (04:28)
[2021-10-24] MEDS ORDERED: LORazepam 2 mg VIAL 1 ml IV PUSH ONE ×2 (04:29)
[2021-10-24] MEDS ORDERED: Metoclopramide 5 MG/ML VIAL (10 mg) IV ONE (06:23)
[2021-10-24] MEDS ORDERED: Lactated Ringers 1000 ml BAG 1,000 ML IV SCH ×2 (07:00)
[2021-10-24] MEDS ORDERED: Metoclopramide 5 MG/ML VIAL (10 mg) IV SCH ×2 (07:30→11:30)
[2021-10-24] MEDS ORDERED: Nitroglycerin 0.3 mg/hr PATCH (7.5 mg) TRANSDERM SCH ×2 (09:00)
[2021-10-24] MEDS: Ondansetron ODT 4 mg TAB 4 MG TAB SL PRN (09:55)
[2021-10-24 09:59] LABS: Hematocrit 42 % (35-47); Hemoglobin 13.4 g/dL (12.0-16.0); Mean Corpuscular HGB Conc 32 g/dL (31-36); Mean Corpuscular Hemoglobin 27 pg (27-31); Mean Corpuscular Volume 86 fL (80-97); Mean Platelet Volume 9.6 fL (7.4-10.4); Platelet Count 359 10^3/uL (150-450); Red Blood Count 4.94 10^6 /uL (3.70-4.87); Red Cell Distribution Width 14 % (10-15); White Blood Count 8.9 10^3/uL (3.5-10.8)
[2021-10-24 10:16] LABS: Calcium 9.1 mg/dL (8.6-10.3); Magnesium 1.9 mg/dL (1.9-2.7); Potassium 4.5 mmol/L (3.5-5.0)
[2021-10-24 10:21] LABS: eGFR CKD-EPI 102.5 (>60)
[2021-10-24] MEDS ORDERED: Nitroglycerin 0.2 mg/hr PATCH (5 mg) TRANSDERM SCH (13:00)
[2021-10-24] MEDS ORDERED: Nitroglycerin 0.1 mg/hr PATCH (2.5 mg) TRANSDERM SCH (13:00)
[2021-10-24] MEDS ORDERED: Albuterol/Ipratropium NEB.SOL (2.5/0.5 MG) 3 ML NEB.SOLN INH PRN (14:55)
[2021-10-24] MEDS ORDERED: Insulin GLARGINE 100 un/ml 10 ml VIAL SUBCUT SCH (21:00)
[2021-10-24] MEDS: Insulin GLARGINE 100 un/ml 10 ml VIAL SUBCUT SCH (21:26)
[2021-10-24] MEDS: Senna TAB 8.6 mg TAB PO SCH (21:27)
[2021-10-25] MEDS: Ondansetron ODT 4 mg TAB 4 MG TAB SL PRN ×2 (08:29→16:48)
[2021-10-25 09:17] LABS: Calcium 8.6 mg/dL (8.6-10.3); Potassium 4.1 mmol/L (3.5-5.0); eGFR CKD-EPI 44.3 (>60)
[2021-10-25] MEDS ORDERED: Insulin GLARGINE 100 un/ml 10 ml VIAL SUBCUT ONE (09:44)
[2021-10-25] MEDS ORDERED: Dextrose 50% Syringe 50 ml 25 GM/50 ML SYRINGE IV PUSH PRN (10:51)
[2021-10-25] MEDS: Insulin GLARGINE 100 un/ml 10 ml VIAL SUBCUT SCH (20:59)
[2021-10-25] MEDS: Senna TAB 8.6 mg TAB PO SCH (22:31)
[2021-10-26] MEDS: Ondansetron ODT 4 mg TAB 4 MG TAB SL PRN ×3 (01:53→16:59)
[2021-10-26 06:54] LABS: Calcium 8.7 mg/dL (8.6-10.3); eGFR CKD-EPI 67.5 (>60)
[2021-10-26] MEDS ORDERED: Al Hydrox/Mg Hydrox/Simet LIQ 30 ML UDC PO ONE (10:05)
[2021-10-26] MEDS: Sucralfate 1 gm SUSP 1 GM/10 ML UDC PO SCH ×2 (16:59→21:27)
[2021-10-26] MEDS: Insulin GLARGINE 100 un/ml 10 ml VIAL SUBCUT SCH (21:26)
[2021-10-26] MEDS: Senna TAB 8.6 mg TAB PO SCH (21:27)
[2021-10-27] MEDS: Sucralfate 1 gm SUSP 1 GM/10 ML UDC PO SCH ×2 (07:13→12:09)
[2021-10-27 08:32] VITALS: BP 114/60
[2021-10-29 08:07] LABS: Ur Benzoylecgonine Confirm 228 ng/mL (Cutoff: 50); Urine Cocaine Confirm (GC/MS) Negative ng/mL (Cutoff: 50); Urine Cocaine Interpretation Positive.
== END 2021-10-27 13:15 | disposition home or self-care (01) | DRG 48 ==
LOC: ED 17:00 → MED 17:00 → SUATTDRO 10-24 01:24 → ED 10-24 08:43
PROVIDERS: ADMIT Internal Medicine; ATTEND Student in an Organized Health Care Education/Training Program

== ENCOUNTER 2022-10-02 17:05 | Observation (INO) ==
[2022-10-02] MEDS ORDERED: Lactated Ringers 1000 ml BAG 1,000 ML IV ONE ×2 (17:38→18:51)
[2022-10-02 18:14] LABS: ABS Basophils 0.1 10^3/ul (0-0.2); ABS Lymphocytes 1.2 10^3/ul (1.0-4.8); ABS Monocytes 0.4 10^3/ul (0-0.8); ABS Neutrophils 10.8 10^3/ul (1.5-7.7); Hematocrit 48 % (35-47); Hemoglobin 15.1 g/dL (12.0-16.0); Lymphocyte % 9.6 %; Mean Corpuscular HGB Conc 32 g/dL (31-36); Mean Corpuscular Hemoglobin 26 pg (27-31); Mean Corpuscular Volume 82 fL (80-97); Mean Platelet Volume 8.7 fL (7.4-10.4); Platelet Count 441 10^3/uL (150-450); Red Blood Count 5.77 10^6 /uL (3.70-4.87); Red Cell Distribution Width 14 % (10-15); White Blood Count 12.5 10^3/uL (3.5-10.8)
[2022-10-02] MEDS ORDERED: Haloperidol 5 mg/ml SDV IV/IM 5 MG/ML AMP IV SLOW PU ONE ×2 (18:34→19:39)
[2022-10-02 18:42] LABS: Albumin 4.5 g/dL (3.2-5.2); Albumin/Globulin Ratio 1.3 (1-3); Calcium 10.3 mg/dL (8.6-10.3); Creatinine, Serum 0.91 mg/dL (0.51-0.95); Globulin 3.6 g/dL (2-4); Magnesium 1.9 mg/dL (1.9-2.7); Potassium 4.5 mmol/L (3.5-5.0); Total Bilirubin 1.2 mg/dL (0.2-1.0); Total Protein 8.1 g/dL (6.4-8.9); eGFR CKD-EPI 83.3 (>60)
[2022-10-02] MEDS ORDERED: Ondansetron 4 mg VIAL 2 MG/ML 2 ml VIAL IV ONE (21:15)
[2022-10-03] MEDS ORDERED: Droperidol 5 MG/2 ML 2 ML VIAL IV ONE (00:20)
[2022-10-03] MEDS ORDERED: Metoclopramide 5 MG/ML VIAL (10 mg) IV ONE ×2 (01:42→05:09)
[2022-10-03] MEDS ORDERED: NS 0.9% 1000 ml BAG 1,000 ML IV ONE ×2 (01:54→05:06)
[2022-10-03] MEDS ORDERED: Ondansetron 4 mg VIAL 2 MG/ML 2 ml VIAL IV ONE (04:50)
[2022-10-03] MEDS ORDERED: Lactated Ringers 1000 ml BAG 1,000 ML IV ONE (05:10)
[2022-10-03] MEDS ORDERED: Al Hydrox/Mg Hydrox/Simet LIQ 30 ML UDC PO ONE ×2 (07:17→15:13)
[2022-10-03 17:41] LABS: Venous Bicarbonate HCO3 28.9 mmol/L (24-28)
[2022-10-03 17:52] LABS: Calcium 8.7 mg/dL (8.6-10.3); Potassium 4.2 mmol/L (3.5-5.0)
[2022-10-03 17:58] LABS: Creatinine, Serum 0.75 mg/dL (0.51-0.95); eGFR CKD-EPI 105.1 (>60)
[2022-10-03] MEDS ORDERED: Senna TAB 8.6 mg TAB PO PRN (18:39)
[2022-10-03] MEDS ORDERED: Polyethylene Glycol 3350 17 GM PACKET PO PRN (18:39)
[2022-10-03] MEDS ORDERED: Levalbuterol HFA INHALER MDI INH PRN (19:01)
[2022-10-03] MEDS ORDERED: Insulin GLARGINE 100 un/ml 10 ml VIAL SUBCUT SCH (20:00)
[2022-10-03 21:01] LABS: Urine Benzodiazepine Screen None Detected (None Detect); Urine Cannabinoids Screen Presumptive Positive (None Detect); Urine Opiates Screen None Detected (None Detect)
[2022-10-03] MEDS: CMCS: Zonisamide 100 mg CAP (NF) PO SCH (21:40)
[2022-10-03] MEDS: Enoxaparin 40 MG/0.4 ML SYR SUBCUT SCH (21:43)
[2022-10-03] MEDS: Senna TAB 8.6 mg TAB PO SCH (21:43)
[2022-10-03] MEDS: Insulin GLARGINE 100 un/ml 10 ml VIAL SUBCUT SCH (21:44)
[2022-10-03] MEDS ORDERED: Metoclopramide 5 MG/ML VIAL (10 mg) IV SLOW PU PRN ×2 (22:12→22:14)
[2022-10-03] MEDS: Lactated Ringers 1000 ml BAG 1,000 ML IV SCH (23:54)
[2022-10-04] MEDS: Polyethylene Glycol 3350 17 GM PACKET PO SCH (07:53)
[2022-10-04] MEDS: Mometasone/Formoter 200/5 MDI INH SCH ×2 (07:54→20:02)
[2022-10-04] MEDS: Fluticasone NASAL SPRAY 50MCG 16 gm SPRAY BTL INTRANASAL SCH (09:02)
[2022-10-04] MEDS: DULoxetine DR 60 mg CAP PO SCH (09:05)
[2022-10-04] MEDS: CMCS: Zonisamide 100 mg CAP (NF) PO SCH ×2 (09:06→20:25)
[2022-10-04] MEDS: ERTUGLIFLOZIN 15 MG PO SCH (09:08)
[2022-10-04 11:42] LABS: ABS Lymphocytes 2.4 10^3/ul (1.0-4.8); ABS Monocytes 0.8 10^3/ul (0-0.8); ABS Neutrophils 3.9 10^3/ul (1.5-7.7); Eosinophil % 0.6 %; Hematocrit 36 % (35-47); Hemoglobin 11.3 g/dL (12.0-16.0); Lymphocyte % 33.6 %; Mean Corpuscular HGB Conc 31 g/dL (31-36); Mean Corpuscular Hemoglobin 26 pg (27-31); Mean Corpuscular Volume 83 fL (80-97); Mean Platelet Volume 8.3 fL (7.4-10.4); Platelet Count 272 10^3/uL (150-450); Red Blood Count 4.39 10^6 /uL (3.70-4.87); Red Cell Distribution Width 14 % (10-15); White Blood Count 7.2 10^3/uL (3.5-10.8)
[2022-10-04] MEDS: Lactated Ringers 1000 ml BAG 1,000 ML IV SCH (12:03)
[2022-10-04 12:22] LABS: Albumin 3.3 g/dL (3.2-5.2); Albumin/Globulin Ratio 1.6 (1-3); Calcium 8.3 mg/dL (8.6-10.3); Creatinine, Serum 0.84 mg/dL (0.51-0.95); Globulin 2.1 g/dL (2-4); Potassium 3.8 mmol/L (3.5-5.0); Total Bilirubin 0.9 mg/dL (0.2-1.0); Total Protein 5.4 g/dL (6.4-8.9); eGFR CKD-EPI 91.7 (>60)
[2022-10-04] MEDS: Enoxaparin 40 MG/0.4 ML SYR SUBCUT SCH (20:23)
[2022-10-04] MEDS: Senna TAB 8.6 mg TAB PO SCH (20:24)
[2022-10-04] MEDS: Insulin GLARGINE 100 un/ml 10 ml VIAL SUBCUT SCH (20:24)
[2022-10-05 07:22] VITALS: BP 102/51
[2022-10-05] MEDS: ERTUGLIFLOZIN 15 MG PO SCH (08:46)
[2022-10-05] MEDS: Polyethylene Glycol 3350 17 GM PACKET PO SCH (08:46)
[2022-10-05] MEDS: DULoxetine DR 60 mg CAP PO SCH (08:47)
[2022-10-05] MEDS: Fluticasone NASAL SPRAY 50MCG 16 gm SPRAY BTL INTRANASAL SCH (08:47)
[2022-10-05] MEDS: CMCS: Zonisamide 100 mg CAP (NF) PO SCH (08:47)
[2022-10-05 09:08] LABS: ABS Eosinophils 0.1 10^3/ul (0-0.6); ABS Lymphocytes 2.5 10^3/ul (1.0-4.8); ABS Monocytes 0.6 10^3/ul (0-0.8); ABS Neutrophils 3.1 10^3/ul (1.5-7.7); Eosinophil % 1.4 %; Hematocrit 37 % (35-47); Hemoglobin 11.8 g/dL (12.0-16.0); Lymphocyte % 39.9 %; Mean Corpuscular HGB Conc 32 g/dL (31-36); Mean Corpuscular Hemoglobin 27 pg (27-31); Mean Corpuscular Volume 83 fL (80-97); Mean Platelet Volume 8.3 fL (7.4-10.4); Nucleated Red Blood Cells % 0.1; Platelet Count 275 10^3/uL (150-450); Red Blood Count 4.46 10^6 /uL (3.70-4.87); Red Cell Distribution Width 14 % (10-15); White Blood Count 6.2 10^3/uL (3.5-10.8)
[2022-10-05 09:50] LABS: Calcium 8.3 mg/dL (8.6-10.3); Creatinine, Serum 0.77 mg/dL (0.51-0.95); Potassium 3.8 mmol/L (3.5-5.0); eGFR CKD-EPI 101.8 (>60)
[2022-10-05] MEDS: Mometasone/Formoter 200/5 MDI INH SCH (12:54)
== END 2022-10-05 13:20 | disposition home or self-care (01) ==
LOC: ED 17:05 → EDHOLD 17:05 → SUATTDRO 10-03 18:39 → SSU 10-03 23:53
PROVIDERS: ADMIT Student in an Organized Health Care Education/Training Program; ATTEND Internal Medicine

== ENCOUNTER 2022-10-10 17:18 | Observation (INO) ==
[2022-10-10] MEDS ORDERED: Lactated Ringers 1000 ml BAG 1,000 ML IV ONE (17:23)
[2022-10-10] MEDS ORDERED: Droperidol 5 MG/2 ML 2 ML VIAL IV ONE (17:23)
[2022-10-10] MEDS ORDERED: fentaNYL 100 mcg/2 ml 50 MCG/ML VIAL IV SLOW PU ONE ×2 (17:25→19:18)
[2022-10-10 18:32] LABS: ABS Eosinophils 0.1 10^3/ul (0-0.6); ABS Lymphocytes 1.8 10^3/ul (1.0-4.8); ABS Monocytes 0.7 10^3/ul (0-0.8); ABS Neutrophils 4.8 10^3/ul (1.5-7.7); Eosinophil % 1.4 %; Hematocrit 42 % (35-47); Hemoglobin 13.7 g/dL (12.0-16.0); Lymphocyte % 24.8 %; Mean Corpuscular HGB Conc 33 g/dL (31-36); Mean Corpuscular Hemoglobin 27 pg (27-31); Mean Corpuscular Volume 82 fL (80-97); Mean Platelet Volume 8.4 fL (7.4-10.4); Platelet Count 379 10^3/uL (150-450); Red Blood Count 5.06 10^6 /uL (3.70-4.87); Red Cell Distribution Width 14 % (10-15); White Blood Count 7.5 10^3/uL (3.5-10.8)
[2022-10-10 18:49] LABS: Albumin 4.1 g/dL (3.2-5.2); Albumin/Globulin Ratio 1.5 (1-3); Calcium 9.2 mg/dL (8.6-10.3); Creatinine, Serum 0.88 mg/dL (0.51-0.95); Globulin 2.7 g/dL (2-4); Magnesium 1.9 mg/dL (1.9-2.7); Potassium 4.5 mmol/L (3.5-5.0); Total Bilirubin 0.6 mg/dL (0.2-1.0); Total Protein 6.8 g/dL (6.4-8.9); eGFR CKD-EPI 86.7 (>60)
[2022-10-10] MEDS ORDERED: Prochlorperazine 5 mg/ml 2 ml VIAL (10 mg) IV ONE (19:18)
[2022-10-10] MEDS ORDERED: LORazepam 2 mg VIAL 1 ml IV PUSH ONE (20:55)
[2022-10-10] MEDS ORDERED: Lorazepam PYXIS KEY PRN (20:55)
[2022-10-10] MEDS ORDERED: Levalbuterol HFA INHALER MDI INH PRN (22:25)
[2022-10-10] MEDS ORDERED: Ondansetron 4 mg VIAL 2 MG/ML 2 ml VIAL IV PRN (22:30)
[2022-10-10] MEDS ORDERED: Dextrose 50% Syringe 50 ml 25 GM/50 ML SYRINGE IV PUSH PRN (22:32)
[2022-10-10 22:33] LABS: Urine Appearance Clear; Urine Bilirubin Negative (Negative); Urine Blood Negative (Negative); Urine Color Straw; Urine Glucose 3+(>=500 mg/dL) (Negative); Urine Ketones 1+ (Negative); Urine Nitrite Negative (Negative); Urine Protein Negative (Negative); Urine Urobilinogen Negative (Negative)
[2022-10-10] MEDS ORDERED: Labetalol IV 5 MG/ML 20 ml VIAL IV PUSH PRN (22:33)
[2022-10-10] MEDS ORDERED: Lactated Ringers 1000 ml BAG 1,000 ML IV SCH (23:00)
[2022-10-10 23:03] LABS: Urine Benzodiazepine Screen None Detected (None Detect); Urine Cannabinoids Screen None Detected (None Detect); Urine Opiates Screen None Detected (None Detect)
[2022-10-10] MEDS ORDERED: SUMAtriptan Subcut 6 MG/0.5 ML VIAL SUBCUT ONE (23:21)
[2022-10-11] MEDS ORDERED: Trimethobenzamide *IM* 100 mg/ml 2 ml VIAL (200 mg) IM ONE (00:03)
[2022-10-11] MEDS ORDERED: fentaNYL 100 mcg/2 ml 50 MCG/ML VIAL IV SLOW PU PRN (01:25)
[2022-10-11] MEDS: Prochlorperazine 5 mg/ml 2 ml VIAL (10 mg) IV SCH ×3 (03:13→06:05)
[2022-10-11] MEDS ORDERED: Lidocaine 1% MPF 5 ML VIAL INJ ONE (06:17)
[2022-10-11] MEDS: Prochlorperazine 5 mg/ml 2 ml VIAL (10 mg) IM SCH ×2 (06:18→15:29)
[2022-10-11] MEDS ORDERED: Mometasone/Formoter 200/5 MDI INH SCH (07:00)
[2022-10-11] MEDS ORDERED: Labetalol IV 5 MG/ML 20 ml VIAL IV PUSH ONE (07:49)
[2022-10-11] MEDS ORDERED: Scopolamine 1 mg/72hr PATCH TRANSDERM SCH (09:00)
[2022-10-11] MEDS ORDERED: Zonisamide 100 mg CAP (NF) PO SCH (09:00)
[2022-10-11] MEDS ORDERED: Fluticasone NASAL SPRAY 50MCG 16 gm SPRAY BTL INTRANASAL SCH (09:00)
[2022-10-11] MEDS ORDERED: DULoxetine DR 60 mg CAP PO SCH (09:00)
[2022-10-11] MEDS ORDERED: NF: Dulaglutide (NF) 0.75 MG/0.5 ML SYRINGE SUBCUT SCH (09:00)
[2022-10-11] MEDS ORDERED: ERTUGLIFLOZIN 15 MG PO SCH (09:00)
[2022-10-11] MEDS ORDERED: Insulin GLARGINE 100 un/ml 10 ml VIAL SUBCUT SCH (09:00)
[2022-10-11] MEDS ORDERED: Metoclopramide LIQUID 1 mg/ml 10 ml ORAL.SOLN (10 mg) PO SCH (11:30)
[2022-10-11] MEDS ORDERED: Naloxone Nasal Spray 4 MG/0.1 ML NASAL.SPR INTRANASAL PRN (15:20)
[2022-10-11] MEDS ORDERED: Buprenorp/Nalox 8-2 MG FILM SL SCH (15:30)
[2022-10-11 16:11] LABS: ABS Basophils 0.1 10^3/ul (0-0.2); ABS Lymphocytes 2.5 10^3/ul (1.0-4.8); ABS Monocytes 1.3 10^3/ul (0-0.8); ABS Neutrophils 9.3 10^3/ul (1.5-7.7); Eosinophil % 0.1 %; Hematocrit 45 % (35-47); Hemoglobin 14.5 g/dL (12.0-16.0); Lymphocyte % 18.6 %; Mean Corpuscular HGB Conc 32 g/dL (31-36); Mean Corpuscular Hemoglobin 27 pg (27-31); Mean Corpuscular Volume 82 fL (80-97); Mean Platelet Volume 8.4 fL (7.4-10.4); Platelet Count 449 10^3/uL (150-450); Red Blood Count 5.47 10^6 /uL (3.70-4.87); Red Cell Distribution Width 15 % (10-15); White Blood Count 13.2 10^3/uL (3.5-10.8)
[2022-10-11 16:42] LABS: ALT 15 U/L (7-52); AST 22 U/L (13-39); Albumin 4.4 g/dL (3.2-5.2); Albumin/Globulin Ratio 1.5 (1-3); Alkaline Phosphatase 74 U/L (35-149); Anion Gap 11 mmol/L (2-11); Blood Urea Nitrogen 9 mg/dL (6-24); CO2 Carbon Dioxide 27 mmol/L (22-32); Calcium 9.9 mg/dL (8.6-10.3); Chloride 101 mmol/L (101-111); Creatinine, Serum 0.94 mg/dL (0.51-0.95); Glucose 284 mg/dL (70-100); Lipase 11 U/L (11.0-82.0); Potassium 4.2 mmol/L (3.5-5.0); Sodium 139 mmol/L (135-145); Total Protein 7.4 g/dL (6.4-8.9); eGFR CKD-EPI 80.1 (>60)
[2022-10-11 16:48] LABS: HCG Pregnancy < 0.60 mIU/mL
[2022-10-11] MEDS ORDERED: cloNIDine 0.1 MG PATCH 0.1 MG/24 HR 7 DAY PATCH TRANSDERM SCH (17:30)
[2022-10-11 18:46] VITALS: BP 168/92
== END 2022-10-11 18:47 | disposition short-term general hospital (02) ==
LOC: EDHOLD 17:18 → ED 17:18 → EDHOLD 10-11 18:51
PROVIDERS: ADMIT Hospitalist; ATTEND Hospitalist

== ENCOUNTER 2023-07-03 22:10 | Observation (INO) ==
[2023-07-03] MEDS ORDERED: Acetaminophen IV 1 GM/100ML 1,000 MG/100 ML BAG IV ONE (22:33)
[2023-07-03] MEDS ORDERED: Lactated Ringers 1000 ml BAG 1,000 ML IV ONE (22:33)
[2023-07-03] MEDS ORDERED: Droperidol 5 MG/2 ML 2 ML VIAL IV ONE (22:33)
[2023-07-03] MEDS ORDERED: Ondansetron ODT 4 mg TAB 4 MG TAB SL ONE (23:25)
[2023-07-04 00:21] LABS: ABS Basophils 0.1 10^3/uL (0.0-0.1); ABS Eosinophils 0.2 10^3/uL (0.0-0.5); ABS Lymphocytes 2.4 10^3/uL (1.0-4.8); ABS Monocytes 0.8 10^3/uL (0.0-0.9); ABS Neutrophils 5.1 10^3/uL (1.5-7.6); ABS Nucleated RBC 0.02 10^3/ul; Eosinophil % 1.9 %; Hematocrit 43.5 % (35-45); Hemoglobin 13.8 g/dL (11.5-14.3); Lymphocyte % 27.9 %; Mean Corpuscular Hemoglobin 25.9 pg (27-33); Mean Corpuscular Hgb Conc 31.7 g/dL (31-36); Mean Corpuscular Volume 81.7 fL (80-97); Mean Platelet Volume 8.4 fL (7.5-11.2); Nucleated Red Blood Cells % 0.2 %/100WBC (0.0-0.8); Platelet Count 480 10^3/uL (150-450); Red Blood Count 5.33 10^6/uL (3.63-4.92); White Blood Count 8.5 10^3/uL (3.8-11.8)
[2023-07-04] MEDS ORDERED: fentaNYL 100 mcg/2 ml 50 MCG/ML VIAL IV SLOW PU ONE (00:55)
[2023-07-04] MEDS ORDERED: Metoclopramide 5 MG/ML VIAL (10 mg) IV ONE (00:55)
[2023-07-04 01:17] LABS: ALT 13 U/L (7-52); Albumin 4.1 g/dL (3.2-5.2); Albumin/Globulin Ratio 1.1 (1-3); Alkaline Phosphatase 69 U/L (35-149); Anion Gap 6 mmol/L (2-16); Blood Urea Nitrogen 9 mg/dL (6-24); C Reactive Protein 12.92 mg/L (<8.01); CO2 Carbon Dioxide 28 mmol/L (22-32); Calcium 9.5 mg/dL (8.6-10.3); Chloride 101 mmol/L (101-111); Creatinine, Serum 0.82 mg/dL (0.51-0.95); Globulin 3.9 g/dL (2-4); Glucose 333 mg/dL (70-100); HCG Pregnancy < 0.60 mIU/mL; Lipase 16 U/L (11.0-82.0); Sodium 135 mmol/L (135-145); eGFR CKD-EPI 93.8 (>60)
[2023-07-04] MEDS ORDERED: Lactated Ringers 1000 ml BAG 1,000 ML IV ONE (03:39)
[2023-07-04] MEDS: Prochlorperazine 5 mg/ml 2 ml VIAL (10 mg) IV SCH ×4 (05:59→23:05)
[2023-07-04] MEDS ORDERED: Enalaprilat IV 1.25 mg/ml 1 ml VIAL (1.25 MG) IV ONE (07:33)
[2023-07-04 07:55] LABS: Potassium, Whole Blood 5.5 mmol/L (3.4-4.5)
[2023-07-04] MEDS: fentaNYL 100 mcg/2 ml 50 MCG/ML VIAL IV SLOW PU PRN ×2 (08:06→17:00)
[2023-07-04] MEDS: Ondansetron 4 mg VIAL 2 MG/ML 2 ml VIAL IV PRN ×2 (08:06→19:37)
[2023-07-04] MEDS: Pantoprazole VIAL 40 MG VIAL IV SCH ×2 (08:06→22:02)
[2023-07-04] MEDS: Lactated Ringers 1000 ml BAG 1,000 ML IV SCH ×3 (09:32→23:19)
[2023-07-04] MEDS ORDERED: Labetalol IV 5 MG/ML 20 ml VIAL IV PUSH ONE (10:17)
[2023-07-04] MEDS ORDERED: Famotidine IV 10 MG/ML 2 ml VIAL (20 mg) IV SLOW PU ONE (11:22)
[2023-07-04] MEDS: Sucralfate 1 gm SUSP 1 GM/10 ML UDC PO SCH ×2 (12:39→16:55)
[2023-07-04] MEDS ORDERED: fentaNYL 100 mcg/2 ml 50 MCG/ML VIAL IV SLOW PU PRN (17:53)
[2023-07-04] MEDS ORDERED: Insulin GLARGINE 100 un/ml 10 ml VIAL SUBCUT SCH ×2 (21:00)
[2023-07-05] MEDS: Ondansetron 4 mg VIAL 2 MG/ML 2 ml VIAL IV PRN (01:23)
[2023-07-05] MEDS: Prochlorperazine 5 mg/ml 2 ml VIAL (10 mg) IV SCH ×3 (04:04→17:30)
[2023-07-05] MEDS: Lactated Ringers 1000 ml BAG 1,000 ML IV SCH (06:04)
[2023-07-05 06:37] LABS: Hematocrit 35.2 % (35-45); Hemoglobin 11.3 g/dL (11.5-14.3); Mean Corpuscular Hemoglobin 26.1 pg (27-33); Mean Corpuscular Hgb Conc 32.1 g/dL (31-36); Mean Corpuscular Volume 81.5 fL (80-97); Mean Platelet Volume 8.4 fL (7.5-11.2); Platelet Count 392 10^3/uL (150-450); Red Blood Count 4.32 10^6/uL (3.63-4.92); Red Cell Distribution Width 13.9 % (12-17); White Blood Count 10.6 10^3/uL (3.8-11.8)
[2023-07-05 06:59] LABS: Albumin 3.3 g/dL (3.2-5.2); Albumin/Globulin Ratio 1.2 (1-3); Calcium 8.2 mg/dL (8.6-10.3); Creatinine, Serum 0.87 mg/dL (0.51-0.95); Globulin 2.8 g/dL (2-4); Magnesium 1.9 mg/dL (1.9-2.7); Potassium 3.9 mmol/L (3.5-5.0); Total Bilirubin 1.4 mg/dL (0.2-1.0); Total Protein 6.1 g/dL (6.4-8.9); eGFR CKD-EPI 87.4 (>60)
[2023-07-05] MEDS: Sucralfate 1 gm SUSP 1 GM/10 ML UDC PO SCH ×3 (09:01→17:30)
[2023-07-05] MEDS: Pantoprazole VIAL 40 MG VIAL IV SCH ×2 (09:02→21:33)
[2023-07-05] MEDS ORDERED: Insulin GLARGINE 100 un/ml 10 ml VIAL SUBCUT SCH (21:00)
[2023-07-06] MEDS: Pantoprazole VIAL 40 MG VIAL IV SCH ×2 (00:38→08:44)
[2023-07-06] MEDS: Prochlorperazine 5 mg/ml 2 ml VIAL (10 mg) IV SCH ×3 (00:41→11:30)
[2023-07-06] MEDS: Albuterol HFA INHALER 8 gm MDI INH PRN ×2 (01:21→09:17)
[2023-07-06 05:49] LABS: ABS Basophils 0.1 10^3/uL (0.0-0.1); ABS Eosinophils 0.2 10^3/uL (0.0-0.5); ABS Lymphocytes 2.9 10^3/uL (1.0-4.8); ABS Monocytes 0.8 10^3/uL (0.0-0.9); ABS Neutrophils 4.2 10^3/uL (1.5-7.6); Eosinophil % 2.6 %; Hematocrit 36.8 % (35-45); Hemoglobin 11.8 g/dL (11.5-14.3); Lymphocyte % 35.6 %; Mean Corpuscular Hemoglobin 26.3 pg (27-33); Mean Corpuscular Hgb Conc 32.2 g/dL (31-36); Mean Corpuscular Volume 81.5 fL (80-97); Mean Platelet Volume 8.1 fL (7.5-11.2); Platelet Count 357 10^3/uL (150-450); Red Blood Count 4.51 10^6/uL (3.63-4.92); Red Cell Distribution Width 13.8 % (12-17); White Blood Count 8.2 10^3/uL (3.8-11.8)
[2023-07-06 06:07] LABS: Albumin 3.3 g/dL (3.2-5.2); Albumin/Globulin Ratio 1.2 (1-3); Calcium 8.2 mg/dL (8.6-10.3); Creatinine, Serum 0.83 mg/dL (0.51-0.95); Globulin 2.7 g/dL (2-4); Magnesium 1.9 mg/dL (1.9-2.7); Potassium 3.9 mmol/L (3.5-5.0); eGFR CKD-EPI 92.5 (>60)
[2023-07-06] MEDS: Sucralfate 1 gm SUSP 1 GM/10 ML UDC PO SCH (08:42)
[2023-07-06 11:00] VITALS: BP 122/79
== END 2023-07-06 11:20 | disposition home or self-care (01) ==
LOC: ED 22:10 → EDHOLD 22:10 → SUATTDRO 07-04 04:20 → SSU 07-04 10:27
PROVIDERS: ADMIT Student in an Organized Health Care Education/Training Program; ATTEND Hospitalist

== ENCOUNTER 2023-07-21 10:21 | Observation (INO) ==
[2023-07-21] MEDS ORDERED: Droperidol 5 MG/2 ML 2 ML VIAL IV ONE (10:48)
[2023-07-21] MEDS ORDERED: Magnesium Sulfate IV 1GM/100ML 1 GM/100 ML BAG IV ONE (10:48)
[2023-07-21] MEDS ORDERED: Lactated Ringers 1000 ml BAG 1,000 ML IV ONE ×2 (10:48→12:11)
[2023-07-21 11:31] LABS: Urine Appearance Clear; Urine Bilirubin Negative (Negative); Urine Blood 2+ (Negative); Urine Color Straw; Urine Glucose 3+(>=500 mg/dL) (Negative); Urine Ketones 1+ (Negative); Urine Nitrite Negative (Negative); Urine Protein Negative (Negative); Urine Specific Gravity 1.035 (1.002-1.030); Urine Urobilinogen Negative (Negative)
[2023-07-21 11:44] LABS: Urine Bacteria Absent (Absent); Urine Red Blood Cell Trace(0-2/hpf) (Absent); Urine Squamous Epithelial Cell Present (Absent); Urine White Blood Cell Absent (Absent)
[2023-07-21 12:10] LABS: ALT 12 U/L (7-52); Albumin 4.3 g/dL (3.2-5.2); Albumin/Globulin Ratio 1.2 (1-3); Alkaline Phosphatase 66 U/L (35-149); Anion Gap 13 mmol/L (2-16); Blood Urea Nitrogen 18 mg/dL (6-24); C Reactive Protein 18.68 mg/L (<8.01); CO2 Carbon Dioxide 25 mmol/L (22-32); Calcium 9.1 mg/dL (8.6-10.3); Chloride 94 mmol/L (101-111); Creatinine, Serum 0.97 mg/dL (0.51-0.95); Globulin 3.7 g/dL (2-4); Glucose 588 mg/dL (70-100); Lipase 23 U/L (11.0-82.0); Sodium 132 mmol/L (135-145); Total Bilirubin 1.7 mg/dL (0.2-1.0); eGFR CKD-EPI 76.7 (>60)
[2023-07-21 13:14] LABS: ABS Basophils 0.1 10^3/uL (0.0-0.1); ABS Lymphocytes 2.3 10^3/uL (1.0-4.8); ABS Monocytes 1.3 10^3/uL (0.0-0.9); ABS Neutrophils 11.6 10^3/uL (1.5-7.6); ABS Nucleated RBC 0.01 10^3/ul; Hematocrit 44.5 % (35-45); Hemoglobin 14.2 g/dL (11.5-14.3); Lymphocyte % 14.8 %; Mean Corpuscular Hemoglobin 26.1 pg (27-33); Mean Corpuscular Volume 81.6 fL (80-97); Mean Platelet Volume 8.8 fL (7.5-11.2); Platelet Count 503 10^3/uL (150-450); Red Blood Count 5.45 10^6/uL (3.63-4.92); Red Cell Distribution Width 13.6 % (12-17); White Blood Count 15.3 10^3/uL (3.8-11.8)
[2023-07-21 13:17] LABS: Venous Bicarbonate HCO3 29.7 mmol/L (24-28)
[2023-07-21 13:33] LABS: Magnesium 2.6 mg/dL (1.9-2.7); Potassium Redraw 3.9 mmol/L (3.5-5.0)
[2023-07-21] MEDS ORDERED: Metoclopramide 5 MG/ML VIAL (10 mg) IV SLOW PU ONE (15:19)
[2023-07-21] MEDS ORDERED: Acetaminophen IV 1 GM/100ML 1,000 MG/100 ML BAG IV ONE (16:27)
[2023-07-21] MEDS ORDERED: Ondansetron 4 mg VIAL 2 MG/ML 2 ml VIAL IV PRN (17:50)
[2023-07-21] MEDS ORDERED: Albuterol HFA INHALER 8 gm MDI INH PRN (18:14)
[2023-07-21] MEDS: Prochlorperazine 5 mg/ml 2 ml VIAL (10 mg) IV SCH ×2 (18:30→23:41)
[2023-07-21] MEDS: Insulin GLARGINE 100 un/ml 10 ml VIAL SUBCUT SCH (18:31)
[2023-07-21] MEDS ORDERED: Acetaminophen IV 1 GM/100ML 1,000 MG/100 ML BAG IV PRN (18:42)
[2023-07-21] MEDS ORDERED: fentaNYL 100 mcg/2 ml 50 MCG/ML VIAL IV SLOW PU PRN (18:42)
[2023-07-21] MEDS ORDERED: Dextrose 50% Syringe 50 ml 25 GM/50 ML SYRINGE IV PUSH PRN (18:43)
[2023-07-21 19:05] LABS: PCO2 Arterial 45 mmHg (35-45); PO2 Arterial 66 mmHg (80-100)
[2023-07-21] MEDS: Mometasone/Formoter 200/5 MDI INH SCH (20:34)
[2023-07-21] MEDS: hydrALAZINE 20 mg/ml 1 ML Vial IV IV SLOW PU PRN (22:15)
[2023-07-21] MEDS: Lactated Ringers 1000 ml BAG 1,000 ML IV SCH (22:17)
[2023-07-22] MEDS: Prochlorperazine 5 mg/ml 2 ml VIAL (10 mg) IV SCH ×3 (05:04→16:44)
[2023-07-22] MEDS: Lactated Ringers 1000 ml BAG 1,000 ML IV SCH (05:04)
[2023-07-22 05:42] LABS: ABS Basophils 0.1 10^3/uL (0.0-0.1); ABS Lymphocytes 2.7 10^3/uL (1.0-4.8); ABS Monocytes 1.2 10^3/uL (0.0-0.9); ABS Neutrophils 8.7 10^3/uL (1.5-7.6); Eosinophil % 0.2 %; Hemoglobin 12.9 g/dL (11.5-14.3); Lymphocyte % 21.2 %; Mean Corpuscular Hemoglobin 26.5 pg (27-33); Mean Corpuscular Hgb Conc 32.2 g/dL (31-36); Mean Corpuscular Volume 82.2 fL (80-97); Mean Platelet Volume 8.3 fL (7.5-11.2); Platelet Count 394 10^3/uL (150-450); Red Blood Count 4.87 10^6/uL (3.63-4.92); Red Cell Distribution Width 13.8 % (12-17); White Blood Count 12.7 10^3/uL (3.8-11.8)
[2023-07-22 05:59] LABS: Glucose Confirmatory 445 mg/dL (70-100)
[2023-07-22 06:00] LABS: Calcium 8.5 mg/dL (8.6-10.3); Creatinine, Serum 0.79 mg/dL (0.51-0.95); Magnesium 2.2 mg/dL (1.9-2.7); Potassium 3.7 mmol/L (3.5-5.0); eGFR CKD-EPI 98.1 (>60)
[2023-07-22] MEDS: hydrALAZINE 20 mg/ml 1 ML Vial IV IV SLOW PU PRN (06:19)
[2023-07-22] MEDS: Insulin GLARGINE 100 un/ml 10 ml VIAL SUBCUT SCH (08:24)
[2023-07-22] MEDS: Mometasone/Formoter 200/5 MDI INH SCH ×2 (09:21→20:21)
[2023-07-22] MEDS ORDERED: Insulin GLARGINE 100 un/ml 10 ml VIAL SUBCUT ONE (10:31)
[2023-07-22 10:41] LABS: Osmolality Serum 298 mOsm/kg (275-295)
[2023-07-22] MEDS ORDERED: Lactated Ringers 1000 ml BAG 1,000 ML IV SCH (12:00)
[2023-07-22] MEDS ORDERED: Albuterol/Ipratropium NEB.SOL (2.5/0.5 MG) 3 ML NEB.SOLN INH PRN (12:30)
[2023-07-22] MEDS: DULoxetine DR 30 mg CAP PO SCH (13:01)
[2023-07-22] MEDS ORDERED: Calcium Carb (TUMS) 500 mg CHEW TAB PO ONE ×2 (13:10→19:56)
[2023-07-22] MEDS: Fluticasone NASAL SPRAY 50MCG 16 gm SPRAY BTL INTRANASAL SCH (13:35)
[2023-07-22] MEDS: ERTUGLIFLOZIN 15 MG PO SCH (16:03)
[2023-07-23] MEDS: Mometasone/Formoter 200/5 MDI INH SCH (07:18)
[2023-07-23] MEDS ORDERED: Insulin GLARGINE 100 un/ml 10 ml VIAL SUBCUT SCH (09:00)
[2023-07-23] MEDS: ERTUGLIFLOZIN 15 MG PO SCH (09:36)
[2023-07-23] MEDS: Fluticasone NASAL SPRAY 50MCG 16 gm SPRAY BTL INTRANASAL SCH (09:40)
[2023-07-23] MEDS: DULoxetine DR 30 mg CAP PO SCH (09:40)
[2023-07-23 12:25] VITALS: BP 173/74
== END 2023-07-23 13:05 | disposition home or self-care (01) ==
LOC: ED 10:21 → EDHOLD 10:21 → SUATTDRO 17:33 → MEDTELE 20:29
PROVIDERS: ADMIT Internal Medicine; ATTEND Student in an Organized Health Care Education/Training Program

== ENCOUNTER 2023-09-25 10:48 | Inpatient (IN) ==
[2023-09-25 11:39] LABS: ABS Basophils 0.1 10^3/uL (0.0-0.1); ABS Lymphocytes 2.7 10^3/uL (1.0-4.8); ABS Monocytes 0.9 10^3/uL (0.0-0.9); ABS Neutrophils 6.2 10^3/uL (1.5-7.6); ABS Nucleated RBC 0.01 10^3/ul; Eosinophil % 0.1 %; Hematocrit 42.3 % (35-45); Hemoglobin 13.5 g/dL (11.5-14.3); Lymphocyte % 27.1 %; Mean Corpuscular Volume 81.5 fL (80-97); Mean Platelet Volume 8.2 fL (7.5-11.2); Nucleated Red Blood Cells % 0.1 %/100WBC (0.0-0.8); Platelet Count 428 10^3/uL (150-450); Red Cell Distribution Width 15.1 % (12-17); White Blood Count 9.9 10^3/uL (3.8-11.8)
[2023-09-25 11:52] LABS: INR 1.22 (0.83-1.13)
[2023-09-25 12:17] LABS: Albumin/Globulin Ratio 1.2 (1-3); Calcium 9.3 mg/dL (8.6-10.3); Creatinine, Serum 0.98 mg/dL (0.51-0.95); Globulin 3.3 g/dL (2-4); Total Bilirubin 1.8 mg/dL (0.2-1.0); Total Protein 7.3 g/dL (6.4-8.9); eGFR CKD-EPI 75.8 (>60)
[2023-09-25] MEDS: NS 0.9% 1000 ml BAG 1,000 ML IV ONE ×2 (12:20→16:25)
[2023-09-25 12:37] LABS: Urine Appearance Clear; Urine Bilirubin Negative (Negative); Urine Blood Negative (Negative); Urine Color Yellow; Urine Glucose 4+ (>=1000 mg/dL) (Negative); Urine Ketones 1+ (Negative); Urine Nitrite Negative (Negative); Urine Protein Trace (Negative); Urine Specific Gravity 1.024 (1.002-1.030); Urine Urobilinogen 2+ (Negative); Urine pH 5.5 (5.0-8.0)
[2023-09-25] MEDS: Ondansetron 4 mg VIAL 2 MG/ML 2 ml VIAL IV ONE (12:40)
[2023-09-25] MEDS ORDERED: Lorazepam PYXIS KEY PRN ×2 (12:54→15:13)
[2023-09-25] MEDS: LORazepam 2 mg VIAL 1 ml IV PUSH ONE ×2 (13:18→15:28)
[2023-09-25 13:22] LABS: Urine Appearance Clear; Urine Bilirubin Negative (Negative); Urine Blood Negative (Negative); Urine Color Yellow; Urine Glucose 4+ (>=1000 mg/dL) (Negative); Urine Ketones 1+ (Negative); Urine Nitrite Negative (Negative); Urine Protein Trace (Negative); Urine Specific Gravity 1.024 (1.002-1.030); Urine Urobilinogen 2+ (Negative); Urine pH 5.5 (5.0-8.0)
[2023-09-25 13:31] LABS: High Sensitivity Troponin 1 Hr 3 pg/mL (<15)
[2023-09-25] MEDS: fentaNYL 100 mcg/2 ml 50 MCG/ML VIAL IV SLOW PU ONE (16:24)
[2023-09-25] MEDS: Metoclopramide 5 MG/ML VIAL (10 mg) IV SLOW PU ONE (16:25)
[2023-09-25] MEDS ORDERED: Albuterol HFA INHALER 8 gm MDI INH PRN (18:12)
[2023-09-25] MEDS ORDERED: Sucralfate 1 gm SUSP 1 GM/10 ML UDC PO PRN (18:19)
[2023-09-25] MEDS ORDERED: Dextrose 50% Syringe 50 ml 25 GM/50 ML SYRINGE IV PUSH PRN (18:20)
[2023-09-25] MEDS ORDERED: fentaNYL 100 mcg/2 ml 50 MCG/ML VIAL IV SLOW PU PRN (18:47)
[2023-09-25] MEDS ORDERED: LORazepam 2 mg VIAL 1 ml IV PUSH PRN (18:48)
[2023-09-25] MEDS ORDERED: Metoclopramide 5 MG/ML VIAL (10 mg) IV SLOW PU PRN (18:49)
[2023-09-25] MEDS: Lactated Ringers 1000 ml BAG 1,000 ML IV SCH (20:20)
[2023-09-25] MEDS: Enoxaparin 40 MG/0.4 ML SYR SUBCUT SCH (20:24)
[2023-09-25] MEDS: Pantoprazole VIAL 40 MG VIAL IV SCH (20:24)
[2023-09-25] MEDS: Al Hydrox/Mg Hydrox/Simet LIQ 30 ML UDC PO ONE (20:24)
[2023-09-25] MEDS: Famotidine IV 10 MG/ML 2 ml VIAL (20 mg) IV SLOW PU ONE (20:24)
[2023-09-25] MEDS: Mometasone/Formoter 200/5 MDI INH SCH (21:05)
[2023-09-25] MEDS: Ondansetron 4 mg VIAL 2 MG/ML 2 ml VIAL IV PRN (22:05)
[2023-09-25] MEDS: LORazepam 2 mg VIAL 1 ml IV PUSH PRN (22:06)
[2023-09-25] MEDS: Insulin GLARGINE 100 un/ml 10 ml VIAL SUBCUT SCH (22:09)
[2023-09-25] MEDS: fentaNYL 100 mcg/2 ml 50 MCG/ML VIAL IV SLOW PU PRN (22:13)
[2023-09-26] MEDS: Sucralfate 1 gm SUSP 1 GM/10 ML UDC PO SCH (07:47)
[2023-09-26] MEDS: DULoxetine DR 30 mg CAP PO SCH (08:24)
[2023-09-26] MEDS: Mometasone/Formoter 200/5 MDI INH SCH (08:31)
[2023-09-26] MEDS: Fluticasone NASAL SPRAY 50MCG 16 gm SPRAY BTL INTRANASAL SCH (08:32)
[2023-09-26] MEDS: Famotidine IV 10 MG/ML 2 ml VIAL (20 mg) IV SLOW PU ONE (10:01)
[2023-09-26 10:07] LABS: Urine Benzodiazepine Screen None Detected (None Detect); Urine Buprenorphine Screen None Detected (None Detect); Urine Cannabinoids Screen Presumptive Positive (None Detect); Urine Fentanyl Screen Presumptive Positive (None Detect); Urine Hydrocodone Screen None Detected (None Detect); Urine Opiates Screen None Detected (None Detect)
[2023-09-26] MEDS: Insulin GLARGINE 100 un/ml 10 ml VIAL SUBCUT ONE (11:37)
[2023-09-26] MEDS: Al Hydrox/Mg Hydrox/Simet LIQ 30 ML UDC PO PRN (16:45)
[2023-09-26 19:16] LABS: Urine Benzodiazepine Screen None Detected (None Detect); Urine Cannabinoids Screen Presumptive Positive (None Detect); Urine Opiates Screen None Detected (None Detect)
[2023-09-26] MEDS: Insulin GLARGINE 100 un/ml 10 ml VIAL SUBCUT SCH (20:53)
[2023-09-27 06:22] LABS: ABS Eosinophils 0.1 10^3/uL (0.0-0.5); ABS Lymphocytes 1.7 10^3/uL (1.0-4.8); ABS Monocytes 0.5 10^3/uL (0.0-0.9); ABS Neutrophils 2.6 10^3/uL (1.5-7.6); Eosinophil % 1.9 %; Hematocrit 33.1 % (35-45); Hemoglobin 10.8 g/dL (11.5-14.3); Lymphocyte % 33.9 %; Mean Corpuscular Hemoglobin 26.4 pg (27-33); Mean Corpuscular Hgb Conc 32.7 g/dL (31-36); Mean Corpuscular Volume 80.6 fL (80-97); Mean Platelet Volume 8.2 fL (7.5-11.2); Nucleated Red Blood Cells % 0.1 %/100WBC (0.0-0.8); Platelet Count 381 10^3/uL (150-450); Red Cell Distribution Width 14.6 % (12-17)
[2023-09-27 07:43] LABS: Albumin 3.2 g/dL (3.2-5.2); Albumin/Globulin Ratio 1.4 (1-3); Creatinine, Serum 0.68 mg/dL (0.51-0.95); Globulin 2.3 g/dL (2-4); Magnesium 1.8 mg/dL (1.9-2.7); Potassium 3.8 mmol/L (3.5-5.0); Total Bilirubin 0.7 mg/dL (0.2-1.0); Total Protein 5.5 g/dL (6.4-8.9); eGFR CKD-EPI 114.3 (>60)
[2023-09-27] MEDS: Insulin GLARGINE 100 un/ml 10 ml VIAL SUBCUT SCH (21:42)
[2023-09-28 05:43] LABS: ABS Basophils 0.1 10^3/uL (0.0-0.1); ABS Eosinophils 0.2 10^3/uL (0.0-0.5); ABS Lymphocytes 2.5 10^3/uL (1.0-4.8); ABS Monocytes 0.6 10^3/uL (0.0-0.9); ABS Neutrophils 2.8 10^3/uL (1.5-7.6); ABS Nucleated RBC 0.01 10^3/ul; Eosinophil % 3.4 %; Hematocrit 34.7 % (35-45); Hemoglobin 11.1 g/dL (11.5-14.3); Lymphocyte % 39.8 %; Mean Corpuscular Hemoglobin 25.8 pg (27-33); Mean Corpuscular Hgb Conc 31.9 g/dL (31-36); Mean Corpuscular Volume 80.9 fL (80-97); Nucleated Red Blood Cells % 0.1 %/100WBC (0.0-0.8); Platelet Count 413 10^3/uL (150-450); Red Blood Count 4.29 10^6/uL (3.63-4.92); Red Cell Distribution Width 14.7 % (12-17); White Blood Count 6.2 10^3/uL (3.8-11.8)
[2023-09-28 06:12] LABS: Calcium 8.1 mg/dL (8.6-10.3); Creatinine, Serum 0.63 mg/dL (0.51-0.95); Potassium 4.2 mmol/L (3.5-5.0); eGFR CKD-EPI 116.4 (>60)
[2023-09-28] MEDS: Magnesium CITRATE LIQ 300 ML BTL PO ONE (11:35)
[2023-09-28 13:57] VITALS: BP 136/73
[2023-09-28 16:37] LABS: Ferritin 117.7 ng/mL (11-307)
== END 2023-09-28 16:30 | disposition home or self-care (01) | DRG 48 ==
LOC: ED 10:48 → EDHOLD 10:48 → SUATTDRO 18:09 → MED 21:08
PROVIDERS: ADMIT Hospitalist; ATTEND Student in an Organized Health Care Education/Training Program

== ENCOUNTER 2023-12-05 15:10 | Inpatient (IN) ==
[2023-12-05] MEDS: Al Hydrox/Mg Hydrox/Simet LIQ 30 ML UDC PO ONE (16:49)
[2023-12-05] MEDS: Droperidol 5 MG/2 ML 2 ML VIAL IM ONE (16:57)
[2023-12-05] MEDS: Droperidol 5 MG/2 ML 2 ML VIAL IV ONE (17:00)
[2023-12-05] MEDS: Lactated Ringers 1000 ml BAG 1,000 ML IV ONE ×2 (19:50→20:55)
[2023-12-05 19:59] LABS: ABS Basophils 0.1 10^3/uL (0.0-0.1); ABS Lymphocytes 2.5 10^3/uL (1.0-4.8); ABS Monocytes 1.5 10^3/uL (0.0-0.9); ABS Neutrophils 8.8 10^3/uL (1.5-7.6); ABS Nucleated RBC 0.01 10^3/ul; Hematocrit 40.5 % (35-45); Hemoglobin 12.9 g/dL (11.5-14.3); Lymphocyte % 19.3 %; Mean Corpuscular Hemoglobin 25.6 pg (27-33); Mean Corpuscular Hgb Conc 31.9 g/dL (31-36); Mean Corpuscular Volume 80.2 fL (80-97); Mean Platelet Volume 8.7 fL (7.5-11.2); Nucleated Red Blood Cells % 0.1 %/100WBC (0.0-0.8); Platelet Count 474 10^3/uL (150-450); Red Blood Count 5.04 10^6/uL (3.63-4.92); Red Cell Distribution Width 14.6 % (12-17); White Blood Count 12.9 10^3/uL (3.8-11.8)
[2023-12-05 20:42] LABS: ALT 10 U/L (7-52); AST 11 U/L (13-39); Albumin 4.2 g/dL (3.2-5.2); Albumin/Globulin Ratio 1.2 (1-3); Alkaline Phosphatase 73 U/L (35-149); Anion Gap 13 mmol/L (2-16); Blood Urea Nitrogen 26 mg/dL (6-24); CO2 Carbon Dioxide 31 mmol/L (22-32); Chloride 97 mmol/L (101-111); Creatinine, Serum 1.31 mg/dL (0.51-0.95); Globulin 3.4 g/dL (2-4); Glucose 568 mg/dL (70-100); Lipase 12 U/L (11.0-82.0); Magnesium 2.2 mg/dL (1.9-2.7); Potassium 4.4 mmol/L (3.5-5.0); Sodium 141 mmol/L (135-145); Total Bilirubin 1.7 mg/dL (0.2-1.0); Total Protein 7.6 g/dL (6.4-8.9); eGFR CKD-EPI 53.5 (>60)
[2023-12-05] MEDS ORDERED: Dextrose 50% Syringe 50 ml 25 GM/50 ML SYRINGE IV PUSH PRN (20:47)
[2023-12-05] MEDS: Ondansetron 4 mg VIAL 2 MG/ML 2 ml VIAL IV ONE (20:55)
[2023-12-05] MEDS: Morphine 2 MG/ML SYRINGE IV ONE (20:55)
[2023-12-05] MEDS: Famotidine IV 10 MG/ML 2 ml VIAL (20 mg) IV SLOW PU ONE (22:26)
[2023-12-05] MEDS ORDERED: Lidocaine 1% VIAL 10 MG/ML 30 ML VIAL ONE (23:56)
[2023-12-06 00:10] LABS: HCG Pregnancy < 0.60 mIU/mL
[2023-12-06 00:59] LABS: Venous Bicarbonate HCO3 30.3 mmol/L (24-28)
[2023-12-06] MEDS: Ondansetron 4 mg VIAL 2 MG/ML 2 ml VIAL IV ONE (01:10)
[2023-12-06 01:15] LABS: Glucose Confirmatory 476 mg/dL (70-100)
[2023-12-06] MEDS ORDERED: Dextrose 50% Syringe 50 ml 25 GM/50 ML SYRINGE IV PUSH PRN ×2 (01:27→06:44)
[2023-12-06] MEDS: Droperidol 5 MG/2 ML 2 ML VIAL IV ONE (03:03)
[2023-12-06] MEDS ORDERED: Albuterol/Ipratropium NEB.SOL (2.5/0.5 MG) 3 ML NEB.SOLN INH PRN (06:38)
[2023-12-06 07:22] LABS: Calcium 9.8 mg/dL (8.6-10.3); Creatinine, Serum 1.11 mg/dL (0.51-0.95); Potassium 4.3 mmol/L (3.5-5.0); eGFR CKD-EPI 64.8 (>60)
[2023-12-06] MEDS: Pantoprazole VIAL 40 MG VIAL IV SCH (08:05)
[2023-12-06] MEDS: Enoxaparin 40 MG/0.4 ML SYR SUBCUT SCH (08:06)
[2023-12-06] MEDS: Lactated Ringers 1000 ml BAG 1,000 ML IV SCH (08:19)
[2023-12-06 08:36] LABS: Urine Benzodiazepine Screen None Detected (None Detect); Urine Cannabinoids Screen None Detected (None Detect); Urine Opiates Screen Presumptive Positive (None Detect)
[2023-12-06] MEDS: DULoxetine DR 30 mg CAP PO SCH (10:21)
[2023-12-06] MEDS: Insulin GLARGINE 100 un/ml 10 ml VIAL SUBCUT SCH (10:22)
[2023-12-06] MEDS: ERTUGLIFLOZIN 15 MG PO SCH (12:34)
[2023-12-06] MEDS: Ondansetron 4 mg VIAL 2 MG/ML 2 ml VIAL IV PRN (13:15)
[2023-12-06] MEDS: hydrALAZINE 20 mg/ml 1 ML Vial IV IV SLOW PU PRN (15:44)
[2023-12-06] MEDS: Mometasone/Formoter 200/5 MDI INH SCH (18:51)
[2023-12-07 00:16] LABS: Glucose Confirmatory 414 mg/dL (70-100)
[2023-12-07] MEDS ORDERED: Dextrose 50% Syringe 50 ml 25 GM/50 ML SYRINGE IV PUSH PRN (01:12)
[2023-12-07] MEDS: hydrALAZINE 20 mg/ml 1 ML Vial IV IV SLOW PU PRN (02:03)
[2023-12-07] MEDS ORDERED: Albuterol HFA INHALER 8 gm MDI INH PRN (08:03)
[2023-12-07] MEDS ORDERED: Insulin GLARGINE 100 un/ml 10 ml VIAL SUBCUT SCH ×2 (09:00)
[2023-12-07] MEDS: Ondansetron ODT 4 mg TAB 4 MG TAB PO PRN (09:09)
[2023-12-07] MEDS: Insulin GLARGINE 100 un/ml 10 ml VIAL SUBCUT SCH (09:11)
[2023-12-07 09:43] LABS: ABS Basophils 0.1 10^3/uL (0.0-0.1); ABS Eosinophils 0.1 10^3/uL (0.0-0.5); ABS Lymphocytes 2.2 10^3/uL (1.0-4.8); ABS Monocytes 0.9 10^3/uL (0.0-0.9); ABS Neutrophils 3.9 10^3/uL (1.5-7.6); ABS Nucleated RBC 0.01 10^3/ul; Eosinophil % 0.8 %; Hematocrit 37.6 % (35-45); Hemoglobin 12.1 g/dL (11.5-14.3); Lymphocyte % 31.5 %; Mean Corpuscular Hemoglobin 25.9 pg (27-33); Mean Corpuscular Hgb Conc 32.2 g/dL (31-36); Mean Corpuscular Volume 80.6 fL (80-97); Mean Platelet Volume 8.6 fL (7.5-11.2); Nucleated Red Blood Cells % 0.2 %/100WBC (0.0-0.8); Platelet Count 340 10^3/uL (150-450); Red Blood Count 4.67 10^6/uL (3.63-4.92); Red Cell Distribution Width 14.2 % (12-17); White Blood Count 7.1 10^3/uL (3.8-11.8)
[2023-12-07] MEDS ORDERED: fentaNYL 100 mcg/2 ml 50 MCG/ML VIAL IV SLOW PU PRN (10:55)
[2023-12-07] MEDS: Metoclopramide 5 MG/ML VIAL (10 mg) IV ONE (11:23)
[2023-12-07] MEDS: SUMAtriptan Subcut 6 MG/0.5 ML VIAL SUBCUT ONE (11:23)
[2023-12-07 12:08] LABS: Albumin 3.8 g/dL (3.2-5.2); Albumin/Globulin Ratio 1.3 (1-3); Calcium 8.7 mg/dL (8.6-10.3); Creatinine, Serum 0.85 mg/dL (0.51-0.95); Total Bilirubin 1.6 mg/dL (0.2-1.0); Total Protein 6.8 g/dL (6.4-8.9); eGFR CKD-EPI 89.3 (>60)
[2023-12-08 07:47] LABS: Calcium 8.5 mg/dL (8.6-10.3); Creatinine, Serum 0.85 mg/dL (0.51-0.95); Potassium 3.7 mmol/L (3.5-5.0); eGFR CKD-EPI 89.3 (>60)
[2023-12-08] MEDS: Insulin GLARGINE 100 un/ml 10 ml VIAL SUBCUT ONE (14:44)
[2023-12-08] MEDS: Lactulose 30 ml UDC PO SCH (21:22)
[2023-12-09 04:54] LABS: Hematocrit 37.2 % (35-45); Mean Corpuscular Hemoglobin 25.8 pg (27-33); Mean Corpuscular Hgb Conc 32.3 g/dL (31-36); Mean Corpuscular Volume 79.7 fL (80-97); Mean Platelet Volume 8.4 fL (7.5-11.2); Platelet Count 301 10^3/uL (150-450); Red Blood Count 4.66 10^6/uL (3.63-4.92); Red Cell Distribution Width 14.1 % (12-17); White Blood Count 6.6 10^3/uL (3.8-11.8)
[2023-12-09 05:42] LABS: Calcium 8.7 mg/dL (8.6-10.3); Creatinine, Serum 0.74 mg/dL (0.51-0.95); Potassium 3.6 mmol/L (3.5-5.0); eGFR CKD-EPI 105.5 (>60)
[2023-12-09] MEDS: Insulin GLARGINE 100 un/ml 10 ml VIAL SUBCUT SCH (08:17)
[2023-12-09 14:11] VITALS: BP 127/89
[2023-12-09] MEDS: Sodium Phosphate ADULT ENEMA 133 ML BTL PR PRN (14:54)
== END 2023-12-09 16:20 | disposition home or self-care (01) | DRG 254 ==
LOC: EDHOLD 15:10 → ED 15:10 → SUATTDRO 12-06 06:37 → MED 12-06 10:17
PROVIDERS: ADMIT Internal Medicine; ATTEND Internal Medicine

== ENCOUNTER 2024-01-04 13:10 | Inpatient (IN) ==
[2024-01-04 14:57] LABS: Glucose Confirmatory 471 mg/dL (70-100)
[2024-01-04 15:25] LABS: Venous Bicarbonate HCO3 28.5 mmol/L (24-28)
[2024-01-04 15:30] LABS: ABS Basophils 0.1 10^3/uL (0.0-0.1); ABS Eosinophils 0.1 10^3/uL (0.0-0.5); ABS Lymphocytes 1.9 10^3/uL (1.0-4.8); ABS Monocytes 0.6 10^3/uL (0.0-0.9); ABS Neutrophils 3.5 10^3/uL (1.5-7.6); Hematocrit 41.2 % (35-45); Hemoglobin 13.3 g/dL (11.5-14.3); Mean Corpuscular Hemoglobin 25.7 pg (27-33); Mean Corpuscular Hgb Conc 32.4 g/dL (31-36); Mean Corpuscular Volume 79.4 fL (80-97); Mean Platelet Volume 8.4 fL (7.5-11.2); Platelet Count 382 10^3/uL (150-450); Red Blood Count 5.19 10^6/uL (3.63-4.92); Red Cell Distribution Width 14.3 % (12-17); White Blood Count 6.1 10^3/uL (3.8-11.8)
[2024-01-04 15:40] LABS: Ur Squamous Epithelial No Cx Present /HPF (Absent); Urine Appearance No Cx Clear (Clear); Urine Bacteria No Culture Absent /HPF (Absent); Urine Bilirubin No Culture Negative (Negative); Urine Blood No Culture 2+ (Negative); Urine Color No Culture Light-Yellow; Urine Glucose No Culture 4+ (>=1000 mg/dL) (Negative); Urine Ketones No Culture Negative (Negative); Urine Leukocytes No Culture Negative Leu/uL (Negative); Urine Nitrite No Culture Negative (Negative); Urine Protein No Culture Negative (Negative); Urine Red Blood Cell No Cult Trace(0-2/hpf) /HPF (0-Trace); Urine Specific Gravity No Cx 1.034 (1.002-1.030); Urine Urobilinogen No Cx Negative (Negative); Urine White Blood Cell No Cult Trace(0-5/hpf) /HPF (0-Trace); Urine pH No Culture 6.5 (5.0-8.0)
[2024-01-04] MEDS: NS 0.9% 1000 ml BAG 1,000 ML IV ONE (16:12)
[2024-01-04] MEDS: Prochlorperazine 5 mg/ml 2 ml VIAL (10 mg) IV ONE (16:15)
[2024-01-04] MEDS: Morphine 4 MG/ML VIAL (1 ml) IV ONE (16:17)
[2024-01-04 16:18] LABS: Albumin 3.8 g/dL (3.2-5.2); Albumin/Globulin Ratio 1.4 (1-3); Creatinine, Serum 0.88 mg/dL (0.51-0.95); Globulin 2.8 g/dL (2-4); Magnesium 2.1 mg/dL (1.9-2.7); Potassium 4.5 mmol/L (3.5-5.0); Total Bilirubin 0.7 mg/dL (0.2-1.0); Total Protein 6.6 g/dL (6.4-8.9); eGFR CKD-EPI 85.7 (>60)
[2024-01-04] MEDS ORDERED: Dextrose 50% Syringe 50 ml 25 GM/50 ML SYRINGE IV PUSH PRN ×2 (18:30→19:32)
[2024-01-04] MEDS: Labetalol IV 5 MG/ML 20 ml VIAL IV PUSH ONE (19:08)
[2024-01-04] MEDS: Insulin GLARGINE 100 un/ml 10 ml VIAL SUBCUT SCH (19:42)
[2024-01-04] MEDS: Scopolamine 1 mg/72hr PATCH TRANSDERM SCH (19:44)
[2024-01-04] MEDS: LORazepam 2 MG/ML 1 mL Syringe IV ONE (19:44)
[2024-01-04] MEDS: Acetaminophen IV 1 GM/100ML 1,000 MG/100 ML BAG IV SCH (19:45)
[2024-01-05] MEDS ORDERED: Labetalol IV 5 MG/ML 20 ml VIAL IV PUSH PRN (01:00)
[2024-01-05 05:53] LABS: Hematocrit 35.1 % (35-45); Hemoglobin 11.3 g/dL (11.5-14.3); Mean Corpuscular Hemoglobin 25.7 pg (27-33); Mean Corpuscular Hgb Conc 32.2 g/dL (31-36); Mean Corpuscular Volume 79.7 fL (80-97); Mean Platelet Volume 8.5 fL (7.5-11.2); Platelet Count 291 10^3/uL (150-450); Red Cell Distribution Width 14.1 % (12-17); White Blood Count 5.5 10^3/uL (3.8-11.8)
[2024-01-05 06:21] LABS: Calcium 7.7 mg/dL (8.6-10.3); Creatinine, Serum 0.72 mg/dL (0.51-0.95); Potassium 3.5 mmol/L (3.5-5.0)
[2024-01-05 07:47] LABS: Magnesium 1.8 mg/dL (1.9-2.7)
[2024-01-05] MEDS: Potassium Chlor 20 meq TAB.ER PO ONE (10:02)
[2024-01-05] MEDS: Ondansetron 4 mg VIAL 2 MG/ML 2 ml VIAL IV PRN (10:03)
[2024-01-05] MEDS: Magnesium Sulfate 2 gm BAG 2 GM/50 ML BAG IVPB ONE (11:09)
[2024-01-05] MEDS: Insulin GLARGINE 100 un/ml 10 ml VIAL SUBCUT SCH (19:27)
[2024-01-06] MEDS: DULoxetine DR 30 mg CAP PO SCH (08:31)
[2024-01-06 11:21] VITALS: BP 119/74
[2024-01-06 16:14] LABS: Urine Alcohol Negative mg/dL (Cutoff: 10); Urine Barbiturates Negative; Urine Benzodiazepines Presumptive Positive ng/mL; Urine Cocaine Negative; Urine Methadone Negative (Negative); Urine Opiates Presumptive Positive ng/mL (Negative); Urine Phencyclidine Negative ng/mL (Cutoff: 25); Urine Tetrahydrocannabinol Negative ng/mL (Cutoff: 50)
[2024-01-08 14:52] LABS: Codeine Confirmation, Urine Negative ng/mL (Cutoff: 25); Dihydrocodeine Conf, Urine Negative ng/mL (Cutoff: 25); Naloxone Confirm, Urine Negative ng/mL (Cutoff: 25); Norhydrocodone Confirm, Urine Negative ng/mL (Cutoff: 25); Noroxycodone Confirm, Urine Negative ng/mL (Cutoff: 25); Noroxymorphone Confirm, Urine Negative ng/mL (Cutoff: 25); Oxycodone Confirm, Urine Negative ng/mL (Cutoff: 25); Oxymorphone Confirm, Urine Negative ng/mL (Cutoff: 25)
[2024-01-10 19:42] LABS: 7-amnioflunitrazepam LC-MS/MS Negative ng/mL (Cutoff: 10); Alpha OH Triazolam by LC-MS/MS Negative ng/mL (Cutoff: 10); Alpha-Hydroxyalprazolam LC-MS Negative ng/mL (Cutoff: 10); Alpha-OH Midazolam LC-MS/MS Negative ng/mL (Cutoff: 10); Alprazolam LC-MS/MS Negative ng/mL (Cutoff: 10); Benzodiazepines Interpretation Positive.; Chlordiazepoxide by LC-MS/MS Negative ng/mL (Cutoff: 10); Clobazam LC-MS/MS Negative ng/mL (Cutoff: 10); Lorazepam by LC-MS/MS 2116 ng/mL (Cutoff: 10); Oxazepam by LC-MS/MS 140 ng/mL (Cutoff: 10); Prazepam by LC-MS/MS Negative ng/mL (Cutoff: 10); Temazepam by LC-MS/MS 68 ng/mL (Cutoff: 10); Triazolam by LC-MS/MS Negative ng/mL (Cutoff: 10); Zolpidem Phenyl-4-Carboxylic Negative ng/mL (Cutoff: 10); Zolpidem by LC-MS/MS Negative ng/mL (Cutoff: 10)
== END 2024-01-06 14:15 | disposition home or self-care (01) | DRG 392 ==
LOC: EDHOLD 13:10 → ED 13:10 → SUATTDRO 16:48 → MEDTELE 19:35
PROVIDERS: ADMIT Family Medicine; ATTEND Student in an Organized Health Care Education/Training Program

== ENCOUNTER 2024-01-18 09:11 | Inpatient (IN) ==
[2024-01-18 09:39] LABS: Venous Bicarbonate HCO3 24.3 mmol/L (24-28)
[2024-01-18 09:44] LABS: ABS Basophils 0.1 10^3/uL (0.0-0.1); ABS Lymphocytes 0.9 10^3/uL (1.0-4.8); ABS Monocytes 0.2 10^3/uL (0.0-0.9); ABS Neutrophils 8.9 10^3/uL (1.5-7.6); Hematocrit 44.4 % (35-45); Hemoglobin 14.2 g/dL (11.5-14.3); Lymphocyte % 8.9 %; Mean Corpuscular Hemoglobin 25.5 pg (27-33); Mean Corpuscular Volume 79.7 fL (80-97); Mean Platelet Volume 8.7 fL (7.5-11.2); Platelet Count 437 10^3/uL (150-450); Red Blood Count 5.56 10^6/uL (3.63-4.92); Red Cell Distribution Width 14.9 % (12-17); White Blood Count 10.1 10^3/uL (3.8-11.8)
[2024-01-18] MEDS: Droperidol 5 MG/2 ML 2 ML VIAL IV ONE (09:49)
[2024-01-18] MEDS: Lactated Ringers 1000 ml BAG 1,000 ML IV ONE ×2 (09:49→12:05)
[2024-01-18 10:13] LABS: ALT 14 U/L (7-52); AST 15 U/L (13-39); Albumin 4.3 g/dL (3.2-5.2); Albumin/Globulin Ratio 1.2 (1-3); Alkaline Phosphatase 78 U/L (35-149); Anion Gap 20 mmol/L (2-16); Blood Urea Nitrogen 11 mg/dL (6-24); CO2 Carbon Dioxide 23 mmol/L (22-32); Calcium 10.1 mg/dL (8.6-10.3); Chloride 98 mmol/L (101-111); Globulin 3.6 g/dL (2-4); Glucose 422 mg/dL (70-100); Lipase < 10 U/L (11.0-82.0); Potassium 5.1 mmol/L (3.5-5.0); Sodium 141 mmol/L (135-145); Total Bilirubin 1.3 mg/dL (0.2-1.0); Total Protein 7.9 g/dL (6.4-8.9); eGFR CKD-EPI 83.4 (>60)
[2024-01-18 10:15] LABS: HCG Pregnancy < 0.60 mIU/mL
[2024-01-18 11:18] LABS: Magnesium 1.9 mg/dL (1.9-2.7)
[2024-01-18] MEDS: Al Hydrox/Mg Hydrox/Simet LIQ 30 ML UDC PO ONE (13:06)
[2024-01-18] MEDS ORDERED: Adenosine 3 MG/ML 2 ml VIAL (6 mg) ONE (13:13)
[2024-01-18] MEDS: Adenosine 3 MG/ML 2 ml VIAL (6 mg) IV PUSH ONE ×2 (13:22→13:26)
[2024-01-18] MEDS: Lactated Ringers 1000 ml BAG 1,000 ML IV SCH ×2 (15:01→20:09)
[2024-01-18] MEDS: Insulin GLARGINE 100 un/ml 10 ml VIAL SUBCUT SCH (15:47)
[2024-01-18] MEDS: Famotidine IV 10 MG/ML 2 ml VIAL (20 mg) IV SLOW PU SCH (15:48)
[2024-01-18] MEDS: DULoxetine DR 30 mg CAP PO SCH (16:14)
[2024-01-18] MEDS: NS 0.9% 1000 ml BAG 1,000 ML IV SCH (20:57)
[2024-01-18] MEDS ORDERED: Dextrose 50% Syringe 50 ml 25 GM/50 ML SYRINGE IV PUSH PRN (20:57)
[2024-01-18] MEDS: NORMOSOL-R pH 7.4 1000 mL BAG 1,000 ML IV ONE (21:13)
[2024-01-18 21:28] LABS: Creatinine, Serum 1.01 mg/dL (0.51-0.95); Potassium 4.2 mmol/L (3.5-5.0); eGFR CKD-EPI 72.6 (>60)
[2024-01-18] MEDS: NORMOSOL-R pH 7.4 1000 mL BAG 1,000 ML IV SCH (22:12)
[2024-01-18] MEDS: Insulin Infusion 100unit/100mL 100 UNIT/100 ML BAG IV SCH (22:32)
[2024-01-18 23:30] LABS: Magnesium 2.4 mg/dL (1.9-2.7); Phosphorus 4.5 mg/dL (2.5-5.0)
[2024-01-18 23:32] LABS: Venous Bicarbonate HCO3 27.7 mmol/L (24-28)
[2024-01-18] MEDS: D5W 1/2 NS 1000 ml BAG 1,000 ML IV SCH (23:33)
[2024-01-18 23:54] LABS: Osmolality Serum 318 mOsm/kg (275-295)
[2024-01-19] MEDS: D5W 1/2 NS 1000 ml BAG 1,000 ML IV SCH (00:07)
[2024-01-19 01:37] LABS: Urine Benzodiazepine Screen None Detected (None Detect); Urine Buprenorphine Screen None Detected (None Detect); Urine Cannabinoids Screen None Detected (None Detect); Urine Fentanyl Screen None Detected (None Detect); Urine Hydrocodone Screen None Detected (None Detect); Urine Opiates Screen None Detected (None Detect)
[2024-01-19 01:59] LABS: Urine Appearance Clear; Urine Bilirubin Negative (Negative); Urine Blood Negative (Negative); Urine Color Light-Yellow; Urine Glucose 4+ (>=1000 mg/dL) (Negative); Urine Ketones 1+ (Negative); Urine Nitrite Negative (Negative); Urine Protein Negative (Negative); Urine Specific Gravity 1.038 (1.002-1.030); Urine Urobilinogen Negative (Negative); Urine pH 5.5 (5.0-8.0)
[2024-01-19 02:23] LABS: Calcium 8.7 mg/dL (8.6-10.3); Creatinine, Serum 0.93 mg/dL (0.51-0.95); Potassium 4.2 mmol/L (3.5-5.0); eGFR CKD-EPI 80.2 (>60)
[2024-01-19] MEDS ORDERED: Dextrose 50% Syringe 50 ml 25 GM/50 ML SYRINGE IV PUSH PRN (02:35)
[2024-01-19 05:17] LABS: Anion Gap 8 mmol/L (2-16); Blood Urea Nitrogen 20 mg/dL (6-24); CO2 Carbon Dioxide 25 mmol/L (22-32); Calcium 8.5 mg/dL (8.6-10.3); Chloride 102 mmol/L (101-111); Creatinine, Serum 0.81 mg/dL (0.51-0.95); Glucose 323 mg/dL (70-100); Sodium 135 mmol/L (135-145); eGFR CKD-EPI 94.6 (>60)
[2024-01-19] MEDS: Ondansetron 4 mg VIAL 2 MG/ML 2 ml VIAL IV PRN (08:22)
[2024-01-19 08:47] LABS: Calcium 8.4 mg/dL (8.6-10.3); Creatinine, Serum 0.75 mg/dL (0.51-0.95); Magnesium 2.1 mg/dL (1.9-2.7); eGFR CKD-EPI 103.8 (>60)
[2024-01-19] MEDS ORDERED: DULoxetine DR 30 mg CAP PO SCH (09:00)
[2024-01-19] MEDS ORDERED: Insulin GLARGINE 100 un/ml 10 ml VIAL SUBCUT SCH (09:00)
[2024-01-19] MEDS: Insulin Infusion 100unit/100mL 100 UNIT/100 ML BAG IV SCH (11:40)
[2024-01-19] MEDS: Metoclopramide 5 MG/ML VIAL (10 mg) IV SCH (12:05)
[2024-01-19] MEDS: Droperidol 5 MG/2 ML 2 ML VIAL IV ONE (12:05)
[2024-01-19] MEDS: Enoxaparin 40 MG/0.4 ML SYR SUBCUT SCH (13:44)
[2024-01-19] MEDS: Lactated Ringers 1000 ml BAG 1,000 ML IV ONE (13:44)
[2024-01-19 15:21] LABS: Anion Gap 6 mmol/L (2-16); Blood Urea Nitrogen 13 mg/dL (6-24); CO2 Carbon Dioxide 27 mmol/L (22-32); Calcium 8.2 mg/dL (8.6-10.3); Chloride 102 mmol/L (101-111); Creatinine, Serum 0.66 mg/dL (0.51-0.95); Glucose 226 mg/dL (70-100); Sodium 135 mmol/L (135-145); eGFR CKD-EPI 114.4 (>60)
[2024-01-19 16:07] LABS: Calcium 8.4 mg/dL (8.6-10.3); Creatinine, Serum 0.66 mg/dL (0.51-0.95); Potassium 3.9 mmol/L (3.5-5.0); eGFR CKD-EPI 114.4 (>60)
[2024-01-19 17:52] LABS: Potassium, Whole Blood 4.1 mmol/L (3.4-4.5)
[2024-01-19] MEDS: Insulin GLARGINE 100 un/ml 10 ml VIAL SUBCUT SCH (21:32)
[2024-01-19] MEDS: hydrALAZINE 20 mg/ml 1 ML Vial IV IV SLOW PU PRN (21:35)
[2024-01-20] MEDS: Multivitamins/Minerals TAB PO SCH (08:13)
[2024-01-20 10:03] LABS: ABS Basophils 0.1 10^3/uL (0.0-0.1); ABS Eosinophils 0.1 10^3/uL (0.0-0.5); ABS Lymphocytes 2.7 10^3/uL (1.0-4.8); ABS Monocytes 0.6 10^3/uL (0.0-0.9); ABS Neutrophils 3.9 10^3/uL (1.5-7.6); ABS Nucleated RBC 0.01 10^3/ul; Eosinophil % 1.2 %; Hematocrit 35.9 % (35-45); Hemoglobin 11.3 g/dL (11.5-14.3); Lymphocyte % 36.6 %; Mean Corpuscular Hemoglobin 25.1 pg (27-33); Mean Corpuscular Hgb Conc 31.4 g/dL (31-36); Mean Platelet Volume 8.4 fL (7.5-11.2); Nucleated Red Blood Cells % 0.1 %/100WBC (0.0-0.8); Platelet Count 374 10^3/uL (150-450); Red Blood Count 4.49 10^6/uL (3.63-4.92); Red Cell Distribution Width 14.5 % (12-17); White Blood Count 7.5 10^3/uL (3.8-11.8)
[2024-01-20 10:04] LABS: Calcium 8.2 mg/dL (8.6-10.3); Creatinine, Serum 0.69 mg/dL (0.51-0.95); Magnesium 1.8 mg/dL (1.9-2.7); Potassium 3.6 mmol/L (3.5-5.0); eGFR CKD-EPI 113.1 (>60)
[2024-01-20] MEDS: Mometasone/Formoter 200/5 MDI INH SCH (11:06)
[2024-01-20] MEDS: Albuterol HFA INHALER 8 gm MDI INH PRN (11:06)
[2024-01-20] MEDS: Lidocaine 1% MPF 5 ML VIAL INJ ONE (11:43)
[2024-01-20] MEDS: Magnesium Sulfate IV 1GM/100ML 1 GM/100 ML BAG IV ONE (12:21)
[2024-01-20] MEDS ORDERED: Polyethylene Glycol 3350 17 GM PACKET PO PRN (21:51)
[2024-01-20] MEDS ORDERED: Senna TAB 8.6 mg TAB PO PRN (21:51)
[2024-01-21 09:26] LABS: ABS Eosinophils 0.1 10^3/uL (0.0-0.5); ABS Lymphocytes 2.1 10^3/uL (1.0-4.8); ABS Monocytes 0.6 10^3/uL (0.0-0.9); ABS Neutrophils 2.4 10^3/uL (1.5-7.6); ABS Nucleated RBC 0.01 10^3/ul; Eosinophil % 2.5 %; Hematocrit 33.2 % (35-45); Hemoglobin 10.7 g/dL (11.5-14.3); Lymphocyte % 39.8 %; Mean Corpuscular Hemoglobin 25.7 pg (27-33); Mean Corpuscular Hgb Conc 32.3 g/dL (31-36); Mean Corpuscular Volume 79.7 fL (80-97); Mean Platelet Volume 8.2 fL (7.5-11.2); Nucleated Red Blood Cells % 0.2 %/100WBC (0.0-0.8); Platelet Count 318 10^3/uL (150-450); Red Blood Count 4.16 10^6/uL (3.63-4.92); Red Cell Distribution Width 14.2 % (12-17); White Blood Count 5.2 10^3/uL (3.8-11.8)
[2024-01-21 10:03] LABS: Calcium 8.2 mg/dL (8.6-10.3); Creatinine, Serum 0.64 mg/dL (0.51-0.95); Potassium 3.6 mmol/L (3.5-5.0); eGFR CKD-EPI 115.2 (>60)
[2024-01-22 09:40] LABS: ABS Eosinophils 0.1 10^3/uL (0.0-0.5); ABS Lymphocytes 2.2 10^3/uL (1.0-4.8); ABS Monocytes 0.6 10^3/uL (0.0-0.9); ABS Neutrophils 3.6 10^3/uL (1.5-7.6); ABS Nucleated RBC 0.01 10^3/ul; Eosinophil % 2.1 %; Hematocrit 32.4 % (35-45); Hemoglobin 10.5 g/dL (11.5-14.3); Mean Corpuscular Hemoglobin 26.1 pg (27-33); Mean Corpuscular Hgb Conc 32.5 g/dL (31-36); Mean Corpuscular Volume 80.3 fL (80-97); Mean Platelet Volume 8.4 fL (7.5-11.2); Nucleated Red Blood Cells % 0.2 %/100WBC (0.0-0.8); Platelet Count 326 10^3/uL (150-450); Red Blood Count 4.03 10^6/uL (3.63-4.92); Red Cell Distribution Width 14.3 % (12-17); White Blood Count 6.6 10^3/uL (3.8-11.8)
[2024-01-22 09:55] LABS: Albumin 3.1 g/dL (3.2-5.2); Albumin/Globulin Ratio 1.3 (1-3); Calcium 8.3 mg/dL (8.6-10.3); Creatinine, Serum 0.58 mg/dL (0.51-0.95); Globulin 2.4 g/dL (2-4); Magnesium 1.7 mg/dL (1.9-2.7); Potassium 3.9 mmol/L (3.5-5.0); Total Bilirubin 0.5 mg/dL (0.2-1.0); Total Protein 5.5 g/dL (6.4-8.9)
[2024-01-23 09:50] VITALS: BP 138/83
== END 2024-01-23 13:54 | disposition home or self-care (01) | DRG 639 ==
LOC: EDHOLD 09:11 → ED 09:11 → ICU 22:02 → SUATTDRO 23:30 → MED 01-20 12:15
PROVIDERS: ADMIT Hospitalist; ATTEND Student in an Organized Health Care Education/Training Program